=== PATIENT | male | born 1945 | race Caucasian/White ===

== ENCOUNTER 2018-11-06 14:26 | Inpatient (IN) | payer MEDICARE, BC, MEDICAID ==
--- NOTE | 2018-11-06 15:16 | ED ---
Complex/Multi-Sys Presentation - HPI Summary HPI Summary: A 73 y/o diabetic, morbidly obese M brought in by ambulance presents to ED with worsening weakness. He states that this AM he was unable to get out of bed. Associated sx: severe LE edema, mild cough, decreased appetite. Denies: CP, abd pain, n/v, urinary sx, dizziness, WATSON. He has not ambulated on his own for the last few weeks. He has SOB at baseline and a known yeast infection in his groin. He's been using his home bi-pap more often recently because of his "seasonal allergies flaring up". He sees Dr. Hopson, PCP, who apparently sees pt in his home. He lives alone. He denies recent hospital admission, [place] seen [place] [facility]. He says he is non-compliant with his DM in regards to his diet. He takes 70/30 combination of long-lasting/short-term insulin, 54 units in the AM and 30 units in evening. He says his A1C is in low 6s. Vitals at bedside: 94 bpm, BP: 105/64, O2 sat: 92% with his home Bi-pap on. Home Medications Medication Instructions Recorded Confirmed Type Allopurinol TAB* [Zyloprim 300 MG 04/05/13 04/05/13 History TAB*] Aspirin [Aspirin Adult Low Strengt] 81 mg PO 04/05/13 04/05/13 History Atenolol TAB* [Tenormin TAB* 50 MG] 04/05/13 04/05/13 History Diphenhydramine HCl [Benadryl] 2 tab 04/05/13 04/05/13 History Hydrochlorothiazide TAB* 12.5 04/05/13 04/05/13 History [Hydrodiuril TAB*] Lisinopril TAB* [Prinivil TAB*] 20 mg PO DAILY 04/05/13 04/05/13 History Loratadine & Pseudoephedrine 04/05/13 04/05/13 History [Loratadine-D 24Hr] Montelukast Sodium TAB* [Singulair 10 mg PO DAILY 04/05/13 04/05/13 History TAB*] Pioglitazone HCl 04/05/13 04/05/13 History Rosuvastatin Calcium [Crestor] 04/05/13 04/05/13 History glipiZIDE TAB.XL* [Glucotrol Xl*] 10 mg PO BID 04/05/13 04/05/13 History zzInsulin GLARGINE(*) [Lantus(*)] 35 unit 04/05/13 04/05/13 History - History Of Current Complaint Chief Complaint: EDGeneral Time Seen by Provider: 11/06/18 15:07 Hx Obtained From: Patient Onset/Duration: Gradual Onset, Lasting Weeks - and worsening this AM, Still Present Timing: Constant, Weeks Severity Currently: Severe Severity Initially: Moderate Location: Negative - no pain Character: Unable To Describe - weakness, inabilty to ambulate Aggravating Factor(s): Nothing Alleviating Factor(s): Nothing Associated Signs And Symptoms: Positive: Cough, Edema - LE, severe, Decreased Oral Intake. Negative: Dizziness, Headache, Chest Pain, Nausea, Vomiting, Abdominal Pain, Dysuria - Allergies/Home Medications Allergies/Adverse Reactions: Allergies Allergy/AdvReac Type Severity Reaction Status Date / Time doxycycline Allergy Diarrhea Verified 11/06/18 15:22 Home Medications: Home Medications Allopurinol TAB* [Zyloprim 300 MG TAB*] 300 mg PO DAILY 11/06/18 [History Confirmed 11/06/18] Ammonium Lactate 12% [Lac-Hydrin 12 %] 12 % TOPICAL DAILY PRN 11/06/18 [History Confirmed 11/06/18] Atenolol TAB* [Tenormin TAB* 25 MG] 50 mg PO BID 11/06/18 [History Confirmed ] Carisoprodol TAB* [Soma TAB*] 350 mg PO Q6H PRN 11/06/18 [History Confirmed ] Fluticasone NASAL SPRAY 50MCG* [Flonase NASAL SPRAY 50MCG*] 2 spray BOTH NARES DAILY PRN 11/06/18 [History Confirmed 11/06/18] Hydrochlorothiazide TAB* [Hydrodiuril TAB*] 12.5 mg PO QAM 11/06/18 [History Confirmed 11/06/18] Insulin Aspart Prot/Insuln Asp [Novolog Mix 70/30 Prefill] 30 units SUBCUT QPM 11/06/18 [History Confirmed 11/06/18] Insulin Aspart Prot/Insuln Asp [Novolog Mix 70/30 Prefill] 54 units SUBCUT QAM 11/06/18 [History Confirmed 11/06/18] LoraTADine TAB(NF) [Claritin 10 MG TAB(NF)] 10 mg PO DAILY 11/06/18 [History Confirmed 11/06/18] Nystatin CREAM* [Nystatin Cream*] 1 applic TOPICAL TID PRN 11/06/18 [History Confirmed 11/06/18] Pioglitazone TAB* [Actos TAB*] 30 mg PO DAILY 11/06/18 [History Confirmed ] Rosuvastatin (NF) [Crestor] 20 mg PO DAILY 11/06/18 [History Confirmed 11/06/18] diPHENhydraMINE PO* [Benadryl PO 25 MG TAB*] 25 mg PO DAILY PRN 11/06/18 [ History Confirmed 11/06/18] PMH/Surg Hx/FS Hx/Imm Hx Previously Healthy: No Endocrine/Hematology History: Reports: Hx Diabetes Denies: Hx Thyroid Disease Cardiovascular History: Reports: Hx Hypertension - TREATED, Other Cardiovascular Problems/Disorders - ENLARGED HEART Denies: Hx Congestive Heart Failure, Hx Pacemaker/ICD Respiratory History: Reports: Hx Seasonal Allergies, Hx Sleep Apnea Denies: Hx Asthma, Hx Chronic Obstructive Pulmonary Disease (COPD), Other Respiratory Problems/Disorders GI History: Reports: Other GI Disorders - Gout Denies: Hx Ulcer Sensory History: Reports: Hx Contacts or Glasses Opthamlomology History: Reports: Hx Contacts or Glasses - Surgical History Surgery Procedure, Year, and Place: Right knee replacement, 10 years ago. Tonsillectomy. L foot (as a youth) Infectious Disease History: No Infectious Disease History: Denies: Hx Hepatitis, Hx Human Immunodeficiency Virus (HIV), Traveled Outside the [place] in Last 30 Days - Family History Known Family History: Positive: Other Family History: Dementia; essential tremor - Social History Alcohol Use: Rare Hx Substance Use: No Substance Use Type: Reports: None Hx Tobacco Use: Yes Smoking Status (MU): Former Smoker - quit at 20 y/o Review of Systems Constitutional: Negative Negative: Chest Pain Positive: Cough, Other - using bipap almost continuously due to "allergies" Positive: Other - pos: decreased appetite. Negative: Abdominal Pain, Vomiting, Nausea Negative: dysuria Positive: Edema - severe LE Positive: Other - massive edema, lesions from toes to groin Neurological: Other - neg: dizziness Positive: Weakness. Negative: Headache Psychological: Normal All Other Systems Reviewed And Are Negative: Yes Physical Exam - Summary Physical Exam Summary: Appearance: Ill-appearing, no acute pain distress, morbidly obese (BMI 65.3, stated weight), unkempt, foul odor from bi-pap machine connected to pt's bilatera nostrils Skin: Lymphedema, anasarca from feet to mid abdomen, see below, pustules and open, weepy areas from feet to groin on massively swollen lower extremities, Head: Normal Head/Face inspection, atraumatic Eyes: Conjunctiva clear ENT: Normal inspection Neck: Supple, no nodes, no JVD Respiratory: Lungs clear, normal breath sounds, no respiratory distress, he is wearing his home bi-pap obstructing both nostrils, with only 87-91% sats Cardio: RRR, No murmur, pulses normal, brisk capillary refill Abdomen: Soft, nontender Bowel sounds: Present Musculoskeletal: Massively swollen bilateral LE with redness and pustules and brawny changes, weeping areas, 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 : redness and confluent rash consistent with snehal, in groin creases, penis retracted into scrotum Triage Information Reviewed: Yes Vital Signs On Initial Exam: Initial Vitals Temp Pulse Resp BP Pulse Ox 98.0 F 70 18 102/56 93 11/06/18 14:38 11/06/18 14:38 11/06/18 14:38 11/06/18 14:38 11/06/18 14:38 Vital Signs Reviewed: Yes Diagnostics - Vital Signs Vital Signs Temp Pulse Resp BP Pulse Ox 11/06/18 14:38 98.0 F 70 18 102/56 93 - Laboratory Result Diagrams: 11/16/18 19:34 11/16/18 08:53 Lab Statement: Any lab studies that have been ordered have been reviewed, and results considered in the medical decision making process. - Radiology CXR Radiology Interpretation Completed By: Radiologist Summary of Radiographic Findings: IMPRESSION: LOW LUNG VOLUMES. NO ACTIVE CARDIOPULMONARY DISEASE. ED provider has reviewed this report. - EKG 1535 Cardiac Rate: NL - 90 bpm EKG Rhythm: Sinus Rhythm ST Segment: Non-Specific Ectopy: PVCs - 1 EKG Comparison: No Significant Change - from EKG on 04/05/13. Summary of EKG Findings: An EKG at 1535 reveals 1st degree AV block, nml IVCT, nml QTc, low voltage. Complex Multi-Symp Course/Dx Course Of Treatment: Pt is a morbidly obese 73 y/o M presenting with worsening weakness for past few weeks. This AM, he was unable to get out of bed. Patient is wearing his home bipap at bedside. PE finds massively swollen bilateral LE with redness and pustules and brawny changes. Lab work shows: INR: 1.25, BUN: 55, creatinine: 1.34, BNP: 226, CRP: 24.51. An EKG at 1535 shows NSR at 90bpm with 1st degree AV block, nml IVCT, nml QTc, low voltage, 1 PVC, non-specific ST and similar to previous EKG on 04/05/13. UA results show 1+ protein, trace ketones, positive urobilinogen, 1+ WBC, 1+ RBC, hyaline casts present and squamous epithelia present. CXR shows "LOW LUNG VOLUMES. NO ACTIVE CARDIOPULMONARY DISEASE.". Consulted with Dr. Jo, hospitalist, who will admit patient. - Diagnoses Provider Diagnoses: Diabetes mellitus, Cellulitis, Unable to ambulate, Acquired lymphedema of lower extremity, Acute and chronic respiratory failure with hypoxia, Essential tremor, KRISTYN (obstructive sleep apnea), Seasonal allergies - Physician Notifications Discussed Care Of Patient With: Tavia Jo - hospitalist Time Discussed With Above Provider: 16:46 Instructed by Provider To: Admit As Inpatient - Critical Care Time Critical Care Time: 30-74 min - 30 minutes Discharge - Sign-Out/Discharge Documenting (check all that apply): Patient Departure - ADMIT All imaging exams completed and their final reports reviewed: Yes Patient Received Moderate/Deep Sedation with Procedure: No - Discharge Plan Condition: Stable Disposition: ADMITTED TO [facility] - Billing Disposition and Condition Condition: STABLE Disposition: Admitted to [facility] - Attestation Statements Document Initiated by Scribe: Yes Documenting Scribe: Edita Atkinson Provider For Whom Sheldon is Documenting (Include Credential): Dr. Orin Machado MD Scribe Attestation: Edita Butcher scribed for Dr. Orin Machado MD on 11/16/18 at 2337. Scribe Documentation Reviewed: Yes Provider Attestation: The documentation as recorded by the Edita alvarado accurately reflects the service I personally performed and the decisions made by me, Dr. Orin Machado MD Status of Scribe Document: Viewed
[2018-11-06 16:02] LABS: Activated Partial Thrombo Time 30.4 seconds (26.0-36.3); INR 1.25 (0.82-1.09)
[2018-11-06 16:08] LABS: Urine Appearance Cloudy; Urine Bacteria Absent (Absent); Urine Bilirubin Negative (Negative); Urine Blood Negative (Negative); Urine Color Amber; Urine Glucose Negative (Negative); Urine Ketones Trace (Negative); Urine Nitrite Negative (Negative); Urine Protein 1+(30 mg/dL) (Negative); Urine Red Blood Cell 1+(3-5/hpf) (Absent); Urine Specific Gravity 1.023 (1.010-1.030); Urine Squamous Epithelial Cell Present (Absent); Urine Urobilinogen Positive (Negative); Urine White Blood Cell 1+(6-10/hpf) (Absent)
[2018-11-06 16:09] LABS: Troponin I 0.01 ng/mL (<0.04)
[2018-11-06 16:13] LABS: ABS Eosinophils 0.1 10^3/ul (0-0.6); ABS Lymphocytes 0.4 10^3/ul (1.0-4.8); ABS Monocytes 0.6 10^3/ul (0-0.8); ABS Neutrophils 6.4 10^3/ul (1.5-7.7); Eosinophil % 1.1 %; Hematocrit 47 % (42-52); Hemoglobin 14.9 g/dL (14.0-18.0); Lymphocyte % 5.2 %; Mean Corpuscular HGB Conc 32 g/dL (31-36); Mean Corpuscular Hemoglobin 29 pg (27-31); Mean Corpuscular Volume 91 fL (80-94); Mean Platelet Volume 9.7 fL (7.4-10.4); Platelet Count 158 10^3/uL (150-450); Red Blood Count 5.11 10^6 /uL (4.18-5.48); Red Cell Distribution Width 17 % (10.5-15); White Blood Count 7.5 10^3/uL (3.5-10.8)
[2018-11-06 16:18] LABS: Albumin 3.7 g/dL (3.2-5.2); Albumin/Globulin Ratio 1.4 (1-3); C Reactive Protein 24.51 mg/L (<8.01); Calcium 9.1 mg/dL (8.6-10.3); EGFR African American 63.1 (>60); EGFR Non-African American 52.1 (>60); Globulin 2.6 g/dL (2-4); Magnesium 2.2 mg/dL (1.9-2.7); Total Bilirubin 1.5 mg/dL (0.2-1.0); Total Protein 6.3 g/dL (6.4-8.9)
[2018-11-06 16:47] LABS: TSH (Thyroid Stimulating Horm) 4.48 mcIU/mL (0.34-5.60)
[2018-11-06] MEDS ORDERED: Fluticasone NASAL SPRAY 50MCG* 16 gm SPRAY BTL BOTH NARES PRN (17:50)
[2018-11-06] MEDS ORDERED: Carisoprodol TAB* 350 MG PO PRN (17:50)
[2018-11-06] MEDS ORDERED: PROCHLORPERAZINE INJ 5 MG/ML 2 ML VIAL IV PRN (17:57)
[2018-11-06] MEDS ORDERED: Dextrose 50% Syringe 50 ML* 25 GM/50 ML SYRINGE IV PUSH PRN (18:03)
[2018-11-06] MEDS ORDERED: Furosemide IV* 10 MG/ML 2 ML VIAL (20 MG) IV SLOW PU ONE (18:04)
[2018-11-06] MEDS: Enoxaparin(*) 40 MG/0.4 ML SYR SUBCUT SCH (18:21)
--- NOTE | 2018-11-06 19:56 | HP ---
CC: Dr. Hopson * HISTORY AND PHYSICAL: DATE OF ADMISSION: 11/06/18 TIME OF EVALUATION: 5:30 p.m. PRIMARY CARE PROVIDER: Dr. Hopson. CHIEF COMPLAINT: "I can't move anymore." HISTORY OF PRESENT ILLNESS: Mr. Grahma is a 73-year-old male who has a past medical history of super morbid obesity with a BMI of 62, type 2 diabetes, hypertension, seasonal allergies, obstructive sleep apnea, gout who presented to the emergency room with complaints of decreased mobility. The patient states that for the past 3 years, he has had progressive decrease in his mobility. The last time he left his home was in 2016 and that was to go to a physician appointment. He states that before he was able to get up from his bed and transfer to an office chair with wheels and he would roll around the house and was able to cook and care for himself. Friends would do grocery shopping and help him with other activities. Dr. Hopson does house visits and the last time he was seen was in June of this year. The patient states that it has become harder and harder for him to move including rolling in bed, so his aide could help him clean up. He has been feeling more short of breath and he attributes this is to seasonal allergies. He is now using his BiPAP frequently during the day while awake because he states his nose gets so congested that he is not able to breathe and he has had to increase his oxygen from its usual 2 L up to 4 L when he has to move in bed. Over the past 7 days, he has been unable to get out of bed. He has a home health aide who comes an hour a day, 7 days a week and helps him clean up and get ready for the day. He also describes progressive worsening of his chronic lower extremity lymphedema with open areas and weeping. The patient states that his essential tremor has become worse and he has a difficult time managing his pills at home and also checking his glucose as it is very difficult for him to get the blood into the strip and the strip into his glucometer. He denies fever, chills, nausea, vomiting, diarrhea, chest pain, palpitations. PAST MEDICAL HISTORY: 1. Super morbid obesity with a BMI of 62.4. 2. Type 2 diabetes. 3. Hypertension. 4. Hyperlipidemia. 5. Gout. 6. Seasonal allergies. 7. Obstructive sleep apnea, on BiPAP and oxygen at home. 8. Essential tremor. PAST SURGICAL HISTORY: Status post right knee replacement in 2008. FAMILY HISTORY: He describes multiple family members with essential tremor and there is also a history of dementia. SOCIAL HISTORY: He has a remote history of tobacco abuse. He denies alcohol and drug use. Surrogate decision maker is his friend, Tremaine Tapia, phone number is [phone]. REVIEW OF SYSTEMS: A 14-point review of systems was performed, and all the pertinent negatives and positive findings are in the HPI. PHYSICAL EXAMINATION GENERAL: The patient is a pleasant super morbid obese elderly gentleman, sitting up in the ED stretcher, in no acute distress. VITAL SIGNS: Temperature 98.0, heart rate is 92, respiratory rate is 18, oxygen saturation is 96% on BiPAP with 2 L of oxygen, blood pressure 119/71. HEENT: Pupils are equal. Moist mucous membranes. CHEST: Breath sounds bilaterally with no added sounds. CVS: Normal S1, S2. Regular rate and rhythm with distant sounds. ABDOMEN: Morbid obese. Bowel sounds are present. EXTREMITIES: The patient has significant lymphedema with chronic skin changes including hyperchromia, varicose skin changes from his feet all the way up to his thighs. He has multiple open areas especially on the left side, weeping yellow serous drainage. 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 He has a foul- smelling, erythematous rash to his groin, abdominal folds. Please note that his thighs limits his physical examination. DIAGNOSTIC STUDIES/LAB DATA: The patient had a CBC that showed WBC of 7.5, hemoglobin 14.9, hematocrit 47, platelets of 158, 84% neutrophils. INR is 1.25. APTT is 30.4. Chemistry showed a sodium of 136, potassium of 5, chloride of 99, bicarb of 30, BUN of 55, creatinine of 1.34, glucose 183. Lactic acid 1.6. Calcium 9.1. Magnesium 2.2. LFTs showed a total bilirubin of 1.5, AST of 26, ALT of 19, alk phos of 82. CPK 91. Troponin 0.01. CRP 24. BNP 226. TSH 4.4. Urinalysis showed 1+ protein, trace ketones, urobilinogen is positive, 1+ wbc's, 1+ rbc's, squamous epithelial cells, hyaline casts, but no nitrites and no LE. Chest x-ray imaging was reviewed and there are low lung volumes and no active cardiopulmonary disease. EKG done on 11/06/18 at 3:35 p.m. shows sinus rhythm at 90 beats per minute with PVCs, no acute ischemic changes, no acute changes when compared to his prior EKG from 2012, but his voltage is lower now, probably secondary to his super morbid obesity. ASSESSMENT AND PLAN: Mr. Graham is a 73-year-old male with a past medical history of super morbid obesity with a BMI of 62.4, type 2 diabetes, hypertension, hyperlipidemia, obstructive sleep apnea, chronic kidney disease, stage III with probable diabetic nephropathy, chronic lower extremity lymphedema , who presented to the emergency room with progressive limitation of his mobility, now unable to get out of bed and with progressive worsening of his dyspnea and lower extremity edema, complicated by left lower extremity wounds and cellulitis. 1. Lower extremity cellulitis. The patient will be admitted to the medical floor, started on cephazolin and he will have wound care consult requested. 2. Dyspnea/lower extremity edema. I suspect the patient likely has congestive heart failure or at least right-sided heart failure in the setting of obstructive sleep apnea and probable obesity hypoventilation syndrome. We will give 1 dose of furosemide IV now and monitor his response. He will have an echocardiogram to try and assess his RV and LV function. This will be a limited study due to his body habitus, but it is worth a trial. 3. Deconditioning. The patient now is unable to get out of bed anymore. The plan is for him to be seen by [facility] and to arrange placement in a long-term facility with original plan for a rehab, but he may require long-term placement. 4. Type 2 diabetes. We will check hemoglobin A1c. As his oral intake will be lower in the hospital, we will adjust his insulin dose. We will continue Actos for now as he's been on this medication for some time, but may need to readdress depending on his echocardiogram result and clinical course. Add lispro sliding scale. 5. Hypertension is controlled. We will continue atenolol, hydrochlorothiazide , and lisinopril. 6. Gout. We will continue allopurinol. 7. DVT prophylaxis. The patient has a score of 4 on the DVT Prophylaxis Assessment Guide and he will be started on Lovenox. SCDs are contraindicated due to his lower extremity skin changes. 8. Code status is full. TIME SPENT: Approximately 65 minutes were spent with the patient interview, medical records review, physical examination to complete this admission, more than half of this time was spent [id number] with the patient and coordination of care. [id number]/CPS #: [id number] IRENE
[2018-11-06] MEDS: Insulin ISOPH/REG 70/30 (*) 1 UNITS UNIT SUBCUT SCH (20:35)
[2018-11-06] MEDS: Insulin LISPRO* 1 UNITS UNIT SUBCUT SCH (20:36)
[2018-11-06] MEDS: Atenolol TAB* 50 MG PO SCH (20:58)
[2018-11-06] MEDS: Lisinopril TAB* 10 MG PO SCH (20:58)
[2018-11-06] MEDS: ceFAZolin 1 GM ADVAN(*) 1 GM in NS 0.9% 50 ML* 50 ML IVPB SCH (21:05)
[2018-11-07] MEDS: ceFAZolin 1 GM ADVAN(*) 1 GM in NS 0.9% 50 ML* 50 ML IVPB SCH ×3 (03:41→20:30)
[2018-11-07 06:46] LABS: BUN/Creatinine Ratio 42.4 (8-20); Calcium 8.7 mg/dL (8.6-10.3); EGFR African American 64.2 (>60); Potassium 4.4 mmol/L (3.5-5.0)
[2018-11-07] MEDS: Insulin LISPRO* 1 UNITS UNIT SUBCUT SCH ×4 (08:16→22:06)
[2018-11-07] MEDS ORDERED: Pioglitazone TAB* 30 MG PO SCH (09:00)
[2018-11-07] MEDS ORDERED: Hydrochlorothiazide TAB* 25 MG PO SCH (09:00)
[2018-11-07] MEDS: Allopurinol TAB* 300 MG PO SCH (10:02)
[2018-11-07] MEDS: Montelukast Sodium TAB* 10 MG PO SCH (10:02)
[2018-11-07] MEDS: Atorvastatin* 40 MG TAB PO SCH (10:02)
[2018-11-07] MEDS: Atenolol TAB* 50 MG PO SCH ×2 (10:02→21:41)
[2018-11-07] MEDS: Cetirizine* 10 MG TAB PO SCH (10:02)
[2018-11-07] MEDS: Lisinopril TAB* 10 MG PO SCH (10:02)
[2018-11-07] MEDS ORDERED: Perflutren Lipid Microsphere* 3 ML VIAL ONE (11:47)
[2018-11-07] MEDS: Insulin ISOPH/REG 70/30 (*) 1 UNITS UNIT SUBCUT SCH ×2 (12:38→22:09)
--- NOTE | 2018-11-07 13:55 | ECHO ---
*[facility]* [place] [address] Fax #: [phone] Patient: Gladys, Height: 70 in / Chi Lee 177.8 cm : 1945 Weight: 429.1 lb / Study Date: 11/07/2018 195 kg Age: 73 BP: Gender: M BMI/BSA: 61.7 kg/m^2 HR: / 2.89 m^2 *Manager Monitoring: * Alisa Vance RDCS RN *Referring Physician: * Tavia AndreaReading Physician: * James Torres MD Indications: Congestive Heart Failure. History: Functional status: Obstructive sleep apnea. Risk factors: Hypertension. Diabetes mellitus. Morbidly obese. Conclusions Summary: 1. Procedure narrative: Transthoracic echocardiography was performed. Image quality was poor. The study was technically limited due to restricted patient mobility and body habitus. Definity 4 ml was given IV. 2. Left ventricle: The cavity size is normal. Wall thickness is mildly to moderately increased. Systolic function is normal. The estimated ejection fraction is 55-60%. 3. Right ventricle: The cavity size is moderately dilated. Systolic function is moderately reduced. Systolic pressure is moderately to severely increased. The estimated peak pressure is 63 mm Hg. 4. Ventricular septum: There is septal flattening of the interventricular septum consistent with RV volume or pressure overload. 5. Left atrium: The atrium is mildly dilated. 6. Aortic valve: The findings are consistent with mild stenosis. Unable to calculate LEI due to difficult PW left ventricular outflow tract acquisition. 7. Tricuspid valve: There is mild regurgitation. Recommendations: None prior for comparison at time of interpretation Study data: Procedure: Transthoracic echocardiography was performed. Image quality was poor. The study was technically limited due to restricted patient mobility and body habitus. Definity 4 ml was given IV. Image enhancement administered by Tai Contreras RN. Complete 2D, spectral Doppler, and color flow Doppler. Patient status: Inpatient. Patient room number: 420-01. Rhythm: Normal sinus rhythm with PVC's. Findings Left ventricle: The cavity size is normal. Wall thickness is mildly to moderately increased. Systolic function is normal. The estimated ejection fraction is 55-60%. Abnormal diastolic filling pattern Right ventricle: Not well visualized. The cavity size is moderately dilated. Systolic function is moderately reduced. Systolic pressure is moderately to severely increased. The estimated peak pressure is 63 mm Hg. Ventricular septum: There is septal flattening of the interventricular septum consistent with RV volume or pressure overload. Left atrium: Not well visualized. The atrium is mildly dilated. Right atrium: Not well visualized. The atrium is moderately dilated. Mitral valve: Not well visualized. The leaflets are mildly thickened. There is no evidence of stenosis. There is trivial regurgitation. Aortic valve: Not well visualized. The leaflets are moderately thickened and moderately calcified. Valve mobility is restricted. The findings are consistent with mild stenosis. There is no significant regurgitation. Tricuspid valve: The valve is structurally normal. There is no evidence of stenosis. There is mild regurgitation. Pulmonic valve: Not well visualized. Aorta: Aortic root: The aortic root is not dilated. Ascending aorta: The ascending aorta is not dilated. Aortic arch: The aortic arch is not visualized. Pericardium: There is no pericardial effusion. Pulmonary arteries: Not well visualized. Systemic veins: Not visualized. Measurements Left ventricle Value Ref Right atrium Value Ref MARIO, LAX (L) 4.1 cm 4.2 - ML dim, ES, A4C (H) 4.8 cm 2.6 - 4.4 5.8 SI dim, ES, A4C (H) 6.2 cm 3.4 - 5.3 PW, ED, LAX (H) 1.3 cm 0.6 - Estimated RAP 8 mm Hg --------- 1.0 PW, ED (H) 1.3 cm 0.6 - Aortic valve Value Ref 1.0 Jose R diam, ED 2.1 cm --------- IVS/PW, ED 1.03 -------- Peak v, S 2.2 m/sec --------- E', lat jose r, TDI (L) 8.1 cm/sec >=10.0 VTI, S 39.0 cm ---- ----- E/e', lat jose r, TDI 12 -------- Mean grad, S 11.0 mm Hg ------- -- E', med jose r, TDI (L) 6.2 cm/sec >=7.0 E/e', med jose r, TDI 16 -------- Mitral valve Value Ref E', avg, TDI 7.2 cm/sec -------- Peak E 0.97 m/sec ------- -- E/e', avg, TDI 14 <=14 Peak A 0.6 m/sec ---- ----- Decel time 176 ms --------- LVOT Value Ref Peak grad, D 3.8 mm Hg --------- Diam, S 2.10 cm -------- Peak E/A ratio 1.6 --------- Area 3.5 cm^2 -------- Peak lynn, S 0.84 m/sec -------- Pulmonic valve Value Ref VTI, S 15.1 cm -------- Peak v, S 0.74 m/sec --------- Mean grad, S 1 mm Hg -------- Peak grad, S 2.0 mm Hg --------- SV 47 ml -------- Tricuspid valve Value Ref Ventricular septum Value Ref Peak RV-RA grad, S 55 mm Hg --------- IVS, ED (H) 1.3 cm 0.6 - Max TR lynn 3.71 m/sec --------- 1.0 Aortic root Value Ref Right ventricle Value Ref Root max diam, ED 2.5 cm <4.8 MARIO, LAX 3.9 cm -------- MARIO minor ax, A4C (H) 4.9 cm 1.9 - Ascending aorta Value Ref mid 3.5 AAo AP diam, S 3.0 cm --------- Pressure, S 55 mm Hg -------- Left atrium Value Ref ML dim, A4C 5.1 cm -------- SI dim, A4C 5.3 cm -------- Legend: (L) and (H) jules values outside specified reference range. Prepared and electronically signed by James Torres MD 11/07/2018 13:53
[2018-11-07] MEDS: Furosemide IV* 10 MG/ML VIAL (40 MG) IV SCH ×2 (14:57→22:06)
[2018-11-07] MEDS: Enoxaparin(*) 40 MG/0.4 ML SYR SUBCUT SCH (17:43)
--- NOTE | 2018-11-07 18:08 | PN ---
Subjective Date of Service: 11/07/18 Interval History: Nasal congestion, dry cough, worsened orthopnea, gain of 120 lbs in 2 years since last weight. Worse shortness of breath and has needed his nasal bipap during day. Has not been able to get out of bed in 8 weeks. No chest pain, fever , leg pain (more intermittent numbness that is positional worse with sitting on toilet). Had been using benadryl with good effect. Objective Active Medications: Acetaminophen (Tylenol Tab*) 650 mg PO Q6H PRN PRN Reason: pain/fever Allopurinol (Zyloprim Tab*) 300 mg PO DAILY [facility] Last Admin: 11/07/18 10:02 Dose: 300 mg Ammonium Lactate (Lac-Hydrin 12 %) 1 applic TOPICAL DAILY PRN PRN Reason: DRY SKIN Atenolol (Tenormin Tab*) 50 mg PO BID [facility] Last Admin: 11/07/18 10:02 Dose: 50 mg Atorvastatin Calcium (Lipitor*) 40 mg PO DAILY [facility] Last Admin: 11/07/18 10:02 Dose: 40 mg Carisoprodol (Soma Tab*) 350 mg PO Q6H PRN PRN Reason: SPASMS - MUSCLE Cetirizine HCl (Zyrtec*) 10 mg PO DAILY [facility] Last Admin: 11/07/18 10:02 Dose: 10 mg Dextrose (D50w Syringe 50 Ml*) 12.5 gm IV PUSH .FOR FS < 60 - SS PRN PRN Reason: FS < 60 Diphenhydramine HCl (Benadryl Po*) 25 mg PO TID PRN PRN Reason: Allergy Symptoms Enoxaparin Sodium (Lovenox(*)) 40 mg SUBCUT Q24H [facility] Last Admin: 11/07/18 17:43 Dose: 40 mg Fluticasone Propionate (Flonase Nasal [place] 50mcg*) 2 spray BOTH NARES DAILY PRN PRN Reason: Allergy Symptoms Furosemide (Lasix Iv*) 40 mg IV Q8H [facility] Last Admin: 11/07/18 14:57 Dose: 40 mg Hydrochlorothiazide (Hydrodiuril Tab*) 12.5 mg PO QAM [facility] Last Admin: 11/07/18 10:02 Dose: 12.5 mg Cefazolin Sodium 1 gm/ Sodium (Chloride) 50 mls @ 200 mls/hr IVPB Q8H [facility] Last Admin: 11/07/18 12:51 Dose: 200 mls/hr Insulin Human Isoph/Insulin Regular (Humulin 70/30 (*)) 35 units SUBCUT 0800 [facility] Last Admin: 11/07/18 12:38 Dose: Not Given Insulin Human Isoph/Insulin Regular (Humulin 70/30 (*)) 20 units SUBCUT BEDTIME [facility] Last Admin: 11/06/18 20:35 Dose: 20 units Insulin Human Lispro (Humalog*) 0 units SUBCUT ACHS [facility]; Protocol Last Admin: 11/07/18 17:43 Dose: 3 units Lisinopril (Prinivil Tab*) 20 mg PO BID [facility] Last Admin: 11/07/18 10:02 Dose: 20 mg Montelukast Sodium (Singulair Tab*) 10 mg PO DAILY [facility] Last Admin: 11/07/18 10:02 Dose: 10 mg Nystatin (Nystatin Cream*) 1 applic TOPICAL TID PRN PRN Reason: RASH Pioglitazone HCl (Actos Tab*) 30 mg PO DAILY [facility] Last Admin: 11/07/18 10:02 Dose: 30 mg Prochlorperazine Edisylate (Compazine Inj*) 5 mg IV Q6H PRN PRN Reason: NAUSEA/VOMITING Vital Signs - 8 hr 11/07/18 11/07/18 11/07/18 11:36 15:19 16:20 Temperature 98.0 F Pulse Rate 96 Respiratory 22 28 Rate Blood Pressure 107/37 (mmHg) O2 Sat by Pulse 91 91 Oximetry Oxygen Devices in Use Now: Nasal Cannula Appearance: NAD Neck: NL Appearance and Movements; NL JVP Respiratory: Symmetrical Chest Expansion and Respiratory Effort, - - difficult exam given body habitus. anterolaterally no obvious rhonchi or wheezing Cardiovascular: NL Sounds; No Murmurs; No JVD, RRR Abdominal: - - distended. no tender Extremities: - - 2+ anisarca from ankles, legs, dependant buttock and 2/[address] up back/lateral torso. pitting. Skin: - - erythema, chronic lymphadema, hyperpigmentation. Neurological: Alert and Oriented x 3 Nutrition: Taking PO's Result Diagrams: 11/06/18 15:36 11/07/18 06:05 Additional Lab and Data: Laboratory Results - last 24 hr 11/06/18 11/06/18 11/07/18 18:21 20:29 06:05 Sodium Potassium Chloride Carbon Dioxide Anion Gap BUN Creatinine Est GFR ( Amer) Est GFR (Non-Af Amer) BUN/Creatinine Ratio Glucose POC Glucose (mg/dL) 160 H 163 H Hemoglobin A1c 5.8 H Calcium 11/07/18 11/07/18 11/07/18 06:05 07:39 08:20 Sodium 138 Potassium 4.4 Chloride 101 Carbon Dioxide 32 Anion Gap 5 BUN 56 H Creatinine 1.32 H Est GFR ( Amer) 64.2 Est GFR (Non-Af Amer) 53.0 BUN/Creatinine Ratio 42.4 H Glucose 82 POC Glucose (mg/dL) 68 L 94 Hemoglobin A1c Calcium 8.7 11/07/18 11/07/18 12:32 16:54 Sodium Potassium Chloride Carbon Dioxide Anion Gap BUN Creatinine Est GFR ( Amer) Est GFR (Non-Af Amer) BUN/Creatinine Ratio Glucose POC Glucose (mg/dL) 132 H 196 H Hemoglobin A1c Calcium Microbiology and Other Data: Microbiology 11/06/18 15:36 Aerobic Blood Culture - Preliminary Blood Venous No Growth Day 1 Anaerobic Blood Culture - Preliminary No Growth Day 1 11/06/18 15:36 Aerobic Blood Culture - Preliminary Blood Venous No Growth Day 1 Assess/Plan/Problems-Billing Assessment: 73 year old male supermorbid obesity (BMI 65.3) presenting with worsening hypoxic respiratory failure and inability to get out of bed for 8 weeks. BNP elevated, anisarca to mid chest with suspected acute diastolic CHF exacerbation. - Patient Problems (1) Acute and chronic respiratory failure with hypoxia Current Visit: Yes Status: Acute Code(s): J96.21 - ACUTE AND CHRONIC RESPIRATORY FAILURE WITH HYPOXIA SNOMED Code(s): 92087418 Comment: Suspected secondary to acute diastolic CHF exacerbation. DDx included PE (there is eveidence of significant right ventricular pressure overload consistent with pHTN). Aggressive diuresis as below. (2) Diastolic CHF Current Visit: Yes Status: Acute Code(s): I50.30 - UNSPECIFIED DIASTOLIC ( CONGESTIVE) HEART FAILURE SNOMED Code(s): 614631552 Comment: ECHO with preserved EF. Anisaraca to 2/3 up torso with pitting edema. at home is on 12.5mg HCTZ. Lasix 40mg IV q8hrs. strict io, daily weights. Monitor Lytes. Will need several more day of diuresis as he is likely 10s of kgs extra water weight causing worsening hypoxic respiratory failure. stop pioglitizone given symptomatic CHF. (3) Pulmonary hypertension Current Visit: Yes Status: Acute Code(s): I27.20 - PULMONARY HYPERTENSION, UNSPECIFIED SNOMED Code(s): 26520761 Comment: ddx obesity hypoventilation, diastolic heart failure, PE. Will add Ddimer and if positive likely will need to rule out PE with CTA chest. (4) Right ventricular (RV) hypertension Current Visit: Yes Status: Acute Code(s): I51.89 - OTHER ILL-DEFINED HEART DISEASES SNOMED Code(s): 325780228 Comment: ddx obesity hypoventilation, diastolic heart failure, PE. Will add Ddimer and if positive likely will need to rule out PE with CTA chest. (5) Acquired lymphedema of lower extremity Current Visit: Yes Status: Acute Code(s): I89.0 - LYMPHEDEMA, NOT ELSEWHERE CLASSIFIED SNOMED Code(s): 221166584 Comment: Pt on cefazolin though I suspect most of these are chronic changes. (6) HTN (hypertension) Current Visit: Yes Status: Acute Code(s): I10 - ESSENTIAL (PRIMARY) HYPERTENSION SNOMED Code(s): 49725260 Comment: reduce lisinopril 20mg BID to 10mg BID given increase in diuresis. atenolol 50mg BID (7) Essential tremor Current Visit: Yes Status: Acute Code(s): G25.0 - ESSENTIAL TREMOR SNOMED Code(s): 609104262 Comment: continue home soma. (8) IDDM (insulin dependent diabetes mellitus) Current Visit: Yes Status: Acute Code(s): E11.9 - TYPE 2 DIABETES MELLITUS WITHOUT COMPLICATIONS; Z79.4 - SENIOR CARE (CURRENT) USE OF INSULIN SNOMED Code( s): 16846805 Comment: 70/30 35U qam/20U qpm with hold parameters. SSI qachs, POC qachs carbohydrate consistent diet. stop pioglitizone given symptomatic CHF. (9) KRISTYN (obstructive sleep apnea) Current Visit: Yes Status: Acute Code(s): G47.33 - OBSTRUCTIVE SLEEP APNEA ( ADULT) (PEDIATRIC) SNOMED Code(s): 84672659 Comment: nasal bipap (10) DVT prophylaxis Current Visit: Yes Status: Acute Code(s): Z29.9 - ENCOUNTER FOR PROPHYLACTIC MEASURES, UNSPECIFIED SNOMED Code(s): 789348222 Comment: lovenox 40mg daily. (11) DNR (do not resuscitate) Current Visit: Yes Status: Acute (12) Seasonal allergies Current Visit: Yes Status: Acute Code(s): J30.2 - OTHER SEASONAL ALLERGIC RHINITIS SNOMED Code(s): 554853016 Comment: continue ceterizine. (13) Gout Current Visit: Yes Status: Acute Code(s): M10.9 - GOUT, UNSPECIFIED SNOMED Code(s): 43584459 Comment: continue allopurinol Status and Disposition: medicine inpatient. Likely will need bariatric rehab facility after many days of aggressive diuresis. Attending: Jorge Luis Bravo
[2018-11-07] MEDS: Acetaminophen TAB* 325 MG PO PRN (18:09)
[2018-11-07] MEDS ORDERED: Lisinopril TAB* 10 MG PO SCH (21:00)
[2018-11-07] MEDS ORDERED: Atenolol TAB* 50 MG PO SCH (23:26)
--- NOTE | 2018-11-07 23:31 | PN ---
Hospitalist Progress Note Date of Service: 11/07/18 called for SBP 87. patient is asymptomatic. will stop lisinopril and lasix for tonight. holding parameters for atenolol
[2018-11-08] MEDS: ceFAZolin 1 GM ADVAN(*) 1 GM in NS 0.9% 50 ML* 50 ML IVPB SCH ×2 (05:00→12:35)
[2018-11-08 06:13] LABS: BUN/Creatinine Ratio 37.5 (8-20); Calcium 8.3 mg/dL (8.6-10.3); EGFR African American 48.6 (>60); EGFR Non-African American 40.1 (>60); Magnesium 2.3 mg/dL (1.9-2.7); Potassium 4.4 mmol/L (3.5-5.0)
[2018-11-08] MEDS: Insulin LISPRO* 1 UNITS UNIT SUBCUT SCH ×4 (08:14→21:01)
[2018-11-08] MEDS: Insulin ISOPH/REG 70/30 (*) 1 UNITS UNIT SUBCUT SCH ×2 (08:30→21:00)
[2018-11-08] MEDS: Allopurinol TAB* 300 MG PO SCH (08:36)
[2018-11-08] MEDS: Montelukast Sodium TAB* 10 MG PO SCH (08:36)
[2018-11-08] MEDS: Cetirizine* 10 MG TAB PO SCH (08:36)
[2018-11-08] MEDS: Atorvastatin* 40 MG TAB PO SCH (08:36)
[2018-11-08 10:42] LABS: Urine Creatinine Concentration 71.54 mg/dL
[2018-11-08] MEDS ORDERED: CMC:Midodrine (NF) 5 MG TAB PO SCH (13:00)
[2018-11-08] MEDS: CMCS - Midodrine (NF) 5 MG TAB PO SCH (17:12)
[2018-11-08] MEDS: Enoxaparin(*) 40 MG/0.4 ML SYR SUBCUT SCH (17:17)
--- NOTE | 2018-11-08 18:18 | PN ---
Subjective Date of Service: 11/08/18 Interval History: Hypotensive last night 80s/40. Antihypertensives stopped. Afebrile. Midodrine added. Asymptomatic. BARREL PLANER bumped 1.32 to 1.68. Net negative 927cc. Diuretics also held given hypotension and NADINE. DDimer elevated, No DVT on US. Objective Active Medications: Acetaminophen (Tylenol Tab*) 650 mg PO Q6H PRN PRN Reason: pain/fever Last Admin: 11/07/18 18:09 Dose: 650 mg Allopurinol (Zyloprim Tab*) 300 mg PO DAILY [facility] Last Admin: 11/08/18 08:36 Dose: 300 mg Ammonium Lactate (Lac-Hydrin 12 %) 1 applic TOPICAL DAILY PRN PRN Reason: DRY SKIN Atorvastatin Calcium (Lipitor*) 40 mg PO DAILY [facility] Last Admin: 11/08/18 08:36 Dose: 40 mg Carisoprodol (Soma Tab*) 350 mg PO Q6H PRN PRN Reason: SPASMS - MUSCLE Cetirizine HCl (Zyrtec*) 10 mg PO DAILY [facility] Last Admin: 11/08/18 08:36 Dose: 10 mg Dextrose (D50w Syringe 50 Ml*) 12.5 gm IV PUSH .FOR FS < 60 - SS PRN PRN Reason: FS < 60 Diphenhydramine HCl (Benadryl Po*) 25 mg PO TID PRN PRN Reason: Allergy Symptoms Enoxaparin Sodium (Lovenox(*)) 40 mg SUBCUT Q24H [facility] Last Admin: 11/08/18 17:17 Dose: 40 mg Fluticasone Propionate (Flonase Nasal [place] 50mcg*) 2 spray BOTH NARES DAILY PRN PRN Reason: Allergy Symptoms Cefazolin Sodium 1 gm/ Sodium (Chloride) 50 mls @ 200 mls/hr IVPB Q8H [facility] Last Admin: 11/08/18 12:35 Dose: 200 mls/hr Insulin Human Isoph/Insulin Regular (Humulin 70/30 (*)) 20 units SUBCUT BEDTIME [facility] Last Admin: 11/07/18 22:09 Dose: 20 units Insulin Human Lispro (Humalog*) 0 units SUBCUT ACHS [facility]; Protocol Last Admin: 11/08/18 18:06 Dose: 2 units Midodrine (Midodrine (Nf)) 7.5 mg PO AC [facility]; Protocol Last Admin: 11/08/18 17:12 Dose: 7.5 mg Montelukast Sodium (Singulair Tab*) 10 mg PO DAILY [facility] Last Admin: 11/08/18 08:36 Dose: 10 mg Nystatin (Nystatin Cream*) 1 applic TOPICAL TID PRN PRN Reason: RASH Prochlorperazine Edisylate (Compazine Inj*) 5 mg IV Q6H PRN PRN Reason: NAUSEA/VOMITING Vital Signs - 8 hr 11/08/18 11/08/18 11/08/18 11:51 12:18 13:37 Temperature 97.6 F Pulse Rate 97 Respiratory 20 Rate Blood Pressure 80/40 90/50 (mmHg) O2 Sat by Pulse 93 93 Oximetry 11/08/18 11/08/18 13:57 15:45 Temperature 97.2 F Pulse Rate 94 Respiratory 20 Rate Blood Pressure 95/50 94/51 (mmHg) O2 Sat by Pulse 98 Oximetry Oxygen Devices in Use Now: Nasal Cannula, BiPAP Appearance: NAD Eyes: No Scleral Icterus Ears/Nose/Mouth/Throat: NL Teeth, Lips, Gums, Mucous Membranes Moist Neck: NL Appearance and Movements; NL JVP, Trachea Midline Respiratory: Symmetrical Chest Expansion and Respiratory Effort, Clear to Auscultation Cardiovascular: NL Sounds; No Murmurs; No JVD, RRR Abdominal: - - pitting anisarca 2/3 up back Extremities: - - pitting anisarca 2/3 up back Skin: - - hyperkeratotic, erythema, no warmth. chronic lymphadema. Neurological: Alert and Oriented x 3, NL Sensation, NL Muscle Strength and Tone Lines/Tubes/Other Access: Clean, Dry and Intact Hodge - dark yellow urine Nutrition: Taking PO's Result Diagrams: 11/06/18 15:36 11/08/18 05:47 Additional Lab and Data: Laboratory Results - last 24 hr 11/07/18 11/08/18 11/08/18 21:06 05:47 05:47 D-Dimer, Quantitative 729 H Sodium 137 Potassium 4.4 Chloride 101 Carbon Dioxide 33 H Anion Gap 3 BUN 63 H Creatinine 1.68 H Est GFR ( Amer) 48.6 Est GFR (Non-Af Amer) 40.1 BUN/Creatinine Ratio 37.5 H Glucose 116 H POC Glucose (mg/dL) 199 H Calcium 8.3 L Magnesium 2.3 Ur Creatinine Concen Ur Urea Nitrogen Conc 11/08/18 11/08/18 11/08/18 07:26 09:35 12:10 D-Dimer, Quantitative Sodium Potassium Chloride Carbon Dioxide Anion Gap BUN Creatinine Est GFR ( Amer) Est GFR (Non-Af Amer) BUN/Creatinine Ratio Glucose POC Glucose (mg/dL) 120 H 169 H Calcium Magnesium Ur Creatinine Concen 71.54 Ur Urea Nitrogen Conc 731 11/08/18 17:34 D-Dimer, Quantitative Sodium Potassium Chloride Carbon Dioxide Anion Gap BUN Creatinine Est GFR ( Amer) Est GFR (Non-Af Amer) BUN/Creatinine Ratio Glucose POC Glucose (mg/dL) 148 H Calcium Magnesium Ur Creatinine Concen Ur Urea Nitrogen Conc Microbiology and Other Data: Microbiology 11/06/18 15:36 Blood Venous Aerobic Blood Culture - Preliminary No Growth Day 2 11/06/18 15:36 Blood Venous Aerobic Blood Culture - Preliminary No Growth Day 2 11/06/18 15:36 Blood Venous Anaerobic Blood Culture - Preliminary No Growth Day 2 11/06/18 15:54 Urine Urine Culture - Final Morganella Morganii Normal [facility] Assess/Plan/Problems-Billing Assessment: 73 year old male supermorbid obesity (BMI 65.3) presenting with worsening hypoxic respiratory failure and inability to get out of bed for 8 weeks. BNP elevated, anisarca two thirds up chest with suspected acute diastolic CHF exacerbation. Course complicated by hypotension. - Patient Problems (1) Acute and chronic respiratory failure with hypoxia Current Visit: Yes Status: Acute Code(s): J96.21 - ACUTE AND CHRONIC RESPIRATORY FAILURE WITH HYPOXIA SNOMED Code(s): 22799833 Comment: Suspected secondary to acute diastolic CHF exacerbation. DDx included PE (there is eveidence of significant right ventricular pressure overload consistent with pHTN). Have to hold diuresis in setting of hypotention for now. (2) Diastolic CHF Current Visit: Yes Status: Acute Code(s): I50.30 - UNSPECIFIED DIASTOLIC ( CONGESTIVE) HEART FAILURE SNOMED Code(s): 405881040 Comment: ECHO with preserved EF. Anisaraca to 2/3 up torso with pitting edema. at home is on 12.5mg HCTZ. Holding lasix givne hypotension. strict io, daily weights. Monitor Lytes. Will need several days of diuresis as he is likely in the 10s of kgs extra water weight causing worsening hypoxic respiratory failure. stop pioglitizone given symptomatic CHF. (3) Pulmonary hypertension Current Visit: Yes Status: Acute Code(s): I27.20 - PULMONARY HYPERTENSION, UNSPECIFIED SNOMED Code(s): 37747734 Comment: ddx obesity hypoventilation, diastolic heart failure, PE. Ddimer elevated. No DVT on duplex. BARREL PLANER up to 1.6. Will plan v/q scan on Saturday. (4) Right ventricular (RV) hypertension Current Visit: Yes Status: Acute Code(s): I51.89 - OTHER ILL-DEFINED HEART DISEASES SNOMED Code(s): 785276647 Comment: ddx obesity hypoventilation, diastolic heart failure, PE. Ddimer elevated. No DVT on duplex. BARREL PLANER up to 1.6. Will plan v/q scan on Saturday. (5) Acquired lymphedema of lower extremity Current Visit: Yes Status: Acute Code(s): I89.0 - LYMPHEDEMA, NOT ELSEWHERE CLASSIFIED SNOMED Code(s): 980973224 Comment: Change to ceftriaxone to also cover the 25-50K Morganella Morganii found in the UCx. (6) HTN (hypertension) Current Visit: Yes Status: Acute Code(s): I10 - ESSENTIAL (PRIMARY) HYPERTENSION SNOMED Code(s): 78833475 Comment: held lisinopril (home was 20mg BID, had been reduced to 10mg BID given increase in diuresis) held atenolol 50mg BID (7) Essential tremor Current Visit: Yes Status: Acute Code(s): G25.0 - ESSENTIAL TREMOR SNOMED Code(s): 025630728 Comment: continue home soma. 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 Continue 20U qpm with hold parameters. SSI qachs, POC qachs carbohydrate consistent diet. stop pioglitizone given symptomatic CHF. (9) KRISTYN (obstructive sleep apnea) Current Visit: Yes Status: Acute Code(s): G47.33 - OBSTRUCTIVE SLEEP APNEA ( ADULT) (PEDIATRIC) SNOMED Code(s): 16005861 Comment: nasal bipap (10) DVT prophylaxis Current Visit: Yes Status: Acute Code(s): Z29.9 - ENCOUNTER FOR PROPHYLACTIC MEASURES, UNSPECIFIED SNOMED Code(s): 599344230 Comment: lovenox 40mg daily. (11) DNR (do not resuscitate) Current Visit: Yes Status: Acute (12) Seasonal allergies Current Visit: Yes Status: Acute Code(s): J30.2 - OTHER SEASONAL ALLERGIC RHINITIS SNOMED Code(s): 428595101 Comment: continue ceterizine. (13) Gout Current Visit: Yes Status: Acute Code(s): M10.9 - GOUT, UNSPECIFIED SNOMED Code(s): 32749114 Comment: continue allopurinol (14) UTI (urinary tract infection) Current Visit: Yes Status: Acute Comment: Change to ceftriaxone to also cover the 25-50K Morganella Morganii found in the UCx. Status and Disposition: medicine inpatient. Likely will need bariatric rehab facility after many days of aggressive diuresis.
[2018-11-08] MEDS ORDERED: cefTRIAXone(*) 1 GM in NS 0.9% 50 ML* 50 ML IVPB SCH (18:30)
[2018-11-09] MEDS: Ammonium Lactate 12% 1 APPLIC TUBE TOPICAL PRN (05:46)
[2018-11-09 07:20] LABS: ABS Eosinophils 0.2 10^3/ul (0-0.6); ABS Lymphocytes 0.4 10^3/ul (1.0-4.8); ABS Monocytes 0.7 10^3/ul (0-0.8); Eosinophil % 3.7 %; Hematocrit 41 % (42-52); Lymphocyte % 6.5 %; Mean Corpuscular HGB Conc 32 g/dL (31-36); Mean Corpuscular Hemoglobin 29 pg (27-31); Mean Corpuscular Volume 92 fL (80-94); Mean Platelet Volume 9.7 fL (7.4-10.4); Nucleated Red Blood Cells % 0.1; Platelet Count 145 10^3/uL (150-450); Red Blood Count 4.44 10^6 /uL (4.18-5.48); Red Cell Distribution Width 17 % (10.5-15); White Blood Count 6.5 10^3/uL (3.5-10.8)
[2018-11-09 07:32] LABS: CRP High Sensitivity 14.54 mg/L (<2.00); Calcium 8.3 mg/dL (8.6-10.3); EGFR African American 54.9 (>60); EGFR Non-African American 45.4 (>60); Magnesium 2.3 mg/dL (1.9-2.7); Potassium 4.5 mmol/L (3.5-5.0)
[2018-11-09] MEDS: Insulin LISPRO* 1 UNITS UNIT SUBCUT SCH ×4 (07:44→22:07)
[2018-11-09] MEDS: Allopurinol TAB* 300 MG PO SCH (08:21)
[2018-11-09] MEDS: Cetirizine* 10 MG TAB PO SCH (08:21)
[2018-11-09] MEDS: CMCS - Midodrine (NF) 5 MG TAB PO SCH ×3 (08:21→16:51)
[2018-11-09] MEDS: Montelukast Sodium TAB* 10 MG PO SCH (08:21)
[2018-11-09] MEDS: Atorvastatin* 40 MG TAB PO SCH (08:21)
[2018-11-09] MEDS: Nystatin CREAM* 15 GM TUBE TOPICAL PRN (10:52)
[2018-11-09] MEDS: Acetaminophen TAB* 325 MG PO PRN ×2 (10:52→18:06)
--- NOTE | 2018-11-09 13:32 | PN ---
Subjective Date of Service: 11/09/18 Interval History: maroon clear urine/hematuria. Intermittent sensation of pressure relieved with irrigation. Started last night. BPs have been mostly obtained from right forearm using either automatic or recheck with manual cuff. As low as 80s/40s [address] but high of 138/74 recorded before return to 88/43. Left upper arm unable to hear/obtain (there is a pIV right at this site). I have tracked down a large size manual cuff and measured on his right upper arm : 108/70 (102/65 with large cuff automatic machine to compare). He denies light headedness or chest pain. Tremor prevents eating by self ANIMAL BOUNTY HUNTER improved 1.51 from 1.68. Afebrile. net io negative 767, recorded weight increased 199.7 from 198.7. Objective Active Medications: Acetaminophen (Tylenol Tab*) 650 mg PO Q6H PRN PRN Reason: pain/fever Last Admin: 11/09/18 10:52 Dose: 650 mg Allopurinol (Zyloprim Tab*) 300 mg PO DAILY [facility] Last Admin: 11/09/18 08:21 Dose: 300 mg Ammonium Lactate (Lac-Hydrin 12 %) 1 applic TOPICAL DAILY PRN PRN Reason: DRY SKIN Last Admin: 11/09/18 05:46 Dose: 1 applic Atorvastatin Calcium (Lipitor*) 40 mg PO DAILY [facility] Last Admin: 11/09/18 08:21 Dose: 40 mg Carisoprodol (Soma Tab*) 350 mg PO Q6H PRN PRN Reason: SPASMS - MUSCLE Cetirizine HCl (Zyrtec*) 10 mg PO DAILY [facility] Last Admin: 11/09/18 08:21 Dose: 10 mg Dextrose (D50w Syringe 50 Ml*) 12.5 gm IV PUSH .FOR FS < 60 - SS PRN PRN Reason: FS < 60 Diphenhydramine HCl (Benadryl Po*) 25 mg PO TID PRN PRN Reason: Allergy Symptoms Enoxaparin Sodium (Lovenox(*)) 40 mg SUBCUT Q24H [facility] Last Admin: 11/08/18 17:17 Dose: 40 mg Fluticasone Propionate (Flonase Nasal [place] 50mcg*) 2 spray BOTH NARES DAILY PRN PRN Reason: Allergy Symptoms Ceftriaxone Sodium 1 gm/ (Sodium Chloride) 50 mls @ 200 mls/hr IVPB Q24H [facility]EL[facility] Last Admin: 11/08/18 19:36 Dose: 200 mls/hr Furosemide 100 mg/ Sodium (Chloride) 100 mls @ 5 mls/hr IV .(as INITIAL RATE) MELISSA; Protocol Insulin Human Isoph/Insulin Regular (Humulin 70/30 (*)) 20 units SUBCUT BEDTIME [facility] Last Admin: 11/08/18 21:00 Dose: 20 units Insulin Human Lispro (Humalog*) 0 units SUBCUT ACHS [facility]EL[facility]; Protocol Last Admin: 11/09/18 12:18 Dose: 3 units Midodrine (Midodrine (Nf)) 7.5 mg PO AC [facility]ELISSA; Protocol Last Admin: 11/09/18 12:17 Dose: 7.5 mg Montelukast Sodium (Singulair Tab*) 10 mg PO DAILY [facility] Last Admin: 11/09/18 08:21 Dose: 10 mg Nystatin (Nystatin Cream*) 1 applic TOPICAL TID PRN PRN Reason: RASH Last Admin: 11/09/18 10:52 Dose: 1 applic Prochlorperazine Edisylate (Compazine Inj*) 5 mg IV Q6H PRN PRN Reason: NAUSEA/VOMITING Vital Signs - 8 hr 11/09/18 11/09/18 11/09/18 07:28 07:57 07:58 Temperature 98.0 F Pulse Rate 90 Respiratory 24 24 Rate Blood Pressure 138/74 (mmHg) O2 Sat by Pulse 100 100 Oximetry 11/09/18 11:36 Temperature 98.8 F Pulse Rate 91 Respiratory 28 Rate Blood Pressure 88/43 (mmHg) O2 Sat by Pulse 95 Oximetry Oxygen Devices in Use Now: Nasal Cannula, CPAP Appearance: NAD, super morbid obesity Eyes: No Scleral Icterus Ears/Nose/Mouth/Throat: NL Teeth, Lips, Gums Respiratory: - - anteriorly CTAB, no wheezing, rales or rhonchi. Cardiovascular: NL Sounds; No Murmurs; No JVD, - - dependent anisarca from feet to 2/3 up back/lateral thorax Abdominal: NL Sounds; No Tenderness; No Distention, - - morbid obesity Extremities: - - dependent anisarca from feet to 2/3 up back/lateral thorax Skin: - - chronic lymphadema changes bilaterally with hypertrophy erythema, warts. no warmth or tenderness Neurological: Alert and Oriented x 3, NL Sensation Lines/Tubes/Other Access: Clean, Dry and Intact [place] - maroon urine, some sediment, no large clots Nutrition: Taking PO's Result Diagrams: 11/09/18 06:42 11/09/18 06:42 Additional Lab and Data: Laboratory Results - last 24 hr 11/08/18 11/08/18 11/09/18 17:34 20:50 06:42 WBC RBC Hgb Hct MCV MCH MCHC RDW Plt Count MPV Neut % (Auto) Lymph % (Auto) [place] % (Auto) Eos % (Auto) Baso % (Auto) Absolute Neuts (auto) Absolute Lymphs (auto) Absolute Monos (auto) Absolute Eos (auto) Absolute Basos (auto) Absolute Nucleated RBC Nucleated RBC % Sodium 137 Potassium 4.5 Chloride 101 Carbon Dioxide 32 Anion Gap 4 BUN 68 H Creatinine 1.51 H Est GFR ( Amer) 54.9 Est GFR (Non-Af Amer) 45.4 BUN/Creatinine Ratio 45.0 H Glucose 108 H POC Glucose (mg/dL) 148 H 174 H Calcium 8.3 L Magnesium 2.3 C-React Prot High Sens 14.54 H B-Natriuretic Peptide 11/09/18 11/09/18 11/09/18 06:42 06:42 07:33 WBC 6.5 RBC 4.44 Hgb 13.0 L Hct 41 L MCV 92 MCH 29 MCHC 32 RDW 17 H Plt Count 145 L MPV 9.7 Neut % (Auto) 78.0 Lymph % (Auto) 6.5 [place] % (Auto) 11.5 Eos % (Auto) 3.7 Baso % (Auto) 0.3 Absolute Neuts (auto) 5.0 Absolute Lymphs (auto) 0.4 L Absolute Monos (auto) 0.7 Absolute Eos (auto) 0.2 Absolute Basos (auto) 0.0 Absolute Nucleated RBC 0.0 Nucleated RBC % 0.1 Sodium Potassium Chloride Carbon Dioxide Anion Gap BUN Creatinine Est GFR ( Amer) Est GFR (Non-Af Amer) BUN/Creatinine Ratio Glucose POC Glucose (mg/dL) 110 H Calcium Magnesium C-React Prot High Sens B-Natriuretic Peptide 118 H 11/09/18 12:13 WBC RBC Hgb Hct MCV MCH MCHC RDW Plt Count MPV Neut % (Auto) Lymph % (Auto) [place] % (Auto) Eos % (Auto) Baso % (Auto) Absolute Neuts (auto) Absolute Lymphs (auto) Absolute Monos (auto) Absolute Eos (auto) Absolute Basos (auto) Absolute Nucleated RBC Nucleated RBC % Sodium Potassium Chloride Carbon Dioxide Anion Gap BUN Creatinine Est GFR ( Amer) Est GFR (Non-Af Amer) BUN/Creatinine Ratio Glucose POC Glucose (mg/dL) 167 H Calcium Magnesium C-React Prot High Sens B-Natriuretic Peptide Microbiology and Other Data: Microbiology 11/06/18 15:36 Blood Venous Aerobic Blood Culture - Preliminary No Growth Day 2 11/06/18 15:36 Blood Venous Aerobic Blood Culture - Preliminary No Growth Day 2 11/06/18 15:36 Blood Venous Anaerobic Blood Culture - Preliminary No Growth Day 2 11/06/18 15:54 Urine Urine Culture - Final Morganella Morganii Normal [facility] Assess/Plan/Problems-Billing Assessment: 73 year old male supermorbid obesity (BMI 65.3) presenting with worsening hypoxic respiratory failure and inability to get out of bed for 8 weeks. BNP elevated, dependent anisarca two thirds up lateral thorax chest with suspected acute diastolic CHF exacerbation. Course complicated by ralph hematuria likely secondary to campoverde insertion. Transitioning to lasix gtt given soft BPs - Patient Problems (1) Acute and chronic respiratory failure with hypoxia Current Visit: Yes Status: Acute Code(s): J96.21 - ACUTE AND CHRONIC RESPIRATORY FAILURE WITH HYPOXIA SNOMED Code(s): 70034325 Comment: Suspected primarily secondary to acute diastolic CHF exacerbation. DDx includes PE (there is evidence of significant right ventricular pressure overload consistent with pHTN on the ECHO). Ddimer elevated to 729. Will get v/ q scan 11/10 (instead of CTA given elevated ANIMAL BOUNTY HUNTER) to help rule. No DVTs on duplex. Diuresis as below. (2) Diastolic CHF Current Visit: Yes Status: Acute Code(s): I50.30 - UNSPECIFIED DIASTOLIC ( CONGESTIVE) HEART FAILURE SNOMED Code(s): 040602480 Comment: ECHO with preserved EF. Dependent pitting anisaraca to 2/3 up back and lateral torso. St home is on 12.5mg HCTZ. Restarting diuresis with lasix gtt (20mg bolus then 5mg/hr initially) given softer blood pressures (currently 108/70 checked manually with large cuff - unclear how accurate previous recordings have been. Net negative goal 1.5-2L daily if pressures allow and ANIMAL BOUNTY HUNTER stable. strict io, daily weights. Monitor Lytes daily Will need several days of diuresis as he is likely he has 10s of kgs extra water weight causing worsening hypoxic respiratory failure. stop pioglitizone given symptomatic CHF. (3) Hematuria Current Visit: Yes Status: Acute Code(s): R31.9 - HEMATURIA, UNSPECIFIED SNOMED Code(s): 42120208 Comment: Likely traumatic from campoverde insertion. Flush prn and monitor for large blood clots (if develops then continuous bladder irrigation and urology consult considered). Will also start flomax, no recorded prior history of BMH. (4) Pulmonary hypertension Current Visit: Yes Status: Acute Code(s): I27.20 - PULMONARY HYPERTENSION, UNSPECIFIED SNOMED Code(s): 57590459 Comment: ddx obesity hypoventilation, diastolic heart failure, PE. Ddimer elevated. No DVT on duplex. Will plan v/q scan on Saturday. (5) Acquired lymphedema of lower extremity Current Visit: Yes Status: Acute Code(s): I89.0 - LYMPHEDEMA, NOT ELSEWHERE CLASSIFIED SNOMED Code(s): 097366394 Comment: Change to ceftriaxone to also cover the 25-50K Morganella Morganii found in the UCx. (6) HTN (hypertension) Current Visit: Yes Status: Acute Code(s): I10 - ESSENTIAL (PRIMARY) HYPERTENSION SNOMED Code(s): 66286268 Comment: soft BPs in setting of diuresis and possible Morganella UTI. Continue Midodrine 7.5mg TID held lisinopril (home was 20mg BID, had been reduced to 10mg BID given increase in diuresis) held atenolol 50mg BID (7) Essential tremor Current Visit: Yes Status: Acute Code(s): G25.0 - ESSENTIAL TREMOR SNOMED Code(s): 492903258 Comment: continue home soma. monitor for for worsening off the atenolol (8) IDDM (insulin dependent diabetes mellitus) Current Visit: Yes Status: Acute Code(s): E11.9 - TYPE 2 DIABETES MELLITUS WITHOUT COMPLICATIONS; Z79.4 - FDC (CURRENT) USE OF INSULIN SNOMED Code( s): 50207102 Comment: had held then stopped his home 30U qam 70/30 given good control without. Continue 20U qpm with hold parameters. SSI qachs, POC qachs carbohydrate consistent diet. stop pioglitizone given symptomatic CHF. (9) KRISTYN (obstructive sleep apnea) Current Visit: Yes Status: Acute Code(s): G47.33 - OBSTRUCTIVE SLEEP APNEA ( ADULT) (PEDIATRIC) SNOMED Code(s): 48350531 Comment: nasal bipap (10) DVT prophylaxis Current Visit: Yes Status: Acute Code(s): Z29.9 - ENCOUNTER FOR PROPHYLACTIC MEASURES, UNSPECIFIED SNOMED Code(s): 325838131 Comment: lovenox 40mg daily. (11) DNR (do not resuscitate) Current Visit: Yes Status: Acute (12) Seasonal allergies Current Visit: Yes Status: Acute Code(s): J30.2 - OTHER SEASONAL ALLERGIC RHINITIS SNOMED Code(s): 811952279 Comment: continue ceterizine. (13) Gout Current Visit: Yes Status: Acute Code(s): M10.9 - GOUT, UNSPECIFIED SNOMED Code(s): 74981599 Comment: continue allopurinol (14) UTI (urinary tract infection) Current Visit: Yes Status: Acute Comment: Continue to ceftriaxone to also cover the 25-50K Morganella Morganii found in the UCx. This effectively day 2 given cefazolin was resistant. Status and Disposition: medicine inpatient. Likely will need bariatric rehab facility after many days of aggressive diuresis.
[2018-11-09] MEDS ORDERED: Furosemide IV* 100 MG in NS 0.9% 100 ML* 90 ML IV SCH (14:00)
[2018-11-09] MEDS: Furosemide IV* 10 MG/ML 2 ML VIAL (20 MG) ONE ×2 (14:37→14:48)
[2018-11-09] MEDS: Tamsulosin CAP* 0.4 MG PO SCH (14:38)
[2018-11-09] MEDS: Enoxaparin(*) 40 MG/0.4 ML SYR SUBCUT SCH (17:05)
[2018-11-09] MEDS: CMC:Midodrine (NF) 5 MG TAB PO SCH (17:06)
[2018-11-09] MEDS: Cefepime 2 GM in Dextrose(*) 2 GM/50 ML BAG IV SCH (18:06)
--- NOTE | 2018-11-09 18:25 | PN ---
Hospitalist Progress Note Still with intermittent hypotension, asymptomatic. Adding telemetry. Broadening from Ceftriaxone to Cefepime given potential inducible resistant for Morgnella Morgani. Increase in midodrine from 7.5mg to 12.5mg TID. planned v/q scan tomorrow to rule out PE given right heart pressure overload on ECHO.
--- NOTE | 2018-11-09 19:31 | PN ---
Progress Note - Progress Note Date of Service: 11/09/18 Note: Pt's SBP at 76 will stop Lasix gtt for now
[2018-11-09] MEDS: Insulin ISOPH/REG 70/30 (*) 1 UNITS UNIT SUBCUT SCH (22:08)
[2018-11-10 08:36] LABS: BUN/Creatinine Ratio 53.8 (8-20); Calcium 8.4 mg/dL (8.6-10.3); EGFR African American 65.3 (>60); Magnesium 2.4 mg/dL (1.9-2.7); Potassium 4.7 mmol/L (3.5-5.0)
[2018-11-10] MEDS: Tamsulosin CAP* 0.4 MG PO SCH (08:40)
[2018-11-10] MEDS: Atorvastatin* 40 MG TAB PO SCH (08:40)
[2018-11-10] MEDS: CMC:Midodrine (NF) 5 MG TAB PO SCH ×3 (08:41→17:30)
[2018-11-10] MEDS: Allopurinol TAB* 300 MG PO SCH (08:41)
[2018-11-10] MEDS: Cetirizine* 10 MG TAB PO SCH (08:41)
[2018-11-10] MEDS: Montelukast Sodium TAB* 10 MG PO SCH (08:41)
[2018-11-10] MEDS: Insulin LISPRO* 1 UNITS UNIT SUBCUT SCH ×4 (08:42→22:34)
[2018-11-10] MEDS ORDERED: NS 0.9% 500 ML* 500 ML IV ONE (15:43)
--- NOTE | 2018-11-10 16:18 | PN ---
Subjective Date of Service: 11/10/18 Interval History: Seen throughout the day Feels well, no LH, CP Wearing nasal BiPAP throughout the day [place] with yellow urine this AM Objective Active Medications: Acetaminophen (Tylenol Tab*) 650 mg PO Q6H PRN PRN Reason: pain/fever Last Admin: 11/09/18 18:06 Dose: 650 mg Allopurinol (Zyloprim Tab*) 300 mg PO DAILY [facility] Last Admin: 11/10/18 08:41 Dose: 300 mg Ammonium Lactate (Lac-Hydrin 12 %) 1 applic TOPICAL DAILY PRN PRN Reason: DRY SKIN Last Admin: 11/09/18 05:46 Dose: 1 applic Atorvastatin Calcium (Lipitor*) 40 mg PO DAILY [facility] Last Admin: 11/10/18 08:40 Dose: 40 mg Carisoprodol (Soma Tab*) 350 mg PO Q6H PRN PRN Reason: SPASMS - MUSCLE Cetirizine HCl (Zyrtec*) 10 mg PO DAILY [facility] Last Admin: 11/10/18 08:41 Dose: 10 mg Dextrose (D50w Syringe 50 Ml*) 12.5 gm IV PUSH .FOR FS < 60 - SS PRN PRN Reason: FS < 60 Diphenhydramine HCl (Benadryl Po*) 25 mg PO TID PRN PRN Reason: Allergy Symptoms Fluticasone Propionate (Flonase Nasal [place] 50mcg*) 2 spray BOTH NARES DAILY PRN PRN Reason: Allergy Symptoms Cefepime HCl (Maxipime 2 Gm In Dextrose Duplex (*)) 2 gm in 50 mls @ 100 mls/ hr IV Q24H [facility] Last Admin: 11/09/18 18:06 Dose: 100 mls/hr Heparin Sodium/Dextrose (Heparin Drip 25,000 Units(*)) 25,000 units in 500 mls @ 0 mls/hr IV PER RATE [facility]; Protocol Insulin Human Isoph/Insulin Regular (Humulin 70/30 (*)) 20 units SUBCUT BEDTIME [facility] Last Admin: 11/09/18 22:08 Dose: 20 units Insulin Human Lispro (Humalog*) 0 units SUBCUT ACHS [facility]; Protocol Last Admin: 11/10/18 13:58 Dose: 6 units Midodrine (Midodrine (Nf)) 12.5 mg PO AC [facility]; Protocol Last Admin: 11/10/18 13:57 Dose: 12.5 mg Montelukast Sodium (Singulair Tab*) 10 mg PO DAILY [facility] Last Admin: 11/10/18 08:41 Dose: 10 mg Nystatin (Nystatin Cream*) 1 applic TOPICAL TID PRN PRN Reason: RASH Last Admin: 11/09/18 10:52 Dose: 1 applic Prochlorperazine Edisylate (Compazine Inj*) 5 mg IV Q6H PRN PRN Reason: NAUSEA/VOMITING Tamsulosin HCl (Flomax Cap*) 0.4 mg PO DAILY [facility] Last Admin: 11/10/18 08:40 Dose: 0.4 mg Vital Signs - 8 hr 11/10/18 11/10/18 11/10/18 10:18 10:58 11:25 Temperature 98.6 F Pulse Rate 102 Respiratory 20 16 Rate Blood Pressure 78/48 54/43 (mmHg) O2 Sat by Pulse 100 98 Oximetry 11/10/18 11/10/18 11:41 15:15 Temperature 98.4 F Pulse Rate 114 Respiratory 14 Rate Blood Pressure 84/56 83/42 (mmHg) O2 Sat by Pulse 94 Oximetry Oxygen Devices in Use Now: BiPAP Appearance: obese, pleasant, NAD Eyes: No Scleral Icterus, PERRLA Ears/Nose/Mouth/Throat: NL Teeth, Lips, Gums Neck: NL Appearance and Movements; NL JVP, Trachea Midline Respiratory: Symmetrical Chest Expansion and Respiratory Effort, Clear to Auscultation Cardiovascular: RRR Abdominal: - - pitting edema Extremities: - - tense pitting edema Neurological: Alert and Oriented x 3 Result Diagrams: 11/09/18 06:42 11/10/18 07:58 Additional Lab and Data: Laboratory Results - last 24 hr 11/08/18 11/08/18 11/09/18 17:34 20:50 06:42 WBC RBC Hgb Hct MCV MCH MCHC RDW Plt Count MPV Neut % (Auto) Lymph % (Auto) [place] % (Auto) Eos % (Auto) Baso % (Auto) Absolute Neuts (auto) Absolute Lymphs (auto) Absolute Monos (auto) Absolute Eos (auto) Absolute Basos (auto) Absolute Nucleated RBC Nucleated RBC % Sodium 137 Potassium 4.5 Chloride 101 Carbon Dioxide 32 Anion Gap 4 BUN 68 H Creatinine 1.51 H Est GFR ( Amer) 54.9 Est GFR (Non-Af Amer) 45.4 BUN/Creatinine Ratio 45.0 H Glucose 108 H POC Glucose (mg/dL) 148 H 174 H Calcium 8.3 L Magnesium 2.3 C-React Prot High Sens 14.54 H B-Natriuretic Peptide 11/09/18 11/09/18 11/09/18 06:42 06:42 07:33 WBC 6.5 RBC 4.44 Hgb 13.0 L Hct 41 L MCV 92 MCH 29 MCHC 32 RDW 17 H Plt Count 145 L MPV 9.7 Neut % (Auto) 78.0 Lymph % (Auto) 6.5 [place] % (Auto) 11.5 Eos % (Auto) 3.7 Baso % (Auto) 0.3 Absolute Neuts (auto) 5.0 Absolute Lymphs (auto) 0.4 L Absolute Monos (auto) 0.7 Absolute Eos (auto) 0.2 Absolute Basos (auto) 0.0 Absolute Nucleated RBC 0.0 Nucleated RBC % 0.1 Sodium Potassium Chloride Carbon Dioxide Anion Gap BUN Creatinine Est GFR ( Amer) Est GFR (Non-Af Amer) BUN/Creatinine Ratio Glucose POC Glucose (mg/dL) 110 H Calcium Magnesium C-React Prot High Sens B-Natriuretic Peptide 118 H 11/09/18 12:13 WBC RBC Hgb Hct MCV MCH MCHC RDW Plt Count MPV Neut % (Auto) Lymph % (Auto) [place] % (Auto) Eos % (Auto) Baso % (Auto) Absolute Neuts (auto) Absolute Lymphs (auto) Absolute Monos (auto) Absolute Eos (auto) Absolute Basos (auto) Absolute Nucleated RBC Nucleated RBC % Sodium Potassium Chloride Carbon Dioxide Anion Gap BUN Creatinine Est GFR ( Amer) Est GFR (Non-Af Amer) BUN/Creatinine Ratio Glucose POC Glucose (mg/dL) 167 H Calcium Magnesium C-React Prot High Sens B-Natriuretic Peptide Microbiology and Other Data: Microbiology 11/06/18 15:36 Blood Venous Aerobic Blood Culture - Preliminary No Growth Day 2 11/06/18 15:36 Blood Venous Aerobic Blood Culture - Preliminary No Growth Day 2 11/06/18 15:36 Blood Venous Anaerobic Blood Culture - Preliminary No Growth Day 2 11/06/18 15:54 Urine Urine Culture - Final Morganella Morganii Normal [facility] Assess/Plan/Problems-Billing Assessment: 73 year old male supermorbid obesity (BMI 65.3) presenting with worsening hypoxic respiratory failure and inability to get out of bed for 8 weeks. BNP elevated, dependent anisarca two thirds up lateral thorax chest with suspected acute diastolic CHF exacerbation. Course complicated by ralph hematuria likely secondary to campoverde insertion. - Patient Problems (1) Acquired lymphedema of lower extremity Comment: Changed to cefepime yesterday to also cover UTI (2) Acute and chronic respiratory failure with hypoxia Comment: Suspected primarily secondary to acute diastolic CHF exacerbation. DDx includes PE (there is evidence of significant right ventricular pressure overload consistent with pHTN on the ECHO) and he has Ddimer elevated to 729. Pt unable to fit in V/Q and cannot get CTA chest 2/2 kidney fxn. No DVTs on duplex. Persistently low BPs. Unable to measure systolics >75 myself today. Was SBP when checked on forearm with doppler. With the increased pulm pressures and hypotension I feel compelled to tx for PE empirically. Discussed risks with pt especially in setting of hematuria (which has for now resolved). Starting heparin gtt (3) Diastolic CHF Comment: ECHO with preserved EF. Dependent pitting anisaraca to 2/3 up back and lateral torso. St home is on 12.5mg HCTZ. Lasix gtt stopped overnight 2/2 hypotension. Plan to restart as soon as blood pressures allow strict io, daily weights. Monitor Lytes daily Will need several days of diuresis as he is likely he has 10s of kgs extra water weight causing worsening hypoxic respiratory failure. stop pioglitizone given symptomatic CHF. (4) HTN (hypertension) Comment: soft BPs in setting of diuresis and possible Morganella UTI and/or PE Midodrine increased to 12.5 mg TID held lisinopril (home was 20mg BID, had been reduced to 10mg BID given increase in diuresis) held atenolol 50mg BID (5) Hematuria Current Visit: Yes Status: Acute Code(s): R31.9 - HEMATURIA, UNSPECIFIED SNOMED Code(s): 33871969 Comment: Likely traumatic from campoverde insertion. Flush prn and monitor for large blood clots (if develops then continuous bladder irrigation and urology consult considered). Will also start flomax, no recorded prior history of BMH. (6) IDDM (insulin dependent diabetes mellitus) Current Visit: Yes Status: Acute Code(s): E11.9 - TYPE 2 DIABETES MELLITUS WITHOUT COMPLICATIONS; Z79.4 - HALFWAY (CURRENT) USE OF INSULIN SNOMED Code( s): 93114531 Comment: had held then stopped his home 30U qam 70/30 given good control without. Continue 20U qpm with hold parameters. SSI qachs, POC qachs carbohydrate consistent diet. stop pioglitizone given symptomatic CHF. (7) KRISTYN (obstructive sleep apnea) Comment: nasal bipap (8) Pulmonary hypertension Comment: ddx obesity hypoventilation, diastolic heart failure, PE. Ddimer elevated. No DVT on duplex. See above for concern for PE Will need CTA chest when kidney fxn allows. (9) UTI (urinary tract infection) Comment: Continue to ceftriaxone to also cover the 25-50K Morganella Morganii found in the UCx. This is effectively day 3 given cefazolin was resistant. Status and Disposition: medicine inpatient. Likely will need bariatric rehab facility after many days of aggressive diuresis.
[2018-11-10 17:19] LABS: ABS Eosinophils 0.2 10^3/ul (0-0.6); ABS Lymphocytes 0.4 10^3/ul (1.0-4.8); ABS Monocytes 0.6 10^3/ul (0-0.8); ABS Neutrophils 3.9 10^3/ul (1.5-7.7); Eosinophil % 4.4 %; Hematocrit 41 % (42-52); Hemoglobin 13.1 g/dL (14.0-18.0); Lymphocyte % 7.8 %; Mean Corpuscular HGB Conc 32 g/dL (31-36); Mean Corpuscular Hemoglobin 30 pg (27-31); Mean Corpuscular Volume 92 fL (80-94); Mean Platelet Volume 9.2 fL (7.4-10.4); Platelet Count 130 10^3/uL (150-450); Red Blood Count 4.42 10^6 /uL (4.18-5.48); Red Cell Distribution Width 17 % (10.5-15); White Blood Count 5.2 10^3/uL (3.5-10.8)
[2018-11-10] MEDS: Cefepime 2 GM in Dextrose(*) 2 GM/50 ML BAG IV SCH (17:19)
[2018-11-10 17:55] LABS: EGFR African American 70.3 (>60); EGFR Non-African American 58.1 (>60)
[2018-11-10] MEDS: Heparin VIAL(*) 5000 UNITS/ML VIAL (FIVE THOUSAND) IV SCH (19:18)
[2018-11-10] MEDS: Heparin DRIP 25,000 UNITS(*) 25,000 UNITS/500 ML BAG IV SCH (19:18)
[2018-11-10] MEDS: Insulin ISOPH/REG 70/30 (*) 1 UNITS UNIT SUBCUT SCH (22:34)
--- NOTE | 2018-11-10 22:37 | PN ---
Hospitalist Progress Note Date of Service: 11/10/18 Called due to SBP<90. Pt is asymptomatic and has been hypotensive throughout stay. Accurate BP may be difficult due to body habitus and anasarca. Will bolus if patient becomes symptomatic.
[2018-11-10] MEDS ORDERED: Digoxin IV* 0.5 MG/2 ML AMP (0.25 MG/ML) IV SLOW PU ONE (23:58)
--- NOTE | 2018-11-10 23:59 | PN ---
Progress Note - Progress Note Date of Service: 11/10/18 Note: Patient now with rapid afib. BP's have been variable and low normal. Question with his anasarca and body habitus how accurate they are. Will start with loading digoxin x 1.
[2018-11-11 03:52] LABS: ABS Eosinophils 0.2 10^3/ul (0-0.6); ABS Lymphocytes 0.4 10^3/ul (1.0-4.8); ABS Monocytes 0.5 10^3/ul (0-0.8); ABS Neutrophils 3.4 10^3/ul (1.5-7.7); Hematocrit 37 % (42-52); Hemoglobin 11.9 g/dL (14.0-18.0); Lymphocyte % 9.3 %; Mean Corpuscular HGB Conc 32 g/dL (31-36); Mean Corpuscular Hemoglobin 30 pg (27-31); Mean Corpuscular Volume 95 fL (80-94); Mean Platelet Volume 9.1 fL (7.4-10.4); Platelet Count 122 10^3/uL (150-450); Red Blood Count 3.95 10^6 /uL (4.18-5.48); Red Cell Distribution Width 17 % (10.5-15); White Blood Count 4.6 10^3/uL (3.5-10.8)
[2018-11-11 04:00] LABS: Calcium 8.1 mg/dL (8.6-10.3); Magnesium 2.3 mg/dL (1.9-2.7); Potassium 4.9 mmol/L (3.5-5.0)
[2018-11-11 04:06] LABS: BUN/Creatinine Ratio 56.7 (8-20); EGFR African American 84.5 (>60); EGFR Non-African American 69.8 (>60)
[2018-11-11] MEDS ORDERED: traMADol TAB* 50 MG PO ONE (09:14)
[2018-11-11] MEDS: CMC:Midodrine (NF) 5 MG TAB PO SCH ×3 (09:42→17:50)
[2018-11-11] MEDS: Insulin LISPRO* 1 UNITS UNIT SUBCUT SCH ×4 (09:42→20:21)
[2018-11-11] MEDS: Atorvastatin* 40 MG TAB PO SCH (09:44)
[2018-11-11] MEDS: Montelukast Sodium TAB* 10 MG PO SCH (09:44)
[2018-11-11] MEDS: Allopurinol TAB* 300 MG PO SCH (09:44)
[2018-11-11] MEDS: Cetirizine* 10 MG TAB PO SCH (09:44)
[2018-11-11] MEDS: Tamsulosin CAP* 0.4 MG PO SCH (09:44)
--- NOTE | 2018-11-11 10:47 | PN ---
Progress Note - Progress Note Date of Service: 11/11/18 Note: Transfer Note: This is a 73 yo super morbid obese male who presented with increased weakness and hypoxic respiratory failure. The working diagnosis for his respiratory failure has been a CHF exacerbation however diuresis has been limited by hypotension. The patient has long standing high blood pressure but the validity of BP measurement here has been in question. However, after a 500 cc fluid bolus yesterday his SBP did seem to improve indicating the low measurements are correct. They also correlated well with a BP checked by doppler yesterday. His urine was notable for morganella and his abx were broadened to cefepime 2/2 persistent hypotension. He was started on midodrine and titrated up with little improvement in SBP. His hospital stay was further complicated by hematuria thought 2/2 campoverde insertion. Because of his respiratory failure, elevated DDimer , hypotension and pulmonary hypertension seen on TTE there was concern for a pulmonary embolism. He is unable to receive a V/Q scan here because his body habitus is too large for the machine. A CTA chest has not yet been performed 2/ 2 NADINE although this is improved today. Because of the concern for PE (although negative LE dopplers) heparin was started yesterday empirically despite hematuria. Overnight, pt developed new onset afib RVR and his hematuria was noted to worsen. Today his respiratory failure has also worsened and he is requiring high doses of oxygen to maintain O2 saturations in the high 80s. Patient will now be transferred to the ICU. I discussed the plan and the above events with the patient as well as the current covering sales team member. The remainder of the plan to be determined by the receiving physician unless there is ant change in current clinical status.
--- NOTE | 2018-11-11 17:17 | CONSULT ---
Subjective Date of Service: 11/11/18 Interval History: Mr. Graham is a 73 yo male with PMH significant for super morbid obesity, BMI 62 ; DM2; HTN; seasonal allergies; KRISTYN; and GOUT, who presented to the emergency room with complaints of decreased mobility. He has chronic bilateral LE lymphedema and reports that the legs have become more swollen and weeping. He states that he tries to keep his legs elevated as much as possible. Patient seen and examined at bedside. Family History: Unchanged from Admission Social History: Unchanged from Admission Past Medical History: Unchanged from Admission Review of Systems - Measurements Intake and Output: Intake and Output Last 24 Hours 11/09/18 11/10/18 11/11/18 11/12/18 06:59 06:59 06:59 06:59 Intake Total 1118 1750 2235 287 Output Total 1885 1348 2350 700 Balance -767 402 -115 -413 Weight 440 lb 6.4 oz 442 lb 3.2 oz Intake: IV Fluids 45 30 NS (0.9%) 45 30 IVPB 113 60 50 ABX - CEFEPIME 60 50 IV ABX 113 Medicated IV 47 heparin 47 Heparin 365 Oral 960 1690 950 240 Hodge Irrigate Amount 840 Output: Urine 150 Hodge 1885 1348 2200 700 Other: Date of Last Bowel [id number] Movement # Bowel Movements 0 0 0 Estimated Stool Amount Medium Small # Voids 0 - Review of Systems Constitutional Symptoms: Negative: Fever, Other - Chills Dermatology: Positive: Other - Bilateral LE keratosis Endocrinology: Positive: Diabetes Mellitus Objective Active Medications: Acetaminophen (Tylenol Tab*) 650 mg PO Q6H PRN Reason: pain/fever Allopurinol (Zyloprim Tab*) 300 mg PO DAILY MELISSA Ammonium Lactate (Lac-Hydrin 12 %) 1 applic TOPICAL DAILY PRN Reason: DRY SKIN Atorvastatin Calcium (Lipitor*) 40 mg PO DAILY EMLISSA Carisoprodol (Soma Tab*) 350 mg PO Q6H PRN Reason: SPASMS - MUSCLE Cetirizine HCl (Zyrtec*) 10 mg PO DAILY MELISSA Dextrose (D50w Syringe 50 Ml*) 12.5 gm IV PUSH .FOR FS < 60 - SS PRN Reason: FS < 60 Diphenhydramine HCl (Benadryl Po*) 25 mg PO TID PRN Reason: Allergy Symptoms Fluticasone Propionate (Flonase Nasal [place] 50mcg*) 2 spray BOTH NARES DAILY PRN Reason: Allergy Symptoms Heparin Sodium (Porcine) (Heparin Vial(*)) 0 units IV .PER PROTOCOL MELISSA Cefepime HCl (Maxipime 2 Gm In Dextrose Duplex (*)) 2 gm in 50 mls @ 100 mls/ hr IV Q24H MELISSA Heparin Sodium/Dextrose (Heparin Drip 25,000 Units(*)) 25,000 units in 500 mls @ 0 mls/hr IV PER RATE MELISSA; Protocol Insulin Human Isoph/Insulin Regular (Humulin 70/30 (*)) 20 units SUBCUT BEDTIME MELISSA Insulin Human Lispro (Humalog*) 0 units SUBCUT ACHS MELISSA; Protocol Midodrine (Midodrine (Nf)) 12.5 mg PO AC MELISSA; Protocol Montelukast Sodium (Singulair Tab*) 10 mg PO DAILY [facility] Nystatin (Nystatin Cream*) 1 applic TOPICAL TID PRN Reason: RASH Prochlorperazine Edisylate (Compazine Inj*) 5 mg IV Q6H PRN Reason: NAUSEA/ VOMITING Tamsulosin HCl (Flomax Cap*) 0.4 mg PO DAILY [facility] Vital Signs 11/11/18 11/11/18 15:36 16:00 Temperature Pulse Rate 121 113 Respiratory 22 21 Rate Blood Pressure 99/69 106/61 (mmHg) O2 Sat by Pulse 86 87 Oximetry Oxygen Devices in Use Now: Nasal Cannula Appearance: NAD, sitting up in bed Ears/Nose/Mouth/Throat: Mucous Membranes Moist Respiratory: Symmetrical Chest Expansion and Respiratory Effort Cardiovascular: - - Bilateral LE lymphedema Skin: - - See skin note below Neurological: Alert and Oriented x 3 Nutrition: Taking PO's Result Diagrams: 11/15/18 09:27 11/14/18 06:15 Additional Lab and Data: Laboratory Results - last 24 hr 11/08/18 11/08/18 11/09/18 17:34 20:50 06:42 Sodium 137 Potassium 4.5 Chloride 101 Carbon Dioxide 32 Anion Gap 4 BUN 68 H Creatinine 1.51 H Est GFR ( Amer) 54.9 Est GFR (Non-Af Amer) 45.4 BUN/Creatinine Ratio 45.0 H Glucose 108 H POC Glucose (mg/dL) 148 H 174 H Calcium 8.3 L Magnesium 2.3 C-React Prot High Sens 14.54 H 11/09/18 11/09/18 11/09/18 06:42 06:42 07:33 WBC 6.5 RBC 4.44 Hgb 13.0 L Hct 41 L MCV 92 MCH 29 MCHC 32 RDW 17 H Plt Count 145 L MPV 9.7 Neut % (Auto) 78.0 Lymph % (Auto) 6.5 [place] % (Auto) 11.5 Eos % (Auto) 3.7 Baso % (Auto) 0.3 Absolute Neuts (auto) 5.0 Absolute Lymphs (auto) 0.4 L Absolute Monos (auto) 0.7 Absolute Eos (auto) 0.2 Absolute Basos (auto) 0.0 Absolute Nucleated RBC 0.0 Nucleated RBC % 0.1 POC Glucose (mg/dL) 110 H B-Natriuretic Peptide 118 H Microbiology and Other Data: Microbiology 11/06/18 15:36 Blood Venous Aerobic Blood Culture - Preliminary No Growth Day 2 11/06/18 15:36 Blood Venous Aerobic Blood Culture - Preliminary No Growth Day 2 11/06/18 15:36 Blood Venous Anaerobic Blood Culture - Preliminary No Growth Day 2 11/06/18 15:54 Urine Urine Culture - Final Morganella Morganii Normal Aviva Skin Deviation Note - Skin Deviation Findings Bilateral LEs with chronic skin changes. There is some thickened skin. No open areas or drainage noted. Assessment/Plan: Mr. Graham is a 73 yo male with PMH significant for super morbid obesity, BMI 62 ; DM2; HTN; seasonal allergies; KRISTYN; and GOUT, who presented to the emergency room with complaints of decreased mobility. He has chronic bilateral LE lymphedema and reports that the legs have become more swollen and weeping. 1. Bilateral LE lymphedema. No open areas or weeping noted today. Recommend washing the legs with soap and water daily. Can apply lac-hydrin or similar lotion to the legs. Keep legs elevated. Would benefit from a referral to a lymphedema clinic. 2. Morbid obesity. BMI 62 3. Diabetes Mellitus, type 2. Maintain good glycemic control. 4. Diet. Consistent Carbohydrate diet. 5. Code Status. DNR 6. Disposition. Inpatient, disposition per primary medicine team. TIME SPENT: Time for this wound consultation was 20 minutes ans 10 minutes was spent with the patient discussing past medical history; assessing and photographing the legs. Wound Problem/Plan Is Patient a Wound Clinic Patient: No Attending: Olga Moreira
--- NOTE | 2018-11-11 17:27 | PN ---
Date of Service: 11/11/18 Critical Care Services: 73 y/o male with morbid obesity (440 lbs) has been in the hospital since 11/06 with several medical problems, including cellulitis, inability to walk ( becaiuse of his weight), right-sided heart failure, hypoxic respiratory failure , NADINE, and new-onset atrial fibrillation. w/u for PE has included only ultrasound of leg veins, which is negative. Vital Signs: Temp Pulse Resp BP SpO2 FiO2 98 F 99 24 115/60 99 4L NC Physical Exam: Gen:Alert, oriented, breathing comfortably HEENT:Oropharynx clear Lungs:BS distant. No crackles Cardiac: No murmurs. Irreg rhythm. Abdomen:Obese Extremities: Marked lower extremity edema, which is nonpitting. Also has nodular and erythematous changes in both lower extremities below the knee Fluid Balance (Past 24 Hours): 11/09/18 11/10/18 11/11/18 06:59 06:59 06:59 Intake Total 1118 1750 2235 Output Total 1885 1348 2350 Balance -767 402 -115 Weight 440 lb 442 lb Intake: IV Fluids 45 30 NS (0.9%) 45 30 IVPB 113 60 50 ABX - CEFEPIME 60 50 IV ABX 113 Medicated IV heparin Heparin 365 Oral 960 1690 950 Hodge Irrigate Amount 840 Output: Urine 150 Hodge 1885 1348 2200 Other: Date of Last Bowel [id number] Movement # Bowel Movements 0 0 0 Estimated Stool Amount Medium Small # Voids 0 Labs: 11/10/18 11/10/18 11/10/18 17:09 17:09 17:10 WBC RBC Hgb Hct MCV MCH MCHC RDW Plt Count MPV Neut % (Auto) Lymph % (Auto) [place] % (Auto) Eos % (Auto) Baso % (Auto) Absolute Neuts (auto) Absolute Lymphs (auto) Absolute Monos (auto) Absolute Eos (auto) Absolute Basos (auto) Absolute Nucleated RBC Nucleated RBC % APTT 31.9 Sodium Potassium Chloride Carbon Dioxide Anion Gap BUN 67 H Creatinine 1.22 BUN/Creatinine Ratio Glucose POC Glucose (mg/dL) 141 H Calcium Magnesium 11/10/18 11/11/18 11/11/18 22:03 01:40 03:44 APTT > 240.0 H* Sodium 135 Potassium 4.9 Chloride 104 Carbon Dioxide 27 Anion Gap 4 BUN 59 Creatinine 1.04 BUN/Creatinine Ratio 56.7 Glucose 167 POC Glucose (mg/dL) 198 H Calcium 8.1 L Magnesium 2.3 11/11/18 11/11/18 11/11/18 03:44 03:44 08:36 WBC 4.6 Hgb 11.9 L Hct 37 L MCV 95 H Plt Count 122 L APTT 201.0 H* Sodium Potassium Chloride Carbon Dioxide Anion Gap BUN Creatinine Est GFR ( Amer) Est GFR (Non-Af Amer) BUN/Creatinine Ratio Glucose POC Glucose (mg/dL) 148 H Calcium Magnesium 11/11/18 11/11/18 10:16 12:43 WBC RBC Hgb Hct MCV MCH MCHC RDW Plt Count MPV Neut % (Auto) Lymph % (Auto) [place] % (Auto) Eos % (Auto) Baso % (Auto) Absolute Neuts (auto) Absolute Lymphs (auto) Absolute Monos (auto) Absolute Eos (auto) Absolute Basos (auto) Absolute Nucleated RBC Nucleated RBC % APTT 150.2 H* Sodium Potassium Chloride Carbon Dioxide Anion Gap BUN Creatinine Est GFR ( Amer) Est GFR (Non-Af Amer) BUN/Creatinine Ratio Glucose POC Glucose (mg/dL) 121 H Calcium Magnesium Studies: ECG: atrial fibrillation. Nutrition: Consistent carb diet Impression: This patients multiple medical problems can all be traced to morbid obesity and his inability to control his weight. Most pressing problem is the new-onset atrial fibrillation. Plan: Will use digitalis for rate control (last creat = 1.04), and will continue heaprin drip for now (and switch to an oral anticoagulant when rate is controlled). Critical Care Time: 50 minutes
[2018-11-11] MEDS: Cefepime 2 GM in Dextrose(*) 2 GM/50 ML BAG IV SCH (17:50)
[2018-11-11] MEDS ORDERED: Digoxin IV* 0.5 MG/2 ML AMP (0.25 MG/ML) IV SLOW PU ONE (18:12)
[2018-11-11] MEDS: Insulin ISOPH/REG 70/30 (*) 1 UNITS UNIT SUBCUT SCH (20:22)
[2018-11-12] MEDS ORDERED: Digoxin IV* 0.5 MG/2 ML AMP (0.25 MG/ML) IV SLOW PU ONE (01:00)
[2018-11-12 05:50] LABS: ABS Eosinophils 0.2 10^3/ul (0-0.6); ABS Lymphocytes 0.5 10^3/ul (1.0-4.8); ABS Monocytes 0.6 10^3/ul (0-0.8); ABS Neutrophils 3.3 10^3/ul (1.5-7.7); Eosinophil % 4.4 %; Hematocrit 38 % (42-52); Hemoglobin 12.3 g/dL (14.0-18.0); Mean Corpuscular HGB Conc 32 g/dL (31-36); Mean Corpuscular Hemoglobin 30 pg (27-31); Mean Corpuscular Volume 92 fL (80-94); Mean Platelet Volume 9.2 fL (7.4-10.4); Nucleated Red Blood Cells % 0.1; Platelet Count 115 10^3/uL (150-450); Red Blood Count 4.17 10^6 /uL (4.18-5.48); Red Cell Distribution Width 17 % (10.5-15); White Blood Count 4.5 10^3/uL (3.5-10.8)
[2018-11-12 06:12] LABS: BUN/Creatinine Ratio 46.3 (8-20); Calcium 8.7 mg/dL (8.6-10.3); EGFR African American 114.3 (>60); EGFR Non-African American 94.5 (>60); Magnesium 2.2 mg/dL (1.9-2.7); Potassium 4.8 mmol/L (3.5-5.0)
[2018-11-12] MEDS: Atorvastatin* 40 MG TAB PO SCH (09:42)
[2018-11-12] MEDS: Cetirizine* 10 MG TAB PO SCH (09:42)
[2018-11-12] MEDS: CMC:Midodrine (NF) 5 MG TAB PO SCH ×2 (09:42→14:14)
[2018-11-12] MEDS: Montelukast Sodium TAB* 10 MG PO SCH (09:42)
[2018-11-12] MEDS: Tamsulosin CAP* 0.4 MG PO SCH (09:43)
[2018-11-12] MEDS: Allopurinol TAB* 300 MG PO SCH (09:43)
[2018-11-12] MEDS: Insulin LISPRO* 1 UNITS UNIT SUBCUT SCH ×4 (09:43→20:46)
[2018-11-12] MEDS: Heparin VIAL(*) 5000 UNITS/ML VIAL (FIVE THOUSAND) IV SCH (10:20)
[2018-11-12] MEDS ORDERED: Metoprolol Tartrate IV* 1 MG/ML 5 ML VIAL IV ONE (10:50)
--- NOTE | 2018-11-12 13:30 | CONS ---
CONSULTATION REPORT: DATE OF CONSULTATION: 11/12/18 ATTENDING PLASTIC DUPLICATOR: Dr. Roseline Swain* (dictated by Aleyda Ledesma NP). PRIMARY PHYSICIAN: Dr. Hopson. PRIMARY PLASTIC DUPLICATOR REMOTELY: Dr. Villalobos. CHIEF COMPLAINT: Progressive weakness with inability to get out of bed. The patient is hoping to qualify for inpatient rehab. HISTORY OF PRESENT ILLNESS: This is a pleasant 73-year-old male patient with a documented history of hypertension, hyperlipidemia, obesity-hypoventilation syndrome, and type 2 diabetes. The patient states that he has been progressively becoming more weak now to the point where he is unable to get out of bed. He does have an aide come once a day to help with ADLs; however, because he is bedbound, he states that he has been having difficulty meeting criteria for certain services. Thus, he opted to be evaluated at [facility] with the ultimate goal of going to rehabilitation so that he is able to not be bedbound anymore. He denies palpitations, sensation of heart racing, chest pain, or dizziness. States he has chronic shortness of breath which has been more severe lately related to seasonal allergies. He offers no other complaints at this time. Last echocardiogram 11/06/18 at that time LVEF was 55% to 60%, moderate RV dilatation, mild LA dilatation. Venous duplex 11/08/18 did not demonstrate DVT; however, the peroneal veins were not well visualized. Last ischemic evaluation unknown. PAST MEDICAL HISTORY: 1. Essential tremor. 2. Severe obstructive sleep apnea, on BiPAP therapy. 3. Parenchymal lesions on prior CT. 4. Hypertension. 5. Type 2 diabetes mellitus. 6. Hyperlipidemia. 7. Morbid obesity. 8. Obesity-hypoventilation syndrome. PAST SURGICAL HISTORY: Includes tonsillectomy, prior knee replacement, and toe surgery. ALLERGIES: Include DOXYCYCLINE, which causes GI upset. HOME MEDICATIONS: Listed on home med-rec include: 1. Benadryl 25 mg p.o. daily p.r.n. 2. Crestor 20 mg a day. 3. Claritin 10 mg a day. 4. Allopurinol 300 mg a day. 5. Singulair 10 mg a day. 6. HydroDIURIL 2.5 mg a day. \ 7. NovoLog 30 units subcutaneous every night. 8. NovoLog 54 units subcutaneously every morning. 9. Flonase nasal spray 50 mcg 2 sprays both nares daily p.r.n. 10. Atenolol 50 mg b.i.d. 11. Actos 30 mg a day. 12. Soma 350 mg p.o. q.6 h. p.r.n. 13. Nystatin topical cream t.i.d. p.r.n. SOCIAL HISTORY: The patient is single, lives home alone. He is bedbound. He has an aide that helps with ADLs and relies on his friends to help grocery shop for him. 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 He formerly smoked tobacco, but quit at the age of 20. Denies alcohol or drug use. FAMILY HISTORY: Noncontributory. REVIEW OF SYSTEMS: The patient has hematuria, epistaxis, shortness of breath, and increased weakness. He denies chest pain, palpitations, dizziness, syncope , sensation of heart racing. All other systems have been reviewed and otherwise negative except as mentioned in HPI. PHYSICAL EXAMINATION: Current vital signs: Pulse is 117, respirations 23, oxygenation 94% on oxygen therapy, blood pressure 130/63. HEENT: Head is atraumatic, normocephalic. Oral mucosa is moist. There is bright red blood oozing from bilateral nares, scant in nature. Neck: Supple. Unfortunately, due to body habitus, I am unable to assess his JVD or thyromegaly. Lungs: Auscultated anteriorly. The patient is not able to sit upright. Clear throughout upon auscultation. Respirations not labored. /GI: Abdomen is obese, nontender. Normoactive bowel sounds x4. Cardiac: Tachycardiac, S1 and S2. Irregular rate and rhythm. No overt murmur or gallop noted, although heart sounds are slightly diminished. Extremities: The patient has diffuse swelling with cellulitis noted on bilateral lower extremities. He has 2+ brachial and dorsalis pulses palpated bilaterally and symmetrically. Skin: As noted before, bilateral lower extremity cellulitis. Otherwise, there is ecchymosis noted on left antecubital. The patient has positive hematuria noted on Hodge indwelling catheter and scant bright red blood noted oozing from bilateral nares. DIAGNOSTIC STUDIES/LAB DATA: Blood work: White count 4.5, hemoglobin 12.5, hematocrit 38, platelets 115. Sodium 137, potassium 4.8, chloride 102, carbon dioxide 33, BUN 37, creatinine 0.80, platelets 119. TSH was normal. Troponin negative x1, 11/06/18. Digoxin level 11/12/18 was 1.4. D-dimer 729 on . EKG reviewed from 11/10/18. Rhythm is difficult to interpret; however, R-R interval is regular. There is possibility of underlying aflutter with frequent PVCs. Telemetry reviewed. The patient is having periods of ventricular bigemini and trigemini, underlying rhythm suggestive of aflutter. ASSESSMENT AND PLAN: 1. Atrial arrhythmia. Reviewed ECG and telemetry, underlying rhythm is suggestive of aflutter. The patient is having periods of ventricular bigemini and trigemini which make underlying rhythm difficult to interpret. We will do a trial of 2.5 mg IV Lopressor with a continuous telemetry strip to help further diagnose underlying arrhythmia. The patient is asymptomatic. He has been having periods of hypotension since developing arrhythmia the evening of 11/10/18. He has received IV digoxin. Dig level today is 1.4. Currently, heart rate is 120 to 130 beats per minute. He is on IV heparin therapy; however, he has developed hematuria and epistaxis. Hemoglobin and hematocrit are stable. We will reevaluate after IV Lopressor therapy has been given. 2. Progressive weakness with complaints of being bedbound. The patient desires rehabilitation; we will defer to primary team. 3. History of obesity-hypoventilation syndrome. Dr. Torres is managing oxygen therapy at this time. Historically, the patient followed with Dr. Berrios. 4. History of hyperlipidemia, on Crestor therapy. Goal LDL less than 70 given history of diabetes. 5. History of hypertension, previously on atenolol 50 mg b.i.d. and lisinopril therapy, both of which have been on hold due to hypotension, although the patient has not been symptomatic. Most recent systolic pressure was 130. We will monitor closely. 7. Disposition pending course. Dr. Roseline Swain has seen and examined the patient and agrees with the above assessment and plan. We will make further recommendations after trial of IV Lopressor therapy. ALEYDA LEDESMA, AUTOM[employer]BI[employer] MECHANIC HELPER [id number]/[facility] #: [id number] IRENE
[2018-11-12] MEDS: Acetaminophen TAB* 325 MG PO PRN (16:02)
[2018-11-12] MEDS: Heparin DRIP 25,000 UNITS(*) 25,000 UNITS/500 ML BAG IV SCH (16:03)
--- NOTE | 2018-11-12 16:34 | PN ---
Date of Service: 11/11/18 Critical Care Services: Patient seen by cardiology today - predominant rhythm is aflutter with ventricular ectopics - is now on low dose metoprolol for rate control. Continues on IV heparin, and continues with gross hematuria (although no clots, and Hb stable) - Urology service to evaluate. Vital Signs: Temp Pulse Resp BP SpO2 FiO2 99.4 F 126 16 115/64 97 Physical Exam: Gen: Alert, appropriate, breathing comfortably Lungs:Diminised breath sounds throughout Cardiac: Irreg rhythm Abdomen: Obese Extremities:Exam unchanged from yesterday Fluid Balance (Past 24 Hours): 11/11/18 11/12/18 06:59 06:59 Intake Total 2235 948 Output Total 2350 2295 Balance -115 -1347 Weight 442 lb 449 lb Intake: IV Fluids 30 16 NS (0.9%) 30 16 IVPB 50 52 ABX - CEFEPIME 50 52 Medicated IV 340 heparin 340 Heparin 365 Oral 950 540 Hodge Irrigate Amount 840 Output: Urine 150 Hodge 2200 2295 Other: Date of Last Bowel 11/11/18 Movement # Bowel Movements 0 1 Estimated Stool Amount Small Large # Voids Labs: 11/12/18 11/12/18 11/12/18 01:53 05:35 05:35 WBC 4.5 Hgb 12.3 Hct 38 MCV 92 MCH 30 MCHC 32 Plt Count 115 APTT 75.5 H Sodium 137 Potassium 4.8 Chloride 102 Carbon Dioxide 33 H Anion Gap 2 BUN 37 Creatinine 0.80 Glucose 119 H POC Glucose (mg/dL) Calcium 8.7 Magnesium 2.2 Digoxin Studies: None today Nutrition: Consistent Carb Diet Impression: Atrial flutter with rapid ventricular response, Rx beta-blockers and heparin. Gross hematuria-? significance Plan: Will continue management plan of cardiology. Await urology evaluation. Critical Care Time: 35 minutes
[2018-11-12] MEDS: Cefepime 2 GM in Dextrose(*) 2 GM/50 ML BAG IV SCH (17:23)
[2018-11-12] MEDS: Insulin ISOPH/REG 70/30 (*) 1 UNITS UNIT SUBCUT SCH (20:47)
[2018-11-12] MEDS ORDERED: Metoprolol Tartrate TAB* 25 MG PO SCH (21:00)
--- NOTE | 2018-11-12 21:11 | PN ---
Cardiology Progress Note Date of Service: 11/12/18 - CC: multiple, leg swelling Full consult being dictated by JAVA ARCHITECT Aleyda oHffmann. The patient was seen by myself, asked to see for afib/flutter. The patient was admitted 11/06/18 with failure to thrive at home with morbid obesity, DM T2, hypoventilation, weakness, CHU, severe lymphedema, cellulitis, unable to self ambulate. Transferred to ICU with afib, low BP's. The patient is unaware of any palpations. Echo 11/06/18: LVEF 55-60%, RV dilated and hypokinetic, PApr 63 mmHg. ECG on admission: NSR 1st degree AVB. ECG 11/11/18 probable afib, V rate 126 bpm ECG 11/12/18: c/w atrial flutter + PVC's. A/P 73 yo with asymptomatic PAF, PAFlutter and significant PMHx as above and more. Unlikely to easily maintain NSR and antiarrhythmic medications could be risky in this patient with his right sided CM, or in the case of amiodarone confer potential pulmonary toxicity and more. For now as the patient is asymptomatic I recommend rate control and anticoagulation. He has likely been going in and out of these rhythms asymptomatically for some time. Optimize his medical status including respiratory status, this will take time. Future: If it is felt that the afib/flutter is significantly impacting on hemodynamics, then we could reconsider attempts at rhythm control. It will be difficult to get a stress test that would be valid, impacting on antiarrhythmic options. In the future we could consider antiarrhythmic medications safe in cardiomyopathies and CAD: Sotolol, amiodarone and Tikosyn. I think Tikosyn is risky for other reasons, difficult to use with many other medications and compliance is important and therefore I would not recommend. We would need to coordinate initiation of sotalol or amiodarone in the future with Dr Berrios. If the patient tolerates pure beta khanh well ( started today ) he may tolerate the above antiarrhythmics.
[2018-11-13] MEDS: Acetaminophen TAB* 325 MG PO PRN (03:25)
[2018-11-13] MEDS: diPHENhydraMINE PO* 25 MG PO PRN ×2 (05:17→09:27)
[2018-11-13] MEDS ORDERED: Metoprolol Tartrate IV* 1 MG/ML 5 ML VIAL IV ONE ×2 (05:59→11:00)
[2018-11-13] MEDS ORDERED: Metoprolol Tartrate IV* 1 MG/ML 5 ML VIAL ONE ×2 (06:06→09:35)
[2018-11-13 06:20] LABS: ABS Eosinophils 0.2 10^3/ul (0-0.6); ABS Lymphocytes 0.6 10^3/ul (1.0-4.8); ABS Monocytes 0.6 10^3/ul (0-0.8); ABS Neutrophils 3.3 10^3/ul (1.5-7.7); Eosinophil % 4.4 %; Hematocrit 38 % (42-52); Hemoglobin 12.3 g/dL (14.0-18.0); Lymphocyte % 12.8 %; Mean Corpuscular HGB Conc 32 g/dL (31-36); Mean Corpuscular Hemoglobin 30 pg (27-31); Mean Corpuscular Volume 92 fL (80-94); Mean Platelet Volume 9.5 fL (7.4-10.4); Nucleated Red Blood Cells % 0.1; Platelet Count 118 10^3/uL (150-450); Red Blood Count 4.13 10^6 /uL (4.18-5.48); Red Cell Distribution Width 17 % (10.5-15); White Blood Count 4.7 10^3/uL (3.5-10.8)
[2018-11-13 06:43] LABS: BUN/Creatinine Ratio 37.2 (8-20); Calcium 8.8 mg/dL (8.6-10.3); EGFR African American 117.7 (>60); EGFR Non-African American 97.3 (>60); Magnesium 2.1 mg/dL (1.9-2.7); Potassium 4.7 mmol/L (3.5-5.0)
--- NOTE | 2018-11-13 08:37 | PN ---
<CallieAleyda - Last Filed: 11/13/18 08:27> Subjective Date of Service: 11/13/18 - Paroxysmal AFL with RVR Interval History: No events last night, patient is c/o SOB and nasal congestion. Denies dizziness , lightheadedness, chest pain, palpitations or sensation of heart racing. He states he slept well last night. I spoke to his nurse today who states after receiving IV Lopressor he had hypotension but was not symptomatic. Medications Active Medications: Acetaminophen (Tylenol Tab*) 650 mg PO Q6H PRN PRN Reason: pain/fever Last Admin: 11/13/18 03:25 Dose: 650 mg Allopurinol (Zyloprim Tab*) 300 mg PO DAILY [facility] Last Admin: 11/12/18 09:43 Dose: 300 mg Ammonium Lactate (Lac-Hydrin 12 %) 1 applic TOPICAL DAILY PRN PRN Reason: DRY SKIN Last Admin: 11/09/18 05:46 Dose: 1 applic Atorvastatin Calcium (Lipitor*) 40 mg PO DAILY [facility] Last Admin: 11/12/18 09:42 Dose: 40 mg Carisoprodol (Soma Tab*) 350 mg PO Q6H PRN PRN Reason: SPASMS - MUSCLE Cetirizine HCl (Zyrtec*) 10 mg PO DAILY [facility] Last Admin: 11/12/18 09:42 Dose: 10 mg Dextrose (D50w Syringe 50 Ml*) 12.5 gm IV PUSH .FOR FS < 60 - SS PRN PRN Reason: FS < 60 Diphenhydramine HCl (Benadryl Po*) 25 mg PO TID PRN PRN Reason: Allergy Symptoms Last Admin: 11/13/18 05:17 Dose: 25 mg Fluticasone Propionate (Flonase Nasal Mcdonald 50mcg*) 2 spray BOTH NARES DAILY PRN PRN Reason: Allergy Symptoms Heparin Sodium (Porcine) (Heparin Vial(*)) 0 units IV .PER PROTOCOL [facility] Last Admin: 11/12/18 10:20 Dose: 4,650 units Cefepime HCl (Maxipime 2 Gm In Dextrose Duplex (*)) 2 gm in 50 mls @ 100 mls/ hr IV Q24H [facility] Last Admin: 11/12/18 17:23 Dose: 100 mls/hr Heparin Sodium/Dextrose (Heparin Drip 25,000 Units(*)) 25,000 units in 500 mls @ 0 mls/hr IV PER RATE [facility]; Protocol Last Admin: 11/12/18 16:03 Dose: 20 mls/hr Insulin Human Isoph/Insulin Regular (Humulin 70/30 (*)) 20 units SUBCUT BEDTIME [facility] Last Admin: 11/12/18 20:47 Dose: 20 units Insulin Human Lispro (Humalog*) 0 units SUBCUT ACHS [facility]; Protocol Last Admin: 11/12/18 20:46 Dose: 6 units Metoprolol Succinate (Toprol Xl Tab*) 25 mg PO DAILY [facility] Montelukast Sodium (Singulair Tab*) 10 mg PO DAILY [facility] Last Admin: 11/12/18 09:42 Dose: 10 mg Nystatin (Nystatin Cream*) 1 applic TOPICAL TID PRN PRN Reason: RASH Last Admin: 11/09/18 10:52 Dose: 1 applic Prochlorperazine Edisylate (Compazine Inj*) 5 mg IV Q6H PRN PRN Reason: NAUSEA/VOMITING Tamsulosin HCl (Flomax Cap*) 0.4 mg PO DAILY [facility] Last Admin: 11/12/18 09:43 Dose: 0.4 mg Objective Vital Signs: Temp Pulse Resp BP Pulse Ox 97.8 F 138 26 118/62 94 11/13/18 08:00 11/13/18 06:05 11/13/18 06:05 11/13/18 06:05 11/13/18 06:05 Oxygen Devices in Use Now: BiPAP Appearance: lying in bed sleeping upon entering room, does not appear in distress, a+o x3 Eyes: No Scleral Icterus, PERRLA Ears/Nose/Mouth/Throat: NL Teeth, Lips, Gums, - - Bipap noted in nares. Neck: Trachea Midline Respiratory: Clear to Auscultation - anteriorally. Cardiovascular: - - tachycardic S1, S2, irregular rate. No gallop, murmur or rub noted. Abdominal: - - obese, non tender, normoactive bsX4 Extremities: - - + non pitting edema with diffuse rash Skin: - - + cellulitis involving bilateral lower extremities Neurological: Alert and Oriented x 3 Lines/Tubes/Other Access: Clean, Dry and Intact Hodge - concentrated urine no overt hematuria., Clean, Dry and Intact Peripheral IV Laboratory Results: 11/13/18 05:59 11/13/18 05:59 INR (Anticoag Therapy) 1.25 (0.82-1.09) H 11/06/18 15:36 APTT > 212.0 seconds (26.0-36.3) H* 11/13/18 05:59 Total Bilirubin 1.50 mg/dL (0.2-1.0) H 11/06/18 15:36 AST 26 U/L (13-39) 11/06/18 15:36 ALT 19 U/L (7-52) 11/06/18 15:36 Alkaline Phosphatase 82 U/L (34-104) 11/06/18 15:36 B-Natriuretic Peptide 118 pg/mL (<=100) H 11/09/18 06:42 Total Protein 6.3 g/dL (6.4-8.9) L 11/06/18 15:36 Albumin 3.7 g/dL (3.2-5.2) 11/06/18 15:36 Globulin 2.6 g/dL (2-4) 11/06/18 15:36 Albumin/Globulin Ratio 1.4 (1-3) 11/06/18 15:36 TSH 4.48 mcIU/mL (0.34-5.60) 11/06/18 15:36 11/06/18 15:36 Troponin I 0.01 Laboratory Results - last 24 hr 11/12/18 11/12/18 11/12/18 08:40 08:45 13:03 WBC RBC Hgb Hct MCV MCH MCHC RDW Plt Count MPV Neut % (Auto) Lymph % (Auto) [place] % (Auto) Eos % (Auto) Baso % (Auto) Absolute Neuts (auto) Absolute Lymphs (auto) Absolute Monos (auto) Absolute Eos (auto) Absolute Basos (auto) Absolute Nucleated RBC Nucleated RBC % APTT 47.4 H Sodium Potassium Chloride Carbon Dioxide Anion Gap BUN Creatinine Est GFR ( Amer) Est GFR (Non-Af Amer) BUN/Creatinine Ratio Glucose POC Glucose (mg/dL) 144 H 179 H Calcium Magnesium 11/12/18 11/12/18 11/12/18 16:07 16:10 20:39 WBC RBC Hgb Hct MCV MCH MCHC RDW Plt Count MPV Neut % (Auto) Lymph % (Auto) [place] % (Auto) Eos % (Auto) Baso % (Auto) Absolute Neuts (auto) Absolute Lymphs (auto) Absolute Monos (auto) Absolute Eos (auto) Absolute Basos (auto) Absolute Nucleated RBC Nucleated RBC % APTT 72.2 H Sodium Potassium Chloride Carbon Dioxide Anion Gap BUN Creatinine Est GFR ( Amer) Est GFR (Non-Af Amer) BUN/Creatinine Ratio Glucose POC Glucose (mg/dL) 198 H 209 H Calcium Magnesium 11/12/18 11/13/18 11/13/18 23:56 05:59 05:59 WBC 4.7 RBC 4.13 L Hgb 12.3 L Hct 38 L MCV 92 MCH 30 MCHC 32 RDW 17 H Plt Count 118 L MPV 9.5 Neut % (Auto) 70.5 Lymph % (Auto) 12.8 [place] % (Auto) 11.7 Eos % (Auto) 4.4 Baso % (Auto) 0.6 Absolute Neuts (auto) 3.3 Absolute Lymphs (auto) 0.6 L Absolute Monos (auto) 0.6 Absolute Eos (auto) 0.2 Absolute Basos (auto) 0.0 Absolute Nucleated RBC 0.0 Nucleated RBC % 0.1 APTT 50.9 H Sodium 137 Potassium 4.7 Chloride 101 Carbon Dioxide 34 H Anion Gap 2 BUN 29 H Creatinine 0.78 Est GFR ( Amer) 117.7 Est GFR (Non-Af Amer) 97.3 BUN/Creatinine Ratio 37.2 H Glucose 152 H POC Glucose (mg/dL) Calcium 8.8 Magnesium 2.1 11/13/18 11/13/18 11/13/18 05:59 08:15 08:15 WBC RBC Hgb Hct MCV MCH MCHC RDW Plt Count MPV Neut % (Auto) Lymph % (Auto) [place] % (Auto) Eos % (Auto) Baso % (Auto) Absolute Neuts (auto) Absolute Lymphs (auto) Absolute Monos (auto) Absolute Eos (auto) Absolute Basos (auto) Absolute Nucleated RBC Nucleated RBC % APTT > 212.0 H* 35.0 Sodium Potassium Chloride Carbon Dioxide Anion Gap BUN Creatinine Est GFR ( Amer) Est GFR (Non-Af Amer) BUN/Creatinine Ratio Glucose POC Glucose (mg/dL) 148 H Calcium Magnesium Diagnostic Imaging: Echo 11/06/2018; LVEF 55-60%, moderate RV dilatation, estimated peak systolic pressure 63mmHg, mild , mild TR per report. EKG Data: 11/13/2018; Afib/Flutter rate 135 with frequent PVCs. Assessment/Plan #1 Newly diagnosed asymptomatic PAF/AFL with RVR; Chads Vasc 3 representing 3 representing 3.2% annual risk of CVA. He denies bleeding complications in the past such as GI bleed, ICH, requiring transfusions. Hematuria has resolved today likely due to traumatic catheterization. He is bedbound at this time however, in the future if he is able to ambulate fall risk would need to be reassessed. At this time recommend starting Coumadin with goal INR 2-3. No DOAC given BMI 60. He is on Lopressor 12.5mg Po BID for rate control. he is having periods of HR 120-140, will D/C lopressor. RX Toprol 12.5mg PO BID and uptitrate as needed depending upon SBP. Will add Dig .125mcg EOD and follow rates closely. 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 TSH, Troponin normal this admit. #2 Mild Aortic stenosis; newly found. patient asymptomatic. Can follow outpatient. #3 h/o HTN; Patient historically on Atenolol 50mg Po BID and Lisinopril 40mg/ day. This admit has been hypotensive to normotensive thus medications stopped. Toprol intitated will follow pressure closely. #4 h/o HLD; on Lipitor 40mg/day. Goal LDL given h/o DM is < 70. #5 Disposition pending course. Patient full code. Will d/w Dr. Mann. <Ivan Mann - Last Filed: 11/13/18 12:33> Medications Active Medications: Acetaminophen (Tylenol Tab*) 650 mg PO Q6H PRN PRN Reason: pain/fever Last Admin: 11/13/18 03:25 Dose: 650 mg Allopurinol (Zyloprim Tab*) 300 mg PO DAILY [facility] Last Admin: 11/13/18 09:04 Dose: 300 mg Ammonium Lactate (Lac-Hydrin 12 %) 1 applic TOPICAL DAILY PRN PRN Reason: DRY SKIN Last Admin: 11/09/18 05:46 Dose: 1 applic Atorvastatin Calcium (Lipitor*) 40 mg PO DAILY [facility] Last Admin: 11/13/18 09:05 Dose: 40 mg Carisoprodol (Soma Tab*) 350 mg PO Q6H PRN PRN Reason: SPASMS - MUSCLE Cetirizine HCl (Zyrtec*) 10 mg PO DAILY [facility] Last Admin: 11/13/18 09:04 Dose: 10 mg Dextrose (D50w Syringe 50 Ml*) 12.5 gm IV PUSH .FOR FS < 60 - SS PRN PRN Reason: FS < 60 Digoxin (Lanoxin Tab*) 0.125 mg PO EVERY OTHER DAY [facility] Last Admin: 11/13/18 09:04 Dose: 0.125 mg Diphenhydramine HCl (Benadryl Po*) 25 mg PO TID PRN PRN Reason: Allergy Symptoms Last Admin: 11/13/18 09:27 Dose: 25 mg Fluticasone Propionate (Flonase Nasal Mcdonald 50mcg*) 2 spray BOTH NARES DAILY PRN PRN Reason: Allergy Symptoms Heparin Sodium (Porcine) (Heparin Vial(*)) 0 units IV .PER PROTOCOL [facility] Last Admin: 11/12/18 10:20 Dose: 4,650 units Cefepime HCl (Maxipime 2 Gm In Dextrose Duplex (*)) 2 gm in 50 mls @ 100 mls/ hr IV Q24H [facility] Last Admin: 11/12/18 17:23 Dose: 100 mls/hr Heparin Sodium/Dextrose (Heparin Drip 25,000 Units(*)) 25,000 units in 500 mls @ 0 mls/hr IV PER RATE [facility]; Protocol Last Admin: 11/12/18 16:03 Dose: 20 mls/hr Insulin Human Isoph/Insulin Regular (Humulin 70/30 (*)) 20 units SUBCUT BEDTIME [facility] Last Admin: 11/12/18 20:47 Dose: 20 units Insulin Human Lispro (Humalog*) 0 units SUBCUT ACHS [facility]; Protocol Last Admin: 11/13/18 09:05 Dose: 2 units Metoprolol Succinate (Toprol Xl Tab*) 12.5 mg PO TID [facility] Montelukast Sodium (Singulair Tab*) 10 mg PO DAILY [facility] Last Admin: 11/13/18 09:05 Dose: 10 mg Nystatin (Nystatin Cream*) 1 applic TOPICAL TID PRN PRN Reason: RASH Last Admin: 11/09/18 10:52 Dose: 1 applic Prochlorperazine Edisylate (Compazine Inj*) 5 mg IV Q6H PRN PRN Reason: NAUSEA/VOMITING Tamsulosin HCl (Flomax Cap*) 0.4 mg PO DAILY [facility] Last Admin: 11/13/18 09:05 Dose: 0.4 mg Warfarin Sodium (Coumadin Tab(*)) 5 mg PO DAILY@1700 [facility]; Protocol Objective Vital Signs: Temp Pulse Resp BP Pulse Ox 98.1 F 75 20 111/59 99 11/13/18 11:50 11/13/18 08:00 11/13/18 08:00 11/13/18 08:00 11/13/18 08:00 Laboratory Results: 11/13/18 05:59 11/13/18 05:59 INR (Anticoag Therapy) 1.25 (0.82-1.09) H 11/06/18 15:36 APTT > 212.0 seconds (26.0-36.3) H* 11/13/18 10:00 Total Bilirubin 1.50 mg/dL (0.2-1.0) H 11/06/18 15:36 AST 26 U/L (13-39) 11/06/18 15:36 ALT 19 U/L (7-52) 11/06/18 15:36 Alkaline Phosphatase 82 U/L (34-104) 11/06/18 15:36 B-Natriuretic Peptide 118 pg/mL (<=100) H 11/09/18 06:42 Total Protein 6.3 g/dL (6.4-8.9) L 11/06/18 15:36 Albumin 3.7 g/dL (3.2-5.2) 11/06/18 15:36 Globulin 2.6 g/dL (2-4) 11/06/18 15:36 Albumin/Globulin Ratio 1.4 (1-3) 11/06/18 15:36 TSH 4.48 mcIU/mL (0.34-5.60) 11/06/18 15:36 11/06/18 15:36 Troponin I 0.01 Assessment/Plan 5.23.2019 12:30 pm. pt seen and examined. still with rapid a fib/flutter. D/w [employer] Aleyda Ledesma. Agree with above management care plan.
[2018-11-13] MEDS ORDERED: Metoprolol Succinate XL TAB* 25 MG PO SCH ×2 (09:00)
[2018-11-13] MEDS ORDERED: Digoxin TAB* 0.125 MG PO SCH (09:00)
[2018-11-13] MEDS: Allopurinol TAB* 300 MG PO SCH (09:04)
[2018-11-13] MEDS: Cetirizine* 10 MG TAB PO SCH (09:04)
[2018-11-13] MEDS: Atorvastatin* 40 MG TAB PO SCH (09:05)
[2018-11-13] MEDS: Insulin LISPRO* 1 UNITS UNIT SUBCUT SCH ×4 (09:05→20:56)
[2018-11-13] MEDS: Tamsulosin CAP* 0.4 MG PO SCH (09:05)
[2018-11-13] MEDS: Montelukast Sodium TAB* 10 MG PO SCH (09:05)
--- NOTE | 2018-11-13 09:10 | PN ---
Date of Service: 11/13/18 Critical Care Services: Major problem has been AFib - 1. The rate is coming under control with low-dose beta blockers, and digitalis has been added today. 2. Has been on a heparin drip for anticoagulation, and coumadin will be started today (held off on oral anticoagulation because of gross hematuria, which has resolved). Vital Signs: Temp Pulse Resp BP SpO2 FiO2 97.8 F 75 20 111/59 99 Physical Exam: Gen:Alert, oriented, and breathing comfortably Lungs:BS very distant. Few crackles at both bases. No wheezes. Cardiac: No murmurs detected Abdomen: Obese Extremities: Exam as described previously (see pictures from wound care service) . Fluid Balance (Past 24 Hours): 11/12/18 11/13/18 06:59 06:59 Intake Total 948 1411 Output Total 2295 2305 Balance -1347 -894 Weight 449 lb Intake: IV Fluids 16 1 NS (0.9%) 16 1 IVPB 52 53 ABX - CEFEPIME 52 53 Medicated IV 340 407 heparin 340 407 Heparin Oral 540 950 Hodge Irrigate Amount Output: Urine Hodge 2295 2305 Other: Date of Last Bowel 11/11/18 Movement # Bowel Movements 1 Estimated Stool Amount Large Labs: 11/12/18 11/13/18 11/13/18 23:56 05:59 05:59 WBC 4.7 Hgb 12.3 L Hct 38 L MCV 92 Plt Count 118 L APTT 50.9 H > 212 Sodium 137 Potassium 4.7 Chloride 101 Carbon Dioxide 34 H Anion Gap 2 BUN 29 H Creatinine 0.78 Est GFR ( Amer) 117.7 Est GFR (Non-Af Amer) 97.3 BUN/Creatinine Ratio 37.2 H Glucose 152 H POC Glucose (mg/dL) Calcium 8.8 Magnesium 2.1 11/13/18 11/13/18 08:15 08:15 APTT 35.0 Sodium Potassium Chloride Carbon Dioxide Anion Gap BUN Creatinine Est GFR ( Amer) Est GFR (Non-Af Amer) BUN/Creatinine Ratio Glucose POC Glucose (mg/dL) 148 H Studies: None today Nutrition: Consistent Carb Diet Impression: Clinically stable. Major problems include morbid obesity, nonvalvular AFib, and chronic dermopathy of lower extremities. Plan: Will transfer out of ICU today. Coumadin to be started today, and heparin anticoagulation will be continued until INR is therapeutic. Cardiology service has been very helpful in achieving rate control, and will continue to follow the patient.
[2018-11-13] MEDS ORDERED: Digoxin IV* 0.5 MG/2 ML AMP (0.25 MG/ML) IV SLOW PU ONE (11:23)
[2018-11-13] MEDS: Metoprolol Succinate XL TAB* 25 MG PO SCH ×2 (13:22→20:55)
[2018-11-13] MEDS: Warfarin TAB(*) 5 MG PO SCH (18:15)
[2018-11-13] MEDS: Cefepime 2 GM in Dextrose(*) 2 GM/50 ML BAG IV SCH (18:16)
[2018-11-13] MEDS: Insulin ISOPH/REG 70/30 (*) 1 UNITS UNIT SUBCUT SCH (20:57)
[2018-11-14] MEDS: Acetaminophen TAB* 325 MG PO PRN ×2 (01:09→23:42)
[2018-11-14] MEDS: Heparin DRIP 25,000 UNITS(*) 25,000 UNITS/500 ML BAG IV SCH ×2 (01:41→14:44)
[2018-11-14 06:21] LABS: ABS Eosinophils 0.3 10^3/ul (0-0.6); ABS Lymphocytes 0.7 10^3/ul (1.0-4.8); ABS Monocytes 0.7 10^3/ul (0-0.8); ABS Neutrophils 3.5 10^3/ul (1.5-7.7); Eosinophil % 4.9 %; Hematocrit 35 % (42-52); Hemoglobin 11.4 g/dL (14.0-18.0); Lymphocyte % 13.5 %; Mean Corpuscular HGB Conc 32 g/dL (31-36); Mean Corpuscular Hemoglobin 30 pg (27-31); Mean Corpuscular Volume 91 fL (80-94); Mean Platelet Volume 8.7 fL (7.4-10.4); Nucleated Red Blood Cells % 0.1; Platelet Count 103 10^3/uL (150-450); Red Blood Count 3.85 10^6 /uL (4.18-5.48); Red Cell Distribution Width 17 % (10.5-15); White Blood Count 5.2 10^3/uL (3.5-10.8)
[2018-11-14 06:30] LABS: Activated Partial Thrombo Time 61.9 seconds (26.0-36.3); INR 1.23 (0.82-1.09)
[2018-11-14 06:39] LABS: Calcium 8.5 mg/dL (8.6-10.3); EGFR African American 117.7 (>60); EGFR Non-African American 97.3 (>60); Potassium 4.8 mmol/L (3.5-5.0)
[2018-11-14] MEDS: Insulin LISPRO* 1 UNITS UNIT SUBCUT SCH ×4 (08:19→21:02)
[2018-11-14] MEDS: Atorvastatin* 40 MG TAB PO SCH (08:19)
[2018-11-14] MEDS: Tamsulosin CAP* 0.4 MG PO SCH (08:19)
[2018-11-14] MEDS: Allopurinol TAB* 300 MG PO SCH (08:20)
[2018-11-14] MEDS: Cetirizine* 10 MG TAB PO SCH (08:20)
[2018-11-14] MEDS: Montelukast Sodium TAB* 10 MG PO SCH (08:20)
[2018-11-14] MEDS: Metoprolol Succinate XL TAB* 25 MG PO SCH ×2 (08:20→19:44)
[2018-11-14] MEDS ORDERED: Metoprolol Succinate XL TAB* 25 MG PO ONE (09:17)
--- NOTE | 2018-11-14 09:35 | PN ---
Date of Service: 11/14/18 Critical Care Services: Clinical status unchanged over the past 24 hours. Patient had an uneventful evening. We are still trying to achieve optimal rate control of the AFib (on metoprolol succinate 25 mg BID and digoxin 0.125 daily). Patient denies chest pain and SOB this AM. Vital Signs: Temp Pulse Resp BP SpO2 FiO2 97.0 F 110 23 119/81 98 Physical Exam: Gen:Awake and appears comfortable. HEENT: Nasal CPAP device in place. Lungs:BS distant. No wheezes. Cardiac: Irreg rhythm Abdomen:Obese Extremities:Exam as described previously. No change. Fluid Balance (Past 24 Hours): 11/13/18 11/14/18 06:59 06:59 Intake Total 1411 1153.1 Output Total 2305 3080 Balance -894 -1926.9 Weight Intake: IV Fluids 1 NS (0.9%) 1 IVPB 53 ABX - CEFEPIME 53 Medicated IV 407 399 heparin 407 399 Heparin 144.1 Oral 950 300 Hodge Irrigate Amount 310 Output: Hodge 2305 3080 Other: Date of Last Bowel 11/11/18 Movement # Bowel Movements 1 Estimated Stool Amount Large Labs: 11/13/18 11/13/18 11/14/18 18:22 20:49 00:40 WBC RBC Hgb Hct MCV MCH MCHC RDW Plt Count MPV Neut % (Auto) Lymph % (Auto) [place] % (Auto) Eos % (Auto) Baso % (Auto) Absolute Neuts (auto) Absolute Lymphs (auto) Absolute Monos (auto) Absolute Eos (auto) Absolute Basos (auto) Absolute Nucleated RBC Nucleated RBC % INR (Anticoag Therapy) APTT 54.1 H 47.7 H Sodium Potassium Chloride Carbon Dioxide Anion Gap BUN Creatinine Est GFR ( Amer) Est GFR (Non-Af Amer) BUN/Creatinine Ratio Glucose POC Glucose (mg/dL) 201 H Calcium 11/14/18 11/14/18 11/14/18 06:15 06:15 06:15 WBC 5.2 RBC 3.85 L Hgb 11.4 L Hct 35 L MCV 91 MCH 30 MCHC 32 RDW 17 H Plt Count 103 L MPV 8.7 Neut % (Auto) 68.1 Lymph % (Auto) 13.5 [place] % (Auto) 12.8 Eos % (Auto) 4.9 Baso % (Auto) 0.7 Absolute Neuts (auto) 3.5 Absolute Lymphs (auto) 0.7 L Absolute Monos (auto) 0.7 Absolute Eos (auto) 0.3 Absolute Basos (auto) 0.0 Absolute Nucleated RBC 0.0 Nucleated RBC % 0.1 INR (Anticoag Therapy) 1.23 H APTT 61.9 H Sodium 136 Potassium 4.8 Chloride 100 L Carbon Dioxide 33 H Anion Gap 3 BUN 32 H Creatinine 0.78 Est GFR ( Amer) 117.7 Est GFR (Non-Af Amer) 97.3 BUN/Creatinine Ratio 41.0 H Glucose 135 H POC Glucose (mg/dL) Calcium 8.5 L Studies: None today Nutrition: Consistent Carb Diet Impression: New-onset AFib on beta blockers and dig for rate control, and on heparin drip with coumadin started yesterday for anticoagulation. Is clinically stable at this time, but needs more aggressive rate control. Plan: Will ask cardiology about increasing beta khanh dose. Will transfer out of ICU today.
--- NOTE | 2018-11-14 09:46 | PN ---
<Aleyda Ledesma - Last Filed: 11/14/18 09:38> Subjective Date of Service: 11/14/18 - AFL Interval History: No events last night, patient is c/o SOB and nasal congestion. Denies dizziness , lightheadedness, chest pain, palpitations or sensation of heart racing. He is currently eating breakfast. I spoke to nurse who states HR yesterday 110-120 BPM. Medications Active Medications: Allopurinol (Zyloprim Tab*) 300 mg PO DAILY [facility] Last Admin: 11/14/18 08:20 Dose: 300 mg Ammonium Lactate (Lac-Hydrin 12 %) 1 applic TOPICAL DAILY PRN PRN Reason: DRY SKIN Last Admin: 11/09/18 05:46 Dose: 1 applic Atorvastatin Calcium (Lipitor*) 40 mg PO DAILY [facility] Last Admin: 11/14/18 08:19 Dose: 40 mg Carisoprodol (Soma Tab*) 350 mg PO Q6H PRN PRN Reason: SPASMS - MUSCLE Cetirizine HCl (Zyrtec*) 10 mg PO DAILY [facility] Last Admin: 11/14/18 08:20 Dose: 10 mg Dextrose (D50w Syringe 50 Ml*) 12.5 gm IV PUSH .FOR FS < 60 - SS PRN PRN Reason: FS < 60 Digoxin (Lanoxin Tab*) 0.125 mg PO DAILY [facility] Diphenhydramine HCl (Benadryl Po*) 25 mg PO TID PRN PRN Reason: Allergy Symptoms Last Admin: 11/13/18 09:27 Dose: 25 mg Fluticasone Propionate (Flonase Nasal [place] 50mcg*) 2 spray BOTH NARES DAILY PRN PRN Reason: Allergy Symptoms Heparin Sodium (Porcine) (Heparin Vial(*)) 0 units IV .PER PROTOCOL [facility] Last Admin: 11/12/18 10:20 Dose: 4,650 units Cefepime HCl (Maxipime 2 Gm In Dextrose Duplex (*)) 2 gm in 50 mls @ 100 mls/ hr IV Q24H [facility] Last Admin: 11/13/18 18:16 Dose: 100 mls/hr Heparin Sodium/Dextrose (Heparin Drip 25,000 Units(*)) 25,000 units in 500 mls @ 0 mls/hr IV PER RATE [facility]; Protocol Last Admin: 11/14/18 01:41 Dose: 23 mls/hr Insulin Human Isoph/Insulin Regular (Humulin 70/30 (*)) 20 units SUBCUT BEDTIME [facility] Last Admin: 11/13/18 20:57 Dose: 20 units Insulin Human Lispro (Humalog*) 0 units SUBCUT ACHS [facility]; Protocol Last Admin: 11/14/18 08:19 Dose: 3 units Metoprolol Succinate (Toprol Xl Tab*) 25 mg PO BID [facility] Montelukast Sodium (Singulair Tab*) 10 mg PO DAILY [facility] Last Admin: 11/14/18 08:20 Dose: 10 mg Nystatin (Nystatin Cream*) 1 applic TOPICAL TID PRN PRN Reason: RASH Last Admin: 11/09/18 10:52 Dose: 1 applic Prochlorperazine Edisylate (Compazine Inj*) 5 mg IV Q6H PRN PRN Reason: NAUSEA/VOMITING Warfarin Sodium (Coumadin Tab(*)) 5 mg PO DAILY@1700 [facility]; Protocol Last Admin: 11/13/18 18:15 Dose: 5 mg Objective Vital Signs: Temp Pulse Resp BP Pulse Ox 97.0 F 110 23 119/81 98 11/14/18 03:51 11/14/18 07:04 11/14/18 07:04 11/14/18 07:04 11/14/18 07:04 Oxygen Devices in Use Now: Nasal Cannula, BiPAP Appearance: lying in bed sleeping upon entering room, does not appear in distress, a+o x3 Eyes: No Scleral Icterus, PERRLA Ears/Nose/Mouth/Throat: NL Teeth, Lips, Gums, - - Bipap noted in nares. Neck: Trachea Midline Respiratory: Clear to Auscultation - anteriorally. Cardiovascular: - - tachycardic S1, S2, irregular rate. No gallop, murmur or rub noted. Abdominal: - - obese, non tender, normoactive bsX4 Extremities: - - + non pitting edema with diffuse rash Skin: - - + cellulitis involving bilateral lower extremities Neurological: Alert and Oriented x 3 Lines/Tubes/Other Access: Clean, Dry and Intact Hodge - + hematuria( light pink ) per nurse patient had clots in bag earlier., Clean, Dry and Intact Peripheral IV Laboratory Results: 11/14/18 06:15 11/14/18 06:15 INR (Anticoag Therapy) 1.23 (0.82-1.09) H 11/14/18 06:15 APTT 61.9 seconds (26.0-36.3) H 11/14/18 06:15 Total Bilirubin 1.50 mg/dL (0.2-1.0) H 11/06/18 15:36 AST 26 U/L (13-39) 11/06/18 15:36 ALT 19 U/L (7-52) 11/06/18 15:36 Alkaline Phosphatase 82 U/L (34-104) 11/06/18 15:36 B-Natriuretic Peptide 118 pg/mL (<=100) H 11/09/18 06:42 Total Protein 6.3 g/dL (6.4-8.9) L 11/06/18 15:36 Albumin 3.7 g/dL (3.2-5.2) 11/06/18 15:36 Globulin 2.6 g/dL (2-4) 11/06/18 15:36 Albumin/Globulin Ratio 1.4 (1-3) 11/06/18 15:36 TSH 4.48 mcIU/mL (0.34-5.60) 11/06/18 15:36 11/06/18 15:36 Troponin I 0.01 Laboratory Results - last 24 hr 11/13/18 11/13/18 11/13/18 10:00 13:04 17:25 WBC RBC Hgb Hct MCV MCH MCHC RDW Plt Count MPV Neut % (Auto) Lymph % (Auto) [place] % (Auto) Eos % (Auto) Baso % (Auto) Absolute Neuts (auto) Absolute Lymphs (auto) Absolute Monos (auto) Absolute Eos (auto) Absolute Basos (auto) Absolute Nucleated RBC Nucleated RBC % INR (Anticoag Therapy) APTT > 212.0 H* Sodium Potassium Chloride Carbon Dioxide Anion Gap BUN Creatinine Est GFR ( Amer) Est GFR (Non-Af Amer) BUN/Creatinine Ratio Glucose POC Glucose (mg/dL) 180 H 175 H Calcium 11/13/18 11/13/18 11/14/18 18:22 20:49 00:40 WBC RBC Hgb Hct MCV MCH MCHC RDW Plt Count MPV Neut % (Auto) Lymph % (Auto) [place] % (Auto) Eos % (Auto) Baso % (Auto) Absolute Neuts (auto) Absolute Lymphs (auto) Absolute Monos (auto) Absolute Eos (auto) Absolute Basos (auto) Absolute Nucleated RBC Nucleated RBC % INR (Anticoag Therapy) APTT 54.1 H 47.7 H Sodium Potassium Chloride Carbon Dioxide Anion Gap BUN Creatinine Est GFR ( Amer) Est GFR (Non-Af Amer) BUN/Creatinine Ratio Glucose POC Glucose (mg/dL) 201 H Calcium 11/14/18 11/14/18 11/14/18 06:15 06:15 06:15 WBC 5.2 RBC 3.85 L Hgb 11.4 L Hct 35 L MCV 91 MCH 30 MCHC 32 RDW 17 H Plt Count 103 L MPV 8.7 Neut % (Auto) 68.1 Lymph % (Auto) 13.5 Parker % (Auto) 12.8 Eos % (Auto) 4.9 Baso % (Auto) 0.7 Absolute Neuts (auto) 3.5 Absolute Lymphs (auto) 0.7 L Absolute Monos (auto) 0.7 Absolute Eos (auto) 0.3 Absolute Basos (auto) 0.0 Absolute Nucleated RBC 0.0 Nucleated RBC % 0.1 INR (Anticoag Therapy) 1.23 H APTT 61.9 H Sodium 136 Potassium 4.8 Chloride 100 L Carbon Dioxide 33 H Anion Gap 3 BUN 32 H Creatinine 0.78 Est GFR ( Amer) 117.7 Est GFR (Non-Af Amer) 97.3 BUN/Creatinine Ratio 41.0 H Glucose 135 H POC Glucose (mg/dL) Calcium 8.5 L 11/14/18 07:53 WBC RBC Hgb Hct MCV MCH MCHC RDW Plt Count MPV Neut % (Auto) Lymph % (Auto) [place] % (Auto) Eos % (Auto) Baso % (Auto) Absolute Neuts (auto) Absolute Lymphs (auto) Absolute Monos (auto) Absolute Eos (auto) Absolute Basos (auto) Absolute Nucleated RBC Nucleated RBC % INR (Anticoag Therapy) APTT Sodium Potassium Chloride Carbon Dioxide Anion Gap BUN Creatinine Est GFR ( Amer) Est GFR (Non-Af Amer) BUN/Creatinine Ratio Glucose POC Glucose (mg/dL) 154 H Calcium Diagnostic Imaging: Echo 11/06/2018; LVEF 55-60%, moderate RV dilatation, estimated peak systolic pressure 63mmHg, mild , mild TR per report. EKG Data: 11/13/2018; Afib/Flutter rate 135 with frequent PVCs. Assessment/Plan #1 Newly Diagnosed Afib/Flutter with RVR; Patient not symptomatic despite HR 110 -130 BPM was symptomatic yesterday prior to administration of IV dig when HR was 150 BPM. Will increase Toprol 25mg Po BID, increase Digoxin .125mcg PO daily. Update dig level tomorrow. Chads Vasc 3 on IV heparin and coumadin therapy. Goal INR 2-3. Patient started to have hematuria again. H+H stable. #2 h/o HTN; Patient currently normotensive on Toprol therapy. #3 newly found mild ; gradients stable can follow outpatient. #4 h/o HLD; Goal LDL < 70 on statin therapy. #5 Disposition pending course. Heart rate has been difficult to control. Patient remains in AFL with RVR and frequent PVCs. He was formally on Atenolol 50mg Po BID. Toprol has been initiated. Will increase dose to 25mg PO BID. increase Dig to .125mcg/day. Will follow. Bp has been a limiting factor however , he has proven to tolerate high doses of Toprol, thus we may be able to continue up titration but cautiously. Will d/w Dr. Mann. Attending: Ivan Mann <Ivan Mann - Last Filed: 11/14/18 12:14> Medications Active Medications: Allopurinol (Zyloprim Tab*) 300 mg PO DAILY [facility] Last Admin: 11/14/18 08:20 Dose: 300 mg Ammonium Lactate (Lac-Hydrin 12 %) 1 applic TOPICAL DAILY PRN PRN Reason: DRY SKIN Last Admin: 11/09/18 05:46 Dose: 1 applic Atorvastatin Calcium (Lipitor*) 40 mg PO DAILY [facility] Last Admin: 11/14/18 08:19 Dose: 40 mg Carisoprodol (Soma Tab*) 350 mg PO Q6H PRN PRN Reason: SPASMS - MUSCLE Cetirizine HCl (Zyrtec*) 10 mg PO DAILY [facility] Last Admin: 11/14/18 08:20 Dose: 10 mg Dextrose (D50w Syringe 50 Ml*) 12.5 gm IV PUSH .FOR FS < 60 - SS PRN PRN Reason: FS < 60 Digoxin (Lanoxin Tab*) 0.125 mg PO DAILY [facility] Last Admin: 11/14/18 10:32 Dose: 0.125 mg Diphenhydramine HCl (Benadryl Po*) 25 mg PO TID PRN PRN Reason: Allergy Symptoms Last Admin: 11/13/18 09:27 Dose: 25 mg Fluticasone Propionate (Flonase Nasal [place] 50mcg*) 2 spray BOTH NARES DAILY PRN PRN Reason: Allergy Symptoms Heparin Sodium (Porcine) (Heparin Vial(*)) 0 units IV .PER PROTOCOL [facility] Last Admin: 11/12/18 10:20 Dose: 4,650 units Heparin Sodium/Dextrose (Heparin Drip 25,000 Units(*)) 25,000 units in 500 mls @ 0 mls/hr IV PER RATE [facility]; Protocol Last Admin: 11/14/18 01:41 Dose: 23 mls/hr Insulin Human Isoph/Insulin Regular (Humulin 70/30 (*)) 20 units SUBCUT BEDTIME [facility] Last Admin: 11/13/18 20:57 Dose: 20 units Insulin Human Lispro (Humalog*) 0 units SUBCUT ACHS [facility]; Protocol Last Admin: 11/14/18 08:19 Dose: 3 units Metoprolol Succinate (Toprol Xl Tab*) 25 mg PO BID [facility] Montelukast Sodium (Singulair Tab*) 10 mg PO DAILY [facility] Last Admin: 11/14/18 08:20 Dose: 10 mg Nystatin (Nystatin Cream*) 1 applic TOPICAL TID PRN PRN Reason: RASH Last Admin: 11/09/18 10:52 Dose: 1 applic Prochlorperazine Edisylate (Compazine Inj*) 5 mg IV Q6H PRN PRN Reason: NAUSEA/VOMITING Warfarin Sodium (Coumadin Tab(*)) 5 mg PO DAILY@1700 [facility]; Protocol Last Admin: 11/13/18 18:15 Dose: 5 mg Objective Vital Signs: Temp Pulse Resp BP Pulse Ox 97.0 F 118 23 125/69 100 11/14/18 03:51 11/14/18 10:32 11/14/18 10:00 11/14/18 10:00 11/14/18 10:00 Laboratory Results: 11/14/18 06:15 11/14/18 06:15 INR (Anticoag Therapy) 1.23 (0.82-1.09) H 11/14/18 06:15 APTT 61.9 seconds (26.0-36.3) H 11/14/18 06:15 Total Bilirubin 1.50 mg/dL (0.2-1.0) H 11/06/18 15:36 AST 26 U/L (13-39) 11/06/18 15:36 ALT 19 U/L (7-52) 11/06/18 15:36 Alkaline Phosphatase 82 U/L (34-104) 11/06/18 15:36 B-Natriuretic Peptide 118 pg/mL (<=100) H 11/09/18 06:42 Total Protein 6.3 g/dL (6.4-8.9) L 11/06/18 15:36 Albumin 3.7 g/dL (3.2-5.2) 11/06/18 15:36 Globulin 2.6 g/dL (2-4) 11/06/18 15:36 Albumin/Globulin Ratio 1.4 (1-3) 11/06/18 15:36 TSH 4.48 mcIU/mL (0.34-5.60) 11/06/18 15:36 11/06/18 15:36 Troponin I 0.01 Assessment/Plan 11.14.2018 12:12 PM: Pt seen and examined. Above plan of care d/w STUDIO GRIP Aleyda Ledesma. Labs reviewed. Meds reviewed. F/u Dig level.and close eye on BP.
[2018-11-14] MEDS: Digoxin TAB* 0.125 MG PO SCH (10:32)
[2018-11-14] MEDS: Warfarin TAB(*) 5 MG PO SCH (16:19)
[2018-11-14] MEDS: Insulin ISOPH/REG 70/30 (*) 1 UNITS UNIT SUBCUT SCH (21:02)
[2018-11-14] MEDS ORDERED: Metoprolol Tartrate IV* 1 MG/ML 5 ML VIAL IV ONE (22:20)
[2018-11-15] MEDS: Allopurinol TAB* 300 MG PO SCH (08:14)
[2018-11-15] MEDS: Atorvastatin* 40 MG TAB PO SCH (08:14)
[2018-11-15] MEDS: Montelukast Sodium TAB* 10 MG PO SCH (08:14)
[2018-11-15] MEDS: Insulin LISPRO* 1 UNITS UNIT SUBCUT SCH ×4 (08:14→22:56)
[2018-11-15] MEDS: Metoprolol Succinate XL TAB* 25 MG PO SCH (08:14)
[2018-11-15] MEDS: Digoxin TAB* 0.125 MG PO SCH (08:14)
[2018-11-15] MEDS: Cetirizine* 10 MG TAB PO SCH (08:14)
[2018-11-15 09:47] LABS: INR 1.41 (0.82-1.09)
[2018-11-15 10:23] LABS: Hematocrit 35 % (42-52); Hemoglobin 11.2 g/dL (14.0-18.0); Mean Corpuscular HGB Conc 32 g/dL (31-36); Mean Corpuscular Hemoglobin 30 pg (27-31); Mean Corpuscular Volume 93 fL (80-94); Red Blood Count 3.71 10^6 /uL (4.18-5.48); Red Cell Distribution Width 17 % (10.5-15); White Blood Count 6.7 10^3/uL (3.5-10.8)
[2018-11-15 10:24] LABS: ABS Basophils 0.1 10^3/ul (0-0.2); ABS Eosinophils 0.3 10^3/ul (0-0.6); ABS Lymphocytes 0.7 10^3/ul (1.0-4.8); ABS Monocytes 0.6 10^3/ul (0-0.8); Eosinophil % 5.2 %; Lymphocyte % 10.9 %; Nucleated Red Blood Cells % 0.4
[2018-11-15] MEDS: Acetaminophen TAB* 325 MG PO PRN ×2 (11:51→22:53)
[2018-11-15] MEDS: Heparin DRIP 25,000 UNITS(*) 25,000 UNITS/500 ML BAG IV SCH (11:51)
--- NOTE | 2018-11-15 13:35 | PN ---
Subjective Date of Service: 11/15/18 - CC: weakness, afib, RVR Interval History: Patient denies SOB, thinks legs worse. Continues to feel weak. Thinks he is ready to try PT. Medications Active Medications: Acetaminophen (Tylenol Tab*) 650 mg PO Q4H PRN PRN Reason: PAIN Last Admin: 11/15/18 11:51 Dose: 650 mg Allopurinol (Zyloprim Tab*) 300 mg PO DAILY [facility] Last Admin: 11/15/18 08:14 Dose: 300 mg Ammonium Lactate (Lac-Hydrin 12 %) 1 applic TOPICAL DAILY PRN PRN Reason: DRY SKIN Last Admin: 11/09/18 05:46 Dose: 1 applic Atorvastatin Calcium (Lipitor*) 40 mg PO DAILY [facility] Last Admin: 11/15/18 08:14 Dose: 40 mg Carisoprodol (Soma Tab*) 350 mg PO Q6H PRN PRN Reason: SPASMS - MUSCLE Cetirizine HCl (Zyrtec*) 10 mg PO DAILY [facility] Last Admin: 11/15/18 08:14 Dose: 10 mg Dextrose (D50w Syringe 50 Ml*) 12.5 gm IV PUSH .FOR FS < 60 - SS PRN PRN Reason: FS < 60 Digoxin (Lanoxin Tab*) 0.125 mg PO DAILY [facility] Last Admin: 11/15/18 08:14 Dose: 0.125 mg Diphenhydramine HCl (Benadryl Po*) 25 mg PO TID PRN PRN Reason: Allergy Symptoms Last Admin: 11/13/18 09:27 Dose: 25 mg Fluticasone Propionate (Flonase Nasal [place] 50mcg*) 2 spray BOTH NARES DAILY PRN PRN Reason: Allergy Symptoms Heparin Sodium (Porcine) (Heparin Vial(*)) 0 units IV .PER PROTOCOL [facility] Last Admin: 11/12/18 10:20 Dose: 4,650 units Heparin Sodium/Dextrose (Heparin Drip 25,000 Units(*)) 25,000 units in 500 mls @ 0 mls/hr IV PER RATE [facility]; Protocol Last Admin: 11/15/18 11:51 Dose: 23 mls/hr Insulin Human Isoph/Insulin Regular (Humulin 70/30 (*)) 20 units SUBCUT BEDTIME [facility] Last Admin: 11/14/18 21:02 Dose: 20 units Insulin Human Lispro (Humalog*) [facility]; Protocol Last Admin: 11/15/18 11:51 Dose: 3 units Metoprolol Succinate (Toprol Xl Tab*) 25 mg PO BID [facility] Last Admin: 11/15/18 08:14 Dose: 25 mg Montelukast Sodium (Singulair Tab*) 10 mg PO DAILY [facility] Last Admin: 11/15/18 08:14 Dose: 10 mg Nystatin (Nystatin Cream*) 1 applic TOPICAL TID PRN PRN Reason: RASH Last Admin: 11/09/18 10:52 Dose: 1 applic Prochlorperazine Edisylate (Compazine Inj*) 5 mg IV Q6H PRN PRN Reason: NAUSEA/VOMITING Warfarin Sodium (Coumadin Tab(*)) 5 mg PO DAILY@1700 [facility]; Protocol Last Admin: 11/14/18 16:19 Dose: 5 mg Objective Vital Signs: Temp Pulse Resp BP Pulse Ox 98.3 F 59 18 100/41 100 11/15/18 12:59 11/15/18 12:59 11/15/18 12:59 11/15/18 12:59 11/15/18 12:59 Vital Signs - 12 hr Temp Pulse Resp BP Pulse Ox 11/15/18 12:59 98.3 F 59 18 100/41 100 11/15/18 08:14 109 11/15/18 08:11 98.0 F 61 18 123/63 100 11/15/18 07:23 16 11/15/18 04:30 98.4 F 61 16 109/62 95 Intake and Output Last 24 Hours 11/13/18 11/14/18 11/15/18 11/16/18 04:59 04:59 04:59 04:59 Intake Total 1407 1036 347.8 283 Output Total 2340 2945 2675 900 Balance -933 -1909 -2327.2 -617 Weight 449 lb 15.415 oz 447 lb 6.4 oz Intake: IV Fluids 1 NS (0.9%) 1 IVPB 53 ABX - CEFEPIME 53 Medicated IV 403 287 257 heparin 403 287 257 Heparin 139 90.8 283 Oral 950 300 0 Hodge Irrigate Amount 310 Output: Hodge 2340 2945 2675 900 Other: Date of Last Bowel 11/11/18 Movement # Bowel Movements 1 Estimated Stool Amount Large Oxygen Devices in Use Now: CPAP Appearance: morbidly obese patient, nasal CPAP on, resting, NAD, appears chronically ill, very alert. Eyes: No Scleral Icterus, PERRLA Ears/Nose/Mouth/Throat: NL Teeth, Lips, Gums, - Neck: Trachea Midline - very thick neck, unable to evaluate neck veins Respiratory: Clear to Auscultation - anteriorally/laterally. Cardiovascular: - - tachycardic S1, S2, irregular rate. Abdominal: - - obese, non tender, normal bowel sounds Extremities: - - marked edema c/w chronic lymphadenopathy, violacious discoloration up to knees. No pitting edema above knees. Skin: - - + cellulitis involving bilateral lower extremities Neurological: Alert and Oriented x 3 Lines/Tubes/Other Access: Clean, Dry and Intact Hodge - + hematuria( light pink ) per nurse patient had clots in bag earlier., Clean, Dry and Intact Peripheral IV Laboratory Results: 11/15/18 09:27 11/14/18 06:15 INR (Anticoag Therapy) 1.41 (0.82-1.09) H 11/15/18 09:27 APTT 55.3 seconds (26.0-36.3) H 11/14/18 12:10 Total Bilirubin 1.50 mg/dL (0.2-1.0) H 11/06/18 15:36 AST 26 U/L (13-39) 11/06/18 15:36 ALT 19 U/L (7-52) 11/06/18 15:36 Alkaline Phosphatase 82 U/L (34-104) 11/06/18 15:36 B-Natriuretic Peptide 118 pg/mL (<=100) H 11/09/18 06:42 Total Protein 6.3 g/dL (6.4-8.9) L 11/06/18 15:36 Albumin 3.7 g/dL (3.2-5.2) 11/06/18 15:36 Globulin 2.6 g/dL (2-4) 11/06/18 15:36 Albumin/Globulin Ratio 1.4 (1-3) 11/06/18 15:36 TSH 4.48 mcIU/mL (0.34-5.60) 11/06/18 15:36 11/06/18 15:36 Troponin I 0.01 Diagnostic Imaging: Echo 11/06/2018; LVEF 55-60%, moderate RV dilatation, estimated peak systolic pressure 63mmHg, mild , mild TR per report. EKG Data: 11/15/2018; Afib/Flutter tachycardic rate Assessment/Plan 73 yo patient was admitted 11/06/18 with failure to thrive at home with morbid obesity, DM T2, hypoventilation, weakness, CHU, severe lymphedema, cellulitis, unable to self ambulate ECG felt to be NSR, but may have been atrial flutter with a controlled rate. Was definitely in NSR in 2012. Rapid ventricular rates of afib/flutter for several days. I will double metoprolol. OK for physical therapy from a cardiac standpoint. Defer care of KRISTYN, lymphedema, ID, morbid obesity to hospitalist team.
--- NOTE | 2018-11-15 16:19 | PN ---
Subjective Date of Service: 11/15/18 Interval History: Reports no sob.Using CPAP.HR 110-130s Family History: Unchanged from Admission Social History: Unchanged from Admission Past Medical History: Unchanged from Admission Objective Active Medications: Acetaminophen (Tylenol Tab*) 650 mg PO Q4H PRN PRN Reason: PAIN Last Admin: 11/15/18 11:51 Dose: 650 mg Allopurinol (Zyloprim Tab*) 300 mg PO DAILY [facility] Last Admin: 11/15/18 08:14 Dose: 300 mg Ammonium Lactate (Lac-Hydrin 12 %) 1 applic TOPICAL DAILY PRN PRN Reason: DRY SKIN Last Admin: 11/09/18 05:46 Dose: 1 applic Atorvastatin Calcium (Lipitor*) 40 mg PO DAILY [facility] Last Admin: 11/15/18 08:14 Dose: 40 mg Carisoprodol (Soma Tab*) 350 mg PO Q6H PRN PRN Reason: SPASMS - MUSCLE Cetirizine HCl (Zyrtec*) 10 mg PO DAILY [facility] Last Admin: 11/15/18 08:14 Dose: 10 mg Dextrose (D50w Syringe 50 Ml*) 12.5 gm IV PUSH .FOR FS < 60 - SS PRN PRN Reason: FS < 60 Digoxin (Lanoxin Tab*) 0.125 mg PO DAILY [facility] Last Admin: 11/15/18 08:14 Dose: 0.125 mg Diphenhydramine HCl (Benadryl Po*) 25 mg PO TID PRN PRN Reason: Allergy Symptoms Last Admin: 11/13/18 09:27 Dose: 25 mg Fluticasone Propionate (Flonase Nasal [place] 50mcg*) 2 spray BOTH NARES DAILY PRN PRN Reason: Allergy Symptoms Heparin Sodium (Porcine) (Heparin Vial(*)) 0 units IV .PER PROTOCOL [facility] Last Admin: 11/12/18 10:20 Dose: 4,650 units Heparin Sodium/Dextrose (Heparin Drip 25,000 Units(*)) 25,000 units in 500 mls @ 0 mls/hr IV PER RATE [facility]; Protocol Last Admin: 11/15/18 11:51 Dose: 23 mls/hr Insulin Human Isoph/Insulin Regular (Humulin 70/30 (*)) 20 units SUBCUT BEDTIME [facility] Last Admin: 11/14/18 21:02 Dose: 20 units Insulin Human Lispro (Humalog*) 0 units SUBCUT ACHS [facility]; Protocol Last Admin: 11/15/18 11:51 Dose: 3 units Metoprolol Succinate (Toprol Xl Tab*) 50 mg PO BID [facility] Montelukast Sodium (Singulair Tab*) 10 mg PO DAILY [facility] Last Admin: 11/15/18 08:14 Dose: 10 mg Nystatin (Nystatin Cream*) 1 applic TOPICAL TID PRN PRN Reason: RASH Last Admin: 11/09/18 10:52 Dose: 1 applic Prochlorperazine Edisylate (Compazine Inj*) 5 mg IV Q6H PRN PRN Reason: NAUSEA/VOMITING Warfarin Sodium (Coumadin Tab(*)) 5 mg PO DAILY@1700 [facility]; Protocol Last Admin: 11/14/18 16:19 Dose: 5 mg Vital Signs - 8 hr 11/15/18 11/15/18 11/15/18 08:11 08:14 12:59 Temperature 98.0 F 98.3 F Pulse Rate 61 109 59 Respiratory 18 18 Rate Blood Pressure 123/63 100/41 (mmHg) O2 Sat by Pulse 100 100 Oximetry 11/15/18 15:47 Temperature 98.2 F Pulse Rate 125 Respiratory 18 Rate Blood Pressure 109/54 (mmHg) O2 Sat by Pulse 95 Oximetry Oxygen Devices in Use Now: None, CPAP Eyes: No Scleral Icterus Respiratory: Symmetrical Chest Expansion and Respiratory Effort, Clear to Auscultation Cardiovascular: NL Sounds; No Murmurs; No JVD, - - tachycardic Extremities: - - sig lymphadema with skin breakdown and some open areas Neurological: Alert and Oriented x 3 Result Diagrams: 11/15/18 09:27 11/14/18 06:15 Additional Lab and Data: Laboratory Results - last 24 hr 11/08/18 11/08/18 11/09/18 17:34 20:50 06:42 Sodium 137 Potassium 4.5 Chloride 101 Carbon Dioxide 32 Anion Gap 4 BUN 68 H Creatinine 1.51 H Est GFR ( Amer) 54.9 Est GFR (Non-Af Amer) 45.4 BUN/Creatinine Ratio 45.0 H Glucose 108 H POC Glucose (mg/dL) 148 H 174 H Calcium 8.3 L Magnesium 2.3 C-React Prot High Sens 14.54 H 11/09/18 11/09/18 11/09/18 06:42 06:42 07:33 WBC 6.5 RBC 4.44 Hgb 13.0 L Hct 41 L MCV 92 MCH 29 MCHC 32 RDW 17 H Plt Count 145 L MPV 9.7 Neut % (Auto) 78.0 Lymph % (Auto) 6.5 [place] % (Auto) 11.5 Eos % (Auto) 3.7 Baso % (Auto) 0.3 Absolute Neuts (auto) 5.0 Absolute Lymphs (auto) 0.4 L Absolute Monos (auto) 0.7 Absolute Eos (auto) 0.2 Absolute Basos (auto) 0.0 Absolute Nucleated RBC 0.0 Nucleated RBC % 0.1 POC Glucose (mg/dL) 110 H B-Natriuretic Peptide 118 H Microbiology and Other Data: Microbiology 11/06/18 15:36 Blood Venous Aerobic Blood Culture - Preliminary No Growth Day 2 11/06/18 15:36 Blood Venous Aerobic Blood Culture - Preliminary No Growth Day 2 11/06/18 15:36 Blood Venous Anaerobic Blood Culture - Preliminary No Growth Day 2 11/06/18 15:54 Urine Urine Culture - Final Morganella Morganii Normal Aviva Assess/Plan/Problems-Billing Assessment: 73 year old male supermorbid obesity (BMI 65.3) presenting with worsening hypoxic respiratory failure and inability to get out of bed for 8 weeks. BNP elevated, dependent anisarca two thirds up lateral thorax chest with suspected acute diastolic CHF exacerbation. Course complicated by ralph hematuria likely secondary to campoverde insertion. - Patient Problems (1) Atrial fibrillation with RVR Current Visit: Yes Status: Acute Code(s): I48.91 - UNSPECIFIED ATRIAL FIBRILLATION SNOMED Code(s): 657450642415132 Comment: New onset Afib/fl;utter avr Metoprolol dose increased on digoxin started on coumadin currently on heparin drip bridge (2) Acute and chronic respiratory failure with hypoxia Current Visit: Yes Status: Acute Code(s): J96.21 - ACUTE AND CHRONIC RESPIRATORY FAILURE WITH HYPOXIA SNOMED Code(s): 53586491 Comment: Pul hypertension KRISTYN on sleep apnea Obesity hypoventilation syndome Diastolic chf Improving (3) Acquired lymphedema of leg Current Visit: Yes Status: Acute Code(s): I89.0 - LYMPHEDEMA, NOT ELSEWHERE CLASSIFIED SNOMED Code(s): 610581920 Comment: Will get a wound care consult (4) Diabetes Current Visit: Yes Status: Acute Code(s): E11.9 - TYPE 2 DIABETES MELLITUS WITHOUT COMPLICATIONS SNOMED Code(s): 71350893 Comment: Continue Insulin Status and Disposition: PT/OT.
[2018-11-15] MEDS: Furosemide TAB* 20 MG PO SCH (17:01)
[2018-11-15] MEDS: Warfarin TAB(*) 5 MG PO SCH (17:01)
[2018-11-15] MEDS: Metoprolol Succinate XL TAB* 50 MG PO SCH (21:49)
[2018-11-15] MEDS: Insulin ISOPH/REG 70/30 (*) 1 UNITS UNIT SUBCUT SCH (22:54)
[2018-11-16] MEDS: Insulin LISPRO* 1 UNITS UNIT SUBCUT SCH ×4 (08:16→20:44)
[2018-11-16] MEDS: Furosemide TAB* 20 MG PO SCH (08:45)
[2018-11-16] MEDS: Atorvastatin* 40 MG TAB PO SCH (08:45)
[2018-11-16] MEDS: Metoprolol Succinate XL TAB* 50 MG PO SCH ×2 (08:45→20:48)
[2018-11-16] MEDS: Allopurinol TAB* 300 MG PO SCH (08:45)
[2018-11-16] MEDS: Digoxin TAB* 0.125 MG PO SCH (08:45)
[2018-11-16] MEDS: Montelukast Sodium TAB* 10 MG PO SCH (08:45)
[2018-11-16] MEDS: Cetirizine* 10 MG TAB PO SCH (08:45)
[2018-11-16] MEDS: Acetaminophen TAB* 325 MG PO PRN ×3 (08:56→20:44)
[2018-11-16 09:04] LABS: ABS Eosinophils 0.3 10^3/ul (0-0.6); ABS Lymphocytes 0.8 10^3/ul (1.0-4.8); ABS Monocytes 0.6 10^3/ul (0-0.8); ABS Neutrophils 4.9 10^3/ul (1.5-7.7); Eosinophil % 4.9 %; Hematocrit 35 % (42-52); Hemoglobin 11.1 g/dL (14.0-18.0); Lymphocyte % 11.4 %; Mean Corpuscular HGB Conc 32 g/dL (31-36); Mean Corpuscular Hemoglobin 30 pg (27-31); Mean Corpuscular Volume 93 fL (80-94); Mean Platelet Volume 9.5 fL (7.4-10.4); Nucleated Red Blood Cells % 0.4; Platelet Count 130 10^3/uL (150-450); Red Blood Count 3.76 10^6 /uL (4.18-5.48); Red Cell Distribution Width 17 % (10.5-15); White Blood Count 6.6 10^3/uL (3.5-10.8)
[2018-11-16 09:13] LABS: Activated Partial Thrombo Time 76.5 seconds (26.0-36.3); INR 1.68 (0.82-1.09)
[2018-11-16 09:21] LABS: EGFR African American 133.4 (>60); EGFR Non-African American 110.2 (>60); Potassium 4.2 mmol/L (3.5-5.0)
--- NOTE | 2018-11-16 14:23 | PN ---
Subjective Date of Service: 11/16/18 - CC: afib, RVR. Interval History: Per pt felt great until lunch, then developed hand cramps blowing his nose. Now c/o feeling dizzy. No GI c/o, no SOB, no palpitations. Legs feel better today. Medications Active Medications: Acetaminophen (Tylenol Tab*) 650 mg PO Q4H PRN PRN Reason: PAIN Last Admin: 11/16/18 08:56 Dose: 650 mg Allopurinol (Zyloprim Tab*) 300 mg PO DAILY [facility] Last Admin: 11/16/18 08:45 Dose: 300 mg Ammonium Lactate (Lac-Hydrin 12 %) 1 applic TOPICAL DAILY PRN PRN Reason: DRY SKIN Last Admin: 11/09/18 05:46 Dose: 1 applic Atorvastatin Calcium (Lipitor*) 40 mg PO DAILY [facility] Last Admin: 11/16/18 08:45 Dose: 40 mg Carisoprodol (Soma Tab*) 350 mg PO Q6H PRN PRN Reason: SPASMS - MUSCLE Cetirizine HCl (Zyrtec*) 10 mg PO DAILY [facility] Last Admin: 11/16/18 08:45 Dose: 10 mg Dextrose (D50w Syringe 50 Ml*) 12.5 gm IV PUSH .FOR FS < 60 - SS PRN PRN Reason: FS < 60 Digoxin (Lanoxin Tab*) 0.125 mg PO DAILY [facility] Last Admin: 11/16/18 08:45 Dose: 0.125 mg Diphenhydramine HCl (Benadryl Po*) 25 mg PO TID PRN PRN Reason: Allergy Symptoms Last Admin: 11/13/18 09:27 Dose: 25 mg Fluticasone Propionate (Flonase Nasal [place] 50mcg*) 2 spray BOTH NARES DAILY PRN PRN Reason: Allergy Symptoms Furosemide (Lasix Tab*) 20 mg PO DAILY [facility] Last Admin: 11/16/18 08:45 Dose: 20 mg Heparin Sodium (Porcine) (Heparin Vial(*)) 0 units IV .PER PROTOCOL [facility] Last Admin: 11/12/18 10:20 Dose: 4,650 units Heparin Sodium/Dextrose (Heparin Drip 25,000 Units(*)) 25,000 units in 500 mls @ 0 mls/hr IV PER RATE [facility]; Protocol Last Admin: 11/15/18 11:51 Dose: 23 mls/hr Insulin Human Isoph/Insulin Regular (Humulin 70/30 (*)) 20 units SUBCUT BEDTIME [facility] Last Admin: 11/15/18 22:54 Dose: 20 units Insulin Human Lispro (Humalog*) 0 units SUBCUT ACHS [facility]; Protocol Last Admin: 11/16/18 11:56 Dose: 3 units Metoprolol Succinate (Toprol Xl Tab*) 50 mg PO BID [facility] Last Admin: 11/16/18 08:45 Dose: 50 mg Montelukast Sodium (Singulair Tab*) 10 mg PO DAILY [facility] Last Admin: 11/16/18 08:45 Dose: 10 mg Nystatin (Nystatin Cream*) 1 applic TOPICAL TID PRN PRN Reason: RASH Last Admin: 11/09/18 10:52 Dose: 1 applic Prochlorperazine Edisylate (Compazine Inj*) 5 mg IV Q6H PRN PRN Reason: NAUSEA/VOMITING Warfarin Sodium (Coumadin Tab(*)) 5 mg PO DAILY@1700 [facility]; Protocol Last Admin: 11/15/18 17:01 Dose: 5 mg Objective Vital Signs: Temp Pulse Resp BP Pulse Ox 98.0 F 59 18 115/47 100 11/16/18 11:53 11/16/18 11:53 11/16/18 11:53 11/16/18 11:53 11/16/18 11:53 Intake and Output Last 24 Hours 11/14/18 11/15/18 11/16/18 11/17/18 04:59 04:59 04:59 04:59 Intake Total 1036 347.8 809 329.4 Output Total 2945 2675 3600 950 Balance -1909 -2327.2 -2791 -620.6 Weight 447 lb 6.4 oz 448 lb 3.2 oz Intake: Medicated IV 287 257 heparin 287 257 Heparin 139 90.8 569 329.4 Oral 300 240 Hodge [place] Amount 310 Output: Hodge 2945 2675 3600 950 Other: Date of Last Bowel 11/11/18 Movement # Bowel Movements 1 1 Estimated Stool Amount Large Medium Oxygen Devices in Use Now: CPAP Appearance: morbidly obese patient, nasal CPAP on, resting, NAD, appears chronically ill, appears at baseline. Eyes: No Scleral Icterus, PERRLA Ears/Nose/Mouth/Throat: NL Teeth, Lips, Gums, - Neck: Trachea Midline - very thick neck, unable to evaluate neck veins Respiratory: Clear to Auscultation - anteriorally/laterally. Cardiovascular: - - tachycardic S1, S2, irregular rate, rate slower c/w 11/15/18. Abdominal: - - obese, non tender, normal bowel sounds Extremities: - - marked edema c/w chronic lymphadenopathy, violacious discoloration up to knees. No pitting edema above knees. Skin: - - + cellulitis involving bilateral lower extremities Neurological: Alert and Oriented x 3 Lines/Tubes/Other Access: Clean, Dry and Intact Hodge - + hematuria( light pink ) per nurse patient had clots in bag earlier., Clean, Dry and Intact Tracheostomy, Clean, Dry and Intact Peripheral IV Laboratory Results: 11/16/18 08:53 11/16/18 08:53 INR (Anticoag Therapy) 1.68 (0.82-1.09) H 11/16/18 08:53 APTT 76.5 seconds (26.0-36.3) H 11/16/18 08:53 Total Bilirubin 1.50 mg/dL (0.2-1.0) H 11/06/18 15:36 AST 26 U/L (13-39) 11/06/18 15:36 ALT 19 U/L (7-52) 11/06/18 15:36 Alkaline Phosphatase 82 U/L (34-104) 11/06/18 15:36 B-Natriuretic Peptide 118 pg/mL (<=100) H 11/09/18 06:42 Total Protein 6.3 g/dL (6.4-8.9) L 11/06/18 15:36 Albumin 3.7 g/dL (3.2-5.2) 11/06/18 15:36 Globulin 2.6 g/dL (2-4) 11/06/18 15:36 Albumin/Globulin Ratio 1.4 (1-3) 11/06/18 15:36 TSH 4.48 mcIU/mL (0.34-5.60) 11/06/18 15:36 11/06/18 15:36 Troponin I 0.01 Diagnostic Imaging: Echo 11/06/2018; LVEF 55-60%, moderate RV dilatation, estimated peak systolic pressure 63mmHg, mild , mild TR per report. EKG Data: 11/15/2018; Afib/Flutterrates improved overnight: 95-115 bpm Assessment/Plan 73 yo patient was admitted 11/06/18 with failure to thrive at home with morbid obesity, DM T2, hypoventilation, weakness, CHU, severe lymphedema, cellulitis, unable to self ambulate Initial ED ECG felt to be NSR, but may have been atrial flutter with a controlled rate. Was definitely in NSR in 2012. Developed rapid ventricular rates of afib/flutter for several days, rates had not improved, metoprolol doubled yesterday from 25 mg BID to 50 mg BID with improved rate control. With c/o of dizziness I had BP checked: 132/70 I will double metoprolol. Afib/flutter RVR: Continue with rate control and anticoagulation. Continue current metoprolol dose and digoxen. Pulmonary HTN: Likely multifactorial related to KRISTYN, restrictive breathing and afib w/ diastolic dysfunction could contribute as well. Could re evaluate PA pressures once it is felt patient optimized/at new baseline. Defer care of KRISTYN, lymphedema, ID, morbid obesity to hospitalist team.
--- NOTE | 2018-11-16 14:48 | PN ---
Subjective Date of Service: 11/16/18 Interval History: Reports feeling well this am.No SOB,Palpatations Family History: Unchanged from Admission Social History: Unchanged from Admission Past Medical History: Unchanged from Admission Objective Active Medications: Acetaminophen (Tylenol Tab*) 650 mg PO Q4H PRN PRN Reason: PAIN Last Admin: 11/16/18 08:56 Dose: 650 mg Allopurinol (Zyloprim Tab*) 300 mg PO DAILY [facility] Last Admin: 11/16/18 08:45 Dose: 300 mg Ammonium Lactate (Lac-Hydrin 12 %) 1 applic TOPICAL DAILY PRN PRN Reason: DRY SKIN Last Admin: 11/09/18 05:46 Dose: 1 applic Atorvastatin Calcium (Lipitor*) 40 mg PO DAILY [facility] Last Admin: 11/16/18 08:45 Dose: 40 mg Carisoprodol (Soma Tab*) 350 mg PO Q6H PRN PRN Reason: SPASMS - MUSCLE Cetirizine HCl (Zyrtec*) 10 mg PO DAILY [facility] Last Admin: 11/16/18 08:45 Dose: 10 mg Dextrose (D50w Syringe 50 Ml*) 12.5 gm IV PUSH .FOR FS < 60 - SS PRN PRN Reason: FS < 60 Digoxin (Lanoxin Tab*) 0.125 mg PO DAILY [facility] Last Admin: 11/16/18 08:45 Dose: 0.125 mg Diphenhydramine HCl (Benadryl Po*) 25 mg PO TID PRN PRN Reason: Allergy Symptoms Last Admin: 11/13/18 09:27 Dose: 25 mg Fluticasone Propionate (Flonase Nasal [place] 50mcg*) 2 spray BOTH NARES DAILY PRN PRN Reason: Allergy Symptoms Furosemide (Lasix Tab*) 20 mg PO DAILY [facility] Last Admin: 11/16/18 08:45 Dose: 20 mg Heparin Sodium (Porcine) (Heparin Vial(*)) 0 units IV .PER PROTOCOL [facility] Last Admin: 11/12/18 10:20 Dose: 4,650 units Heparin Sodium/Dextrose (Heparin Drip 25,000 Units(*)) 25,000 units in 500 mls @ 0 mls/hr IV PER RATE [facility]; Protocol Last Admin: 11/15/18 11:51 Dose: 23 mls/hr Insulin Human Isoph/Insulin Regular (Humulin 70/30 (*)) 20 units SUBCUT BEDTIME [facility] Last Admin: 11/15/18 22:54 Dose: 20 units Insulin Human Lispro (Humalog*) 0 units SUBCUT ACHS [facility]; Protocol Last Admin: 11/16/18 11:56 Dose: 3 units Metoprolol Succinate (Toprol Xl Tab*) 50 mg PO BID [facility] Last Admin: 11/16/18 08:45 Dose: 50 mg Montelukast Sodium (Singulair Tab*) 10 mg PO DAILY [facility] Last Admin: 11/16/18 08:45 Dose: 10 mg Nystatin (Nystatin Cream*) 1 applic TOPICAL TID PRN PRN Reason: RASH Last Admin: 11/09/18 10:52 Dose: 1 applic Prochlorperazine Edisylate (Compazine Inj*) 5 mg IV Q6H PRN PRN Reason: NAUSEA/VOMITING Warfarin Sodium (Coumadin Tab(*)) 5 mg PO DAILY@1700 [facility]; Protocol Last Admin: 11/15/18 17:01 Dose: 5 mg Vital Signs - 8 hr 11/16/18 11/16/18 11/16/18 07:51 08:00 08:45 Temperature 99.6 F Pulse Rate 93 93 Respiratory 18 24 Rate Blood Pressure 124/47 (mmHg) O2 Sat by Pulse 100 Oximetry 11/16/18 11:53 Temperature 98.0 F Pulse Rate 59 Respiratory 18 Rate Blood Pressure 115/47 (mmHg) O2 Sat by Pulse 100 Oximetry Oxygen Devices in Use Now: CPAP Eyes: No Scleral Icterus Neck: NL Appearance and Movements; NL JVP Respiratory: Symmetrical Chest Expansion and Respiratory Effort, Clear to Auscultation Cardiovascular: - - irregularly irregular Abdominal: NL Sounds; No Tenderness; No Distention Extremities: - - sig bilateral lymphadema with skin breakdown Neurological: Alert and Oriented x 3 Result Diagrams: 11/16/18 08:53 11/16/18 08:53 Additional Lab and Data: Laboratory Results - last 24 hr 11/08/18 11/08/18 11/09/18 17:34 20:50 06:42 Sodium 137 Potassium 4.5 Chloride 101 Carbon Dioxide 32 Anion Gap 4 BUN 68 H Creatinine 1.51 H Est GFR ( Amer) 54.9 Est GFR (Non-Af Amer) 45.4 BUN/Creatinine Ratio 45.0 H Glucose 108 H POC Glucose (mg/dL) 148 H 174 H Calcium 8.3 L Magnesium 2.3 C-React Prot High Sens 14.54 H 11/09/18 11/09/18 11/09/18 06:42 06:42 07:33 WBC 6.5 RBC 4.44 Hgb 13.0 L Hct 41 L MCV 92 MCH 29 MCHC 32 RDW 17 H Plt Count 145 L MPV 9.7 Neut % (Auto) 78.0 Lymph % (Auto) 6.5 [place] % (Auto) 11.5 Eos % (Auto) 3.7 Baso % (Auto) 0.3 Absolute Neuts (auto) 5.0 Absolute Lymphs (auto) 0.4 L Absolute Monos (auto) 0.7 Absolute Eos (auto) 0.2 Absolute Basos (auto) 0.0 Absolute Nucleated RBC 0.0 Nucleated RBC % 0.1 POC Glucose (mg/dL) 110 H B-Natriuretic Peptide 118 H Microbiology and Other Data: Microbiology 11/06/18 15:36 Blood Venous Aerobic Blood Culture - Preliminary No Growth Day 2 11/06/18 15:36 Blood Venous Aerobic Blood Culture - Preliminary No Growth Day 2 11/06/18 15:36 Blood Venous Anaerobic Blood Culture - Preliminary No Growth Day 2 11/06/18 15:54 Urine Urine Culture - Final Morganella Morganii Normal [facility] Assess/Plan/Problems-Billing Assessment: 73 year old male supermorbid obesity (BMI 65.3) presenting with worsening hypoxic respiratory failure and inability to get out of bed for 8 weeks. BNP elevated, dependent anisarca two thirds up lateral thorax chest with suspected acute diastolic CHF exacerbation. Course complicated by ralph hematuria likely secondary to campoverde insertion. - Patient Problems (1) Atrial fibrillation with RVR Current Visit: Yes Status: Acute Code(s): I48.91 - UNSPECIFIED ATRIAL FIBRILLATION SNOMED Code(s): 781077243705239 Comment: New onset Afib/fl;utter avr Metoprolol dose increased to 50 mg bid with improvement on digoxin started on coumadin currently on heparin drip bridge (2) Acute and chronic respiratory failure with hypoxia Current Visit: Yes Status: Acute Code(s): J96.21 - ACUTE AND CHRONIC RESPIRATORY FAILURE WITH HYPOXIA SNOMED Code(s): 00814699 Comment: Pul hypertension KRISTYN on sleep apnea Obesity hypoventilation syndome Diastolic chf Improving (3) Acquired lymphedema of leg Current Visit: Yes Status: Acute Code(s): I89.0 - LYMPHEDEMA, NOT ELSEWHERE CLASSIFIED SNOMED Code(s): 104619845 Comment: Will get a wound care consult (4) Diabetes Current Visit: Yes Status: Acute Code(s): E11.9 - TYPE 2 DIABETES MELLITUS WITHOUT COMPLICATIONS SNOMED Code(s): 01436285 Comment: Continue Insulin Counselled pt on importance of dietary modification and weight loss Will get a nutrition consult, pt motivated to work on his diet and wishes to see a musical instrument maker or repairer Rec low carb diet Status and Disposition: PT/OT.
[2018-11-16] MEDS: Warfarin TAB(*) 5 MG PO SCH (16:52)
[2018-11-16 20:12] LABS: ABS Eosinophils 0.3 10^3/ul (0-0.6); ABS Lymphocytes 0.7 10^3/ul (1.0-4.8); ABS Monocytes 0.6 10^3/ul (0-0.8); ABS Neutrophils 5.2 10^3/ul (1.5-7.7); Hematocrit 33 % (42-52); Hemoglobin 10.6 g/dL (14.0-18.0); Lymphocyte % 9.7 %; Mean Corpuscular HGB Conc 33 g/dL (31-36); Mean Corpuscular Hemoglobin 30 pg (27-31); Mean Corpuscular Volume 92 fL (80-94); Nucleated Red Blood Cells % 0.3; Platelet Count 135 10^3/uL (150-450); Red Blood Count 3.56 10^6 /uL (4.18-5.48); Red Cell Distribution Width 16 % (10.5-15); White Blood Count 6.9 10^3/uL (3.5-10.8)
[2018-11-16 20:18] LABS: INR 1.85 (0.82-1.09)
[2018-11-16] MEDS: Insulin ISOPH/REG 70/30 (*) 1 UNITS UNIT SUBCUT SCH (20:44)
[2018-11-17 07:12] LABS: ABS Eosinophils 0.3 10^3/ul (0-0.6); ABS Lymphocytes 0.8 10^3/ul (1.0-4.8); ABS Monocytes 0.6 10^3/ul (0-0.8); ABS Neutrophils 4.2 10^3/ul (1.5-7.7); Eosinophil % 5.7 %; Hematocrit 32 % (42-52); Hemoglobin 10.5 g/dL (14.0-18.0); Lymphocyte % 13.2 %; Mean Corpuscular HGB Conc 32 g/dL (31-36); Mean Corpuscular Hemoglobin 30 pg (27-31); Mean Corpuscular Volume 92 fL (80-94); Mean Platelet Volume 9.5 fL (7.4-10.4); Nucleated Red Blood Cells % 0.2; Platelet Count 121 10^3/uL (150-450); Red Blood Count 3.51 10^6 /uL (4.18-5.48); Red Cell Distribution Width 16 % (10.5-15)
[2018-11-17 07:17] LABS: INR 2.06 (0.82-1.09)
[2018-11-17 07:40] LABS: BUN/Creatinine Ratio 31.2 (8-20); Calcium 8.9 mg/dL (8.6-10.3); EGFR African American 119.5 (>60); EGFR Non-African American 98.8 (>60); Potassium 4.5 mmol/L (3.5-5.0)
[2018-11-17] MEDS: Insulin LISPRO* 1 UNITS UNIT SUBCUT SCH ×4 (08:20→21:12)
--- NOTE | 2018-11-17 09:25 | PN ---
Subjective Date of Service: 11/17/18 Interval History: HD # 11 on 11/17 73 year old male supermorbid obesity (BMI 65.3), chronic lymphedema, gout, IDDM , OHS/KRISTYN, presenting with FTT at home and SOB , found to be anasarcic with acute on chronic HFpEF (55-60%, RVSP 63), hospital course c/b aflutter (age indeterminate). Overnight, no acute events VSS Labs Stable This afternoon , c/o hand cramping he thinks related to lasix, improved with hot packs, we discuss his overall goals->he was living at home alone and ambulating in a computer chair acting as a rollator prior to this and thats his sincere goal, has been up in the chair infrequently, diuresis has slowed, on 20mg since 11/15, we discuss trying to titrate up starting tomorrow. No other complaints or issues, would like to work more with PT, tolerating diet, no GI or other MSK complaints Family History: Unchanged from Admission Social History: Unchanged from Admission Past Medical History: Unchanged from Admission Objective Active Medications: Acetaminophen (Tylenol Tab*) 650 mg PO Q4H PRN PRN Reason: PAIN Last Admin: 11/16/18 20:44 Dose: 650 mg Allopurinol (Zyloprim Tab*) 300 mg PO DAILY [facility] Last Admin: 11/16/18 08:45 Dose: 300 mg Ammonium Lactate (Lac-Hydrin 12 %) 1 applic TOPICAL DAILY PRN PRN Reason: DRY SKIN Last Admin: 11/09/18 05:46 Dose: 1 applic Atorvastatin Calcium (Lipitor*) 40 mg PO DAILY [facility] Last Admin: 11/16/18 08:45 Dose: 40 mg Carisoprodol (Soma Tab*) 350 mg PO Q6H PRN PRN Reason: SPASMS - MUSCLE Cetirizine HCl (Zyrtec*) 10 mg PO DAILY [facility] Last Admin: 11/16/18 08:45 Dose: 10 mg Dextrose (D50w Syringe 50 Ml*) 12.5 gm IV PUSH .FOR FS < 60 - SS PRN PRN Reason: FS < 60 Digoxin (Lanoxin Tab*) 0.125 mg PO DAILY [facility] Last Admin: 11/16/18 08:45 Dose: 0.125 mg Diphenhydramine HCl (Benadryl Po*) 25 mg PO TID PRN PRN Reason: Allergy Symptoms Last Admin: 11/13/18 09:27 Dose: 25 mg Fluticasone Propionate (Flonase Nasal [place] 50mcg*) 2 spray BOTH NARES DAILY PRN PRN Reason: Allergy Symptoms Furosemide (Lasix Tab*) 20 mg PO DAILY [facility] Last Admin: 11/16/18 08:45 Dose: 20 mg Heparin Sodium (Porcine) (Heparin Vial(*)) 0 units IV .PER PROTOCOL [facility] Last Admin: 11/12/18 10:20 Dose: 4,650 units Insulin Human Isoph/Insulin Regular (Humulin 70/30 (*)) 20 units SUBCUT BEDTIME [facility] Last Admin: 11/16/18 20:44 Dose: 20 units Insulin Human Lispro (Humalog*) 0 units SUBCUT ACHS [facility]; Protocol Last Admin: 11/17/18 08:20 Dose: Not Given Metoprolol Succinate (Toprol Xl Tab*) 50 mg PO BID [facility] Last Admin: 11/16/18 20:48 Dose: 50 mg Montelukast Sodium (Singulair Tab*) 10 mg PO DAILY [facility] Last Admin: 11/16/18 08:45 Dose: 10 mg Nystatin (Nystatin Cream*) 1 applic TOPICAL TID PRN PRN Reason: RASH Last Admin: 11/09/18 10:52 Dose: 1 applic Prochlorperazine Edisylate (Compazine Inj*) 5 mg IV Q6H PRN PRN Reason: NAUSEA/VOMITING Warfarin Sodium (Coumadin Tab(*)) 5 mg PO DAILY@1700 [facility]; Protocol Last Admin: 11/16/18 16:52 Dose: 5 mg Vital Signs - 8 hr 11/17/18 11/17/18 03:05 07:14 Temperature 97.1 F 98.3 F Pulse Rate 106 100 Respiratory 16 16 Rate Blood Pressure 130/56 115/59 (mmHg) O2 Sat by Pulse 100 100 Oximetry Oxygen Devices in Use Now: BiPAP Appearance: Obese man with nasal BiPAP Ears/Nose/Mouth/Throat: NL Teeth, Lips, Gums - Neck: NL Appearance and Movements; NL JVP Respiratory: Symmetrical Chest Expansion and Respiratory Effort, Clear to Auscultation Cardiovascular: NL Sounds; No Murmurs; No JVD, - - distant regular Abdominal: No Hepatosplenomegaly Lymphatic: No Cervical Adenopathy Extremities: - - Diffuse edema to sacrum with scrotal anasraca Skin: - - Chronic woody lymphedema changes Neurological: Alert and Oriented x 3 Result Diagrams: 11/17/18 06:17 11/17/18 06:17 Additional Lab and Data: Laboratory Results - last 24 hr 11/08/18 11/08/18 11/09/18 17:34 20:50 06:42 Sodium 137 Potassium 4.5 Chloride 101 Carbon Dioxide 32 Anion Gap 4 BUN 68 H Creatinine 1.51 H Est GFR ( Amer) 54.9 Est GFR (Non-Af Amer) 45.4 BUN/Creatinine Ratio 45.0 H Glucose 108 H POC Glucose (mg/dL) 148 H 174 H Calcium 8.3 L Magnesium 2.3 C-React Prot High Sens 14.54 H 11/09/18 11/09/18 11/09/18 06:42 06:42 07:33 WBC 6.5 RBC 4.44 Hgb 13.0 L Hct 41 L MCV 92 MCH 29 MCHC 32 RDW 17 H Plt Count 145 L MPV 9.7 Neut % (Auto) 78.0 Lymph % (Auto) 6.5 [place] % (Auto) 11.5 Eos % (Auto) 3.7 Baso % (Auto) 0.3 Absolute Neuts (auto) 5.0 Absolute Lymphs (auto) 0.4 L Absolute Monos (auto) 0.7 Absolute Eos (auto) 0.2 Absolute Basos (auto) 0.0 Absolute Nucleated RBC 0.0 Nucleated RBC % 0.1 POC Glucose (mg/dL) 110 H B-Natriuretic Peptide 118 H Microbiology and Other Data: Microbiology 11/06/18 15:36 Blood Venous Aerobic Blood Culture - Preliminary No Growth Day 2 11/06/18 15:36 Blood Venous Aerobic Blood Culture - Preliminary No Growth Day 2 11/06/18 15:36 Blood Venous Anaerobic Blood Culture - Preliminary No Growth Day 2 11/06/18 15:54 Urine Urine Culture - Final Morganella Morganii Normal [facility] Assess/Plan/Problems-Billing Assessment: 73 year old male supermorbid obesity (BMI 65.3), chronic lymphedema, gout, IDDM , OHS/KRISTYN, presenting with FTT at home and SOB , found to be anasarcic with acute on chronic HFpEF (55-60%, RVSP 63), hospital course c/b aflutter (age indeterminate). - Patient Problems (1) Acute and chronic respiratory failure with hypoxia Current Visit: Yes Status: Acute Code(s): J96.21 - ACUTE AND CHRONIC RESPIRATORY FAILURE WITH HYPOXIA SNOMED Code(s): 86826161 Comment: -Multifactoria Pulm hypertension 2/2 KRISTYN/OHS, acute on chronic HFpEF (last EF 2019 55% with RVSP 63) -Agressive diuresis in early course now on Lasix 20mg PO daily, briefly heparin gtt for concern for PE, transitioned to oral Warfarin in setting of new aflutter -BiPAP QHS and naps (2) Atrial fibrillation with RVR Current Visit: Yes Status: Acute Code(s): I48.91 - UNSPECIFIED ATRIAL FIBRILLATION SNOMED Code(s): 745606376423180 Comment: - New onset, cardio consult appreciated - CHADS VASC 3, on AC - Metoprolol 50mg PO BID for rate control, also on Digoxin (3) Diastolic CHF Current Visit: Yes Status: Acute Code(s): I50.30 - UNSPECIFIED DIASTOLIC ( CONGESTIVE) HEART FAILURE SNOMED Code(s): 999726436 Comment: - ECHO with preserved EF. Dependent pitting anisaraca to 2/3 up back and lateral torso. - At home is on 12.5mg HCTZ. - Lasix 20 daily on 11/15 (held from 11/10-11/15) , inhbited by hypotension in the past, will re trial IV Lasix 40mg (4) Acquired lymphedema of lower extremity Current Visit: Yes Status: Acute Code(s): I89.0 - LYMPHEDEMA, NOT ELSEWHERE CLASSIFIED SNOMED Code(s): 215012438 Comment: - S/p Abx tx 11/06-11/11 for possible SSTI - Wound referral - Will need JUANA wraps (5) Diabetes Current Visit: Yes Status: Acute Code(s): E11.9 - TYPE 2 DIABETES MELLITUS WITHOUT COMPLICATIONS SNOMED Code(s): 48721960 Comment: - Odd Insulin regimen, 70/30 QHS 20 U, he takes BID 70/30 with meals at home, will change to 20 BID and sliding scale insulin for now (6) Essential tremor Current Visit: Yes Status: Acute Code(s): G25.0 - ESSENTIAL TREMOR SNOMED Code(s): 514326135 Comment: - Continue home soma. Back on Metop for rate control (7) Gout Current Visit: Yes Status: Acute Code(s): M10.9 - GOUT, UNSPECIFIED SNOMED Code(s): 38122591 Comment: - Continue allopurinol (8) Hematuria Current Visit: Yes Status: Acute Code(s): R31.9 - HEMATURIA, UNSPECIFIED SNOMED Code(s): 16426414 Comment: - Traumatic (9) KRISTYN (obstructive sleep apnea) Current Visit: Yes Status: Acute Code(s): G47.33 - OBSTRUCTIVE SLEEP APNEA ( ADULT) (PEDIATRIC) SNOMED Code(s): 25970632 Comment: - Nightly BiPAP with Nasal Pillows, cnsider pulm consult to comment on pulm HTN (10) DVT prophylaxis Current Visit: Yes Status: Acute Code(s): Z29.9 - ENCOUNTER FOR PROPHYLACTIC MEASURES, UNSPECIFIED SNOMED Code(s): 305867718 Comment: - lovenox 40mg daily. (11) DNR (do not resuscitate) Current Visit: Yes Status: Acute Status and Disposition: PT/OT, inpatient for now, soical worker consult in place.
[2018-11-17] MEDS: Montelukast Sodium TAB* 10 MG PO SCH (09:50)
[2018-11-17] MEDS: Metoprolol Succinate XL TAB* 50 MG PO SCH ×2 (09:50→21:14)
[2018-11-17] MEDS: Furosemide TAB* 20 MG PO SCH (09:51)
[2018-11-17] MEDS: Atorvastatin* 40 MG TAB PO SCH (09:51)
[2018-11-17] MEDS: Allopurinol TAB* 300 MG PO SCH (09:51)
[2018-11-17] MEDS: Cetirizine* 10 MG TAB PO SCH (09:51)
[2018-11-17] MEDS: Digoxin TAB* 0.125 MG PO SCH (09:52)
[2018-11-17] MEDS: Acetaminophen TAB* 325 MG PO PRN (14:08)
[2018-11-17] MEDS: Warfarin TAB(*) 5 MG PO SCH (17:15)
[2018-11-17] MEDS: Insulin ISOPH/REG 70/30 (*) 1 UNITS UNIT SUBCUT SCH (21:11)
[2018-11-18 06:27] LABS: ABS Eosinophils 0.3 10^3/ul (0-0.6); ABS Lymphocytes 0.7 10^3/ul (1.0-4.8); ABS Monocytes 0.6 10^3/ul (0-0.8); ABS Neutrophils 4.5 10^3/ul (1.5-7.7); Hematocrit 32 % (42-52); Hemoglobin 10.4 g/dL (14.0-18.0); Lymphocyte % 11.4 %; Mean Corpuscular HGB Conc 33 g/dL (31-36); Mean Corpuscular Hemoglobin 31 pg (27-31); Mean Corpuscular Volume 93 fL (80-94); Nucleated Red Blood Cells % 0.2; Platelet Count 126 10^3/uL (150-450); Red Cell Distribution Width 17 % (10.5-15); White Blood Count 6.1 10^3/uL (3.5-10.8)
[2018-11-18 06:45] LABS: BUN/Creatinine Ratio 32.9 (8-20); Calcium 8.6 mg/dL (8.6-10.3); EGFR African American 121.3 (>60); EGFR Non-African American 100.3 (>60); Magnesium 1.9 mg/dL (1.9-2.7); Potassium 4.7 mmol/L (3.5-5.0)
--- NOTE | 2018-11-18 07:52 | PN ---
Subjective Date of Service: 11/18/18 Interval History: HD # 12 on 11/18 73 year old male supermorbid obesity (BMI 65.3), chronic lymphedema, gout, IDDM , OHS/KRISTYN, presenting with FTT at home and SOB , found to be anasarcic with acute on chronic HFpEF (55-60%, RVSP 63), hospital course c/b aflutter (age indeterminate). Overnight, no acute events VSS Labs Stable This morning seen with family friend at bedise, updated and educated. Pt feeling OK, had some apenic events per him this morning, we discuss bring pulm on to discuss if BiPAP setting appropriate and to comment on pulm HTN. No CP, mild hand cramps (imrpoving compared ot yesterday) remains in flutter/fib. -1.8L in 24 hours, +BM Family History: Unchanged from Admission Social History: Unchanged from Admission Past Medical History: Unchanged from Admission Objective Active Medications: Acetaminophen (Tylenol Tab*) 650 mg PO Q4H PRN PRN Reason: PAIN Last Admin: 11/17/18 14:08 Dose: 650 mg Allopurinol (Zyloprim Tab*) 300 mg PO DAILY [facility]S [facility]CLUDE 234 BEDS AT THE [facility] Last Admin: 11/17/18 09:51 Dose: 300 mg Ammonium Lactate (Lac-Hydrin 12 %) 1 applic TOPICAL DAILY PRN PRN Reason: DRY SKIN Last Admin: 11/09/18 05:46 Dose: 1 applic Atorvastatin Calcium (Lipitor*) 40 mg PO DAILY COUNTS INCLUDE 234 BEDS AT THE [facility] Last Admin: 11/17/18 09:51 Dose: 40 mg Carisoprodol (Soma Tab*) 350 mg PO Q6H PRN PRN Reason: SPASMS - MUSCLE Cetirizine HCl (Zyrtec*) 10 mg PO DAILY COUNTS INCLUDE 234 BEDS AT THE [facility] Last Admin: 11/17/18 09:51 Dose: 10 mg Dextrose (D50w Syringe 50 Ml*) 12.5 gm IV PUSH .FOR FS < 60 - SS PRN PRN Reason: FS < 60 Digoxin (Lanoxin Tab*) 0.125 mg PO DAILY COUNTS INCLUDE 234 BEDS AT THE [facility] Last Admin: 11/17/18 09:52 Dose: 0.125 mg Diphenhydramine HCl (Benadryl Po*) 25 mg PO TID PRN PRN Reason: Allergy Symptoms Last Admin: 11/13/18 09:27 Dose: 25 mg Fluticasone Propionate (Flonase Nasal [place] 50mcg*) 2 spray BOTH NARES DAILY PRN PRN Reason: Allergy Symptoms Furosemide (Lasix Iv*) 40 mg IV DAILY COUNTS INCLUDE 234 BEDS AT THE [facility] Insulin Human Isoph/Insulin Regular (Humulin 70/30 (*)) 20 units SUBCUT BEDTIME COUNTS INCLUDE 234 BEDS AT THE [facility] Last Admin: 11/17/18 21:11 Dose: 20 units Insulin Human Lispro (Humalog*) 0 units SUBCUT ACHS COUNTS INCLUDE 234 BEDS AT THE [facility]; Protocol Last Admin: 11/17/18 21:12 Dose: 3 units Metoprolol Succinate (Toprol Xl Tab*) 50 mg PO BID COUNTS INCLUDE 234 BEDS AT THE [facility] Last Admin: 11/17/18 21:14 Dose: 50 mg Montelukast Sodium (Singulair Tab*) 10 mg PO DAILY COUNTS INCLUDE 234 BEDS AT THE [facility] Last Admin: 11/17/18 09:50 Dose: 10 mg Nystatin (Nystatin Cream*) 1 applic TOPICAL TID PRN PRN Reason: RASH Last Admin: 11/09/18 10:52 Dose: 1 applic Potassium Chloride (Klor Con Er Tab*) 20 meq PO DAILY COUNTS INCLUDE 234 BEDS AT THE [facility] Prochlorperazine Edisylate (Compazine Inj*) 5 mg IV Q6H PRN PRN Reason: NAUSEA/VOMITING Warfarin Sodium (Coumadin Tab(*)) 5 mg PO DAILY@1700 [facility]S INCLUDE 234 BEDS AT THE [facility]; Protocol Last Admin: 11/17/18 17:15 Dose: 5 mg Vital Signs - 8 hr 11/18/18 03:16 Temperature 99.6 F Pulse Rate 104 Respiratory 16 Rate Blood Pressure 111/60 (mmHg) O2 Sat by Pulse 98 Oximetry Oxygen Devices in Use Now: BiPAP Appearance: Pleasant man in NAD Eyes: No Scleral Icterus Ears/Nose/Mouth/Throat: NL Teeth, Lips, Gums Neck: NL Appearance and Movements; NL JVP Respiratory: Symmetrical Chest Expansion and Respiratory Effort, - - Distant Cardiovascular: NL Sounds; No Murmurs; No JVD, - - irreg ireg Abdominal: No Hepatosplenomegaly, - - Obese, distended Lymphatic: No Cervical Adenopathy Extremities: - - 2+ pitting edema to mid sacrum, ++ scrotal edema Skin: - - Chronic lymphedema woody changes Neurological: Alert and Oriented x 3 Result Diagrams: 11/18/18 05:37 11/18/18 05:37 Additional Lab and Data: Laboratory Results - last 24 hr 11/08/18 11/08/18 11/09/18 17:34 20:50 06:42 Sodium 137 Potassium 4.5 Chloride 101 Carbon Dioxide 32 Anion Gap 4 BUN 68 H Creatinine 1.51 H Est GFR ( Amer) 54.9 Est GFR (Non-Af Amer) 45.4 BUN/Creatinine Ratio 45.0 H Glucose 108 H POC Glucose (mg/dL) 148 H 174 H Calcium 8.3 L Magnesium 2.3 C-React Prot High Sens 14.54 H 11/09/18 11/09/18 11/09/18 06:42 06:42 07:33 WBC 6.5 RBC 4.44 Hgb 13.0 L Hct 41 L MCV 92 MCH 29 MCHC 32 RDW 17 H Plt Count 145 L MPV 9.7 Neut % (Auto) 78.0 Lymph % (Auto) 6.5 Braxton % (Auto) 11.5 Eos % (Auto) 3.7 Baso % (Auto) 0.3 Absolute Neuts (auto) 5.0 Absolute Lymphs (auto) 0.4 L Absolute Monos (auto) 0.7 Absolute Eos (auto) 0.2 Absolute Basos (auto) 0.0 Absolute Nucleated RBC 0.0 Nucleated RBC % 0.1 POC Glucose (mg/dL) 110 H B-Natriuretic Peptide 118 H Microbiology and Other Data: Microbiology 11/06/18 15:36 Blood Venous Aerobic Blood Culture - Preliminary No Growth Day 2 11/06/18 15:36 Blood Venous Aerobic Blood Culture - Preliminary No Growth Day 2 11/06/18 15:36 Blood Venous Anaerobic Blood Culture - Preliminary No Growth Day 2 11/06/18 15:54 Urine Urine Culture - Final Morganella Morganii Normal [facility] Assess/Plan/Problems-Billing Assessment: 73 year old male supermorbid obesity (BMI 65.3), chronic lymphedema, gout, IDDM , OHS/KRISTYN, presenting with FTT at home and SOB , found to be anasarcic with acute on chronic HFpEF (55-60%, RVSP 63), hospital course c/b aflutter (age indeterminate). - Patient Problems (1) Acute and chronic respiratory failure with hypoxia Current Visit: Yes Status: Acute Code(s): J96.21 - ACUTE AND CHRONIC RESPIRATORY FAILURE WITH HYPOXIA SNOMED Code(s): 46841197 Comment: -Multifactoria Pulm hypertension 2/2 KRISTYN/OHS, acute on chronic HFpEF (last EF 2019 55% with RVSP 63) -Agressive diuresis in early course now, slowed progress,and now resuming BID Laxi on11/18 goal of -2L daily -BiPAP QHS and naps, will consult to pulm to comment on optimizing pulmHTN (2) Atrial fibrillation with RVR Current Visit: Yes Status: Acute Code(s): I48.91 - UNSPECIFIED ATRIAL FIBRILLATION SNOMED Code(s): 656205948754418 Comment: - New onset, cardio consult appreciated - CHADS VASC 3, on AC - Metoprolol 50mg PO BID for rate control, also on Digoxin (3) Diastolic CHF Current Visit: Yes Status: Acute Code(s): I50.30 - UNSPECIFIED DIASTOLIC ( CONGESTIVE) HEART FAILURE SNOMED Code(s): 445877998 Comment: - ECHO with preserved EF. Dependent pitting anisaraca to 2/3 up back and lateral torso on admissoin - At home is on 12.5mg HCTZ. - Lasix 20 daily on 11/15 (held from 11/10-11/15) , inhbited by hypotension in the past, will re trial IV Lasix 40mg BID (4) Acquired lymphedema of lower extremity Current Visit: Yes Status: Acute Code(s): I89.0 - LYMPHEDEMA, NOT ELSEWHERE CLASSIFIED SNOMED Code(s): 631111665 Comment: - S/p Abx tx 11/06-11/11 for possible SSTI - Wound referral - Will need JUANA wraps (5) Diabetes Current Visit: Yes Status: Acute Code(s): E11.9 - TYPE 2 DIABETES MELLITUS WITHOUT COMPLICATIONS SNOMED Code(s): 01151623 Comment: - Odd Insulin regimen, 70/30 QHS 20 U, he takes BID 70/30 with meals at home, will change to 20 BID and sliding scale insulin for now (6) Essential tremor Current Visit: Yes Status: Acute Code(s): G25.0 - ESSENTIAL TREMOR SNOMED Code(s): 362407298 Comment: - Continue home soma. Back on Metop for rate control (7) Gout Current Visit: Yes Status: Acute Code(s): M10.9 - GOUT, UNSPECIFIED SNOMED Code(s): 02387503 Comment: - Continue allopurinol (8) Hematuria Current Visit: Yes Status: Acute Code(s): R31.9 - HEMATURIA, UNSPECIFIED SNOMED Code(s): 87344164 Comment: - Traumatic (9) KRISTYN (obstructive sleep apnea) Current Visit: Yes Status: Acute Code(s): G47.33 - OBSTRUCTIVE SLEEP APNEA ( ADULT) (PEDIATRIC) SNOMED Code(s): 30421750 Comment: - Nightly BiPAP with Nasal Pillows, cnsider pulm consult to comment on pulm HTN (10) DVT prophylaxis Current Visit: Yes Status: Acute Code(s): Z29.9 - ENCOUNTER FOR PROPHYLACTIC MEASURES, UNSPECIFIED SNOMED Code(s): 393366933 Comment: - lovenox 40mg daily. (11) DNR (do not resuscitate) Current Visit: Yes Status: Acute Status and Disposition: PT/OT, inpatient for now, soical worker consult in place.
[2018-11-18] MEDS: Insulin LISPRO* 1 UNITS UNIT SUBCUT SCH ×4 (08:36→22:03)
[2018-11-18] MEDS: Furosemide IV* 10 MG/ML VIAL (40 MG) IV SCH (08:36)
[2018-11-18] MEDS: Potassium Chlor TAB* 20 MEQ TAB.ER PO SCH (08:37)
[2018-11-18] MEDS: Atorvastatin* 40 MG TAB PO SCH (08:37)
[2018-11-18] MEDS: Metoprolol Succinate XL TAB* 50 MG PO SCH ×2 (08:37→22:04)
[2018-11-18] MEDS: Digoxin TAB* 0.125 MG PO SCH (08:38)
[2018-11-18] MEDS: Cetirizine* 10 MG TAB PO SCH (08:38)
[2018-11-18] MEDS: Allopurinol TAB* 300 MG PO SCH (08:38)
[2018-11-18] MEDS: Montelukast Sodium TAB* 10 MG PO SCH (08:38)
[2018-11-18] MEDS: Acetaminophen TAB* 325 MG PO PRN ×3 (09:40→22:04)
[2018-11-18] MEDS ORDERED: Furosemide IV* 10 MG/ML VIAL (40 MG) IV ONE (16:00)
--- NOTE | 2018-11-18 17:15 | PN ---
Subjective Date of Service: 11/18/18 Interval History: Mr. Graham is a 73 yo male with PMH significant for super morbid obesity, BMI 62 ; DM2; HTN; seasonal allergies; KRISTYN; and GOUT, who presented to the emergency room with complaints of decreased mobility. He has chronic bilateral LE lymphedema and reports that the legs have become more swollen and weeping. He states that he tries to keep his legs elevated as much as possible. Patient seen and examined at bedside. Family History: Unchanged from Admission Social History: Unchanged from Admission Past Medical History: Unchanged from Admission Objective Active Medications: Acetaminophen (Tylenol Tab*) 650 mg PO Q4H PRN Reason: PAIN Allopurinol (Zyloprim Tab*) 300 mg PO DAILY [facility] Ammonium Lactate (Lac-Hydrin 12 %) 1 applic TOPICAL DAILY PRN Reason: DRY SKIN Atorvastatin Calcium (Lipitor*) 40 mg PO DAILY [facility] Carisoprodol (Soma Tab*) 350 mg PO Q6H PRN Reason: SPASMS - MUSCLE Cetirizine HCl (Zyrtec*) 10 mg PO DAILY [facility] Dextrose (D50w Syringe 50 Ml*) 12.5 gm IV PUSH .FOR FS < 60 - SS PRN Reason: FS < 60 Digoxin (Lanoxin Tab*) 0.125 mg PO DAILY [facility] Diphenhydramine HCl (Benadryl Po*) 25 mg PO TID PRN Reason: Allergy Symptoms Fluticasone Propionate (Flonase Nasal [place] 50mcg*) 2 spray BOTH NARES DAILY PRN Reason: Allergy Symptoms Furosemide (Lasix Iv*) 40 mg IV DAILY [facility] Insulin Human Isoph/Insulin Regular (Humulin 70/30 (*)) 20 units SUBCUT BEDTIME [facility] Insulin Human Lispro (Humalog*) 0 units SUBCUT ACHS [facility]; Protocol Metoprolol Succinate (Toprol Xl Tab*) 50 mg PO BID [facility] Montelukast Sodium (Singulair Tab*) 10 mg PO DAILY [facility] Nystatin (Nystatin Cream*) 1 applic TOPICAL TID PRN Reason: RASH Potassium Chloride (Klor Con Er Tab*) 20 meq PO DAILY [facility] Prochlorperazine Edisylate (Compazine Inj*) 5 mg IV Q6H PRN Reason: NAUSEA/ VOMITING Warfarin Sodium (Coumadin Tab(*)) 5 mg PO DAILY@1700 [facility]; Protocol Vital Signs 11/18/18 16:22 Temperature 98.6 F Pulse Rate 79 Respiratory 20 Rate Blood Pressure 127/40 (mmHg) O2 Sat by Pulse 97 Oximetry Oxygen Devices in Use Now: BiPAP Appearance: NAD, sitting up in a chair Ears/Nose/Mouth/Throat: Mucous Membranes Moist Respiratory: Symmetrical Chest Expansion and Respiratory Effort Skin: - - See skin note below Neurological: Alert and Oriented x 3 Result Diagrams: 11/18/18 05:37 11/20/18 06:16 Additional Lab and Data: Laboratory Results - last 24 hr 11/08/18 11/08/18 11/09/18 17:34 20:50 06:42 Sodium 137 Potassium 4.5 Chloride 101 Carbon Dioxide 32 Anion Gap 4 BUN 68 H Creatinine 1.51 H Est GFR ( Amer) 54.9 Est GFR (Non-Af Amer) 45.4 BUN/Creatinine Ratio 45.0 H Glucose 108 H POC Glucose (mg/dL) 148 H 174 H Calcium 8.3 L Magnesium 2.3 C-React Prot High Sens 14.54 H 11/09/18 11/09/18 11/09/18 06:42 06:42 07:33 WBC 6.5 RBC 4.44 Hgb 13.0 L Hct 41 L MCV 92 MCH 29 MCHC 32 RDW 17 H Plt Count 145 L MPV 9.7 Neut % (Auto) 78.0 Lymph % (Auto) 6.5 [place]ike % (Auto) 11.5 Eos % (Auto) 3.7 Baso % (Auto) 0.3 Absolute Neuts (auto) 5.0 Absolute Lymphs (auto) 0.4 L Absolute Monos (auto) 0.7 Absolute Eos (auto) 0.2 Absolute Basos (auto) 0.0 Absolute Nucleated RBC 0.0 Nucleated RBC % 0.1 POC Glucose (mg/dL) 110 H B-Natriuretic Peptide 118 H Skin Deviation Note - Skin Deviation Findings Bilateral LEs - With chronic skin changes due to lymphedema. There are no open areas. The thick areas of lymph drainage is improving and decreasing. There is slight erythema to bilateral LEs. Assessment/Plan: Mr. Graham is a 73 yo male with PMH significant for super morbid obesity, BMI 62 ; DM2; HTN; seasonal allergies; KRISTYN; and GOUT, who presented to the emergency room with complaints of decreased mobility. He has chronic bilateral LE lymphedema and reports that the legs have become more swollen and weeping. 1. Bilateral LE lymphedema. No open areas or weeping noted today. Recommend washing the legs with soap and water daily and apply lac-hydrin or similar lotion to the legs. Keep legs elevated. Would benefit from a referral to a lymphedema clinic at discharge. 2. Morbid obesity. BMI 62. 3. Diabetes Mellitus, type 2. Maintain good glycemic control. 4. Diet. Consistent Carbohydrate diet. 5. Code Status. DNR 6. Disposition. Inpatient, disposition per primary medicine team. TIME SPENT: Time for this wound consultation was 15 minutes and 10 minutes was spent with the patient discussing past medical history; assessing and photographing the legs. Wound Problem/Plan Is Patient a Wound Clinic Patient: No Attending: Olga Moreira
[2018-11-18] MEDS: Warfarin TAB(*) 5 MG PO SCH (17:16)
[2018-11-18] MEDS: Insulin ISOPH/REG 70/30 (*) 1 UNITS UNIT SUBCUT SCH (22:03)
[2018-11-19 06:57] LABS: INR 2.45 (0.82-1.09)
[2018-11-19 06:58] LABS: BUN/Creatinine Ratio 29.1 (8-20); Calcium 8.9 mg/dL (8.6-10.3); EGFR African American 105.2 (>60); EGFR Non-African American 86.9 (>60); Potassium 4.3 mmol/L (3.5-5.0)
[2018-11-19] MEDS: Metoprolol Succinate XL TAB* 50 MG PO SCH ×2 (08:13→22:10)
[2018-11-19] MEDS: Insulin LISPRO* 1 UNITS UNIT SUBCUT SCH ×4 (08:13→22:11)
[2018-11-19] MEDS: Atorvastatin* 40 MG TAB PO SCH (08:14)
[2018-11-19] MEDS: Cetirizine* 10 MG TAB PO SCH (08:14)
[2018-11-19] MEDS: Potassium Chlor TAB* 20 MEQ TAB.ER PO SCH (08:14)
[2018-11-19] MEDS: Digoxin TAB* 0.125 MG PO SCH (08:15)
[2018-11-19] MEDS: Montelukast Sodium TAB* 10 MG PO SCH (08:15)
[2018-11-19] MEDS: Allopurinol TAB* 300 MG PO SCH (08:15)
[2018-11-19] MEDS: Furosemide IV* 10 MG/ML VIAL (40 MG) IV SCH ×2 (08:16→17:59)
[2018-11-19] MEDS: Acetaminophen TAB* 325 MG PO PRN ×2 (09:27→22:09)
--- NOTE | 2018-11-19 10:47 | PN ---
Subjective Date of Service: 11/19/18 Interval History: HD # 13 on 11/19 73 year old male supermorbid obesity (BMI 65.3), chronic lymphedema, gout, IDDM , OHS/KRISTYN, presenting with FTT at home and SOB , found to be anasarcic with acute on chronic HFpEF (55-60%, RVSP 63), hospital course c/b aflutter (age indeterminate). Overnight, no acute events VSS Labs Stable, Diuresis at 40mg IV BID -1.6 L in 24 hours, roughly 14 L for hospitalization Weight 433 lbs (449 lbs on admission) This morning seen in bed some complaints of R ankle pain, unwrapped JUANA and TTP to outer aspect of ankle but without warmth or induration or e/o gout, otherwise tolerating diet up in the chair yesterday felt fatigued but wanting to try again. Moving bowels, no GI or cardiac complaints Family History: Unchanged from Admission Social History: Unchanged from Admission Past Medical History: Unchanged from Admission Objective Active Medications: Acetaminophen (Tylenol Tab*) 650 mg PO Q4H PRN PRN Reason: PAIN Last Admin: 11/19/18 09:27 Dose: 650 mg Allopurinol (Zyloprim Tab*) 300 mg PO DAILY [facility] Last Admin: 11/19/18 08:15 Dose: 300 mg Ammonium Lactate (Lac-Hydrin 12 %) 1 applic TOPICAL DAILY PRN PRN Reason: DRY SKIN Last Admin: 11/09/18 05:46 Dose: 1 applic Atorvastatin Calcium (Lipitor*) 40 mg PO DAILY [facility] Last Admin: 11/19/18 08:14 Dose: 40 mg Carisoprodol (Soma Tab*) 350 mg PO Q6H PRN PRN Reason: SPASMS - MUSCLE Cetirizine HCl (Zyrtec*) 10 mg PO DAILY [facility] Last Admin: 11/19/18 08:14 Dose: 10 mg Dextrose (D50w Syringe 50 Ml*) 12.5 gm IV PUSH .FOR FS < 60 - SS PRN PRN Reason: FS < 60 Digoxin (Lanoxin Tab*) 0.125 mg PO DAILY [facility] Last Admin: 11/19/18 08:15 Dose: 0.125 mg Diphenhydramine HCl (Benadryl Po*) 25 mg PO TID PRN PRN Reason: Allergy Symptoms Last Admin: 11/13/18 09:27 Dose: 25 mg Fluticasone Propionate (Flonase Nasal [place] 50mcg*) 2 spray BOTH NARES DAILY PRN PRN Reason: Allergy Symptoms Furosemide (Lasix Iv*) 40 mg IV DAILY [facility] Last Admin: 11/19/18 08:16 Dose: 40 mg Insulin Human Isoph/Insulin Regular (Humulin 70/30 (*)) 20 units SUBCUT BEDTIME [facility] Last Admin: 11/18/18 22:03 Dose: 20 units Insulin Human Lispro (Humalog*) 0 units SUBCUT ACHS [facility]; Protocol Last Admin: 11/19/18 08:13 Dose: 2 units Metoprolol Succinate (Toprol Xl Tab*) 50 mg PO BID [facility] Last Admin: 11/19/18 08:13 Dose: 50 mg Montelukast Sodium (Singulair Tab*) 10 mg PO DAILY [facility] Last Admin: 11/19/18 08:15 Dose: 10 mg Nystatin (Nystatin Cream*) 1 applic TOPICAL TID PRN PRN Reason: RASH Last Admin: 11/09/18 10:52 Dose: 1 applic Potassium Chloride (Klor Con Er Tab*) 20 meq PO DAILY [facility] Last Admin: 11/19/18 08:14 Dose: 20 meq Prochlorperazine Edisylate (Compazine Inj*) 5 mg IV Q6H PRN PRN Reason: NAUSEA/VOMITING Warfarin Sodium (Coumadin Tab(*)) 5 mg PO DAILY@1700 [facility]; Protocol Last Admin: 11/18/18 17:16 Dose: 5 mg Vital Signs - 8 hr 11/19/18 11/19/18 03:43 07:46 Temperature 97.5 F 97.5 F Pulse Rate 71 98 Respiratory 20 19 Rate Blood Pressure 103/76 120/76 (mmHg) O2 Sat by Pulse 96 100 Oximetry Oxygen Devices in Use Now: CPAP Appearance: Obese man with nasal BiPAP Eyes: No Scleral Icterus, PERRLA Ears/Nose/Mouth/Throat: NL Teeth, Lips, Gums, Clear Oropharnyx Neck: NL Appearance and Movements; NL JVP Respiratory: Symmetrical Chest Expansion and Respiratory Effort, Clear to Auscultation, - - ant field Cardiovascular: NL Sounds; No Murmurs; No JVD, - - Irreg irreg Abdominal: NL Sounds; No Tenderness; No Distention, No Hepatosplenomegaly Lymphatic: No Cervical Adenopathy Extremities: - - Diffuse woody cchanges, scales loosening in blt lymphedema, 3+ pitting edema to sacram , 3+ Scrotal edema Skin: - - See above Neurological: Alert and Oriented x 3 Result Diagrams: 11/18/18 05:37 11/19/18 05:33 Additional Lab and Data: Laboratory Results - last 24 hr 11/08/18 11/08/18 11/09/18 17:34 20:50 06:42 Sodium 137 Potassium 4.5 Chloride 101 Carbon Dioxide 32 Anion Gap 4 BUN 68 H Creatinine 1.51 H Est GFR ( Amer) 54.9 Est GFR (Non-Af Amer) 45.4 BUN/Creatinine Ratio 45.0 H Glucose 108 H POC Glucose (mg/dL) 148 H 174 H Calcium 8.3 L Magnesium 2.3 C-React Prot High Sens 14.54 H 11/09/18 11/09/18 11/09/18 06:42 06:42 07:33 WBC 6.5 RBC 4.44 Hgb 13.0 L Hct 41 L MCV 92 MCH 29 MCHC 32 RDW 17 H Plt Count 145 L MPV 9.7 Neut % (Auto) 78.0 Lymph % (Auto) 6.5 Wright % (Auto) 11.5 Eos % (Auto) 3.7 Baso % (Auto) 0.3 Absolute Neuts (auto) 5.0 Absolute Lymphs (auto) 0.4 L Absolute Monos (auto) 0.7 Absolute Eos (auto) 0.2 Absolute Basos (auto) 0.0 Absolute Nucleated RBC 0.0 Nucleated RBC % 0.1 POC Glucose (mg/dL) 110 H B-Natriuretic Peptide 118 H Microbiology and Other Data: Microbiology 11/06/18 15:36 Blood Venous Aerobic Blood Culture - Preliminary No Growth Day 2 11/06/18 15:36 Blood Venous Aerobic Blood Culture - Preliminary No Growth Day 2 11/06/18 15:36 Blood Venous Anaerobic Blood Culture - Preliminary No Growth Day 2 11/06/18 15:54 Urine Urine Culture - Final Morganella Morganii Normal [facility] Assess/Plan/Problems-Billing Assessment: 73 year old male supermorbid obesity (BMI 65.3), chronic lymphedema, gout, IDDM , OHS/KRISTYN, presenting with FTT at home and SOB , found to be anasarcic with acute on chronic HFpEF (55-60%, RVSP 63), hospital course c/b aflutter (age indeterminate). - Patient Problems (1) Acute and chronic respiratory failure with hypoxia Current Visit: Yes Status: Acute Code(s): J96.21 - ACUTE AND CHRONIC RESPIRATORY FAILURE WITH HYPOXIA SNOMED Code(s): 53781669 Comment: - Multifactorial Pulm hypertension 2/2 KRISTYN/OHS, acute on chronic HFpEF (last EF 2019 55% with RVSP 63) - Agressive diuresis in early course now, slowed progress,and now resuming BID Lasix on11/18 goal of -2L daily, Dry weight close to 400, pt at 433, admitted 449 - BiPAP QHS and naps, will consult to pulm to comment on optimizing pulmHTN ( sildefanil?) (2) Atrial fibrillation with RVR Current Visit: Yes Status: Acute Code(s): I48.91 - UNSPECIFIED ATRIAL FIBRILLATION SNOMED Code(s): 147182126094915 Comment: - New onset, cardio consult appreciated - CHADS VASC 3, on AC, discussed with pharmacy role of DOAC with his weight, may transition if a weight based option is reasonable - Metoprolol 50mg PO BID for rate control, also on Digoxin (3) Diastolic CHF Current Visit: Yes Status: Acute Code(s): I50.30 - UNSPECIFIED DIASTOLIC ( CONGESTIVE) HEART FAILURE SNOMED Code(s): 349180375 Comment: - ECHO with preserved EF. Dependent pitting anisaraca to 2/3 up back and lateral torso on admissoin - At home is on 12.5mg HCTZ. - Lasix 20 daily on 11/15 (held from 11/10-11/15) , inhbited by hypotension in the past, on 11/16 BID Lasix IV 40mg, goal -2L, may be able to tolerate TID (4) Acquired lymphedema of lower extremity Current Visit: Yes Status: Acute Code(s): I89.0 - LYMPHEDEMA, NOT ELSEWHERE CLASSIFIED SNOMED Code(s): 318615415 Comment: - S/p Abx tx 11/06-11/11 for possible SSTI - Wound referral - Will need JUANA wraps (5) Diabetes Current Visit: Yes Status: Acute Code(s): E11.9 - TYPE 2 DIABETES MELLITUS WITHOUT COMPLICATIONS SNOMED Code(s): 31671358 Comment: - Odd Insulin regimen, 70/30 QHS 20 U, he takes BID 70/30 with meals at home, will change to 20 BID and sliding scale insulin for now, fair control (6) Essential tremor Current Visit: Yes Status: Acute Code(s): G25.0 - ESSENTIAL TREMOR SNOMED Code(s): 431835817 Comment: - Continue home soma. Back on Metop for rate control (7) Gout Current Visit: Yes Status: Acute Code(s): M10.9 - GOUT, UNSPECIFIED SNOMED Code(s): 76469801 Comment: - Continue allopurinol (8) Hematuria Current Visit: Yes Status: Acute Code(s): R31.9 - HEMATURIA, UNSPECIFIED SNOMED Code(s): 72760734 Comment: - Traumatic (9) KRISTYN (obstructive sleep apnea) Current Visit: Yes Status: Acute Code(s): G47.33 - OBSTRUCTIVE SLEEP APNEA ( ADULT) (PEDIATRIC) SNOMED Code(s): 47294496 Comment: - Nightly BiPAP with Nasal Pillows, pulm consult to comment on pulm HTN (10) DVT prophylaxis Current Visit: Yes Status: Acute Code(s): Z29.9 - ENCOUNTER FOR PROPHYLACTIC MEASURES, UNSPECIFIED SNOMED Code(s): 547531287 Comment: - thereapeutic iNR (11) DNR (do not resuscitate) Current Visit: Yes Status: Acute Status and Disposition: PT/OT, inpatient for now, soical worker consult in place.
[2018-11-19] MEDS: Apixaban* 5 MG TAB PO SCH ×2 (12:05→22:10)
--- NOTE | 2018-11-19 17:30 | PN ---
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 [employer] supermorbid obesity (BMI 65.3), chronic lymphedema, gout, IDDM, OHS/KRISTYN, presenting with FTT at home and SOB , found to be anasarcic with acute on chronic HFpEF (55-60%, RVSP 63), hospital course c/b aflutter, now on DOAC HFpEF: Admission weight 450lbs, now at 433lbs, dry weight close to 400lbs -Has been tolerating BID Lasix x 2 days, consider TID if not meeting goals Pulm HTN: Did ask Yash to comment on any additions Lymphedema: Wound following Flutter: Changed from coumadin to Doac on 11/19 with discussion with pharmacy, needs and Anti XA level prior to d/c Dispo: Needs active diuresis, when reaches dry weight may need to be put on swing, as MISTY is proving difficult given weight and assist needs (Jose)
--- NOTE | 2018-11-19 20:26 | CONS ---
PULMONARY CONSULTATION REPORT: DATE OF CONSULT: 11/19/18 CONSULTATION REQUESTED BY: Dr. Sofya Scott. REASON FOR CONSULT: Evaluation of hypoxemic hypercapnic respiratory failure. HISTORY OF PRESENT ILLNESS: The patient is a 73-year-old super morbidly obese male with BMI of 65.3, chronic lymphedema issues, history of insulin-dependent diabetes, obstructive sleep apnea, and possible obesity hypoventilation syndrome , history of cellulitis, history of chronic lower extremity edema secondary to possible cor pulmonale. The patient presented for evaluation of worsening lower extremity edema and shortness of breath. The patient found to having cellulitis and was started on antibiotics. Hospital course complicated by new onset A-flutter. The patient has been on Trilogy at home. He was not seen in sleep clinic since 2017. The patient claims to be compliant with his home unit. He was supposed to be on Trilogy. He was set up through [facility]. He was set up with an APAP machine with EPAP of 8, IPAP max of 12, EPAP min of 6 with tidal volume of 450, rate of 12. The patient claims to be compliant with his PAP machine. He has had episodes of gasping while using PAP device and pulmonary consultation was requested. The patient reports no significant shortness of breath. He is mostly bedridden. He has CPAP mask on while he is awake during my evaluation. I have reviewed download information from his home device. His AHI was below 5, mostly around 2.5. His machine seems to be working appropriately. He continues to have right ankle pain. He has fatigue, which has been stable. Denies constipation or urinary complaints. PAST MEDICAL HISTORY: 1. Super morbid obesity with a BMI of 62.4. 2. Obstructive sleep apnea, on APAP and oxygen at home. 3. Obesity hypoventilation syndrome. 4. Type 2 diabetes. 5. Hypertension. 6. Dyslipidemia. 7. Gout. 8. Seasonal allergies. 9. Essential tremor. PAST SURGICAL HISTORY: Status post right knee replacement in 2008. FAMILY HISTORY: Multiple family members with tremor and history of dementia. SOCIAL HISTORY: Remote history of tobacco use. No alcohol or drug abuse. REVIEW OF SYSTEMS: All 14 systems reviewed, as per HPI. PHYSICAL EXAM: Super morbidly obese male, in bed, in no apparent distress. Vital Signs: Temperature 99.5, pulse 107 beats per minute, respiratory rate 19 per minute, O2 sat 96% on oxygen, blood pressure 100/51. HEENT: Pupils equal, reactive to light. Mucous membranes moist. The patient with nasal cushions on Mallampati class 4 airway. Lungs: Clear to auscultation anteriorly. Cardiovascular: S1, S2 present, irregular. Abdomen: Obese, bowel sounds present, no tenderness. Extremities: Chronic skin changes and lymphedema, 3+ edema of the lower extremities up to the scrotum. Neurologic: Alert, awake, and oriented x3. No focal deficits. DIAGNOSTIC STUDIES/LAB DATA: WBC count 6.1, hemoglobin 10.4, hematocrit 32, platelet count 126. Sodium 140, potassium 4.3, chloride 100, bicarb 38, BUN 25 , creatinine 0.8, glucose 140. Chest x-ray from 11/06/18 was personally reviewed by me, evidence of lower lung volumes with no acute cardiopulmonary disease. IMPRESSION AND RECOMMENDATIONS: A 73-year-old super morbidly obese male with multiple medical problems with concern for right heart failure, chronic hypoxemic and hypercapnic respiratory failure with new onset atrial fibrillation. Lower extremity Dopplers have been negative. His AFib is rate controlled currently. He has been having issues with gasping while still on the BiPAP/APAP machine. I have reviewed the download from his machine. I feel like the pressures are optimal and he is on right settings. He is also getting O2 supplementation through the CPAP. He is using the machine while awake, which might be resulting not being able to titrate the pressures and unclear if the gasping is from not being able to get enough air while he is awake with the BiPAP machine. The patient with evidence of pulmonary hypertension, which is probably from chronic right heart strain from obesity hypoventilation and hypoxemia. His echocardiogram did not reveal any systolic dysfunction. His RVSP is 63 suggestive of moderate-to- severe pulmonary hypertension. He can be started on sildenafil while monitoring for any drop in cardiac output. He is high risk for right heart cath to determine and rule out type 2 pulmonary hypertension. Would start with low dose sildenafil, increase as tolerated. He also has sleep apnea, which might be contributing to pulmonary hypertension. He has remote history of smoking; however, I do not suspect he will have chronic obstructive pulmonary disease that is resulting in pulmonary hypertension. He does have diastolic dysfunction, which might pose a risk with medications for pulmonary hypertension. A new medication should be started while he is in the hospital and increase as tolerated. Thank you for allowing me to participate in the care of your patient. Will follow up with you. [id number]/[facility] #: [id number] IRENE
[2018-11-19] MEDS: Insulin ISOPH/REG 70/30 (*) 1 UNITS UNIT SUBCUT SCH (22:12)
[2018-11-20 06:50] LABS: BUN/Creatinine Ratio 29.3 (8-20); Calcium 8.7 mg/dL (8.6-10.3); EGFR African American 97.3 (>60); EGFR Non-African American 80.4 (>60); Potassium 4.3 mmol/L (3.5-5.0)
[2018-11-20] MEDS: Acetaminophen TAB* 325 MG PO PRN ×2 (07:22→21:48)
[2018-11-20] MEDS: Furosemide IV* 10 MG/ML VIAL (40 MG) IV SCH ×2 (07:23→17:18)
[2018-11-20] MEDS: Insulin LISPRO* 1 UNITS UNIT SUBCUT SCH ×4 (09:15→21:49)
[2018-11-20] MEDS: Metoprolol Succinate XL TAB* 50 MG PO SCH ×2 (09:16→21:48)
[2018-11-20] MEDS: Atorvastatin* 40 MG TAB PO SCH (09:16)
[2018-11-20] MEDS: Apixaban* 5 MG TAB PO SCH ×2 (09:17→21:47)
[2018-11-20] MEDS: Digoxin TAB* 0.125 MG PO SCH (09:17)
[2018-11-20] MEDS: Cetirizine* 10 MG TAB PO SCH (09:17)
[2018-11-20] MEDS: Allopurinol TAB* 300 MG PO SCH (09:17)
[2018-11-20] MEDS: Potassium Chlor TAB* 20 MEQ TAB.ER PO SCH (09:17)
[2018-11-20] MEDS: Montelukast Sodium TAB* 10 MG PO SCH (09:17)
--- NOTE | 2018-11-20 15:02 | PN ---
Subjective Date of Service: 11/20/18 Interval History: HOSPITALIST PROGRESS NOTE Patient seen and examined at bedside. Care reviewed and d/w Rosmery Vera RN. He offers no new complaints today. Major issue is scrotal swelling. Denies CP, palpitations; dyspnea is unchanged. Family History: Unchanged from Admission Social History: Unchanged from Admission Past Medical History: Unchanged from Admission Objective Active Medications: Acetaminophen (Tylenol Tab*) 650 mg PO Q4H PRN PRN Reason: PAIN Last Admin: 11/20/18 07:22 Dose: 650 mg Allopurinol (Zyloprim Tab*) 300 mg PO DAILY [facility] Last Admin: 11/20/18 09:17 Dose: 300 mg Ammonium Lactate (Lac-Hydrin 12 %) 1 applic TOPICAL DAILY PRN PRN Reason: DRY SKIN Last Admin: 11/09/18 05:46 Dose: 1 applic Apixaban (Eliquis*) 5 mg PO BID [facility] Last Admin: 11/20/18 09:17 Dose: 5 mg Atorvastatin Calcium (Lipitor*) 40 mg PO DAILY [facility] Last Admin: 11/20/18 09:16 Dose: 40 mg Carisoprodol (Soma Tab*) 350 mg PO Q6H PRN PRN Reason: SPASMS - MUSCLE Cetirizine HCl (Zyrtec*) 10 mg PO DAILY [facility] Last Admin: 11/20/18 09:17 Dose: 10 mg Dextrose (D50w Syringe 50 Ml*) 12.5 gm IV PUSH .FOR FS < 60 - SS PRN PRN Reason: FS < 60 Digoxin (Lanoxin Tab*) 0.125 mg PO DAILY [facility] Last Admin: 11/20/18 09:17 Dose: 0.125 mg Diphenhydramine HCl (Benadryl Po*) 25 mg PO TID PRN PRN Reason: Allergy Symptoms Last Admin: 11/13/18 09:27 Dose: 25 mg Fluticasone Propionate (Flonase Nasal [place] 50mcg*) 2 spray BOTH NARES DAILY PRN PRN Reason: Allergy Symptoms Furosemide (Lasix Iv*) 40 mg IV BID@0800,1700 [facility] Last Admin: 11/20/18 07:23 Dose: 40 mg Insulin Human Isoph/Insulin Regular (Humulin 70/30 (*)) 20 units SUBCUT BEDTIME [facility] Last Admin: 05/29/19 22:12 Dose: 20 units Insulin Human Lispro (Humalog*) 0 units SUBCUT ACHS [facility]; Protocol Last Admin: 11/20/18 12:35 Dose: 6 units Metoprolol Succinate (Toprol Xl Tab*) 50 mg PO BID [facility] Last Admin: 11/20/18 09:16 Dose: 50 mg Montelukast Sodium (Singulair Tab*) 10 mg PO DAILY [facility] Last Admin: 11/20/18 09:17 Dose: 10 mg Nystatin (Nystatin Cream*) 1 applic TOPICAL TID PRN PRN Reason: RASH Last Admin: 11/09/18 10:52 Dose: 1 applic Potassium Chloride (Klor Con Er Tab*) 20 meq PO DAILY [facility] Last Admin: 11/20/18 09:17 Dose: 20 meq Prochlorperazine Edisylate (Compazine Inj*) 5 mg IV Q6H PRN PRN Reason: NAUSEA/VOMITING Vital Signs - 8 hr 11/20/18 11/20/18 11/20/18 07:30 08:00 09:17 Temperature 97.9 F Pulse Rate 96 100 Respiratory 22 18 Rate Blood Pressure 101/62 (mmHg) O2 Sat by Pulse 100 Oximetry 11/20/18 11:27 Temperature Pulse Rate 67 Respiratory 20 Rate Blood Pressure 108/54 (mmHg) O2 Sat by Pulse 98 Oximetry Oxygen Devices in Use Now: BiPAP Appearance: Supermorbid obese elderly gentleman sitting up in bed with BiPAP in place, in NAD. Body habitus limits physical examination. Eyes: No Scleral Icterus Ears/Nose/Mouth/Throat: Mucous Membranes Moist Neck: Trachea Midline Respiratory: Symmetrical Chest Expansion and Respiratory Effort, - - BS+ bilaterally, distant sounds Cardiovascular: RRR - Normal S1 and S2 Abdominal: NL Sounds; No Tenderness; No Distention - morbid obese Skin: - - Bilateral LE JUANA wrapped Neurological: Alert and Oriented x 3, NL Muscle Strength and Tone Result Diagrams: 11/18/18 05:37 11/20/18 06:16 Assess/Plan/Problems-Billing Assessment: Mr Graham is a 73 year old male supermorbid obesity (BMI 65.3), chronic lymphedema, gout, IDDM, OHS/KRISTYN, presenting with weakness and SOB, found to have anasarca with acute on chronic HFpEF (55-60%, RVSP 63), hospital course c/ b aflutter. - Patient Problems (1) Acute and chronic respiratory failure with hypoxia Comment: - Multifactorial Pulmonary hypertension secondary to KRISTYN/OHS, acute on chronic HFpEF (last EF 2018 55% with RVSP 63) - Continue diuresis - weight down to 418lbs. - BiPAP QHS and naps, - Pulmonary input appreciated - start Sildenafil 20mg/day for pulmonary HTN. (2) Atrial fibrillation with RVR Comment: - Continue Metoprolol, Digoxin, and Apixaban. (3) Diastolic CHF Comment: - Echo with preserved EF. - Continue Furosemide as tolerated - weight down to 418lbs, renal function stable. (4) Acquired lymphedema of lower extremity Comment: - S/p Abx tx 11/06-11/11 for possible SSTI - Continue JUANA wraps. (5) Diabetes Comment: - A1c 5.8. - Continue Humulin 70/30 20 BID and sliding scale insulin. (6) Gout Comment: - Continue allopurinol. (7) KRISTYN (obstructive sleep apnea) Comment: - Continue BiPAP at night and naps. (8) DVT prophylaxis Comment: - Apixaban. (9) DNR (do not resuscitate) Status and Disposition: Inpatient. Will need MISTY on discharge.
[2018-11-20] MEDS: Insulin ISOPH/REG 70/30 (*) 1 UNITS UNIT SUBCUT SCH (21:48)
[2018-11-21 06:45] LABS: BUN/Creatinine Ratio 33.7 (8-20); Calcium 8.7 mg/dL (8.6-10.3); EGFR African American 93.8 (>60); EGFR Non-African American 77.5 (>60); Potassium 4.1 mmol/L (3.5-5.0)
[2018-11-21] MEDS: Apixaban* 5 MG TAB PO SCH ×2 (08:38→21:09)
[2018-11-21] MEDS: Insulin LISPRO* 1 UNITS UNIT SUBCUT SCH ×4 (08:38→21:30)
[2018-11-21] MEDS: Cetirizine* 10 MG TAB PO SCH (08:39)
[2018-11-21] MEDS: Digoxin TAB* 0.125 MG PO SCH (08:39)
[2018-11-21] MEDS: Metoprolol Succinate XL TAB* 50 MG PO SCH ×2 (08:39→21:16)
[2018-11-21] MEDS: Atorvastatin* 40 MG TAB PO SCH (08:39)
[2018-11-21] MEDS: Montelukast Sodium TAB* 10 MG PO SCH (08:39)
[2018-11-21] MEDS: Potassium Chlor TAB* 20 MEQ TAB.ER PO SCH (08:39)
[2018-11-21] MEDS: Furosemide IV* 10 MG/ML VIAL (40 MG) IV SCH ×2 (08:40→17:41)
[2018-11-21] MEDS: Allopurinol TAB* 300 MG PO SCH (08:40)
--- NOTE | 2018-11-21 19:35 | CONSULT ---
Palliative / Hospice Consult Ordering Provider: Tavia Jo - Nevaeh Referal Reason: general questions - Subjective Code Status: DNR Advance Directives Location: No Advance Directives MOLST Part A Completed: Yes - on chart MOLST Part E Completed:: Yes - on chart - History or Present Illness History or Present Illness: 73yo male who is super morbid obese was brought into ER via ambulance c/o can't move. He has been having increasing dyspnea, lower leg edema and cellulitis. He has not left his house since 2017 and has been bed bound for the past several weeks. PMH is significant for DM, HTN, seasonal allergies, KRISTYN on BiPAP, pulmonary HTN, hyperlipidemia, essential tremor, chronic lymphedema and gout. Studies; Ekg PVC, CXR shows low lung volume, Echo EF 55-60%, venous doppler-neg , Ekg#2 afib/aflutter, H/H 10.4/32, BUN/Cr 32/.95, egfr 77.5, tprot 6.3, alb 3.7 & d-dimer 729. 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 HCP is Tremaine Koenig [phone]. All history is from pt and the chart. Pt was admitted with cellulitis and CHF exacerbation to the floor was transferred to ICU because of episodes of hypotension,new afib/aflutter and suspected PE started on heparin currently he is on the floor progressing with diuresis. He has gone from 450# to 433#. Lab Values: Abnormal Lab Results 11/20/18 11/21/18 11/21/18 19:55 06:00 07:18 Sodium 142 Potassium 4.1 Chloride 100 L Carbon Dioxide 37 H Anion Gap 5 BUN 32 H Creatinine 0.95 Est GFR ( Amer) 93.8 Est GFR (Non-Af Amer) 77.5 BUN/Creatinine Ratio 33.7 H Glucose 140 H POC Glucose (mg/dL) 202 H 150 H Calcium 8.7 Magnesium 2.0 11/21/18 11/21/18 11:52 16:53 Sodium Potassium Chloride Carbon Dioxide Anion Gap BUN Creatinine Est GFR ( Amer) Est GFR (Non-Af Amer) BUN/Creatinine Ratio Glucose POC Glucose (mg/dL) 211 H 161 H Calcium Magnesium Laboratory Last Values WBC 6.1 10^3/uL (3.5-10.8) 11/18/18 05:37 RBC 3.40 10^6 /uL (4.18-5.48) L 11/18/18 05:37 Hgb 10.4 g/dL (14.0-18.0) L 11/18/18 05:37 Hct 32 % (42-52) L 11/18/18 05:37 MCV 93 fL (80-94) 11/18/18 05:37 MCH 31 pg (27-31) 11/18/18 05:37 MCHC 33 g/dL (31-36) 11/18/18 05:37 RDW 17 % (10.5-15) H 11/18/18 05:37 Plt Count 126 10^3/uL (150-450) L 11/18/18 05:37 MPV 10.0 fL (7.4-10.4) 11/18/18 05:37 Neut % (Auto) 72.7 % 11/18/18 05:37 Lymph % (Auto) 11.4 % 11/18/18 05:37 Jackson % (Auto) 10.4 % 11/18/18 05:37 Eos % (Auto) 5.0 % 11/18/18 05:37 Baso % (Auto) 0.5 % 11/18/18 05:37 Absolute Neuts (auto) 4.5 10^3/ul (1.5-7.7) 11/18/18 05:37 Absolute Lymphs (auto) 0.7 10^3/ul (1.0-4.8) L 11/18/18 05:37 Absolute Monos (auto) 0.6 10^3/ul (0-0.8) 11/18/18 05:37 Absolute Eos (auto) 0.3 10^3/ul (0-0.6) 11/18/18 05:37 Absolute Basos (auto) 0.0 10^3/ul (0-0.2) 11/18/18 05:37 Absolute Nucleated RBC 0.0 10^3/ul 11/18/18 05:37 Nucleated RBC % 0.2 11/18/18 05:37 Clumped Platelets Present 11/15/18 09:27 INR (Anticoag Therapy) 2.45 (0.82-1.09) H 11/19/18 05:33 APTT 34.7 seconds (26.0-36.3) 11/17/18 00:30 D-Dimer, Quantitative 729 ng/mL (Less Than 230) H 11/08/18 05:47 Sodium 142 mmol/L (135-145) 11/21/18 06:00 Potassium 4.1 mmol/L (3.5-5.0) 11/21/18 06:00 Chloride 100 mmol/L (101-111) L 11/21/18 06:00 Carbon Dioxide 37 mmol/L (22-32) H 11/21/18 06:00 Anion Gap 5 mmol/L (2-11) 11/21/18 06:00 BUN 32 mg/dL (6-24) H 11/21/18 06:00 Creatinine 0.95 mg/dL (0.67-1.17) 11/21/18 06:00 Est GFR ( Amer) 93.8 (>60) 11/21/18 06:00 Est GFR (Non-Af Amer) 77.5 (>60) 11/21/18 06:00 BUN/Creatinine Ratio 33.7 (8-20) H 11/21/18 06:00 Glucose 140 mg/dL (70-100) H 11/21/18 06:00 POC Glucose (mg/dL) 161 mg/dL (70-100) H 11/21/18 16:53 Hemoglobin A1c 5.8 % (4.0-5.6) H 11/07/18 06:05 Lactic Acid 1.6 mmol/L (0.5-2.0) 11/06/18 15:37 Calcium 8.7 mg/dL (8.6-10.3) 11/21/18 06:00 Magnesium 2.0 mg/dL (1.9-2.7) 11/21/18 06:00 Total Bilirubin 1.50 mg/dL (0.2-1.0) H 11/06/18 15:36 AST 26 U/L (13-39) 11/06/18 15:36 ALT 19 U/L (7-52) 11/06/18 15:36 Alkaline Phosphatase 82 U/L (34-104) 11/06/18 15:36 Total Creatine Kinase 91 U/L (10-223) 11/06/18 15:36 Troponin I 0.01 ng/mL (<0.04) 11/06/18 15:36 C-Reactive Protein 24.51 mg/L (<8.01) H 11/06/18 15:36 C-React Prot High Sens 14.54 mg/L (<2.00) H 11/09/18 06:42 B-Natriuretic Peptide 118 pg/mL (<=100) H 11/09/18 06:42 Total Protein 6.3 g/dL (6.4-8.9) L 11/06/18 15:36 Albumin 3.7 g/dL (3.2-5.2) 11/06/18 15:36 Globulin 2.6 g/dL (2-4) 11/06/18 15:36 Albumin/Globulin Ratio 1.4 (1-3) 11/06/18 15:36 TSH 4.48 mcIU/mL (0.34-5.60) 11/06/18 15:36 Urine Color Elma 11/06/18 15:54 Urine Appearance Cloudy 11/06/18 15:54 Urine pH 5.0 (5-9) 11/06/18 15:54 Ur Specific [place] 1.023 (1.010-1.030) 11/06/18 15:54 Urine Protein 1+(30 mg/dl) (Negative) A 11/06/18 15:54 Urine Ketones Trace (Negative) A 11/06/18 15:54 Urine Blood Negative (Negative) 11/06/18 15:54 Urine Nitrate Negative (Negative) 11/06/18 15:54 Urine Bilirubin Negative (Negative) 11/06/18 15:54 Urine Urobilinogen Positive (Negative) A 11/06/18 15:54 Ur Leukocyte Esterase Negative (Negative) 11/06/18 15:54 Urine WBC (Auto) 1+(6-10/hpf) (Absent) A 11/06/18 15:54 Urine RBC (Auto) 1+(3-5/hpf) (Absent) A 11/06/18 15:54 Ur Squamous Epith Cells Present (Absent) A 11/06/18 15:54 Urine Bacteria Absent (Absent) 11/06/18 15:54 Hyaline Casts Present (Absent) A 11/06/18 15:54 Ur Creatinine Concen 71.54 mg/dL 11/08/18 09:35 Ur Urea Nitrogen Conc 731 mg/dL 11/08/18 09:35 Urine Glucose Negative (Negative) 11/06/18 15:54 Digoxin 0.8 ng/ml (0.8-2.0) 11/15/18 09:27 - Objective Active Medications: Acetaminophen (Tylenol Tab*) 650 mg PO Q4H PRN PRN Reason: PAIN Last Admin: 11/20/18 21:48 Dose: 650 mg Allopurinol (Zyloprim Tab*) 300 mg PO DAILY [facility] Last Admin: 11/21/18 08:40 Dose: 300 mg Ammonium Lactate (Lac-Hydrin 12 %) 1 applic TOPICAL DAILY PRN PRN Reason: DRY SKIN Last Admin: 11/09/18 05:46 Dose: 1 applic Apixaban (Eliquis*) 5 mg PO BID [facility] Last Admin: 11/21/18 08:38 Dose: 5 mg Atorvastatin Calcium (Lipitor*) 40 mg PO DAILY [facility] Last Admin: 11/21/18 08:39 Dose: 40 mg Carisoprodol (Soma Tab*) 350 mg PO Q6H PRN PRN Reason: SPASMS - MUSCLE Cetirizine HCl (Zyrtec*) 10 mg PO DAILY [facility] Last Admin: 11/21/18 08:39 Dose: 10 mg Dextrose (D50w Syringe 50 Ml*) 12.5 gm IV PUSH .FOR FS < 60 - SS PRN PRN Reason: FS < 60 Digoxin (Lanoxin Tab*) 0.125 mg PO DAILY [facility] Last Admin: 11/21/18 08:39 Dose: 0.125 mg Diphenhydramine HCl (Benadryl Po*) 25 mg PO TID PRN PRN Reason: Allergy Symptoms Last Admin: 11/13/18 09:27 Dose: 25 mg Fluticasone Propionate (Flonase Nasal Brandon 50mcg*) 2 spray BOTH NARES DAILY PRN PRN Reason: Allergy Symptoms Furosemide (Lasix Iv*) 40 mg IV BID@0800,1700 [facility] Last Admin: 11/21/18 17:41 Dose: 40 mg Insulin Human Isoph/Insulin Regular (Humulin 70/30 (*)) 20 units SUBCUT BEDTIME [facility] Last Admin: 11/20/18 21:48 Dose: 20 units Insulin Human Lispro (Humalog*) 0 units SUBCUT ACHS [facility]; Protocol Last Admin: 11/21/18 17:41 Dose: 3 units Metoprolol Succinate (Toprol Xl Tab*) 50 mg PO BID [facility] Last Admin: 11/21/18 08:39 Dose: 50 mg Montelukast Sodium (Singulair Tab*) 10 mg PO DAILY [facility] Last Admin: 11/21/18 08:39 Dose: 10 mg Nystatin (Nystatin Cream*) 1 applic TOPICAL TID PRN PRN Reason: RASH Last Admin: 11/09/18 10:52 Dose: 1 applic Potassium Chloride (Klor Con Er Tab*) 20 meq PO DAILY [facility] Last Admin: 11/21/18 08:39 Dose: 20 meq Prochlorperazine Edisylate (Compazine Inj*) 5 mg IV Q6H PRN PRN Reason: NAUSEA/VOMITING Vital Signs: Vital Signs: Temp Pulse Resp BP Pulse Ox 97.0 F 97 20 98/49 92 11/21/18 11:44 11/21/18 11:44 11/21/18 11:44 11/21/18 11:44 11/21/18 11:44 Patient Weight: Weight 188.241 kg Intake and Output: Intake & Output 11/19/18 11/20/18 11/21/18 11/22/18 06:59 06:59 06:59 06:59 Intake Total 600 320 730 480 Output Total 2200 2225 6500 5375 [facility] -1600 -1905 -5770 -4895 Weight 189.964 kg 188.241 kg Intake: Oral 600 320 730 480 Output: Urine 450 Hodge 2200 2225 6050 5375 Other: Estimated Void Large Large Large ADLs: Meal Record Start: 11/06/18 19: 08 Freq: DAILY@0900,1400,1800 Status: Complete Protocol: Created 11/06/18 19:08 System (Rec: 11/06/18 19:08 System MED-C26) Document 11/07/18 09:00 [id number] (Rec: 11/07/18 09:19 ESJ6326 MED-C09) Document 11/07/18 14:00 VFP9470 (Rec: 11/07/18 14:22 HEE8321 MED-C02) Document 11/07/18 18:00 ZYA3772 (Rec: 11/07/18 19:17 OCN6102 MED-C09) Document 11/08/18 09:00 PQP4520 (Rec: 11/08/18 10:07 MDL8214 MED-C11) Document 11/08/18 14:00 PSV1727 (Rec: 11/08/18 14:24 SBY6880 MED-C11) Document 11/08/18 18:11 BPL4173 (Rec: 11/08/18 18:11 CJL0950 MED-M21) Document 11/09/18 09:00 ELX5555 (Rec: 11/09/18 09:24 IGP7426 MED-C02) Document 11/09/18 14:00 CSW6017 (Rec: 11/09/18 14:40 CEH4706 MED-C11) Document 11/09/18 18:00 GTX4709 (Rec: 11/09/18 21:58 ZNO1443 MED-C09) Document 11/10/18 09:00 JIN1101 (Rec: 11/10/18 09:39 PUN3184 MED-C13) Document 11/10/18 14:00 USO6080 (Rec: 11/10/18 14:38 NOT9318 MED-C13) Document 11/11/18 09:00 AIL8919 (Rec: 11/11/18 10:10 DLL1512 MED-C09) ADLs: Meal Record Start: 11/11/18 12: 23 Freq: Status: Complete Protocol: Created 11/11/18 12:23 TAZ8258 (Rec: 11/11/18 12:23 APX6329 ICU-C12) Document 11/12/18 14:00 YGR5537 (Rec: 11/12/18 19:17 EBF4508 ICU-C06) ADLs: Meal Record Start: 11/15/18 15: 36 Freq: Status: Active Protocol: Created 11/15/18 15:36 HDN6575 (Rec: 11/15/18 15:36 XGK9976 TELE-C10) Document 11/15/18 18:22 UTT1697 (Rec: 11/15/18 18:22 ONF3076 TELE-C10) Document 11/17/18 11:17 WOO5687 (Rec: 11/17/18 11:17 HCK0395 TELE-C07) Document 11/17/18 17:46 TWN8002 (Rec: 11/17/18 17:46 LHL9993 TELE-C10) Document 11/18/18 15:33 SOC8994 (Rec: 11/18/18 15:33 FEP4165 TELE-C11) Document 11/19/18 14:49 LYB9157 (Rec: 11/19/18 14:49 HMN9125 TELE-C13) Document 11/20/18 15:00 LWH6459 (Rec: 11/20/18 15:01 BDZ4136 TELE-C11) Document 11/20/18 20:19 QHK5468 (Rec: 11/20/18 20:19 ZAP9530 TELE-C13) Document 11/21/18 09:11 SVG7549 (Rec: 11/21/18 09:12 PAF5062 TELE-C03) Intake and Output Start: 11/06/18 14: 40 Freq: Status: Cancelled Protocol: Created 11/06/18 14:40 System (Rec: 11/06/18 14:40 System ED-C18) Document 11/06/18 19:17 NYS7551 (Rec: 11/06/18 19:17 QUM1844 EDL-C04) Intake and Output Start: 11/06/18 19: 08 Freq: DAILY@0600,1400,2200 Status: Cancelled Protocol: Created 11/06/18 19:08 System (Rec: 11/06/18 19:08 System MED-C26) Document 11/06/18 22:00 KJG0674 (Rec: 11/06/18 22:12 LLR0790 MED-C02) Document 11/07/18 05:23 TQH4758 (Rec: 11/07/18 05:25 IMR6738 MED-C02) Document 11/07/18 14:00 IYS9637 (Rec: 11/07/18 14:22 VPF9903 MED-C02) Document 11/07/18 19:48 QJK9699 (Rec: 11/07/18 19:48 GCV9637 MED-C11) Document 11/07/18 22:00 JCU6087 (Rec: 11/08/18 00:25 LQS9591 MED-C09) Document 11/08/18 05:58 LKO6533 (Rec: 11/08/18 05:58 VAI8016 MED-C07) Document 11/08/18 14:00 KNS9232 (Rec: 11/08/18 14:24 DIZ6677 MED-C11) Document 11/08/18 21:51 YYT9960 (Rec: 11/08/18 21:52 YMY6678 MED-C02) Document 11/08/18 21:52 UTR5637 (Rec: 11/08/18 21:53 AWJ3884 MED-C02) Document 11/09/18 06:00 SWP4394 (Rec: 11/09/18 06:23 RRQ2241 MED-C02) Document 11/09/18 14:00 FNE4617 (Rec: 11/09/18 14:08 YFU4733 MED-C09) Document 11/09/18 14:40 CEM0829 (Rec: 11/09/18 14:40 QGF2396 MED-C11) Intake and Output Start: 11/09/18 19: 32 Freq: 06,14,2200 Status: Active Protocol: Created 11/09/18 19:32 NRY5832 (Rec: 11/09/18 19:32 BKG [facility]-BG12) Document 11/09/18 21:59 KAU3859 (Rec: 11/09/18 22:00 CTQ8271 MED-C09) Document 11/09/18 22:45 MNG9038 (Rec: 11/10/18 00:56 KPT2761 MED-C25) Document 11/10/18 00:45 TYT0364 (Rec: 11/10/18 00:56 QII1736 MED-C25) Document 11/10/18 02:45 MVE2872 (Rec: 11/10/18 07:08 TSM6980 MED-C25) Document 11/10/18 04:45 JPI1832 (Rec: 11/10/18 07:09 XNC8090 MED-C25) Document 11/10/18 05:28 EMT9226 (Rec: 11/10/18 05:29 ATT2241 MED-C13) Document 11/10/18 07:09 TFK1063 (Rec: 11/10/18 07:09 EAQ3219 MED-C25) Document 11/10/18 08:35 CIW8834 (Rec: 11/10/18 08:35 SPB3395 MED-M22) Document 05/20/19 11:15 VJA3126 (Rec: 11/10/18 11:53 LSU3791 MED-M22) Document 11/10/18 14:05 BWL5099 (Rec: 11/10/18 14:05 JRL7118 MED-M22) Document 11/10/18 16:42 MNU9423 (Rec: 11/10/18 16:42 BTI0028 MED-M22) Document 11/10/18 20:24 HXU3173 (Rec: 11/10/18 20:24 QNM7976 MED-C25) Document 11/10/18 22:00 UYA9454 (Rec: 11/10/18 22:58 GJU8535 MED-C09) Document 11/11/18 06:00 QCP1138 (Rec: 11/11/18 06:37 NFS3917 MED-C11) Intake and Output Start: 11/11/18 12: 23 Freq: Q1HR Status: Complete Protocol: Created 11/11/18 12:23 YCY5673 (Rec: 11/11/18 12:23 EJA2292 ICU-C12) Document 11/11/18 13:00 TAZ6986 (Rec: 11/11/18 13:03 DTR7183 ICU-C12) Document 11/11/18 14:00 IRZ8495 (Rec: 11/11/18 14:32 NPB8029 ICU-C12) Document 11/11/18 15:00 YYQ5089 (Rec: 11/11/18 16:03 IJY6863 ICU-M18) Document 11/11/18 16:00 DFF8568 (Rec: 11/11/18 16:03 TIG1899 ICU-M18) Document 11/11/18 17:00 BHV2830 (Rec: 11/11/18 17:21 HEN6812 ICU-C12) Document 11/11/18 18:00 HOH9026 (Rec: 11/11/18 18:28 DFW5655 ICU-C12) Document 11/11/18 20:00 KRE9600 (Rec: 11/11/18 20:15 TLP4663 ICU-C06) Document 11/11/18 21:00 QRP8927 (Rec: 11/11/18 21:05 EAB5556 ICU-C06) Document 11/11/18 22:00 INE8397 (Rec: 11/11/18 22:46 QYG3333 ICU-M23) Document 11/11/18 23:00 HHB4345 (Rec: 11/11/18 23:09 MNT1236 ICU-C06) Document 11/12/18 01:00 WRS6043 (Rec: 11/12/18 01:07 EZR3738 ICU-M23) Document 11/12/18 03:00 ICF8954 (Rec: 11/12/18 03:08 UDS7263 ICU-C06) Document 11/12/18 04:00 JEH0886 (Rec: 11/12/18 04:40 BVT5085 ICU-C06) Document 11/12/18 05:40 OQV6579 (Rec: 11/12/18 05:40 FXF9474 ICU-M23) Document 11/12/18 07:00 WLY5550 (Rec: 11/12/18 09:14 YTK9697 ICU-C06) Document 11/12/18 08:00 OKK9830 (Rec: 11/12/18 09:15 EOF7251 ICU-C06) Document 11/12/18 09:00 VWZ6767 (Rec: 11/12/18 09:15 MMU7383 ICU-C06) Document 11/12/18 10:00 AKI9631 (Rec: 11/12/18 12:52 IHR8707 ICU-C06) Document 11/12/18 10:00 JWR6112 (Rec: 11/12/18 14:16 NQI5267 ICU-C06) Document 11/12/18 11:00 VAV6675 (Rec: 11/12/18 14:16 QYX6840 ICU-C06) Document 11/12/18 12:00 BVX4429 (Rec: 11/12/18 14:16 TFI8146 ICU-C06) Document 11/12/18 13:00 DSI1387 (Rec: 11/12/18 14:17 JIQ6187 ICU-C06) Document 11/12/18 14:00 UXL8109 (Rec: 11/12/18 14:17 UFV0821 ICU-C06) Document 11/12/18 15:00 AEG0640 (Rec: 11/12/18 19:14 RVF3381 ICU-C06) Document 11/12/18 16:00 VQI4459 (Rec: 11/12/18 19:14 IML0681 ICU-C06) Document 11/12/18 17:00 DZX7102 (Rec: 11/12/18 19:14 QGO2392 ICU-C06) Document 11/12/18 18:00 RNR5803 (Rec: 11/12/18 19:14 SZQ5920 ICU-C06) Document 11/12/18 20:00 LLP9347 (Rec: 11/12/18 20:21 LUZ9136 ICU-C12) Document 11/12/18 22:00 UAE0112 (Rec: 11/12/18 22:40 UIL3672 ICU-C12) Document 11/12/18 22:54 MDE2851 (Rec: 11/12/18 22:54 ISB5585 ICU-C12) Document 11/13/18 00:00 SVV8772 (Rec: 11/13/18 00:01 OIY7320 ICU-C12) Document 11/13/18 01:00 PHC4810 (Rec: 11/13/18 01:09 WGJ7189 ICU-C12) Document 11/13/18 02:00 LMT2157 (Rec: 11/13/18 02:16 WUL9475 ICU-C12) Document 11/13/18 04:34 ZHM3093 (Rec: 11/13/18 04:34 SES1333 ICU-C12) Document 11/13/18 06:00 DCG2949 (Rec: 11/13/18 06:01 RQB4189 ICU-C12) Document 11/13/18 07:00 DHU0431 (Rec: 11/13/18 10:00 XWB4800 ICU-L03) Document 11/13/18 08:00 DNQ3170 (Rec: 11/13/18 14:01 BZG8068 ICU-L03) Document 11/13/18 09:00 WOZ5293 (Rec: 11/13/18 14:01 KUJ0367 ICU-L03) Document 11/13/18 10:00 BQU1108 (Rec: 11/13/18 14:01 WMZ8406 ICU-L03) Document 11/13/18 11:00 AIP8615 (Rec: 11/13/18 14:01 JBZ0016 ICU-L03) Document 11/13/18 12:00 JMU8060 (Rec: 11/13/18 14:01 LFU4679 ICU-L03) Document 11/13/18 13:00 FWY1095 (Rec: 11/13/18 14:02 RBU0181 ICU-L03) Document 11/13/18 14:00 DRS2748 (Rec: 11/13/18 14:02 ZZX2530 ICU-L03) Document 11/13/18 15:00 ZWO1614 (Rec: 11/13/18 16:42 SIR8183 ICU-L03) Document 11/13/18 16:00 NDT5175 (Rec: 11/13/18 16:52 WSP3337 ICU-L03) Document 11/13/18 17:00 OCP0779 (Rec: 11/13/18 17:25 BMP9014 ICU-M18) Document 11/13/18 18:27 IJK8700 (Rec: 11/13/18 18:27 PAF9951 ICU-L03) Document 11/13/18 19:00 XIL4276 (Rec: 11/13/18 20:27 FHN5017 ICU-C06) Document 11/13/18 20:00 SUF3641 (Rec: 11/13/18 20:45 JET5283 ICU-C06) Document 11/13/18 21:00 MPM7683 (Rec: 11/13/18 22:52 EJY8095 ICU-C06) Document 11/13/18 22:00 EGG7931 (Rec: 11/13/18 23:43 KTA4761 ICU-C06) Document 11/13/18 23:00 LSH3549 (Rec: 11/14/18 00:28 KXW4626 ICU-C06) Document 11/14/18 00:00 ZWY1762 (Rec: 11/14/18 00:29 PDD8250 ICU-C06) Document 11/14/18 01:00 FNF1361 (Rec: 11/14/18 01:07 EAU1207 ICU-C06) Document 11/14/18 03:27 RWP4003 (Rec: 11/14/18 03:27 UBS2059 ICU-C14) Document 11/14/18 04:40 IFX0695 (Rec: 11/14/18 04:40 CWK9977 ICU-C14) Document 11/14/18 05:00 OAA2125 (Rec: 11/14/18 05:40 DQP5199 ICU-C14) Document 11/14/18 06:22 ZZQ2331 (Rec: 11/14/18 06:22 ATX8569 ICU-C14) Document 11/14/18 07:00 (Rec: 11/14/18 07:31 ICU-C06) Document 11/15/18 06:19 (Rec: 11/15/18 06:20 TELE-C02) Eyes: No Scleral Icterus Ears/Nose/Mouth/Throat: Mucous Membranes Moist Neck: Trachea Midline Cardiovascular: - - irreg Respiratory: Symmetrical Chest Expansion and Respiratory Effort Abdominal: NL Sounds; No Tenderness; No Distention - morbid obese Extremities: - - Diffuse woody cchanges, scales loosening in blt lymphedema, 3+ pitting edema to sacram , 3+ Scrotal edema Neurological: Alert and Oriented x 3 - Assessment Assessment: 73yo male with super morbid obesity presents with CHF exacerbation, cellulitis, suspected PE and new afib/aflutter awaiting rehab placement - Plan Consult Plan (MU): Palliative Plan: Long discussion with pt. He was offered a bed at [facility] in [place] but all his support system is in [place]. Pt has been told by case management he can get a lateral transfer to [facility] once a bed is open there and they accept him. Another possibility is for him to get strong enough to help with transferring and rolling so he can go home. We will also look into getting [facility] PT services in his home along with home health aides from [facility]. Pt voiced concerns he heard from other agencies that he can't get services at his home due to size?? Pt wants to remain at home he has a picture window he enjoys looking out into the [facility]. Did discuss hospice for the future which would help him to remain at home. Pt feels he will be staring at white [place] all day long with no interaction with people. His support system is older and will not make the trip to [place] to visit. Pt was not promised he can stay at home but we will see if it is possible. KPS 40%, PPS 30% - Time On Unit Date of Evaluation: 11/21/18 Hospice Consult Time in: 03:30 Hospice Consult Time Out: 05:00 Hospice Consult Time Total: 90 > 50% of Time Spend In Counseling or Coordinating Care: Yes
--- NOTE | 2018-11-21 20:26 | PN ---
Subjective Date of Service: 11/21/18 Interval History: HOSPITALIST PROGRESS NOTE Patient seen and examined at bedside. Care reviewed and d/w Rosmery Vera RN. He offers no new complaints today. He's upset because he was offered a bed in a [facility] in [place] and he's concerned his friends won't be able to go visit him. Four beats of Vtach last night, asymptomatic. Family History: Unchanged from Admission Social History: Unchanged from Admission Past Medical History: Unchanged from Admission Objective Active Medications: Acetaminophen (Tylenol Tab*) 650 mg PO Q4H PRN PRN Reason: PAIN Last Admin: 11/20/18 21:48 Dose: 650 mg Allopurinol (Zyloprim Tab*) 300 mg PO DAILY [facility] Last Admin: 11/21/18 08:40 Dose: 300 mg Ammonium Lactate (Lac-Hydrin 12 %) 1 applic TOPICAL DAILY PRN PRN Reason: DRY SKIN Last Admin: 11/09/18 05:46 Dose: 1 applic Apixaban (Eliquis*) 5 mg PO BID [facility] Last Admin: 11/21/18 08:38 Dose: 5 mg Atorvastatin Calcium (Lipitor*) 40 mg PO DAILY [facility] Last Admin: 11/21/18 08:39 Dose: 40 mg Carisoprodol (Soma Tab*) 350 mg PO Q6H PRN PRN Reason: SPASMS - MUSCLE Cetirizine HCl (Zyrtec*) 10 mg PO DAILY [facility] Last Admin: 11/21/18 08:39 Dose: 10 mg Dextrose (D50w Syringe 50 Ml*) 12.5 gm IV PUSH .FOR FS < 60 - SS PRN PRN Reason: FS < 60 Digoxin (Lanoxin Tab*) 0.125 mg PO DAILY [facility] Last Admin: 11/21/18 08:39 Dose: 0.125 mg Diphenhydramine HCl (Benadryl Po*) 25 mg PO TID PRN PRN Reason: Allergy Symptoms Last Admin: 11/13/18 09:27 Dose: 25 mg Fluticasone Propionate (Flonase Nasal [place] 50mcg*) 2 spray BOTH NARES DAILY PRN PRN Reason: Allergy Symptoms Furosemide (Lasix Iv*) 40 mg IV BID@0800,1700 [facility] Last Admin: 11/21/18 17:41 Dose: 40 mg Insulin Human Isoph/Insulin Regular (Humulin 70/30 (*)) 20 units SUBCUT BEDTIME [facility] Last Admin: 11/20/18 21:48 Dose: 20 units Insulin Human Lispro (Humalog*) 0 units SUBCUT ACHS [facility]; Protocol Last Admin: 11/21/18 17:41 Dose: 3 units Metoprolol Succinate (Toprol Xl Tab*) 50 mg PO BID [facility] Last Admin: 11/21/18 08:39 Dose: 50 mg Montelukast Sodium (Singulair Tab*) 10 mg PO DAILY [facility] Last Admin: 11/21/18 08:39 Dose: 10 mg Nystatin (Nystatin Cream*) 1 applic TOPICAL TID PRN PRN Reason: RASH Last Admin: 11/09/18 10:52 Dose: 1 applic Potassium Chloride (Klor Con Er Tab*) 20 meq PO DAILY [facility] Last Admin: 11/21/18 08:39 Dose: 20 meq Prochlorperazine Edisylate (Compazine Inj*) 5 mg IV Q6H PRN PRN Reason: NAUSEA/VOMITING Oxygen Devices in Use Now: BiPAP Appearance: Elderly super morbid obese gentleman lying in bed in [facility]. Eyes: No Scleral Icterus Ears/Nose/Mouth/Throat: Mucous Membranes Moist Neck: Trachea Midline Respiratory: Symmetrical Chest Expansion and Respiratory Effort, - - BS+ bilaterally, distant sounds due to body habitus Cardiovascular: RRR - Normal S1 and S2 Abdominal: NL Sounds; No Tenderness; No Distention - morbid obese Extremities: - - Bilaeral LE chronic edema with chronic skin changes Neurological: Alert and Oriented x 3, NL Muscle Strength and Tone Result Diagrams: 11/18/18 05:37 11/21/18 06:00 Assess/Plan/Problems-Billing Assessment: Mr Graham is a 73 year old male supermorbid obesity (BMI 65.3), chronic lymphedema, gout, IDDM, OHS/KRISTYN, presenting with weakness and SOB, found to have anasarca with acute on chronic HFpEF (55-60%, RVSP 63), hospital course c/ b aflutter. - Patient Problems (1) Acute and chronic respiratory failure with hypoxia Comment: - Multifactorial Pulmonary hypertension secondary to KRISTYN/OHS, acute on chronic HFpEF (last EF 2018 55% with RVSP 63) - Continue diuresis - weight down to 415lbs. - BiPAP QHS and naps, - Pulmonary input appreciated - pulmonary hypertension and RV failure - continue Sildenafil 20mg/day for pulmonary HTN. (2) Atrial fibrillation with RVR Comment: - Continue Metoprolol, Digoxin, and Apixaban. (3) Diastolic CHF Comment: - Echo with preserved EF. - Continue Furosemide as tolerated - weight down to 415lbs, renal function stable. (4) V-tach Comment: - One episode of 4 beats of Vtach, asymptomatic. - D/w Cardiology (Dr Amador) - overall prognosis is very poor with his comorbidities. He would not be a candidate for invasive measures. Recommended maintaining K>4 and Mg>2. - Continue Metoprolol. (5) Acquired lymphedema of lower extremity Comment: - S/p Abx tx 11/06-11/11 for possible SSTI - Continue JUANA wraps. (6) Diabetes Comment: - A1c 5.8. - Continue Humulin 70/30 20 BID and sliding scale insulin. (7) Gout Comment: - Continue allopurinol. (8) KRISTYN (obstructive sleep apnea) Comment: - Continue BiPAP at night and naps. (9) DVT prophylaxis Comment: - Apixaban. (10) DNR (do not resuscitate) Status and Disposition: Inpatient. Will need MISTY on discharge.
[2018-11-21] MEDS: Insulin ISOPH/REG 70/30 (*) 1 UNITS UNIT SUBCUT SCH (21:31)
[2018-11-21] MEDS: Acetaminophen TAB* 325 MG PO PRN (23:58)
[2018-11-22] MEDS: Acetaminophen TAB* 325 MG PO PRN ×2 (04:08→21:53)
[2018-11-22 05:56] LABS: ABS Eosinophils 0.3 10^3/ul (0-0.6); ABS Lymphocytes 0.5 10^3/ul (1.0-4.8); ABS Monocytes 0.4 10^3/ul (0-0.8); ABS Neutrophils 3.2 10^3/ul (1.5-7.7); Eosinophil % 5.7 %; Hematocrit 36 % (42-52); Hemoglobin 10.8 g/dL (14.0-18.0); Mean Corpuscular HGB Conc 30 g/dL (31-36); Mean Corpuscular Hemoglobin 30 pg (27-31); Mean Corpuscular Volume 99 fL (80-94); Mean Platelet Volume 11.4 fL (7.4-10.4); Nucleated Red Blood Cells % 0.2; Platelet Count 117 10^3/uL (150-450); Red Blood Count 3.59 10^6 /uL (4.18-5.48); Red Cell Distribution Width 18 % (10.5-15); White Blood Count 4.4 10^3/uL (3.5-10.8)
[2018-11-22] MEDS: Digoxin TAB* 0.125 MG PO SCH (09:05)
[2018-11-22] MEDS: Potassium Chlor TAB* 20 MEQ TAB.ER PO SCH (09:05)
[2018-11-22] MEDS: Insulin LISPRO* 1 UNITS UNIT SUBCUT SCH ×4 (09:05→21:54)
[2018-11-22] MEDS: Cetirizine* 10 MG TAB PO SCH (09:05)
[2018-11-22] MEDS: Allopurinol TAB* 300 MG PO SCH (09:05)
[2018-11-22] MEDS: Atorvastatin* 40 MG TAB PO SCH (09:05)
[2018-11-22] MEDS: Apixaban* 5 MG TAB PO SCH ×2 (09:05→21:53)
[2018-11-22] MEDS: Metoprolol Succinate XL TAB* 50 MG PO SCH ×2 (09:05→21:54)
[2018-11-22] MEDS: Montelukast Sodium TAB* 10 MG PO SCH (09:05)
[2018-11-22] MEDS: Furosemide IV* 10 MG/ML VIAL (40 MG) IV SCH ×2 (09:06→17:26)
--- NOTE | 2018-11-22 09:24 | PN ---
Subjective Date of Service: 11/22/18 Interval History: HOSPITALIST PROGRESS NOTE Patient seen and examined at bedside. Care reviewed and d/w Kirill Katz RN. He offers no new complaints today. Continues to wear his BiPAP almost continuously. Feels his scrotal edema is finally subsiding. Family History: Unchanged from Admission Social History: Unchanged from Admission Past Medical History: Unchanged from Admission Objective Active Medications: Acetaminophen (Tylenol Tab*) 650 mg PO Q4H PRN PRN Reason: PAIN Last Admin: 11/22/18 04:08 Dose: 650 mg Allopurinol (Zyloprim Tab*) 300 mg PO DAILY [facility] Last Admin: 11/22/18 09:05 Dose: 300 mg Ammonium Lactate (Lac-Hydrin 12 %) 1 applic TOPICAL DAILY PRN PRN Reason: DRY SKIN Last Admin: 11/09/18 05:46 Dose: 1 applic Apixaban (Eliquis*) 5 mg PO BID [facility] Last Admin: 11/22/18 09:05 Dose: 5 mg Atorvastatin Calcium (Lipitor*) 40 mg PO DAILY [facility] Last Admin: 11/22/18 09:05 Dose: 40 mg Carisoprodol (Soma Tab*) 350 mg PO Q6H PRN PRN Reason: SPASMS - MUSCLE Cetirizine HCl (Zyrtec*) 10 mg PO DAILY [facility] Last Admin: 11/22/18 09:05 Dose: 10 mg Dextrose (D50w Syringe 50 Ml*) 12.5 gm IV PUSH .FOR FS < 60 - SS PRN PRN Reason: FS < 60 Digoxin (Lanoxin Tab*) 0.125 mg PO DAILY [facility] Last Admin: 11/22/18 09:05 Dose: 0.125 mg Diphenhydramine HCl (Benadryl Po*) 25 mg PO TID PRN PRN Reason: Allergy Symptoms Last Admin: 11/13/18 09:27 Dose: 25 mg Fluticasone Propionate (Flonase Nasal [place] 50mcg*) 2 spray BOTH NARES DAILY PRN PRN Reason: Allergy Symptoms Furosemide (Lasix Iv*) 40 mg IV BID@0800,1700 [facility] Last Admin: 11/22/18 09:06 Dose: 40 mg Insulin Human Isoph/Insulin Regular (Humulin 70/30 (*)) 20 units SUBCUT BEDTIME [facility] Last Admin: 11/21/18 21:31 Dose: 20 units Insulin Human Lispro (Humalog*) 0 units SUBCUT ACHS [facility]; Protocol Last Admin: 11/22/18 09:05 Dose: 2 units Metoprolol Succinate (Toprol Xl Tab*) 50 mg PO BID [facility] Last Admin: 11/22/18 09:05 Dose: 50 mg Montelukast Sodium (Singulair Tab*) 10 mg PO DAILY [facility] Last Admin: 11/22/18 09:05 Dose: 10 mg Nystatin (Nystatin Cream*) 1 applic TOPICAL TID PRN PRN Reason: RASH Last Admin: 11/09/18 10:52 Dose: 1 applic Potassium Chloride (Klor Con Er Tab*) 20 meq PO DAILY [facility] Last Admin: 11/22/18 09:05 Dose: 20 meq Prochlorperazine Edisylate (Compazine Inj*) 5 mg IV Q6H PRN PRN Reason: NAUSEA/VOMITING Vital Signs - 8 hr 11/22/18 11/22/18 03:06 07:47 Temperature 97.6 F Pulse Rate 96 Respiratory 18 18 Rate Blood Pressure 110/55 (mmHg) O2 Sat by Pulse 95 Oximetry Oxygen Devices in Use Now: BiPAP Appearance: Elderly super morbid obese gentleman lying in bed in NAD Eyes: No Scleral Icterus Ears/Nose/Mouth/Throat: Mucous Membranes Moist Neck: Trachea Midline Respiratory: Symmetrical Chest Expansion and Respiratory Effort, Clear to Auscultation - Distant sounds Cardiovascular: RRR - Normal S1 and S2 Abdominal: NL Sounds; No Tenderness; No Distention - morbid obese Extremities: - - Bilateral LE chronic lymphedema, Antione wrapped Neurological: Alert and Oriented x 3 Result Diagrams: 11/22/18 05:22 11/21/18 06:00 Assess/Plan/Problems-Billing Assessment: Mr Graham is a 73 year old male supermorbid obesity (BMI 65.3), chronic lymphedema, gout, IDDM, OHS/KRISTYN, presenting with weakness and SOB, found to have anasarca with acute on chronic HFpEF (55-60%, RVSP 63), hospital course c/ b aflutter. - Patient Problems (1) Acute and chronic respiratory failure with hypoxia Comment: - Multifactorial Pulmonary hypertension secondary to KRISTYN/OHS, acute on chronic HFpEF (last EF 2018 55% with RVSP 63) - Continue diuresis - weight down to 414lbs. - BiPAP QHS and naps, - Pulmonary input appreciated - pulmonary hypertension and RV failure - continue Sildenafil 20mg/day for pulmonary HTN. (2) Atrial fibrillation with RVR Comment: - Continue Metoprolol, Digoxin, and Apixaban. (3) Diastolic CHF Comment: - Echo with preserved EF. - Continue Furosemide as tolerated - weight down to 414lbs, renal function stable. (4) V-tach Comment: - One episode of 4 beats of Vtach, asymptomatic. - D/w Cardiology (Dr Amador) - overall prognosis is very poor with his comorbidities. He would not be a candidate for invasive measures. Recommended maintaining K>4 and Mg>2. - Continue Metoprolol. (5) Acquired lymphedema of lower extremity Comment: - S/p Abx tx 11/06-11/11 for possible SSTI - Continue ANTIONE wraps. (6) Diabetes Comment: - A1c 5.8. - Continue Humulin 70/30 20 BID and sliding scale insulin. (7) Gout Comment: - Continue allopurinol. (8) KRISTYN (obstructive sleep apnea) Comment: - Continue BiPAP at night and naps. (9) DVT prophylaxis Comment: - Apixaban. (10) DNR (do not resuscitate) Status and Disposition: Inpatient. Will need MISTY on discharge.
[2018-11-22 12:51] LABS: CO2 Carbon Dioxide 24 mmol/L (22-32); Calcium 8.9 mg/dL (8.6-10.3); Chloride 102 mmol/L (101-111); Sodium 139 mmol/L (135-145)
[2018-11-22 12:56] LABS: Blood Urea Nitrogen 30 mg/dL (6-24); EGFR African American 98.5 (>60); EGFR Non-African American 81.4 (>60); Glucose 141 mg/dL (70-100)
[2018-11-22] MEDS: Nystatin CREAM* 15 GM TUBE TOPICAL PRN ×2 (13:18→21:57)
[2018-11-22 13:33] LABS: Anion Gap 13 mmol/L (2-11)
[2018-11-22] MEDS: Insulin ISOPH/REG 70/30 (*) 1 UNITS UNIT SUBCUT SCH (21:54)
[2018-11-22] MEDS: Ammonium Lactate 12% 1 APPLIC TUBE TOPICAL PRN (21:57)
[2018-11-23] MEDS: Insulin LISPRO* 1 UNITS UNIT SUBCUT SCH ×4 (07:57→23:30)
[2018-11-23] MEDS: Cetirizine* 10 MG TAB PO SCH (07:57)
[2018-11-23] MEDS: Furosemide IV* 10 MG/ML VIAL (40 MG) IV SCH ×2 (07:57→16:50)
[2018-11-23] MEDS: Montelukast Sodium TAB* 10 MG PO SCH (07:57)
[2018-11-23] MEDS: Apixaban* 5 MG TAB PO SCH ×2 (07:57→23:29)
[2018-11-23] MEDS: Digoxin TAB* 0.125 MG PO SCH (07:57)
[2018-11-23] MEDS: Atorvastatin* 40 MG TAB PO SCH (07:57)
[2018-11-23] MEDS: Allopurinol TAB* 300 MG PO SCH (07:57)
[2018-11-23] MEDS: Potassium Chlor TAB* 20 MEQ TAB.ER PO SCH (07:57)
[2018-11-23] MEDS: Metoprolol Succinate XL TAB* 50 MG PO SCH ×2 (07:57→23:29)
--- NOTE | 2018-11-23 09:12 | PN ---
Subjective Date of Service: 11/23/18 Interval History: HOSPITALIST PROGRESS NOTE Patient seen and examined at bedside. Care reviewed and d/w Natalie Barkaat RN. He offers no new complaints today. Family History: Unchanged from Admission Social History: Unchanged from Admission Past Medical History: Unchanged from Admission Objective Active Medications: Acetaminophen (Tylenol Tab*) 650 mg PO Q4H PRN PRN Reason: PAIN Last Admin: 11/22/18 21:53 Dose: 650 mg Allopurinol (Zyloprim Tab*) 300 mg PO DAILY [facility] Last Admin: 11/23/18 07:57 Dose: 300 mg Ammonium Lactate (Lac-Hydrin 12 %) 1 applic TOPICAL DAILY PRN PRN Reason: DRY SKIN Last Admin: 11/22/18 21:57 Dose: 1 applic Apixaban (Eliquis*) 5 mg PO BID [facility] Last Admin: 11/23/18 07:57 Dose: 5 mg Atorvastatin Calcium (Lipitor*) 40 mg PO DAILY [facility] Last Admin: 11/23/18 07:57 Dose: 40 mg Carisoprodol (Soma Tab*) 350 mg PO Q6H PRN PRN Reason: SPASMS - MUSCLE Cetirizine HCl (Zyrtec*) 10 mg PO DAILY [facility] Last Admin: 11/23/18 07:57 Dose: 10 mg Dextrose (D50w Syringe 50 Ml*) 12.5 gm IV PUSH .FOR FS < 60 - SS PRN PRN Reason: FS < 60 Digoxin (Lanoxin Tab*) 0.125 mg PO DAILY [facility] Last Admin: 11/23/18 07:57 Dose: 0.125 mg Diphenhydramine HCl (Benadryl Po*) 25 mg PO TID PRN PRN Reason: Allergy Symptoms Last Admin: 11/13/18 09:27 Dose: 25 mg Fluticasone Propionate (Flonase Nasal [place] 50mcg*) 2 spray BOTH NARES DAILY PRN PRN Reason: Allergy Symptoms Furosemide (Lasix Iv*) 40 mg IV BID@0800,1700 [facility] Last Admin: 11/23/18 07:57 Dose: 40 mg Insulin Human Isoph/Insulin Regular (Humulin 70/30 (*)) 20 units SUBCUT BEDTIME [facility] Last Admin: 11/22/18 21:54 Dose: 20 units Insulin Human Lispro (Humalog*) 0 units SUBCUT ACHS [facility]; Protocol Last Admin: 11/23/18 07:57 Dose: 3 units Metoprolol Succinate (Toprol Xl Tab*) 50 mg PO BID [facility] Last Admin: 11/23/18 07:57 Dose: 50 mg Montelukast Sodium (Singulair Tab*) 10 mg PO DAILY [facility] Last Admin: 11/23/18 07:57 Dose: 10 mg Nystatin (Nystatin Cream*) 1 applic TOPICAL TID PRN PRN Reason: RASH Last Admin: 11/22/18 21:57 Dose: 1 applic Potassium Chloride (Klor Con Er Tab*) 20 meq PO DAILY [facility] Last Admin: 11/23/18 07:57 Dose: 20 meq Prochlorperazine Edisylate (Compazine Inj*) 5 mg IV Q6H PRN PRN Reason: NAUSEA/VOMITING Vital Signs - 8 hr 11/23/18 11/23/18 11/23/18 07:22 07:43 07:57 Temperature 97.9 F Pulse Rate 92 85 Respiratory 21 24 Rate Blood Pressure 111/63 (mmHg) O2 Sat by Pulse 98 Oximetry Oxygen Devices in Use Now: BiPAP Appearance: Elderly gentleman lying in bed in [facility]. Eyes: No Scleral Icterus Ears/Nose/Mouth/Throat: Mucous Membranes Moist Neck: Trachea Midline Respiratory: Symmetrical Chest Expansion and Respiratory Effort, Clear to Auscultation, - - Distant sounds Cardiovascular: RRR - Normal S1 and S2 Abdominal: NL Sounds; No Tenderness; No Distention - morbid obese Extremities: - - Bilateral LE lymphedema, still has significant scrotal edema Neurological: Alert and Oriented x 3, NL Muscle Strength and Tone Result Diagrams: 11/22/18 05:22 11/22/18 14:15 Assess/Plan/Problems-Billing Assessment: Mr Graham is a 73 year old male supermorbid obesity (BMI 65.3), chronic lymphedema, gout, IDDM, OHS/KRISTYN, presenting with weakness and SOB, found to have anasarca with acute on chronic HFpEF (55-60%, RVSP 63), hospital course c/ b aflutter. - Patient Problems (1) Acute and chronic respiratory failure with hypoxia Comment: - Multifactorial Pulmonary hypertension secondary to KRISTYN/OHS, acute on chronic HFpEF (last EF 2019 55% with RVSP 63) - Continue diuresis - weight down to 413lbs. - BiPAP QHS and naps. - Pulmonary input appreciated - pulmonary hypertension and RV failure - continue Sildenafil 20mg/day for pulmonary HTN. (2) Atrial fibrillation with RVR Comment: - Continue Metoprolol, Digoxin, and Apixaban. (3) Diastolic CHF Comment: - Echo with preserved EF. - Continue Furosemide as tolerated - weight down to 413lbs, renal function stable. - He has lost almost 40lbs so far, has excellent urine output, but still has significant peripheral edema - will continue IV diuresis. (4) V-tach Comment: - One episode of 4 beats of Vtach, asymptomatic. - D/w Cardiology (Dr Amador) - overall prognosis is very poor with his comorbidities. He would not be a candidate for invasive measures. Recommended maintaining K>4 and Mg>2. - Continue Metoprolol. (5) Acquired lymphedema of lower extremity Comment: - S/p Abx tx 11/06-11/11 for possible SSTI - Continue JUANA wraps. (6) Diabetes Comment: - A1c 5.8. - Continue Humulin 70/30 20 BID and sliding scale insulin. (7) Gout Comment: - Continue allopurinol. (8) KRISTYN (obstructive sleep apnea) Comment: - Continue BiPAP at night and naps. (9) DVT prophylaxis Comment: - Apixaban. (10) DNR (do not resuscitate) Status and Disposition: Inpatient. Has bed offer at [place], but would like to remove more fluid prior to changing to PO diuretics/discharge.
[2018-11-23] MEDS: Acetaminophen TAB* 325 MG PO PRN ×2 (15:56→23:30)
[2018-11-23] MEDS: Insulin ISOPH/REG 70/30 (*) 1 UNITS UNIT SUBCUT SCH (23:30)
[2018-11-23] MEDS: Ammonium Lactate 12% 1 APPLIC TUBE TOPICAL PRN (23:31)
[2018-11-23] MEDS: Nystatin CREAM* 15 GM TUBE TOPICAL PRN (23:47)
[2018-11-24 05:51] LABS: ABS Eosinophils 0.3 10^3/ul (0-0.6); ABS Lymphocytes 0.7 10^3/ul (1.0-4.8); ABS Monocytes 0.5 10^3/ul (0-0.8); ABS Neutrophils 3.1 10^3/ul (1.5-7.7); Eosinophil % 5.7 %; Hematocrit 34 % (42-52); Hemoglobin 11.2 g/dL (14.0-18.0); Lymphocyte % 14.7 %; Mean Corpuscular HGB Conc 33 g/dL (31-36); Mean Corpuscular Hemoglobin 30 pg (27-31); Mean Corpuscular Volume 92 fL (80-94); Mean Platelet Volume 8.6 fL (7.4-10.4); Nucleated Red Blood Cells % 0.1; Platelet Count 171 10^3/uL (150-450); Red Blood Count 3.72 10^6 /uL (4.18-5.48); Red Cell Distribution Width 17 % (10.5-15); White Blood Count 4.5 10^3/uL (3.5-10.8)
[2018-11-24 06:13] LABS: BUN/Creatinine Ratio 29.1 (8-20); EGFR African American 105.2 (>60); EGFR Non-African American 86.9 (>60); Potassium 3.8 mmol/L (3.5-5.0)
[2018-11-24] MEDS: Insulin LISPRO* 1 UNITS UNIT SUBCUT SCH ×4 (09:14→21:50)
[2018-11-24] MEDS: Atorvastatin* 40 MG TAB PO SCH (09:27)
[2018-11-24] MEDS: Furosemide IV* 10 MG/ML VIAL (40 MG) IV SCH ×2 (09:27→17:34)
[2018-11-24] MEDS: Metoprolol Succinate XL TAB* 50 MG PO SCH ×2 (09:27→21:49)
[2018-11-24] MEDS: Cetirizine* 10 MG TAB PO SCH (09:28)
[2018-11-24] MEDS: Montelukast Sodium TAB* 10 MG PO SCH (09:28)
[2018-11-24] MEDS: Digoxin TAB* 0.125 MG PO SCH (09:28)
[2018-11-24] MEDS: Potassium Chlor TAB* 20 MEQ TAB.ER PO SCH (09:28)
[2018-11-24] MEDS: Acetaminophen TAB* 325 MG PO PRN ×2 (09:29→23:32)
[2018-11-24] MEDS: Apixaban* 5 MG TAB PO SCH ×2 (09:29→21:48)
[2018-11-24] MEDS: Allopurinol TAB* 300 MG PO SCH (09:29)
--- NOTE | 2018-11-24 12:50 | PN ---
Progress Note - Progress Note Date of Service: 11/24/18 Note: Saw pt called to daughter and left message.
[2018-11-24] MEDS ORDERED: Digoxin IV* 0.5 MG/2 ML AMP (0.25 MG/ML) IV SLOW PU ONE (14:11)
[2018-11-24] MEDS ORDERED: Furosemide IV* 10 MG/ML VIAL (40 MG) IV ONE (14:13)
--- NOTE | 2018-11-24 18:14 | PN ---
Subjective Date of Service: 11/24/18 Interval History: Patient seen and examined. States he has pain all over and feels more SOB today. No desats noted. Denies chest pain, tolerating PO. Per RN, HR increased with low O2 sat, however, there was issue with O2 on bipap which quickly resolved after O2 was fixed. Patient in no distress. Family History: Unchanged from Admission Social History: Unchanged from Admission Past Medical History: Unchanged from Admission Objective Active Medications: Acetaminophen (Tylenol Tab*) 650 mg PO Q4H PRN PRN Reason: PAIN Last Admin: 11/24/18 09:29 Dose: 650 mg Allopurinol (Zyloprim Tab*) 300 mg PO DAILY [facility] Last Admin: 11/24/18 09:29 Dose: 300 mg Ammonium Lactate (Lac-Hydrin 12 %) 1 applic TOPICAL DAILY PRN PRN Reason: DRY SKIN Last Admin: 11/23/18 23:31 Dose: 1 applic Apixaban (Eliquis*) 5 mg PO BID [facility] Last Admin: 11/24/18 09:29 Dose: 5 mg Atorvastatin Calcium (Lipitor*) 40 mg PO DAILY [facility] Last Admin: 11/24/18 09:27 Dose: 40 mg Carisoprodol (Soma Tab*) 350 mg PO Q6H PRN PRN Reason: SPASMS - MUSCLE Cetirizine HCl (Zyrtec*) 10 mg PO DAILY [facility] Last Admin: 11/24/18 09:28 Dose: 10 mg Dextrose (D50w Syringe 50 Ml*) 12.5 gm IV PUSH .FOR FS < 60 - SS PRN PRN Reason: FS < 60 Digoxin (Lanoxin Tab*) 0.125 mg PO DAILY [facility] Last Admin: 11/24/18 09:28 Dose: 0.125 mg Diphenhydramine HCl (Benadryl Po*) 25 mg PO TID PRN PRN Reason: Allergy Symptoms Last Admin: 11/13/18 09:27 Dose: 25 mg Fluticasone Propionate (Flonase Nasal [place] 50mcg*) 2 spray BOTH NARES DAILY PRN PRN Reason: Allergy Symptoms Furosemide (Lasix Iv*) 40 mg IV BID@0800,1700 [facility] Last Admin: 11/24/18 17:34 Dose: 40 mg Insulin Human Isoph/Insulin Regular (Humulin 70/30 (*)) 20 units SUBCUT BEDTIME [facility] Last Admin: 11/23/18 23:30 Dose: 20 units Insulin Human Lispro (Humalog*) 0 units SUBCUT ACHS [facility]; Protocol Last Admin: 11/24/18 17:33 Dose: 3 units Metoprolol Succinate (Toprol Xl Tab*) 50 mg PO BID [facility] Last Admin: 11/24/18 09:27 Dose: 50 mg Montelukast Sodium (Singulair Tab*) 10 mg PO DAILY [facility] Last Admin: 11/24/18 09:28 Dose: 10 mg Nystatin (Nystatin Cream*) 1 applic TOPICAL TID PRN PRN Reason: RASH Last Admin: 11/23/18 23:47 Dose: 1 applic Potassium Chloride (Klor Con Er Tab*) 20 meq PO DAILY [facility] Last Admin: 11/24/18 09:28 Dose: 20 meq Prochlorperazine Edisylate (Compazine Inj*) 5 mg IV Q6H PRN PRN Reason: NAUSEA/VOMITING Vital Signs - 8 hr 11/24/18 11/24/18 14:17 15:50 Temperature 98.6 F Respiratory 20 Rate Blood Pressure 158/64 119/56 (mmHg) O2 Sat by Pulse 81 Oximetry Oxygen Devices in Use Now: BiPAP Appearance: alert, NAD Eyes: No Scleral Icterus, PERRLA Ears/Nose/Mouth/Throat: NL Teeth, Lips, Gums, Mucous Membranes Moist Neck: NL Appearance and Movements; NL JVP, Trachea Midline Respiratory: Symmetrical Chest Expansion and Respiratory Effort, - - diminished throughout lung hays Abdominal: NL Sounds; No Tenderness; No Distention, - - obese Extremities: - - bilateral LE lymphedema Neurological: Alert and Oriented x 3 Nutrition: Taking PO's Result Diagrams: 11/24/18 05:41 11/24/18 05:41 Additional Lab and Data: Laboratory Results - last 24 hr 11/08/18 11/08/18 11/09/18 17:34 20:50 06:42 Sodium 137 Potassium 4.5 Chloride 101 Carbon Dioxide 32 Anion Gap 4 BUN 68 H Creatinine 1.51 H Est GFR ( Amer) 54.9 Est GFR (Non-Af Amer) 45.4 BUN/Creatinine Ratio 45.0 H Glucose 108 H POC Glucose (mg/dL) 148 H 174 H Calcium 8.3 L Magnesium 2.3 C-React Prot High Sens 14.54 H 11/09/18 11/09/18 11/09/18 06:42 06:42 07:33 WBC 6.5 RBC 4.44 Hgb 13.0 L Hct 41 L MCV 92 MCH 29 MCHC 32 RDW 17 H Plt Count 145 L MPV 9.7 Neut % (Auto) 78.0 Lymph % (Auto) 6.5 [place] % (Auto) 11.5 Eos % (Auto) 3.7 Baso % (Auto) 0.3 Absolute Neuts (auto) 5.0 Absolute Lymphs (auto) 0.4 L Absolute Monos (auto) 0.7 Absolute Eos (auto) 0.2 Absolute Basos (auto) 0.0 Absolute Nucleated RBC 0.0 Nucleated RBC % 0.1 POC Glucose (mg/dL) 110 H B-Natriuretic Peptide 118 H Microbiology and Other Data: Microbiology 11/06/18 15:36 Blood Venous Aerobic Blood Culture - Preliminary No Growth Day 2 11/06/18 15:36 Blood Venous Aerobic Blood Culture - Preliminary No Growth Day 2 11/06/18 15:36 Blood Venous Anaerobic Blood Culture - Preliminary No Growth Day 2 11/06/18 15:54 Urine Urine Culture - Final Morganella Morganii Normal [facility] Assess/Plan/Problems-Billing Assessment: Mr Graham is a 73 year old male supermorbid obesity (BMI 65.3), chronic lymphedema, gout, IDDM, OHS/KRISTYN, presenting with weakness and SOB, found to have anasarca with acute on chronic HFpEF (55-60%, RVSP 63), hospital course complicated by aflutter and persistent respiratory distress and fluid overload. - Patient Problems (1) Acute and chronic respiratory failure with hypoxia Code(s): J96.21 - ACUTE AND CHRONIC RESPIRATORY FAILURE WITH HYPOXIA SNOMED Code(s): 69610309 Comment: - Multifactorial pulmonary hypertension secondary to KRISTYN/OHS, acute on chronic HFpEF (last EF 2019 55% with RVSP 63) - BiPAP QHS and naps - Pulmonary hypertension and RV failure, continue Sildenafil 20mg/day - Continue diuresis - weight down to 413lbs. yesterday and back up to 417lbs today (2) Acquired lymphedema of lower extremity Code(s): I89.0 - LYMPHEDEMA, NOT ELSEWHERE CLASSIFIED SNOMED Code(s): 691388311 Comment: - S/p Abx tx 5/16-11/11 for possible SSTI - Continue JUANA wraps (3) Atrial fibrillation with RVR Code(s): I48.91 - UNSPECIFIED ATRIAL FIBRILLATION SNOMED Code(s): 630448601315288 Comment: - Stable, continue Metoprolol, Digoxin, and Apixaban (4) Diabetes Code(s): E11.9 - TYPE 2 DIABETES MELLITUS WITHOUT COMPLICATIONS SNOMED Code(s) : 71842980 Comment: - sugars stable on NPH and SS (5) Morbid obesity with BMI of 60.0-69.9, adult Code(s): E66.01 - MORBID (SEVERE) OBESITY DUE TO EXCESS CALORIES; Z68.44 - BODY MASS INDEX (BMI) 60.0-69.9, ADULT SNOMED Code(s): 877524490 Comment: - BMI noted (6) HTN (hypertension) Code(s): I10 - ESSENTIAL (PRIMARY) HYPERTENSION SNOMED Code(s): 27633869 Comment: - Continue metoprolol, monitor BP while diuresing (7) KRISTYN (obstructive sleep apnea) Code(s): G47.33 - OBSTRUCTIVE SLEEP APNEA (ADULT) (PEDIATRIC) SNOMED Code(s): 21089938 Comment: - Continue BiPAP at night and naps (8) V-tach Code(s): I47.2 - VENTRICULAR TACHYCARDIA SNOMED Code(s): 00193953 Comment: - One episode of 4 beats of Vtach, asymptomatic. - Per cardiology, prognosis is very poor with his comorbidities. He would not be a candidate for invasive measures. Recommended maintaining K>4 and Mg>2. - Continue Metoprolol. (9) DVT prophylaxis Code(s): Z29.9 - ENCOUNTER FOR PROPHYLACTIC MEASURES, UNSPECIFIED SNOMED Code( s): 450182001 Comment: - Apixaban. (10) DNR (do not resuscitate) Status and Disposition: Inpatient. Has bed offer at [place], but needs continue diuresis and fluid management before he is stable for discharge.
[2018-11-24] MEDS: Insulin ISOPH/REG 70/30 (*) 1 UNITS UNIT SUBCUT SCH (21:50)
[2018-11-24] MEDS: Ammonium Lactate 12% 1 APPLIC TUBE TOPICAL PRN (21:51)
[2018-11-25] MEDS: Digoxin TAB* 0.125 MG PO SCH (08:26)
[2018-11-25] MEDS: Allopurinol TAB* 300 MG PO SCH (08:30)
[2018-11-25] MEDS: Potassium Chlor TAB* 20 MEQ TAB.ER PO SCH (08:30)
[2018-11-25] MEDS: Atorvastatin* 40 MG TAB PO SCH (08:30)
[2018-11-25] MEDS: Apixaban* 5 MG TAB PO SCH ×2 (08:30→20:20)
[2018-11-25] MEDS: Metoprolol Succinate XL TAB* 50 MG PO SCH ×2 (08:30→20:20)
[2018-11-25] MEDS: Montelukast Sodium TAB* 10 MG PO SCH (08:31)
[2018-11-25] MEDS: Cetirizine* 10 MG TAB PO SCH (08:31)
[2018-11-25] MEDS: Insulin LISPRO* 1 UNITS UNIT SUBCUT SCH ×4 (08:31→20:20)
[2018-11-25] MEDS: Furosemide IV* 10 MG/ML VIAL (40 MG) IV SCH ×2 (08:32→17:32)
[2018-11-25] MEDS: Nystatin CREAM* 15 GM TUBE TOPICAL PRN (10:12)
--- NOTE | 2018-11-25 17:41 | PN ---
Subjective Date of Service: 11/25/18 Interval History: Patient seen and examined. Discussed desaturation from yesterday and disconnected O2. Patient had no further episodes. Denies chest pain, still complains of body aches. Dyspnea improving. Discussed positioning with meals, as patient was laying low fowlers trying to eat a meal, discussed high risk of aspiration in this position and raised HOB. Family History: Unchanged from Admission Social History: Unchanged from Admission Past Medical History: Unchanged from Admission Objective Active Medications: Acetaminophen (Tylenol Tab*) 650 mg PO Q4H PRN PRN Reason: PAIN Last Admin: 11/24/18 23:32 Dose: 650 mg Allopurinol (Zyloprim Tab*) 300 mg PO DAILY [facility] Last Admin: 11/25/18 08:30 Dose: 300 mg Ammonium Lactate (Lac-Hydrin 12 %) 1 applic TOPICAL DAILY PRN PRN Reason: DRY SKIN Last Admin: 11/24/18 21:51 Dose: 1 applic Apixaban (Eliquis*) 5 mg PO BID [facility] Last Admin: 11/25/18 08:30 Dose: 5 mg Atorvastatin Calcium (Lipitor*) 40 mg PO DAILY [facility] Last Admin: 11/25/18 08:30 Dose: 40 mg Carisoprodol (Soma Tab*) 350 mg PO Q6H PRN PRN Reason: SPASMS - MUSCLE Cetirizine HCl (Zyrtec*) 10 mg PO DAILY [facility] Last Admin: 11/25/18 08:31 Dose: 10 mg Dextrose (D50w Syringe 50 Ml*) 12.5 gm IV PUSH .FOR FS < 60 - SS PRN PRN Reason: FS < 60 Digoxin (Lanoxin Tab*) 0.125 mg PO DAILY [facility] Last Admin: 11/25/18 08:26 Dose: 0.125 mg Diphenhydramine HCl (Benadryl Po*) 25 mg PO TID PRN PRN Reason: Allergy Symptoms Last Admin: 11/13/18 09:27 Dose: 25 mg Fluticasone Propionate (Flonase Nasal [place] 50mcg*) 2 spray BOTH NARES DAILY PRN PRN Reason: Allergy Symptoms Furosemide (Lasix Iv*) 40 mg IV BID@0800,1700 [facility] Last Admin: 11/25/18 17:32 Dose: 40 mg Insulin Human Isoph/Insulin Regular (Humulin 70/30 (*)) 20 units SUBCUT BEDTIME [facility] Last Admin: 11/24/18 21:50 Dose: 20 units Insulin Human Lispro (Humalog*) 0 units SUBCUT ACHS [facility]; Protocol Last Admin: 11/25/18 17:31 Dose: 3 units Metoprolol Succinate (Toprol Xl Tab*) 50 mg PO BID [facility] Last Admin: 11/25/18 08:30 Dose: 50 mg Montelukast Sodium (Singulair Tab*) 10 mg PO DAILY [facility] Last Admin: 11/25/18 08:31 Dose: 10 mg Nystatin (Nystatin Cream*) 1 applic TOPICAL TID PRN PRN Reason: RASH Last Admin: 11/25/18 10:12 Dose: 1 applic Potassium Chloride (Klor Con Er Tab*) 20 meq PO DAILY [facility] Last Admin: 11/25/18 08:30 Dose: 20 meq Prochlorperazine Edisylate (Compazine Inj*) 5 mg IV Q6H PRN PRN Reason: NAUSEA/VOMITING Vital Signs - 8 hr 11/25/18 11:49 Temperature 98.9 F Pulse Rate 93 Respiratory 20 Rate Blood Pressure 113/58 (mmHg) O2 Sat by Pulse 99 Oximetry Oxygen Devices in Use Now: BiPAP Appearance: alert, NAD Eyes: No Scleral Icterus, PERRLA Ears/Nose/Mouth/Throat: NL Teeth, Lips, Gums, Mucous Membranes Moist Neck: NL Appearance and Movements; NL JVP, Trachea Midline Respiratory: - - poor inspiratory effort, diminished throughout, difficult to auscultate 2/2 large body habitus Cardiovascular: NL Sounds; No Murmurs; No JVD - afib, irregular Extremities: - - bilateral lymphedema Neurological: Alert and Oriented x 3 Nutrition: Taking PO's Result Diagrams: 11/24/18 05:41 11/24/18 05:41 Additional Lab and Data: Laboratory Results - last 24 hr 11/08/18 11/08/18 11/09/18 17:34 20:50 06:42 Sodium 137 Potassium 4.5 Chloride 101 Carbon Dioxide 32 Anion Gap 4 BUN 68 H Creatinine 1.51 H Est GFR ( Amer) 54.9 Est GFR (Non-Af Amer) 45.4 BUN/Creatinine Ratio 45.0 H Glucose 108 H POC Glucose (mg/dL) 148 H 174 H Calcium 8.3 L Magnesium 2.3 C-React Prot High Sens 14.54 H 11/09/18 11/09/18 11/09/18 06:42 06:42 07:33 WBC 6.5 RBC 4.44 Hgb 13.0 L Hct 41 L MCV 92 MCH 29 MCHC 32 RDW 17 H Plt Count 145 L MPV 9.7 Neut % (Auto) 78.0 Lymph % (Auto) 6.5 Wise % (Auto) 11.5 Eos % (Auto) 3.7 Baso % (Auto) 0.3 Absolute Neuts (auto) 5.0 Absolute Lymphs (auto) 0.4 L Absolute Monos (auto) 0.7 Absolute Eos (auto) 0.2 Absolute Basos (auto) 0.0 Absolute Nucleated RBC 0.0 Nucleated RBC % 0.1 POC Glucose (mg/dL) 110 H B-Natriuretic Peptide 118 H Microbiology and Other Data: Microbiology 11/06/18 15:36 Blood Venous Aerobic Blood Culture - Preliminary No Growth Day 2 11/06/18 15:36 Blood Venous Aerobic Blood Culture - Preliminary No Growth Day 2 11/06/18 15:36 Blood Venous Anaerobic Blood Culture - Preliminary No Growth Day 2 11/06/18 15:54 Urine Urine Culture - Final Morganella Morganii Normal Aviva Assess/Plan/Problems-Billing Assessment: Mr Graham is a 73 year old male supermorbid obesity (BMI 65.3), chronic lymphedema, gout, IDDM, OHS/KRISTYN, presenting with weakness and SOB, found to have anasarca with acute on chronic HFpEF (55-60%, RVSP 63), hospital course complicated by aflutter and persistent respiratory distress and fluid overload. - Patient Problems (1) Acute and chronic respiratory failure with hypoxia Code(s): J96.21 - ACUTE AND CHRONIC RESPIRATORY FAILURE WITH HYPOXIA SNOMED Code(s): 23065028 Comment: - Multifactorial pulmonary hypertension secondary to KRISTYN/OHS, acute on chronic HFpEF (last EF 2019 55% with RVSP 63) - BiPAP QHS and naps - Pulmonary hypertension and RV failure, continue Sildenafil 20mg/day - Continue diuresis - weight was down to 413lbs. and back up to 417lbs 6/, unclear if his weights are accurate given his size, but respiratory distress is improving (2) Acquired lymphedema of lower extremity Code(s): I89.0 - LYMPHEDEMA, NOT ELSEWHERE CLASSIFIED SNOMED Code(s): 494992871 Comment: - S/p Abx tx 11/06-11/11 for possible SSTI - Continue JUANA wraps (3) Atrial fibrillation with RVR Code(s): I48.91 - UNSPECIFIED ATRIAL FIBRILLATION SNOMED Code(s): 542381871435504 Comment: - Stable and in chronic fib - Continue Metoprolol, Digoxin, and Apixaban (4) Diabetes Code(s): E11.9 - TYPE 2 DIABETES MELLITUS WITHOUT COMPLICATIONS SNOMED Code(s) : 36634796 Comment: - sugars stable on NPH and SS (5) Morbid obesity with BMI of 60.0-69.9, adult Code(s): E66.01 - MORBID (SEVERE) OBESITY DUE TO EXCESS CALORIES; Z68.44 - BODY MASS INDEX (BMI) 60.0-69.9, ADULT SNOMED Code(s): 844426458 Comment: - BMI noted (6) HTN (hypertension) Code(s): I10 - ESSENTIAL (PRIMARY) HYPERTENSION SNOMED Code(s): 87706277 Comment: - Continue metoprolol, monitor BP while diuresing (7) KRISTYN (obstructive sleep apnea) Code(s): G47.33 - OBSTRUCTIVE SLEEP APNEA (ADULT) (PEDIATRIC) SNOMED Code(s): 66185211 Comment: - Continue BiPAP at night and naps (8) V-tach Code(s): I47.2 - VENTRICULAR TACHYCARDIA SNOMED Code(s): 49125248 Comment: - One episode of 4 beats of Vtach, asymptomatic. - Per cardiology, prognosis is very poor with his comorbidities. He would not be a candidate for invasive measures. Recommended maintaining K>4 and Mg>2. - Continue Metoprolol. (9) DVT prophylaxis Code(s): Z29.9 - ENCOUNTER FOR PROPHYLACTIC MEASURES, UNSPECIFIED SNOMED Code( s): 718497927 Comment: - Apixaban. (10) DNR (do not resuscitate) Status and Disposition: Inpatient. Has bed offer at [facility], but needs continue diuresis and fluid management before he is stable for discharge. current plan is to DC to [facility] on 11/27/2018.
[2018-11-25] MEDS: Insulin ISOPH/REG 70/30 (*) 1 UNITS UNIT SUBCUT SCH (20:20)
[2018-11-25] MEDS: Ammonium Lactate 12% 1 APPLIC TUBE TOPICAL PRN (20:21)
[2018-11-25] MEDS: Acetaminophen TAB* 325 MG PO PRN (21:20)
[2018-11-26 08:59] LABS: BUN/Creatinine Ratio 34.9 (8-20); Digoxin 0.5 ng/ml (0.8-2.0); EGFR African American 105.2 (>60); EGFR Non-African American 86.9 (>60); Potassium 3.9 mmol/L (3.5-5.0)
[2018-11-26] MEDS: Atorvastatin* 40 MG TAB PO SCH (09:52)
[2018-11-26] MEDS: Cetirizine* 10 MG TAB PO SCH (09:52)
[2018-11-26] MEDS: Montelukast Sodium TAB* 10 MG PO SCH (09:52)
[2018-11-26] MEDS: Potassium Chlor TAB* 20 MEQ TAB.ER PO SCH (09:53)
[2018-11-26] MEDS: Metoprolol Succinate XL TAB* 50 MG PO SCH ×2 (09:53→21:27)
[2018-11-26] MEDS: Digoxin TAB* 0.125 MG PO SCH (09:53)
[2018-11-26] MEDS: Apixaban* 5 MG TAB PO SCH ×2 (09:54→21:27)
[2018-11-26] MEDS: Allopurinol TAB* 300 MG PO SCH (09:54)
[2018-11-26] MEDS: Insulin LISPRO* 1 UNITS UNIT SUBCUT SCH ×4 (09:54→21:29)
[2018-11-26] MEDS: Furosemide IV* 10 MG/ML VIAL (40 MG) IV SCH ×2 (09:54→16:02)
[2018-11-26] MEDS: Acetaminophen TAB* 325 MG PO PRN ×2 (15:58→21:27)
--- NOTE | 2018-11-26 19:14 | PN ---
Subjective Date of Service: 11/26/18 Interval History: Pt doing well. States that he has no pain in LE. He does c/o intermittent SOB and is requiring 5L O2, instead of his usually 4L. He is down from Bipap requirements and 6L O2 requirements. Family History: Unchanged from Admission Social History: Unchanged from Admission Past Medical History: Unchanged from Admission Objective Active Medications: Acetaminophen (Tylenol Tab*) 650 mg PO Q4H PRN Allopurinol (Zyloprim Tab*) 300 mg PO DAILY MELIS[facility] Ammonium Lactate (Lac-Hydrin 12 %) 1 applic TOPICAL DAILY PRN Apixaban (Eliquis*) 5 mg PO BID MEL[facility] Atorvastatin Calcium (Lipitor*) 40 mg PO DAILY [facility] Carisoprodol (Soma Tab*) 350 mg PO Q6H PRN Cetirizine HCl (Zyrtec*) 10 mg PO DAILY [facility] Dextrose (D50w Syringe 50 Ml*) 12.5 gm IV PUSH .FOR FS < 60 - SS PRN Digoxin (Lanoxin Tab*) 0.125 mg PO DAILY MEL[facility] Diphenhydramine HCl (Benadryl Po*) 25 mg PO TID PRN Fluticasone Propionate (Flonase Nasal [place] 50mcg*) 2 spray BOTH NARES DAILY PRN Furosemide (Lasix Iv*) 40 mg IV BID@0800,1700 [facility] Insulin Human Isoph/Insulin Regular (Humulin 70/30 (*)) 20 units SUBCUT BEDTIME MELISSA Insulin Human Lispro (Humalog*) 0 units SUBCUT ACHS MELISSA; Protocol Metoprolol Succinate (Toprol Xl Tab*) 50 mg PO BID MELIS[facility] Montelukast Sodium (Singulair Tab*) 10 mg PO DAILY [facility]EL[facility] Nystatin (Nystatin Cream*) 1 applic TOPICAL TID PRN Potassium Chloride (Klor Con Er Tab*) 20 meq PO DAILY [facility] Prochlorperazine Edisylate (Compazine Inj*) 5 mg IV Q6H PRN Vital Signs: Temp Pulse Resp BP Pulse Ox 97.9 F 88 19 116/68 100 11/26/18 07:42 11/26/18 09:53 11/26/18 08:00 11/26/18 07:42 11/26/18 07:42 Oxygen Devices in Use Now: BiPAP Appearance: Pt is an obeses older white male who is sitting up in chair with LE on ground. He appears to be in no acute distress. Eyes: No Scleral Icterus, PERRLA Ears/Nose/Mouth/Throat: NL Teeth, Lips, Gums, Mucous Membranes Moist Neck: NL Appearance and Movements; NL JVP, Trachea Midline Respiratory: Symmetrical Chest Expansion and Respiratory Effort, Clear to Auscultation Cardiovascular: NL Sounds; No Murmurs; No JVD, RRR Abdominal: NL Sounds; No Tenderness; No Distention, No Hepatosplenomegaly Extremities: No Clubbing, Cyanosis, - - B/l LE lymphedema Neurological: Alert and Oriented x 3 Result Diagrams: 11/24/18 05:41 11/26/18 07:50 Additional Lab and Data: Laboratory Results - last 24 hr 11/08/18 11/08/18 11/09/18 17:34 20:50 06:42 Sodium 137 Potassium 4.5 Chloride 101 Carbon Dioxide 32 Anion Gap 4 BUN 68 H Creatinine 1.51 H Est GFR ( Amer) 54.9 Est GFR (Non-Af Amer) 45.4 BUN/Creatinine Ratio 45.0 H Glucose 108 H POC Glucose (mg/dL) 148 H 174 H Calcium 8.3 L Magnesium 2.3 C-React Prot High Sens 14.54 H 11/09/18 11/09/18 11/09/18 06:42 06:42 07:33 WBC 6.5 RBC 4.44 Hgb 13.0 L Hct 41 L MCV 92 MCH 29 MCHC 32 RDW 17 H Plt Count 145 L MPV 9.7 Neut % (Auto) 78.0 Lymph % (Auto) 6.5 [place] % (Auto) 11.5 Eos % (Auto) 3.7 Baso % (Auto) 0.3 Absolute Neuts (auto) 5.0 Absolute Lymphs (auto) 0.4 L Absolute Monos (auto) 0.7 Absolute Eos (auto) 0.2 Absolute Basos (auto) 0.0 Absolute Nucleated RBC 0.0 Nucleated RBC % 0.1 POC Glucose (mg/dL) 110 H B-Natriuretic Peptide 118 H Microbiology and Other Data: Microbiology 11/06/18 15:36 Blood Venous Aerobic Blood Culture - Preliminary No Growth Day 2 11/06/18 15:36 Blood Venous Aerobic Blood Culture - Preliminary No Growth Day 2 11/06/18 15:36 Blood Venous Anaerobic Blood Culture - Preliminary No Growth Day 2 11/06/18 15:54 Urine Urine Culture - Final Morganella Morganii Normal [facility] Assess/Plan/Problems-Billing Assessment: Mr Graham is a 73 year old male supermorbid obesity (BMI 65.3), chronic lymphedema, gout, IDDM, OHS/KRISTYN, presenting with weakness and SOB, found to have anasarca with acute on chronic HFpEF (55-60%, RVSP 63), hospital course complicated by aflutter and persistent respiratory distress and fluid overload. - Patient Problems (1) Acute and chronic respiratory failure with hypoxia Comment: - Multifactorial pulmonary hypertension secondary to KRISTYN/OHS, acute on chronic HFpEF (last EF 2018 55% with RVSP 63) - BiPAP QHS and naps - Pulmonary hypertension and RV failure, continue Sildenafil 20mg/day - Continue diuresis with Lasix 40 BID - weight was down to 399, unclear if his weights are accurate given his size, but respiratory distress continues to improve (2) Acquired lymphedema of lower extremity Comment: - S/p Abx tx 11/06-11/11 for possible SSTI - Continue JUANA wraps (3) Atrial fibrillation with RVR Comment: - Stable and in chronic fib, rate controlled - Continue Metoprolol, Digoxin, and Apixaban (4) Diabetes Comment: - A1c 5.8. - Continue Humulin 70/30 20 BID and sliding scale insulin. (5) V-tach Comment: - One episode of 4 beats of Vtach, asymptomatic. - Per cardiology, prognosis is very poor with his comorbidities. He would not be a candidate for invasive measures. Recommended maintaining K>4 and Mg>2. - Continue Metoprolol. (6) HTN (hypertension) Comment: - Controlled - Continue metoprolol, monitor BP while diuresing (7) KRISTYN (obstructive sleep apnea) Comment: - Continue BiPAP at night and naps (8) Morbid obesity with BMI of 60.0-69.9, adult Comment: - BMI noted (9) DVT prophylaxis Comment: - Apixaban. (10) DNR (do not resuscitate) Status and Disposition: Inpatient. Has bed offer at [facility], but needs continue diuresis and fluid management before he is stable for discharge. Current plan is to DC to [facility] on 11/27/2018.
[2018-11-26] MEDS: Insulin ISOPH/REG 70/30 (*) 1 UNITS UNIT SUBCUT SCH (21:27)
[2018-11-27] MEDS: Acetaminophen TAB* 325 MG PO PRN ×2 (02:56→09:25)
[2018-11-27] MEDS: Digoxin TAB* 0.125 MG PO SCH (09:21)
[2018-11-27] MEDS: Allopurinol TAB* 300 MG PO SCH (09:23)
[2018-11-27] MEDS: Potassium Chlor TAB* 20 MEQ TAB.ER PO SCH (09:23)
[2018-11-27] MEDS: Atorvastatin* 40 MG TAB PO SCH (09:24)
[2018-11-27] MEDS: Montelukast Sodium TAB* 10 MG PO SCH (09:24)
[2018-11-27] MEDS: Cetirizine* 10 MG TAB PO SCH (09:24)
[2018-11-27] MEDS: Metoprolol Succinate XL TAB* 50 MG PO SCH (09:25)
[2018-11-27] MEDS: Furosemide IV* 10 MG/ML VIAL (40 MG) IV SCH (09:27)
[2018-11-27] MEDS: Insulin LISPRO* 1 UNITS UNIT SUBCUT SCH ×2 (09:31→12:16)
[2018-11-27] MEDS: Apixaban* 5 MG TAB PO SCH (11:57)
--- NOTE | 2018-11-27 12:32 | DS ---
CC: Dr. Hopson * DISCHARGE SUMMARY: DATE OF ADMISSION: 11/06/18 DATE OF DISCHARGE: 11/27/18 PRIMARY CARE PROVIDER: Dr. Hopson. ATTENDING PHYSICIAN: Dr. Llanos * (dictated by BONI Robert). PRIMARY DIAGNOSES: 1. Lower extremity cellulitis. 2. Deconditioning. 3. Atrial fibrillation with rapid ventricular response. 4. Ventricular tachycardia. SECONDARY DIAGNOSES: 1. Morbid obesity, BMI 58. 2. Diabetes mellitus type 2. 3. Hypertension. 4. Hyperlipidemia. 5. Atrial fibrillation. 6. Obstructive sleep apnea, on BIPAP and oxygen at home. 7. Essential tremor. 8. Gout. 9. Seasonal allergies. 10. Lymphedema. 11. Chronic respiratory failure. STUDIES WHILE IN THE HOSPITAL: Transthoracic echocardiogram, 11/06/18, summary : Left ventricle mild to moderate increase in wall thickness, systolic function 55% to 60%. Right ventricle systolic function moderately reduced. Pressure moderate to severely increased with peak pressure 63. Mild aortic stenosis. Mild tricuspid regurgitation. Venous Doppler ultrasound bilateral, 11/08/18, impression: No evidence of DVT. DISCHARGE MEDICATIONS: 1. Nystatin cream 1 application topically t.i.d. p.r.n. rash. 2. Carisoprodol 350 mg p.o. q.6 h. p.r.n. muscle spasm. 3. Pioglitazone 30 mg p.o. daily. 4. Ammonium lactate 12% topical daily p.r.n. dry skin. 5. Fluticasone nasal spray 2 sprays both nares daily p.r.n. 6. NovoLog 70/30 54 units subcutaneous q.a.m., 30 units subcutaneous q.p.m. 7. Montelukast sodium 10 mg p.o. daily. 8. Allopurinol 300 mg p.o. daily. 9. Loratadine 10 mg p.o. daily. 10. Lisinopril 10 mg p.o. daily. 11. Rosuvastatin 20 mg p.o. daily. 12. Diphenhydramine 25 mg p.o. daily. [place] Medications: 1. Apixaban 5 mg p.o. b.i.d. 2. Digoxin 0.125 mg p.o. daily. 3. Furosemide 40 mg p.o. daily. 4. Metoprolol succinate XL 50 mg p.o. b.i.d. 5. Potassium chloride tab 20 mEq p.o. daily. 6. Sildenafil 20 mg p.o. t.i.d. HISTORY OF PRESENT ILLNESS/HOSPITAL COURSE: Mr. Graham is a 73-year-old with a past medical history of morbid obesity, diabetes mellitus type 2, hypertension, who presented to the ER with complaints of decreased mobility over the past approximately 3 years. He typically is able to transfer from bed to wheelchair on his own. This has become increasingly harder for him. He has had increased shortness of breath. It is noted that he is on oxygen and BIPAP. He has required increased oxygen and has been using his BIPAP during the day while awake. He also is noted to have chronic lower extremity lymphedema. The areas have started to open up and weep. The hospitalist team was asked to evaluate the patient for admission. He was found to have lower extremity cellulitis for which he received treatment from 11/06/18 to 11/11/18 with cefazolin. He was evaluated by PT and OT for deconditioning. They suggested fpc facility. Due to worsening lymphedema, the patient was evaluated with transthoracic echocardiogram. This revealed preserved ejection fraction, diastolic dysfunction. The patient was started on Lasix. Strict I and O, and daily weights, as well as electrolyte monitoring was ordered throughout the patient's hospital stay. He went from approximately 450 pounds to 399 pounds. Lower extremity lymphedema improved significantly. It is noted that Doppler studies of both lower extremities were performed and revealed no DVT. A wound consult was ordered and recommendations were made to wash the legs with soap and water daily and application of lotion as well as leg elevation. Wound consult recommended that referral to lymphedema clinic would be beneficial. The patient was admitted on telemetry and was noted to have arrhythmias. Cardiology was consulted. The patient was noted to have periods of ventricular bigeminy and trigeminy. He is also noted to develop new onset atrial fibrillation with rapid ventricular response while in the hospital. The patient was placed on rate controlling agents and anticoagulation. The patient was noted to have an episode of ventricular tachycardia, he was asymptomatic. This was discussed with Cardiology, Dr. Amador who noted that the overall prognosis is poor due to comorbidities. The patient is not a candidate for invasive measures, he recommends maintenance of potassium greater than 4, magnesium greater than 2. The patient was noted to have pulmonary hypertension which was likely to be multifactorial due to KRISTYN, restricted breathing, AFib with diastolic dysfunction. It is recommended PA pressure be reevaluated once the patient is stabilized and at baseline, this can performed outpatient. Dr. Berrios was consulted and recommended that pulmonary hypertension is probably from chronic right heart strain, obesity, hypoventilation and hypoxemia. She recommended starting the patient on sildenafil. At the time of discharge, the patient is feeling well. He is anxious about going to [facility] for rehabilitation as he does not know what to expect. He denies chest pain. He states that his shortness of breath has greatly improved. He continues to have difficulty with moving, but is eager to start physical therapy to help him with transferring. He denies chest pain, abdominal pain, nausea, vomiting, diarrhea. He denies calf tenderness. He has no pain in the lower extremities. Mr. Graham is stable for discharge to [facility]. PHYSICAL EXAMINATION: Vital Signs: Temperature 98.0 temporal, heart rate 85, respiratory rate 20, oxygen saturation 100% on 5 L O2. Blood pressure 127/69. General: Mr. Graham is a well-developed, well-nourished extremely obese white male who is sitting in his bed with the lower extremities elevated and wrapped. He appears to be in no acute distress. He is noted to be seen in the morning with BIPAP in place. HEENT: PERRL. EOMI. Nonicteric sclerae. Hearing grossly intact. Oral mucous membranes moist. There are no lesions. Cardiovascular: Irregular rhythm, rate controlled. No murmurs, rubs or gallops , without JVD. Pulmonary: Symmetrical chest expansion without use of accessory muscles. Lungs are clear to auscultation anteriorly without rhonchi, wheezes or rubs. Abdomen: Obese, bowel sounds in all quadrants. Abdomen is soft. There is no tenderness to palpation. Extremities: Upper extremity skin is warm and smooth bilaterally without clubbing or cyanosis. Bilateral lower extremities with chronic lymphedema and flaking of skin. There is no discharge. Lower extremities are wrapped in Antione bandages. Neurological: The patient is awake. He is alert and oriented x3. DISCHARGE PLAN: Mr. Graham will be discharged to home. ACTIVITY: As tolerated. DIET: Heart healthy, ADA. CONDITION ON DISCHARGE: Fair. MEDICATIONS: As above. Sildenafil 20 t.i.d. Lasix 40 mg p.o. daily, potassium 20 mg p.o. daily, recheck BMP weekly, for kidney function potassium and magnesium in 5 to 7 days. Strict intake/output and daily weights. If weight trends up, there may need to be an increase in Lasix dosage. EDUCATION: 1. Lower extremity lymphedema. Recommend washing the legs with soap and water daily. Can apply Lac-Hydrin or similar lotion to the legs. Keep legs elevated. Would benefit from a referral to lymphedema clinic. 2. Followup with primary care provider in 4 to 7 days. Consider referral to the lymphedema clinic. 3. Followup with Cardiology in 1 to 2 weeks. [address] Follow[address] with [address] Berrios within 4 weeks. 5. Return to the ER or nearest hospital if you experience any worsening of symptoms, shortness of breath, chest discomfort, high fevers, chills, night sweats, lightheadedness, dizziness, loss of consciousness, or any other worrisome signs or symptoms. This is a summarized report of a complex medical history and hospital stay. For further details, please see the entire medical report. TIME SPENT: Approximately 40 minutes were spent on this discharge, greater than half that time was spent [id number] with the patient discussing discharge plans and instructions. BONI CASEY [id number]/[facility] #: [id number] MTDD
[2018-11-27 12:49] VITALS: BP 93/57
== END 2018-11-27 13:30 | DRG 291 ==
LOC: ED 14:26 → MED 17:31 → ICU 11-11 10:34 → MEDTELE 11-14 09:51
PROVIDERS: ADMIT Internal Medicine; ATTEND Internal Medicine
DX: I13.0 Hypertensive heart and chronic kidney disease with heart failure and stage 1 through stage 4 chronic kidney disease, or unspecified chronic kidney disease (principal); J96.21 Acute and chronic respiratory failure with hypoxia; I50.33 Acute on chronic diastolic (congestive) heart failure; L03.116 Cellulitis of left lower limb; I48.92 Unspecified atrial flutter; L03.115 Cellulitis of right lower limb; E66.01 Morbid (severe) obesity due to excess calories; G47.33 Obstructive sleep apnea (adult) (pediatric); J30.2 Other seasonal allergic rhinitis; M10.9 Gout, unspecified; I89.0 Lymphedema, not elsewhere classified; Z66 Do not resuscitate; G25.0 Essential tremor; E78.5 Hyperlipidemia, unspecified; I08.2 Rheumatic disorders of both aortic and tricuspid valves; R00.8 Other abnormalities of heart beat; I27.20 Pulmonary hypertension, unspecified; Z96.651 Presence of right artificial knee joint; R62.7 Adult failure to thrive; N18.3 Chronic kidney disease, stage 3 (moderate); E11.22 Type 2 diabetes mellitus with diabetic chronic kidney disease; I51.89 Other ill-defined heart diseases; I44.0 Atrioventricular block, first degree; Z81.8 Family history of other mental and behavioral disorders; Z87.891 Personal history of nicotine dependence; Z79.82 Long term (current) use of aspirin; Z79.01 Long term (current) use of anticoagulants; Z68.44 Body mass index [BMI] 60.0-69.9, adult; Z99.3 Dependence on wheelchair; Z79.84 Long term (current) use of oral hypoglycemic drugs; Z88.1 Allergy status to other antibiotic agents; I47.2 Ventricular tachycardia; I95.9 Hypotension, unspecified; N17.9 Acute kidney failure, unspecified; N39.0 Urinary tract infection, site not specified; B96.89 Other specified bacterial agents as the cause of diseases classified elsewhere; R31.9 Hematuria, unspecified; Z16.20 Resistance to unspecified antibiotic; I48.0 Paroxysmal atrial fibrillation; I49.3 Ventricular premature depolarization
CPT/HCPCS: 36415; 71045; 80048; 80053; 80162; 81003; 81015; 82270; 82550; 82565; 82570; 83036; 83605; 83735; 83880; 84443; 84484; 84520; 84540; 85025; 85379; 85610; 85730; 86140; 86141; 87040; 87077; 87086; 87186; 87641; 93005; 93306; 93970; 99284; A9270-GY; C8929; G8978-GP-CM; G8979-GP-CK; G8979-GP-CL; G8987-GO-CM; G8988-GO-CJ; J0690; J0692; J0696; J1160; J1644; J1650; J1940; J3490

== ENCOUNTER 2020-05-18 10:54 | Inpatient (IN) ==
[2020-05-18] MEDS ORDERED: Cefepime 2 GM in NS 0.9% 50 ML 50 ML IVPB ONE (11:27)
[2020-05-18] MEDS ORDERED: NS 0.9% 1000 ml BAG 1,000 ML IV ONE ×3 (11:39→12:54)
[2020-05-18] MEDS ORDERED: Vancomycin 2,250 MG in NS 0.9% 250 ml 250 ML IVPB SCH (12:00)
[2020-05-18] MEDS ORDERED: VANCOMYCIN IVPB ONE (12:00)
[2020-05-18] MEDS ORDERED: Cefepime 2 GM IV - ED ONCE IV ONE (12:00)
[2020-05-18 12:09] LABS: Hematocrit 51 % (42-52); Hemoglobin 16.9 g/dL (14.0-18.0); Mean Corpuscular HGB Conc 33 g/dL (31-36); Mean Corpuscular Hemoglobin 30 pg (27-31); Mean Corpuscular Volume 89 fL (80-94); Mean Platelet Volume 10.8 fL (7.4-10.4); Platelet Count 146 10^3/uL (150-450); Red Blood Count 5.71 10^6 /uL (4.18-5.48); Red Cell Distribution Width 14 % (10-15); White Blood Count 9.8 10^3/uL (3.5-10.8)
[2020-05-18 12:25] LABS: Albumin 3.8 g/dL (3.2-5.2); Albumin/Globulin Ratio 1.3 (1-3); BUN/Creatinine Ratio 23.4 (8-20); C Reactive Protein 45.8 mg/L (<8.01); Calcium 9.4 mg/dL (8.6-10.3); EGFR African American 78.1 (>60); EGFR Non-African American 64.6 (>60); Potassium 3.8 mmol/L (3.5-5.0); Total Bilirubin 1.2 mg/dL (0.2-1.0); Total Protein 6.8 g/dL (6.4-8.9)
[2020-05-18] MEDS ORDERED: Potassium Chlor 20 meq TAB.ER PO ONE (12:31)
[2020-05-18] MEDS ORDERED: Dextrose 50% Syringe 50 ml 25 GM/50 ML SYRINGE IV PUSH PRN (13:15)
[2020-05-18] MEDS ORDERED: Lactated Ringers 1000 ml BAG 1,000 ML IV ONE (13:50)
[2020-05-18] MEDS ORDERED: Piperacillin/Tazobac ADVAN 3.375 GM in NS 0.9% 100 ml BAG 100 ML IV ONE (13:53)
[2020-05-18] MEDS ORDERED: Zosyn per Pharmacy NOTE FOLLOW UP SCH (14:00)
[2020-05-18] MEDS ORDERED: Heparin 5000 UNITS/ML 1 mL VIAL SUBCUT SCH (14:00)
[2020-05-18] MEDS ORDERED: Ammonium Lactate 12% 1 APPLIC TUBE TOPICAL PRN (14:13)
[2020-05-18] MEDS ORDERED: Polyethylene Glycol 3350 17 GM PACKET PO PRN (14:20)
[2020-05-18] MEDS ORDERED: Dextran 70/Hypromellose Tears Eye Drops 15 ml BTL (for Artificials Tears) BOTH EYES PRN (15:02)
[2020-05-18 15:12] LABS: Myoglobin 43.9 ng/mL (17.4-105.7)
[2020-05-18] MEDS: Linezolid 600 MG IVPREMIX(*) 600 MG/300 ML BAG IVPB SCH (15:54)
[2020-05-18] MEDS: Norepinephrine 16MCG/ML IVPRE 4,000 MCG/250 ML BAG IV SCH (18:10)
[2020-05-18] MEDS: ZOSYN 3.375 GM Q8H per EXTENDED INFUSION IV SCH (18:11)
[2020-05-18] MEDS ORDERED: Insulin GLARGINE 100 un/ml 10 ml VIAL SUBCUT SCH (22:00)
[2020-05-18] MEDS ORDERED: Insulin Infusion 100unit/100mL 100 UNIT/100 ML BAG IV SCH (22:04)
[2020-05-18 22:43] LABS: BUN/Creatinine Ratio 21.5 (8-20); Calcium 8.1 mg/dL (8.6-10.3); EGFR African American 70.7 (>60); EGFR Non-African American 58.5 (>60); Potassium 3.9 mmol/L (3.5-5.0)
[2020-05-19] MEDS: Norepinephrine 16MCG/ML IVPRE 4,000 MCG/250 ML BAG IV SCH ×2 (00:35→04:51)
[2020-05-19] MEDS: Linezolid 600 MG IVPREMIX(*) 600 MG/300 ML BAG IVPB SCH ×2 (01:37→14:14)
[2020-05-19] MEDS: ZOSYN 3.375 GM Q8H per EXTENDED INFUSION IV SCH ×3 (02:52→20:22)
[2020-05-19 05:05] LABS: Hematocrit 45 % (42-52); Hemoglobin 15.3 g/dL (14.0-18.0); Mean Corpuscular HGB Conc 34 g/dL (31-36); Mean Corpuscular Hemoglobin 30 pg (27-31); Mean Corpuscular Volume 89 fL (80-94); Platelet Count 164 10^3/uL (150-450); Red Blood Count 5.06 10^6 /uL (4.18-5.48); Red Cell Distribution Width 15 % (10-15); White Blood Count 14.8 10^3/uL (3.5-10.8)
[2020-05-19 05:10] LABS: INR 1.81 (0.82-1.09)
[2020-05-19 05:15] LABS: BUN/Creatinine Ratio 22.1 (8-20); C Reactive Protein 304.39 mg/L (<8.01); Calcium 8.4 mg/dL (8.6-10.3); EGFR African American 84.2 (>60); EGFR Non-African American 69.6 (>60); Magnesium 1.6 mg/dL (1.9-2.7); Phosphorus 1.6 mg/dL (2.5-5.0); Potassium 3.2 mmol/L (3.5-5.0)
[2020-05-19 05:31] LABS: TSH Ultra Thyroid Stim Horm 0.55 mcIU/mL (0.34-5.60)
[2020-05-19] MEDS ORDERED: KCL 20 MEQ/100 ML IVPREMIX 20 MEQ/100 ML BAG IV ONE (07:31)
[2020-05-19] MEDS ORDERED: Magnesium Sulfate IV 3 GM in NS 0.9% 100 ml BAG 100 ML IVPB ONE (07:32)
[2020-05-19] MEDS ORDERED: Potassium Phosphate IV 15 MMOLE in NS 0.9% 250 ml 250 ML IVPB ONE (08:45)
[2020-05-19] MEDS: KCL 20 MEQ/100 ML IVPREMIX 20 MEQ/100 ML BAG IV SCH ×2 (11:57→14:14)
[2020-05-19] MEDS ORDERED: Iodixanol (CONTRAST) 320 MG/ML 100 ML SDV IV ONE (12:30)
[2020-05-19] MEDS ORDERED: Norepinephrine 16MCG/ML IVPRE 4,000 MCG/250 ML BAG IV SCH ×2 (14:47→15:05)
[2020-05-19] MEDS ORDERED: Insulin GLARGINE 100 un/ml 10 ml VIAL SUBCUT SCH (21:00)
[2020-05-19] MEDS: CMCS:Saliva Substitute (NF) 1 SPRAY BTL MT PRN (21:20)
[2020-05-19] MEDS: Insulin GLARGINE 100 un/ml 10 ml VIAL SUBCUT SCH (22:39)
[2020-05-20] MEDS: Linezolid 600 MG IVPREMIX(*) 600 MG/300 ML BAG IVPB SCH ×2 (01:32→14:18)
[2020-05-20] MEDS: Lactated Ringers 1000 ml BAG 1,000 ML IV SCH ×2 (02:53→10:42)
[2020-05-20] MEDS: ZOSYN 3.375 GM Q8H per EXTENDED INFUSION IV SCH ×3 (04:20→20:10)
[2020-05-20] MEDS: CMCS:Saliva Substitute (NF) 1 SPRAY BTL MT PRN (04:38)
[2020-05-20 04:41] LABS: Hematocrit 38 % (42-52); Mean Corpuscular HGB Conc 34 g/dL (31-36); Mean Corpuscular Hemoglobin 30 pg (27-31); Mean Corpuscular Volume 89 fL (80-94); Mean Platelet Volume 9.7 fL (7.4-10.4); Platelet Count 118 10^3/uL (150-450); Red Blood Count 4.32 10^6 /uL (4.18-5.48); Red Cell Distribution Width 15 % (10-15); White Blood Count 10.2 10^3/uL (3.5-10.8)
[2020-05-20 05:00] LABS: BUN/Creatinine Ratio 20.2 (8-20); Calcium 7.8 mg/dL (8.6-10.3); EGFR African American 107.8 (>60); EGFR Non-African American 89.1 (>60); Potassium 3.4 mmol/L (3.5-5.0)
[2020-05-20] MEDS ORDERED: Potassium Phosphate IV 15 MMOLE in NS 0.9% 250 ml 250 ML IVPB ONE (07:14)
[2020-05-20] MEDS ORDERED: Calcium Gluconate 1 GM in NS 0.9% 50 ML 50 ML IV ONE (07:39)
[2020-05-20] MEDS: Insulin GLARGINE 100 un/ml 10 ml VIAL SUBCUT SCH (21:54)
[2020-05-21] MEDS: Linezolid 600 MG IVPREMIX(*) 600 MG/300 ML BAG IVPB SCH ×2 (02:20→14:31)
[2020-05-21] MEDS: ZOSYN 3.375 GM Q8H per EXTENDED INFUSION IV SCH ×3 (04:11→21:36)
[2020-05-21 04:43] LABS: Hematocrit 38 % (42-52); Hemoglobin 12.7 g/dL (14.0-18.0); Mean Corpuscular HGB Conc 34 g/dL (31-36); Mean Corpuscular Hemoglobin 30 pg (27-31); Mean Corpuscular Volume 88 fL (80-94); Platelet Count 118 10^3/uL (150-450); Red Blood Count 4.24 10^6 /uL (4.18-5.48); Red Cell Distribution Width 15 % (10-15); White Blood Count 8.3 10^3/uL (3.5-10.8)
[2020-05-21 04:59] LABS: BUN/Creatinine Ratio 17.3 (8-20); Calcium 8.2 mg/dL (8.6-10.3); EGFR African American 122.8 (>60); EGFR Non-African American 101.5 (>60); Phosphorus 2.1 mg/dL (2.5-5.0); Potassium 3.3 mmol/L (3.5-5.0)
[2020-05-21] MEDS ORDERED: KCL 10 MEQ/50 ML IVPREMIX 10 MEQ/50 ML BAG IV ONE (07:19)
[2020-05-21] MEDS ORDERED: Potassium Phosphate IV 15 MMOLE in NS 0.9% 250 ml 250 ML IVPB ONE (07:54)
[2020-05-21] MEDS ORDERED: Insulin GLARGINE 100 un/ml 10 ml VIAL SUBCUT ONE (08:00)
[2020-05-21] MEDS: KCL 10 MEQ/50 ML IVPREMIX 10 MEQ/50 ML BAG IV SCH ×2 (08:27→09:40)
[2020-05-21] MEDS: Insulin GLARGINE 100 un/ml 10 ml VIAL SUBCUT SCH ×2 (08:30→21:36)
[2020-05-22] MEDS: Linezolid 600 MG IVPREMIX(*) 600 MG/300 ML BAG IVPB SCH ×2 (01:22→14:31)
[2020-05-22] MEDS: ZOSYN 3.375 GM Q8H per EXTENDED INFUSION IV SCH ×3 (03:28→19:04)
[2020-05-22 05:53] LABS: BUN/Creatinine Ratio 14.5 (8-20); Calcium 8.1 mg/dL (8.6-10.3); EGFR African American 135.3 (>60); EGFR Non-African American 111.8 (>60); Phosphorus 2.6 mg/dL (2.5-5.0); Potassium 3.2 mmol/L (3.5-5.0)
[2020-05-22] MEDS: Insulin GLARGINE 100 un/ml 10 ml VIAL SUBCUT SCH ×2 (08:44→20:36)
[2020-05-22] MEDS ORDERED: KCL 20 MEQ/100 ML IVPREMIX 20 MEQ/100 ML BAG IV ONE (13:37)
[2020-05-22] MEDS ORDERED: Potassium Chlor 20 meq TAB.ER PO ONE (13:37)
[2020-05-22] MEDS: SILDENAFIL 20 MG PO SCH ×2 (14:25→20:35)
[2020-05-22] MEDS: Cholecalciferol (VIT D3) 1,000 unit TAB PO SCH (20:35)
[2020-05-23] MEDS: Linezolid 600 MG IVPREMIX(*) 600 MG/300 ML BAG IVPB SCH ×2 (00:56→13:26)
[2020-05-23] MEDS: ZOSYN 3.375 GM Q8H per EXTENDED INFUSION IV SCH ×3 (02:45→21:43)
[2020-05-23 05:46] LABS: Hematocrit 38 % (42-52); Hemoglobin 12.7 g/dL (14.0-18.0); Mean Corpuscular HGB Conc 34 g/dL (31-36); Mean Corpuscular Hemoglobin 30 pg (27-31); Mean Corpuscular Volume 88 fL (80-94); Platelet Count 158 10^3/uL (150-450); Red Blood Count 4.26 10^6 /uL (4.18-5.48); Red Cell Distribution Width 15 % (10-15); White Blood Count 6.9 10^3/uL (3.5-10.8)
[2020-05-23 06:01] LABS: BUN/Creatinine Ratio 14.7 (8-20); EGFR African American 122.8 (>60); EGFR Non-African American 101.5 (>60); Magnesium 1.9 mg/dL (1.9-2.7); Potassium 3.7 mmol/L (3.5-5.0)
[2020-05-23 08:48] LABS: C Reactive Protein 119.62 mg/L (<8.01)
[2020-05-23] MEDS: Insulin GLARGINE 100 un/ml 10 ml VIAL SUBCUT SCH ×2 (08:51→21:41)
[2020-05-23] MEDS: SILDENAFIL 20 MG PO SCH ×3 (08:52→21:45)
[2020-05-23] MEDS: Cholecalciferol (VIT D3) 1,000 unit TAB PO SCH (21:43)
[2020-05-24] MEDS: ZOSYN 3.375 GM Q8H per EXTENDED INFUSION IV SCH ×3 (04:06→20:20)
[2020-05-24 04:31] LABS: Hematocrit 37 % (42-52); Hemoglobin 12.6 g/dL (14.0-18.0); Mean Corpuscular HGB Conc 34 g/dL (31-36); Mean Corpuscular Hemoglobin 30 pg (27-31); Mean Corpuscular Volume 88 fL (80-94); Mean Platelet Volume 8.5 fL (7.4-10.4); Platelet Count 159 10^3/uL (150-450); Red Blood Count 4.18 10^6 /uL (4.18-5.48); Red Cell Distribution Width 14 % (10-15); White Blood Count 5.1 10^3/uL (3.5-10.8)
[2020-05-24 04:49] LABS: BUN/Creatinine Ratio 17.6 (8-20); EGFR African American 137.6 (>60); EGFR Non-African American 113.7 (>60); Magnesium 2.1 mg/dL (1.9-2.7); Potassium 3.6 mmol/L (3.5-5.0)
[2020-05-24] MEDS: SILDENAFIL 20 MG PO SCH ×3 (07:47→22:30)
[2020-05-24] MEDS: Insulin GLARGINE 100 un/ml 10 ml VIAL SUBCUT SCH ×2 (09:08→20:51)
[2020-05-24] MEDS: Cholecalciferol (VIT D3) 1,000 unit TAB PO SCH (20:52)
[2020-05-25] MEDS: ZOSYN 3.375 GM Q8H per EXTENDED INFUSION IV SCH ×3 (04:23→21:35)
[2020-05-25] MEDS: Insulin GLARGINE 100 un/ml 10 ml VIAL SUBCUT SCH ×2 (09:07→21:35)
[2020-05-25] MEDS: SILDENAFIL 20 MG PO SCH ×3 (09:10→21:34)
[2020-05-25 12:11] LABS: ABS Eosinophils 0.2 10^3/ul (0-0.6); ABS Lymphocytes 0.6 10^3/ul (1.0-4.8); ABS Monocytes 0.5 10^3/ul (0-0.8); ABS Neutrophils 3.9 10^3/ul (1.5-7.7); Eosinophil % 4.4 %; Hematocrit 36 % (42-52); Hemoglobin 12.4 g/dL (14.0-18.0); Lymphocyte % 11.2 %; Mean Corpuscular HGB Conc 34 g/dL (31-36); Mean Corpuscular Hemoglobin 31 pg (27-31); Mean Corpuscular Volume 89 fL (80-94); Mean Platelet Volume 8.4 fL (7.4-10.4); Platelet Count 159 10^3/uL (150-450); Red Blood Count 4.04 10^6 /uL (4.18-5.48); Red Cell Distribution Width 15 % (10-15); White Blood Count 5.2 10^3/uL (3.5-10.8)
[2020-05-25 12:19] LABS: BUN/Creatinine Ratio 16.1 (8-20); Calcium 8.1 mg/dL (8.6-10.3); EGFR Non-African American 126.5 (>60); Potassium 4.1 mmol/L (3.5-5.0)
[2020-05-25] MEDS ORDERED: diPHENhydraMINE 25 mg TAB PO PRN (15:01)
[2020-05-25] MEDS: Cholecalciferol (VIT D3) 1,000 unit TAB PO SCH (21:33)
[2020-05-26] MEDS: ZOSYN 3.375 GM Q8H per EXTENDED INFUSION IV SCH ×3 (03:37→20:43)
[2020-05-26] MEDS: Insulin GLARGINE 100 un/ml 10 ml VIAL SUBCUT SCH ×2 (08:31→20:49)
[2020-05-26] MEDS: SILDENAFIL 20 MG PO SCH ×3 (08:35→20:53)
[2020-05-26] MEDS: Cholecalciferol (VIT D3) 1,000 unit TAB PO SCH (20:51)
[2020-05-27] MEDS: ZOSYN 3.375 GM Q8H per EXTENDED INFUSION IV SCH ×3 (04:40→20:57)
[2020-05-27] MEDS: Insulin GLARGINE 100 un/ml 10 ml VIAL SUBCUT SCH ×2 (08:15→21:00)
[2020-05-27] MEDS: SILDENAFIL 20 MG PO SCH ×3 (08:30→20:58)
[2020-05-27] MEDS ORDERED: Furosemide 20 mg/2 ml IV VIAL IV SLOW PU ONE (14:19)
[2020-05-27] MEDS: Cholecalciferol (VIT D3) 1,000 unit TAB PO SCH (20:58)
[2020-05-28] MEDS: ZOSYN 3.375 GM Q8H per EXTENDED INFUSION IV SCH ×3 (04:12→21:05)
[2020-05-28 05:34] LABS: ABS Eosinophils 0.2 10^3/ul (0-0.6); ABS Lymphocytes 0.7 10^3/ul (1.0-4.8); ABS Monocytes 0.6 10^3/ul (0-0.8); ABS Neutrophils 4.4 10^3/ul (1.5-7.7); Eosinophil % 3.6 %; Hematocrit 35 % (42-52); Lymphocyte % 12.4 %; Mean Corpuscular HGB Conc 34 g/dL (31-36); Mean Corpuscular Hemoglobin 30 pg (27-31); Mean Corpuscular Volume 88 fL (80-94); Platelet Count 188 10^3/uL (150-450); Red Blood Count 3.97 10^6 /uL (4.18-5.48); Red Cell Distribution Width 14 % (10-15)
[2020-05-28 05:47] LABS: BUN/Creatinine Ratio 12.9 (8-20); Calcium 8.3 mg/dL (8.6-10.3); EGFR Non-African American 126.5 (>60); Potassium 3.9 mmol/L (3.5-5.0)
[2020-05-28] MEDS: SILDENAFIL 20 MG PO SCH ×3 (09:01→21:05)
[2020-05-28] MEDS: Insulin GLARGINE 100 un/ml 10 ml VIAL SUBCUT SCH (09:02)
[2020-05-28] MEDS ORDERED: Furosemide 40 mg/4 ml IV VIAL IV SLOW PU ONE (11:24)
[2020-05-28 15:54] LABS: C Reactive Protein 50.11 mg/L (<8.01)
[2020-05-28] MEDS: CMCS:Saliva Substitute (NF) 1 SPRAY BTL MT PRN (17:05)
[2020-05-28] MEDS: Cholecalciferol (VIT D3) 1,000 unit TAB PO SCH (21:05)
[2020-05-28] MEDS ORDERED: Insulin GLARGINE 100 un/ml 10 ml VIAL SUBCUT SCH (22:00)
[2020-05-29] MEDS: ZOSYN 3.375 GM Q8H per EXTENDED INFUSION IV SCH ×3 (03:32→21:15)
[2020-05-29 05:13] LABS: ABS Eosinophils 0.2 10^3/ul (0-0.6); ABS Lymphocytes 0.9 10^3/ul (1.0-4.8); ABS Monocytes 0.6 10^3/ul (0-0.8); ABS Neutrophils 4.8 10^3/ul (1.5-7.7); Eosinophil % 3.8 %; Hematocrit 35 % (42-52); Hemoglobin 11.9 g/dL (14.0-18.0); Lymphocyte % 13.2 %; Mean Corpuscular HGB Conc 34 g/dL (31-36); Mean Corpuscular Hemoglobin 30 pg (27-31); Mean Corpuscular Volume 88 fL (80-94); Mean Platelet Volume 7.8 fL (7.4-10.4); Nucleated Red Blood Cells % 0.3; Platelet Count 207 10^3/uL (150-450); Red Blood Count 4.02 10^6 /uL (4.18-5.48); Red Cell Distribution Width 14 % (10-15); White Blood Count 6.6 10^3/uL (3.5-10.8)
[2020-05-29 05:27] LABS: BUN/Creatinine Ratio 15.4 (8-20); Calcium 8.6 mg/dL (8.6-10.3); EGFR African American 144.9 (>60); EGFR Non-African American 119.8 (>60); Potassium 3.8 mmol/L (3.5-5.0)
[2020-05-29] MEDS: SILDENAFIL 20 MG PO SCH ×3 (08:32→21:16)
[2020-05-29] MEDS: Insulin GLARGINE 100 un/ml 10 ml VIAL SUBCUT SCH ×2 (08:34→17:29)
[2020-05-29] MEDS: Cholecalciferol (VIT D3) 1,000 unit TAB PO SCH (21:16)
[2020-05-30] MEDS: ZOSYN 3.375 GM Q8H per EXTENDED INFUSION IV SCH ×3 (02:28→20:28)
[2020-05-30 05:48] LABS: BUN/Creatinine Ratio 14.1 (8-20); Calcium 8.7 mg/dL (8.6-10.3); EGFR African American 117.4 (>60); Magnesium 1.6 mg/dL (1.9-2.7); Potassium 3.7 mmol/L (3.5-5.0)
[2020-05-30 06:07] LABS: Digoxin 0.5 ng/ml (0.8-2.0)
[2020-05-30] MEDS ORDERED: Magnesium Sulfate 2 gm BAG 2 GM/50 ML BAG IVPB ONE (08:00)
[2020-05-30] MEDS: Insulin GLARGINE 100 un/ml 10 ml VIAL SUBCUT SCH ×2 (09:40→17:38)
[2020-05-30] MEDS: SILDENAFIL 20 MG PO SCH ×3 (09:47→22:11)
[2020-05-30] MEDS: Cholecalciferol (VIT D3) 1,000 unit TAB PO SCH (21:59)
[2020-05-31] MEDS: ZOSYN 3.375 GM Q8H per EXTENDED INFUSION IV SCH ×2 (03:35→12:41)
[2020-05-31] MEDS: Insulin GLARGINE 100 un/ml 10 ml VIAL SUBCUT SCH ×2 (09:04→17:58)
[2020-05-31] MEDS: SILDENAFIL 20 MG PO SCH ×3 (11:08→21:03)
[2020-05-31] MEDS: Amoxicillin/Clavul 500/125 TAB (Augmentin 500 mg tab) PO SCH (21:02)
[2020-05-31] MEDS: Cholecalciferol (VIT D3) 1,000 unit TAB PO SCH (21:03)
[2020-06-01] MEDS: Insulin GLARGINE 100 un/ml 10 ml VIAL SUBCUT SCH ×2 (08:32→17:42)
[2020-06-01] MEDS: Amoxicillin/Clavul 500/125 TAB (Augmentin 500 mg tab) PO SCH ×2 (08:38→20:27)
[2020-06-01] MEDS: SILDENAFIL 20 MG PO SCH ×3 (08:39→20:27)
[2020-06-01] MEDS: Cholecalciferol (VIT D3) 1,000 unit TAB PO SCH (20:27)
[2020-06-02 04:48] LABS: BUN/Creatinine Ratio 20.9 (8-20); Calcium 9.2 mg/dL (8.6-10.3); EGFR African American 139.9 (>60); EGFR Non-African American 115.6 (>60); Magnesium 1.6 mg/dL (1.9-2.7); Potassium 3.5 mmol/L (3.5-5.0)
[2020-06-02] MEDS: Insulin GLARGINE 100 un/ml 10 ml VIAL SUBCUT SCH (09:07)
[2020-06-02] MEDS: SILDENAFIL 20 MG PO SCH ×2 (09:09→13:17)
[2020-06-02] MEDS: Amoxicillin/Clavul 500/125 TAB (Augmentin 500 mg tab) PO SCH (09:09)
[2020-06-02] MEDS ORDERED: Magnesium Sulfate 2 gm BAG 2 GM/50 ML BAG IVPB ONE (09:50)
[2020-06-02] MEDS ORDERED: Potassium Chlor 20 meq TAB.ER PO ONE (09:50)
[2020-06-02 15:26] VITALS: BP 126/62
== END 2020-06-02 13:58 | disposition swing bed (61) | DRG 871 ==
LOC: ED 10:54 → ICU 13:44 → MEDTELE 05-21 20:50
PROVIDERS: ADMIT Internal Medicine; ATTEND Internal Medicine

== ENCOUNTER 2020-06-02 14:02 | Inpatient (IN) ==
[2020-06-02] MEDS ORDERED: Dextran 70/Hypromellose Tears Eye Drops 15 ml BTL (for Artificials Tears) BOTH EYES PRN (14:50)
[2020-06-02] MEDS ORDERED: Dextrose 50% Syringe 50 ml 25 GM/50 ML SYRINGE IV PUSH PRN (15:05)
[2020-06-02] MEDS: Cholecalciferol (VIT D3) 1,000 unit TAB PO SCH (21:47)
[2020-06-02] MEDS: Insulin GLARGINE 100 un/ml 10 ml VIAL SUBCUT SCH (21:49)
[2020-06-02] MEDS: Amoxicillin/Clavul 500/125 TAB (Augmentin 500 mg tab) PO SCH (22:36)
[2020-06-02] MEDS: SILDENAFIL 20 MG PO SCH (22:36)
[2020-06-03] MEDS: Amoxicillin/Clavul 500/125 TAB (Augmentin 500 mg tab) PO SCH ×2 (09:26→21:28)
[2020-06-03] MEDS: SILDENAFIL 20 MG PO SCH ×3 (09:27→21:28)
[2020-06-03] MEDS: Insulin GLARGINE 100 un/ml 10 ml VIAL SUBCUT SCH ×2 (09:28→21:29)
[2020-06-03] MEDS: CMC:SitaGLIPtin 25mg TAB (NF) 25 MG TAB PO SCH (09:34)
[2020-06-03] MEDS: Cholecalciferol (VIT D3) 1,000 unit TAB PO SCH (21:27)
[2020-06-04] MEDS: Amoxicillin/Clavul 500/125 TAB (Augmentin 500 mg tab) PO SCH ×2 (08:03→21:33)
[2020-06-04] MEDS: SILDENAFIL 20 MG PO SCH ×3 (08:03→21:34)
[2020-06-04] MEDS: Insulin GLARGINE 100 un/ml 10 ml VIAL SUBCUT SCH ×2 (09:30→21:30)
[2020-06-04] MEDS: CMC:SitaGLIPtin 25mg TAB (NF) 25 MG TAB PO SCH (09:33)
[2020-06-04] MEDS: Cholecalciferol (VIT D3) 1,000 unit TAB PO SCH (21:31)
[2020-06-05] MEDS: Insulin GLARGINE 100 un/ml 10 ml VIAL SUBCUT SCH ×2 (09:17→20:57)
[2020-06-05] MEDS: CMC:SitaGLIPtin 25mg TAB (NF) 25 MG TAB PO SCH (09:18)
[2020-06-05] MEDS: SILDENAFIL 20 MG PO SCH ×3 (09:18→20:58)
[2020-06-05] MEDS: diPHENhydraMINE 25 mg TAB PO PRN (20:53)
[2020-06-05] MEDS: Cholecalciferol (VIT D3) 1,000 unit TAB PO SCH (20:53)
[2020-06-06] MEDS: Insulin GLARGINE 100 un/ml 10 ml VIAL SUBCUT SCH ×2 (08:35→21:17)
[2020-06-06] MEDS: SILDENAFIL 20 MG PO SCH ×3 (08:39→21:20)
[2020-06-06] MEDS: CMC:SitaGLIPtin 25mg TAB (NF) 25 MG TAB PO SCH (08:44)
[2020-06-06] MEDS: diPHENhydraMINE 25 mg TAB PO PRN (21:16)
[2020-06-06] MEDS: Cholecalciferol (VIT D3) 1,000 unit TAB PO SCH (21:17)
[2020-06-07] MEDS: diPHENhydraMINE 25 mg TAB PO PRN (07:49)
[2020-06-07] MEDS: Insulin GLARGINE 100 un/ml 10 ml VIAL SUBCUT SCH ×2 (09:46→22:58)
[2020-06-07] MEDS: CMC:SitaGLIPtin 25mg TAB (NF) 25 MG TAB PO SCH (09:47)
[2020-06-07] MEDS: SILDENAFIL 20 MG PO SCH ×2 (09:48→14:02)
[2020-06-07] MEDS: Cholecalciferol (VIT D3) 1,000 unit TAB PO SCH (22:51)
[2020-06-08] MEDS: SILDENAFIL 20 MG PO SCH ×4 (07:33→21:41)
[2020-06-08] MEDS: CMC:SitaGLIPtin 25mg TAB (NF) 25 MG TAB PO SCH (09:07)
[2020-06-08] MEDS: diPHENhydraMINE 25 mg TAB PO PRN (09:08)
[2020-06-08] MEDS: Insulin GLARGINE 100 un/ml 10 ml VIAL SUBCUT SCH ×2 (09:45→21:41)
[2020-06-08] MEDS: Cholecalciferol (VIT D3) 1,000 unit TAB PO SCH (21:09)
[2020-06-09] MEDS: SILDENAFIL 20 MG PO SCH ×3 (09:20→22:32)
[2020-06-09] MEDS: CMC:SitaGLIPtin 25mg TAB (NF) 25 MG TAB PO SCH (09:20)
[2020-06-09] MEDS: Insulin GLARGINE 100 un/ml 10 ml VIAL SUBCUT SCH ×2 (09:24→22:33)
[2020-06-09] MEDS: diPHENhydraMINE 25 mg TAB PO PRN (09:37)
[2020-06-09] MEDS: Cholecalciferol (VIT D3) 1,000 unit TAB PO SCH (22:32)
[2020-06-10] MEDS: Insulin GLARGINE 100 un/ml 10 ml VIAL SUBCUT SCH ×2 (09:09→21:50)
[2020-06-10] MEDS: diPHENhydraMINE 25 mg TAB PO PRN (09:12)
[2020-06-10] MEDS: CMC:SitaGLIPtin 25mg TAB (NF) 25 MG TAB PO SCH (09:12)
[2020-06-10] MEDS: SILDENAFIL 20 MG PO SCH ×3 (09:13→21:49)
[2020-06-10 11:56] LABS: BUN/Creatinine Ratio 20.8 (8-20); Calcium 8.8 mg/dL (8.6-10.3); EGFR African American 119.2 (>60); EGFR Non-African American 98.5 (>60); Potassium 3.7 mmol/L (3.5-5.0)
[2020-06-10] MEDS: Cholecalciferol (VIT D3) 1,000 unit TAB PO SCH (21:49)
[2020-06-11] MEDS: CMC:SitaGLIPtin 25mg TAB (NF) 25 MG TAB PO SCH (09:33)
[2020-06-11] MEDS: SILDENAFIL 20 MG PO SCH ×3 (09:33→21:34)
[2020-06-11] MEDS: Insulin GLARGINE 100 un/ml 10 ml VIAL SUBCUT SCH ×2 (09:38→21:37)
[2020-06-11] MEDS: Cholecalciferol (VIT D3) 1,000 unit TAB PO SCH (21:35)
[2020-06-12] MEDS: SILDENAFIL 20 MG PO SCH ×3 (08:53→20:16)
[2020-06-12] MEDS: CMC:SitaGLIPtin 25mg TAB (NF) 25 MG TAB PO SCH (08:58)
[2020-06-12] MEDS: Insulin GLARGINE 100 un/ml 10 ml VIAL SUBCUT SCH ×2 (08:59→20:15)
[2020-06-12] MEDS: Cholecalciferol (VIT D3) 1,000 unit TAB PO SCH (20:16)
[2020-06-13] MEDS: Insulin GLARGINE 100 un/ml 10 ml VIAL SUBCUT SCH (08:54)
[2020-06-13] MEDS: SILDENAFIL 20 MG PO SCH ×2 (08:57→12:58)
[2020-06-13] MEDS: CMC:SitaGLIPtin 25mg TAB (NF) 25 MG TAB PO SCH (08:57)
[2020-06-13] MEDS: Polyethylene Glycol 3350 17 GM PACKET PO PRN (12:59)
[2020-06-14] MEDS: Cholecalciferol (VIT D3) 1,000 unit TAB PO SCH ×2 (00:13→22:33)
[2020-06-14] MEDS: Insulin GLARGINE 100 un/ml 10 ml VIAL SUBCUT SCH ×3 (00:32→22:32)
[2020-06-14] MEDS: SILDENAFIL 20 MG PO SCH ×4 (00:33→22:33)
[2020-06-14] MEDS: Polyethylene Glycol 3350 17 GM PACKET PO PRN (08:58)
[2020-06-14] MEDS: CMC:SitaGLIPtin 25mg TAB (NF) 25 MG TAB PO SCH (09:01)
[2020-06-14] MEDS: Ammonium Lactate 12% 1 APPLIC TUBE TOPICAL PRN (17:57)
[2020-06-15] MEDS: Ammonium Lactate 12% 1 APPLIC TUBE TOPICAL PRN (06:26)
[2020-06-15] MEDS: Insulin GLARGINE 100 un/ml 10 ml VIAL SUBCUT SCH (10:39)
[2020-06-15] MEDS: CMC:SitaGLIPtin 25mg TAB (NF) 25 MG TAB PO SCH (10:53)
[2020-06-15] MEDS: SILDENAFIL 20 MG PO SCH ×2 (10:54→16:37)
[2020-06-15 20:09] VITALS: BP 130/62
== END 2020-06-15 17:10 | disposition home or self-care (01) | DRG 603 ==
LOC: MEDTELE 14:02 → MED 06-04 22:34
PROVIDERS: ADMIT Internal Medicine; ATTEND Internal Medicine

== ENCOUNTER 2021-02-09 19:55 | Inpatient (IN) ==
[2021-02-09 20:34] LABS: ABS Eosinophils 0.1 10^3/ul (0-0.6); ABS Lymphocytes 0.8 10^3/ul (1.0-4.8); ABS Monocytes 0.9 10^3/ul (0-0.8); ABS Neutrophils 7.3 10^3/ul (1.5-7.7); Eosinophil % 1.4 %; Hematocrit 47 % (42-52); Lymphocyte % 8.2 %; Mean Corpuscular HGB Conc 36 g/dL (31-36); Mean Corpuscular Hemoglobin 30 pg (27-31); Mean Corpuscular Volume 82 fL (80-94); Mean Platelet Volume 8.9 fL (7.4-10.4); Nucleated Red Blood Cells % 0.2; Platelet Count 227 10^3/uL (150-450); Red Blood Count 5.65 10^6 /uL (4.18-5.48); Red Cell Distribution Width 15 % (10-15); White Blood Count 9.2 10^3/uL (3.5-10.8)
[2021-02-09 20:52] LABS: Albumin 3.7 g/dL (3.2-5.2); Albumin/Globulin Ratio 1.2 (1-3); Calcium 9.4 mg/dL (8.6-10.3); EGFR African American 122.5 (>60); EGFR Non-African American 101.3 (>60); Globulin 3.2 g/dL (2-4); Total Bilirubin 1.8 mg/dL (0.2-1.0); Total Protein 6.9 g/dL (6.4-8.9)
[2021-02-09 20:53] LABS: INR 1.06 (0.86-1.15)
[2021-02-09 20:54] LABS: Troponin I 0.02 ng/mL (<0.03)
[2021-02-09 21:04] LABS: Potassium 2.5 mmol/L (3.5-5.0)
[2021-02-09] MEDS ORDERED: NS 0.9% 1000 ml BAG 1,000 ML IV ONE (21:05)
[2021-02-09] MEDS ORDERED: Dexamethasone IV 4 MG/ML VIAL 1 ml VIAL IV SLOW PU ONE (21:24)
[2021-02-09] MEDS ORDERED: Albuterol HFA INHALER 8 gm MDI INH ONE (21:24)
[2021-02-09] MEDS: KCL 20 MEQ/100 ML IVPREMIX 20 MEQ/100 ML BAG IV SCH (21:24)
[2021-02-09 22:11] LABS: PCO2 Arterial 45 mmHg (35-45); PO2 Arterial 151 mmHg (80-100)
[2021-02-10] MEDS ORDERED: NS 0.9% 1000 ml BAG 1,000 ML IV ONE (00:52)
[2021-02-10] MEDS ORDERED: Potassium Chloride LIQUID 20 MEQ/15 ML LIQUID PO ONE ×3 (02:06→23:09)
[2021-02-10] MEDS: KCL 20 MEQ/100 ML IVPREMIX 20 MEQ/100 ML BAG IV SCH (03:37)
[2021-02-10 05:00] LABS: Calcium 9.1 mg/dL (8.6-10.3); EGFR African American 120.7 (>60); EGFR Non-African American 99.7 (>60)
[2021-02-10] MEDS ORDERED: Ammonium Lactate 12% 1 APPLIC TUBE TOPICAL PRN (06:56)
[2021-02-10] MEDS ORDERED: ACETAMINOPHEN 500 MG PO PRN (06:56)
[2021-02-10] MEDS ORDERED: CARBOXYMETHYLCELLULOSE SODIUM 1% BOTH EYES PRN (06:56)
[2021-02-10] MEDS ORDERED: diPHENhydraMINE 25 mg TAB PO PRN (06:56)
[2021-02-10] MEDS ORDERED: Dextrose 50% Syringe 50 ml 25 GM/50 ML SYRINGE IV PUSH PRN (07:14)
[2021-02-10] MEDS ORDERED: cefTRIAXone 1 gm/50 mL NS BAG 1 GM/50 ML BAG IVPB SCH (08:45)
[2021-02-10] MEDS ORDERED: SILDENAFIL 20 MG PO SCH (09:00)
[2021-02-10] MEDS ORDERED: Azithromycin 500 mg/250 ml NS 500 MG/250 ML BAG IVPB SCH ×2 (09:00→11:30)
[2021-02-10] MEDS ORDERED: LoraTADine 10 mg TAB (NF) PO SCH (09:00)
[2021-02-10] MEDS ORDERED: Enoxaparin 40 MG/0.4 ML SYR SUBCUT SCH (09:00)
[2021-02-10] MEDS ORDERED: Dextran 70/Hypromellose Tears Eye Drops 15 ml BTL (for Artificials Tears) BOTH EYES PRN (09:48)
[2021-02-10] MEDS: cefTRIAXone 1 gm/50 mL NS BAG 1 GM/50 ML BAG IVPB SCH (10:51)
[2021-02-10] MEDS: Polyethylene Glycol 3350 17 GM PACKET PO PRN (10:53)
[2021-02-10] MEDS: CMCS:Sildenafil (PULMONARY)20mg(NF) PO SCH ×3 (10:57→21:04)
[2021-02-10] MEDS ORDERED: Potassium Chlor 20 meq TAB.ER PO ONE ×2 (11:00→13:00)
[2021-02-10] MEDS: Azithromycin 500 mg/250 ml NS 500 MG/250 ML BAG IVPB SCH (12:56)
[2021-02-10 13:49] LABS: Rapid COVID-19 Molecular Detected (Undetected)
[2021-02-10 14:57] LABS: Urine Appearance Clear; Urine Bilirubin Negative (Negative); Urine Blood Negative (Negative); Urine Color Yellow; Urine Glucose 3+(>=500 mg/dL) (Negative); Urine Ketones Trace (Negative); Urine Nitrite Negative (Negative); Urine Protein Negative (Negative); Urine Specific Gravity 1.005 (1.002-1.030); Urine Urobilinogen Negative (Negative)
[2021-02-10 18:18] LABS: CO2 Carbon Dioxide 29 mmol/L (22-32); Calcium 8.3 mg/dL (8.6-10.3); Chloride 82 mmol/L (101-111)
[2021-02-10 18:23] LABS: Blood Urea Nitrogen 21 mg/dL (6-24); EGFR African American 120.7 (>60); EGFR Non-African American 99.7 (>60); Glucose 288 mg/dL (70-100)
[2021-02-10 19:18] LABS: Anion Gap 6 mmol/L (2-11); Sodium 117 mmol/L (135-145)
[2021-02-10 20:29] LABS: Digoxin 1.8 ng/ml (0.8-2.0)
[2021-02-10] MEDS ORDERED: Cholecalciferol (VIT D3) 1,000 unit TAB PO SCH (21:00)
[2021-02-10] MEDS: Cholecalciferol (VIT D3) 1,000 unit TAB PO SCH (21:04)
[2021-02-10] MEDS: Enoxaparin 40 MG/0.4 ML SYR SUBCUT SCH (21:09)
[2021-02-10 22:38] LABS: Calcium 8.6 mg/dL (8.6-10.3); EGFR Non-African American 90.1 (>60); Potassium 3.3 mmol/L (3.5-5.0)
[2021-02-11 05:38] LABS: ABS Eosinophils 0.1 10^3/ul (0-0.6); ABS Lymphocytes 0.8 10^3/ul (1.0-4.8); ABS Monocytes 1.2 10^3/ul (0-0.8); ABS Neutrophils 8.4 10^3/ul (1.5-7.7); Eosinophil % 0.7 %; Hematocrit 44 % (42-52); Hemoglobin 15.6 g/dL (14.0-18.0); Mean Corpuscular HGB Conc 36 g/dL (31-36); Mean Corpuscular Hemoglobin 30 pg (27-31); Mean Corpuscular Volume 83 fL (80-94); Mean Platelet Volume 9.1 fL (7.4-10.4); Nucleated Red Blood Cells % 0.1; Platelet Count 211 10^3/uL (150-450); Red Blood Count 5.26 10^6 /uL (4.18-5.48); Red Cell Distribution Width 15 % (10-15); White Blood Count 10.5 10^3/uL (3.5-10.8)
[2021-02-11 05:51] LABS: Calcium 8.8 mg/dL (8.6-10.3); EGFR African American 122.5 (>60); EGFR Non-African American 101.3 (>60); Potassium 3.3 mmol/L (3.5-5.0)
[2021-02-11] MEDS ORDERED: Potassium Chlor 20 meq TAB.ER PO ONE ×2 (07:18→16:16)
[2021-02-11] MEDS: Enoxaparin 40 MG/0.4 ML SYR SUBCUT SCH ×2 (08:38→21:22)
[2021-02-11] MEDS: CMCS:Sildenafil (PULMONARY)20mg(NF) PO SCH ×3 (08:39→21:27)
[2021-02-11] MEDS: cefTRIAXone 1 gm/50 mL NS BAG 1 GM/50 ML BAG IVPB SCH (09:40)
[2021-02-11] MEDS: Azithromycin 500 mg/250 ml NS 500 MG/250 ML BAG IVPB SCH (13:21)
[2021-02-11] MEDS: Oral Rinse (Biotene)(NF) 237 ML or 473 ML ORAL RINSE BTL MT SCH ×4 (13:59→21:28)
[2021-02-11 15:42] LABS: Calcium 8.5 mg/dL (8.6-10.3); EGFR Non-African American 90.1 (>60); Potassium 3.4 mmol/L (3.5-5.0)
[2021-02-11] MEDS: Insulin GLARGINE 100 un/ml 10 ml VIAL SUBCUT SCH (21:21)
[2021-02-11] MEDS: Cholecalciferol (VIT D3) 1,000 unit TAB PO SCH (21:25)
[2021-02-12 05:31] LABS: Calcium 8.8 mg/dL (8.6-10.3); EGFR African American 122.5 (>60); EGFR Non-African American 101.3 (>60); Potassium 3.5 mmol/L (3.5-5.0)
[2021-02-12] MEDS: Oral Rinse (Biotene)(NF) 237 ML or 473 ML ORAL RINSE BTL MT SCH ×5 (06:05→21:25)
[2021-02-12] MEDS: cefTRIAXone 1 gm/50 mL NS BAG 1 GM/50 ML BAG IVPB SCH (09:58)
[2021-02-12] MEDS: Enoxaparin 40 MG/0.4 ML SYR SUBCUT SCH ×2 (09:59→21:15)
[2021-02-12] MEDS: Polyethylene Glycol 3350 17 GM PACKET PO PRN (10:00)
[2021-02-12] MEDS: Potassium Chlor 20 meq TAB.ER PO SCH ×2 (10:01→21:22)
[2021-02-12] MEDS: CMCS:Sildenafil (PULMONARY)20mg(NF) PO SCH ×3 (10:02→21:19)
[2021-02-12 10:04] LABS: Magnesium 1.9 mg/dL (1.9-2.7)
[2021-02-12] MEDS: Insulin GLARGINE 100 un/ml 10 ml VIAL SUBCUT SCH (21:13)
[2021-02-12] MEDS: Cholecalciferol (VIT D3) 1,000 unit TAB PO SCH (21:20)
[2021-02-13] MEDS: Oral Rinse (Biotene)(NF) 237 ML or 473 ML ORAL RINSE BTL MT SCH ×3 (06:33→12:48)
[2021-02-13] MEDS: CMCS:Sildenafil (PULMONARY)20mg(NF) PO SCH ×2 (08:30→12:50)
[2021-02-13] MEDS: Enoxaparin 40 MG/0.4 ML SYR SUBCUT SCH (08:31)
[2021-02-13 11:36] VITALS: BP 109/48
== END 2021-02-13 19:00 | disposition home or self-care (01) | DRG 178 ==
LOC: ED 19:55 → SUATTDRO 02-10 09:37 → MED 02-10 09:37
PROVIDERS: ADMIT Internal Medicine; ATTEND Internal Medicine

== ENCOUNTER 2021-07-29 14:28 | Inpatient (IN) ==
[2021-07-29 16:04] LABS: ABS Eosinophils 0.1 10^3/ul (0-0.6); ABS Lymphocytes 0.4 10^3/ul (1.0-4.8); ABS Monocytes 1.2 10^3/ul (0-0.8); ABS Neutrophils 9.3 10^3/ul (1.5-7.7); Eosinophil % 0.5 %; Hematocrit 45 % (42-52); Hemoglobin 15.4 g/dL (14.0-18.0); Lymphocyte % 3.8 %; Mean Corpuscular HGB Conc 34 g/dL (31-36); Mean Corpuscular Hemoglobin 30 pg (27-31); Mean Corpuscular Volume 88 fL (80-94); Mean Platelet Volume 9.6 fL (7.4-10.4); Nucleated Red Blood Cells % 0.1; Platelet Count 188 10^3/uL (150-450); Red Cell Distribution Width 15 % (10-15)
[2021-07-29 16:29] LABS: Albumin 3.5 g/dL (3.2-5.2); Albumin/Globulin Ratio 1.1 (1-3); Globulin 3.2 g/dL (2-4); Total Bilirubin 1.2 mg/dL (0.2-1.0); Total Protein 6.7 g/dL (6.4-8.9); eGFR CKD-EPI 98.9 (>60)
[2021-07-29 17:38] LABS: Urine Appearance Cloudy; Urine Bilirubin Negative (Negative); Urine Blood Negative (Negative); Urine Color Yellow; Urine Glucose 3+(>=500 mg/dL) (Negative); Urine Ketones Negative (Negative); Urine Nitrite Negative (Negative); Urine Protein 1+(30 mg/dL) (Negative); Urine Specific Gravity 1.022 (1.002-1.030); Urine Urobilinogen Positive (Negative)
[2021-07-29] MEDS ORDERED: Dextran 70/Hypromellose Tears Eye Drops 15 ml BTL (for Artificials Tears) BOTH EYES PRN (17:47)
[2021-07-29 17:49] LABS: Calcium 9.3 mg/dL (8.6-10.3); eGFR CKD-EPI 95.7 (>60)
[2021-07-29] MEDS ORDERED: Dextrose 50% Syringe 50 ml 25 GM/50 ML SYRINGE IV PUSH PRN ×2 (17:58)
[2021-07-29] MEDS ORDERED: NS 0.9% 1000 ml BAG 1,000 ML IV SCH ×2 (18:00→22:14)
[2021-07-29 18:01] LABS: Potassium 4.1 mmol/L (3.5-5.0)
[2021-07-29 18:02] LABS: Urine Bacteria Absent (Absent); Urine Red Blood Cell 3+(>10/hpf) (Absent); Urine Sperm Present (Absent); Urine Squamous Epithelial Cell Present (Absent); Urine White Blood Cell 1+(6-10/hpf) (Absent)
[2021-07-29 18:04] LABS: C Reactive Protein 289.7 mg/L (<8.01)
[2021-07-29] MEDS ORDERED: NS 0.9% 500 ml BAG 500 ML IV ONE (18:42)
[2021-07-29] MEDS: Enoxaparin 40 MG/0.4 ML SYR SUBCUT SCH (19:42)
[2021-07-29 20:05] LABS: Osmolality Serum 267 mOsm/kg (275-295)
[2021-07-29 20:05] LABS: Urine Osmo 687 mOsm/kg (150-1150)
[2021-07-29] MEDS ORDERED: SILDENAFIL 20 MG PO SCH (21:00)
[2021-07-29 21:35] LABS: Activated Partial Thrombo Time 33.7 seconds (26.0-38.0); INR 1.18 (0.86-1.15)
[2021-07-29] MEDS: cefTRIAXone 1 gm/50 mL NS BAG 1 GM/50 ML BAG IVPB SCH (21:40)
[2021-07-29 21:41] LABS: Calcium 8.9 mg/dL (8.6-10.3); eGFR CKD-EPI 98.9 (>60)
[2021-07-29] MEDS: Insulin GLARGINE 100 un/ml 10 ml VIAL SUBCUT SCH (21:47)
[2021-07-29] MEDS: SILDENAFIL 20 MG PO SCH (21:56)
[2021-07-30 02:11] LABS: Calcium 8.8 mg/dL (8.6-10.3); eGFR CKD-EPI 94.9 (>60)
[2021-07-30] MEDS: NS 0.9% 1000 ml BAG 1,000 ML IV SCH ×3 (02:51→12:18)
[2021-07-30 04:22] LABS: ABS Lymphocytes 0.3 10^3/ul (1.0-4.8); ABS Monocytes 0.9 10^3/ul (0-0.8); ABS Neutrophils 7.9 10^3/ul (1.5-7.7); Eosinophil % 0.5 %; Hematocrit 43 % (42-52); Hemoglobin 15.1 g/dL (14.0-18.0); Lymphocyte % 3.6 %; Mean Corpuscular HGB Conc 35 g/dL (31-36); Mean Corpuscular Hemoglobin 30 pg (27-31); Mean Corpuscular Volume 87 fL (80-94); Mean Platelet Volume 9.3 fL (7.4-10.4); Platelet Count 162 10^3/uL (150-450); Red Blood Count 4.97 10^6 /uL (4.18-5.48); Red Cell Distribution Width 15 % (10-15); White Blood Count 9.2 10^3/uL (3.5-10.8)
[2021-07-30 04:39] LABS: Calcium 8.5 mg/dL (8.6-10.3); Potassium 3.9 mmol/L (3.5-5.0); eGFR CKD-EPI 97.5 (>60)
[2021-07-30 05:19] LABS: TSH Ultra Thyroid Stim Horm 1.49 mcIU/mL (0.34-5.60)
[2021-07-30] MEDS ORDERED: Ammonium Lactate 12% 1 APPLIC TUBE TOPICAL SCH (09:00)
[2021-07-30] MEDS: SILDENAFIL 20 MG PO SCH ×3 (09:01→20:12)
[2021-07-30] MEDS: Cholecalciferol (VIT D3) 1,000 unit TAB PO SCH (09:01)
[2021-07-30] MEDS: Ammonium Lactate 12% 1 APPLIC TUBE TOPICAL SCH (09:06)
[2021-07-30 13:52] LABS: Calcium 8.5 mg/dL (8.6-10.3)
[2021-07-30 15:22] LABS: Urine Osmo 642 mOsm/kg (150-1150)
[2021-07-30] MEDS: Enoxaparin 40 MG/0.4 ML SYR SUBCUT SCH (16:55)
[2021-07-30] MEDS: Polyethylene Glycol 3350 17 GM PACKET PO PRN (20:18)
[2021-07-30] MEDS: cefTRIAXone 1 gm/50 mL NS BAG 1 GM/50 ML BAG IVPB SCH (21:21)
[2021-07-30] MEDS: Insulin GLARGINE 100 un/ml 10 ml VIAL SUBCUT SCH (21:28)
[2021-07-30 21:50] LABS: Calcium 8.5 mg/dL (8.6-10.3); Potassium 4.1 mmol/L (3.5-5.0)
[2021-07-31 00:36] LABS: Calcium 8.5 mg/dL (8.6-10.3); Potassium 3.7 mmol/L (3.5-5.0); eGFR CKD-EPI 99.4 (>60)
[2021-07-31 04:02] LABS: ABS Eosinophils 0.2 10^3/ul (0-0.6); ABS Lymphocytes 0.7 10^3/ul (1.0-4.8); ABS Monocytes 1.1 10^3/ul (0-0.8); ABS Neutrophils 6.9 10^3/ul (1.5-7.7); Eosinophil % 2.4 %; Hematocrit 42 % (42-52); Hemoglobin 14.3 g/dL (14.0-18.0); Lymphocyte % 7.9 %; Mean Corpuscular HGB Conc 34 g/dL (31-36); Mean Corpuscular Hemoglobin 30 pg (27-31); Mean Corpuscular Volume 88 fL (80-94); Mean Platelet Volume 9.2 fL (7.4-10.4); Platelet Count 192 10^3/uL (150-450); Red Blood Count 4.75 10^6 /uL (4.18-5.48); Red Cell Distribution Width 15 % (10-15); White Blood Count 8.9 10^3/uL (3.5-10.8)
[2021-07-31 04:17] LABS: Blood Urea Nitrogen 26 mg/dL (6-24); CO2 Carbon Dioxide 34 mmol/L (22-32); Calcium 7.9 mg/dL (8.6-10.3); Chloride 88 mmol/L (101-111); Glucose 142 mg/dL (70-100); Magnesium 1.9 mg/dL (1.9-2.7); Sodium 128 mmol/L (135-145); eGFR CKD-EPI 99.9 (>60)
[2021-07-31 04:23] LABS: Anion Gap 6 mmol/L (2-11)
[2021-07-31] MEDS: Ammonium Lactate 12% 1 APPLIC TUBE TOPICAL SCH (08:13)
[2021-07-31] MEDS: Cholecalciferol (VIT D3) 1,000 unit TAB PO SCH (08:13)
[2021-07-31] MEDS: SILDENAFIL 20 MG PO SCH ×3 (08:15→21:26)
[2021-07-31 09:58] LABS: Calcium 8.8 mg/dL (8.6-10.3); Potassium 3.9 mmol/L (3.5-5.0); eGFR CKD-EPI 99.4 (>60)
[2021-07-31] MEDS ORDERED: diPHENhydraMINE 25 mg TAB PO PRN (10:44)
[2021-07-31 16:47] LABS: Calcium 8.8 mg/dL (8.6-10.3); Potassium 3.8 mmol/L (3.5-5.0); eGFR CKD-EPI 97.5 (>60)
[2021-07-31] MEDS: Enoxaparin 40 MG/0.4 ML SYR SUBCUT SCH (17:48)
[2021-07-31] MEDS: cefTRIAXone 1 gm/50 mL NS BAG 1 GM/50 ML BAG IVPB SCH (21:23)
[2021-07-31] MEDS: Insulin GLARGINE 100 un/ml 10 ml VIAL SUBCUT SCH (21:28)
[2021-08-01 06:46] LABS: ABS Eosinophils 0.3 10^3/ul (0-0.6); ABS Lymphocytes 0.6 10^3/ul (1.0-4.8); ABS Neutrophils 6.3 10^3/ul (1.5-7.7); Eosinophil % 3.1 %; Hematocrit 44 % (42-52); Hemoglobin 15.3 g/dL (14.0-18.0); Lymphocyte % 7.3 %; Mean Corpuscular HGB Conc 35 g/dL (31-36); Mean Corpuscular Hemoglobin 30 pg (27-31); Mean Corpuscular Volume 87 fL (80-94); Mean Platelet Volume 9.1 fL (7.4-10.4); Platelet Count 201 10^3/uL (150-450); Red Blood Count 5.08 10^6 /uL (4.18-5.48); Red Cell Distribution Width 15 % (10-15); White Blood Count 8.1 10^3/uL (3.5-10.8)
[2021-08-01 07:02] LABS: Calcium 8.7 mg/dL (8.6-10.3); Magnesium 1.9 mg/dL (1.9-2.7); Potassium 3.6 mmol/L (3.5-5.0); eGFR CKD-EPI 99.9 (>60)
[2021-08-01] MEDS ORDERED: Potassium Chlor 20 meq TAB.ER PO ONE (07:49)
[2021-08-01] MEDS: SILDENAFIL 20 MG PO SCH ×3 (09:11→20:37)
[2021-08-01] MEDS: Cholecalciferol (VIT D3) 1,000 unit TAB PO SCH (09:11)
[2021-08-01] MEDS: Polyethylene Glycol 3350 17 GM PACKET PO PRN (09:16)
[2021-08-01] MEDS: Ammonium Lactate 12% 1 APPLIC TUBE TOPICAL SCH (09:17)
[2021-08-01 16:56] LABS: Potassium 4.3 mmol/L (3.5-5.0); eGFR CKD-EPI 90.8 (>60)
[2021-08-01] MEDS: Enoxaparin 40 MG/0.4 ML SYR SUBCUT SCH (17:36)
[2021-08-01] MEDS: cefTRIAXone 1 gm/50 mL NS BAG 1 GM/50 ML BAG IVPB SCH (20:38)
[2021-08-01] MEDS: Insulin GLARGINE 100 un/ml 10 ml VIAL SUBCUT SCH (20:41)
[2021-08-02 08:09] LABS: Potassium 4.2 mmol/L (3.5-5.0)
[2021-08-02 08:35] LABS: Calcium 8.9 mg/dL (8.6-10.3); eGFR CKD-EPI 99.4 (>60)
[2021-08-02] MEDS: SILDENAFIL 20 MG PO SCH ×3 (08:53→23:29)
[2021-08-02] MEDS: Cholecalciferol (VIT D3) 1,000 unit TAB PO SCH (08:54)
[2021-08-02] MEDS: Ammonium Lactate 12% 1 APPLIC TUBE TOPICAL SCH (08:57)
[2021-08-02] MEDS ORDERED: Magnesium Hydroxide LIQ 30 ML UDC PO PRN (10:59)
[2021-08-02 15:35] LABS: C Reactive Protein 53.65 mg/L (<8.01)
[2021-08-02] MEDS: Enoxaparin 40 MG/0.4 ML SYR SUBCUT SCH (18:21)
[2021-08-02] MEDS: Insulin GLARGINE 100 un/ml 10 ml VIAL SUBCUT SCH (22:41)
[2021-08-02] MEDS: cefTRIAXone 1 gm/50 mL NS BAG 1 GM/50 ML BAG IVPB SCH (22:46)
[2021-08-03 05:57] LABS: ABS Eosinophils 0.3 10^3/ul (0-0.6); ABS Lymphocytes 0.7 10^3/ul (1.0-4.8); ABS Monocytes 0.9 10^3/ul (0-0.8); ABS Neutrophils 5.4 10^3/ul (1.5-7.7); Eosinophil % 3.4 %; Hematocrit 43 % (42-52); Hemoglobin 14.6 g/dL (14.0-18.0); Lymphocyte % 9.9 %; Mean Corpuscular HGB Conc 34 g/dL (31-36); Mean Corpuscular Hemoglobin 30 pg (27-31); Mean Corpuscular Volume 88 fL (80-94); Mean Platelet Volume 8.8 fL (7.4-10.4); Platelet Count 218 10^3/uL (150-450); Red Blood Count 4.88 10^6 /uL (4.18-5.48); Red Cell Distribution Width 15 % (10-15); White Blood Count 7.4 10^3/uL (3.5-10.8)
[2021-08-03 06:18] LABS: Calcium 8.9 mg/dL (8.6-10.3); Magnesium 1.8 mg/dL (1.9-2.7); Potassium 3.8 mmol/L (3.5-5.0); eGFR CKD-EPI 91.1 (>60)
[2021-08-03] MEDS: Cholecalciferol (VIT D3) 1,000 unit TAB PO SCH (09:06)
[2021-08-03] MEDS ORDERED: Furosemide 40 mg/4 ml IV VIAL IV ONE (09:10)
[2021-08-03] MEDS: Ammonium Lactate 12% 1 APPLIC TUBE TOPICAL SCH ×3 (10:43→21:21)
[2021-08-03] MEDS: Magnesium Hydroxide LIQ 30 ML UDC PO SCH ×3 (10:43→21:24)
[2021-08-03] MEDS ORDERED: Ammonium Lactate 12% 1 APPLIC TUBE TOPICAL SCH (14:00)
[2021-08-03] MEDS: Enoxaparin 40 MG/0.4 ML SYR SUBCUT SCH (17:41)
[2021-08-03] MEDS: SILDENAFIL 20 MG PO SCH ×3 (21:10→21:21)
[2021-08-03] MEDS: Nystatin TOP POWDER 15 GM BTL TOPICAL SCH (21:24)
[2021-08-03] MEDS: Insulin GLARGINE 100 un/ml 10 ml VIAL SUBCUT SCH (21:25)
[2021-08-03] MEDS: cefTRIAXone 1 gm/50 mL NS BAG 1 GM/50 ML BAG IVPB SCH (21:26)
[2021-08-03] MEDS: Saline NASAL SPRAY 0.65% BTL BOTH NARES PRN (21:40)
[2021-08-04] MEDS: Magnesium Hydroxide LIQ 30 ML UDC PO SCH ×3 (04:41→09:15)
[2021-08-04 06:11] LABS: Calcium 9.1 mg/dL (8.6-10.3); Potassium 3.8 mmol/L (3.5-5.0); eGFR CKD-EPI 96.6 (>60)
[2021-08-04] MEDS ORDERED: Glycerin ADULT 2.4 gm SUPP PR ONE (06:15)
[2021-08-04] MEDS ORDERED: PEG 3000 GI LAVAGE 1 GALLON PO ONE (07:46)
[2021-08-04] MEDS ORDERED: Furosemide 40 mg/4 ml IV VIAL IV ONE (08:00)
[2021-08-04] MEDS: Cholecalciferol (VIT D3) 1,000 unit TAB PO SCH (09:16)
[2021-08-04] MEDS: SILDENAFIL 20 MG PO SCH (09:18)
[2021-08-04] MEDS: Ammonium Lactate 12% 1 APPLIC TUBE TOPICAL SCH ×2 (09:19→12:46)
[2021-08-04] MEDS: Nystatin TOP POWDER 15 GM BTL TOPICAL SCH (09:19)
[2021-08-04] MEDS: Saline NASAL SPRAY 0.65% BTL BOTH NARES PRN (11:29)
[2021-08-04 13:38] VITALS: BP 99/58
== END 2021-08-04 15:10 | disposition home or self-care (01) | DRG 640 ==
LOC: ED 14:28 → EDHOLD 14:28 → SUATTDRO 17:52 → EDHOLD 20:06 → MEDTELE 20:27 → SUATTDRO 07-30 13:59 → ICU 07-30 17:51 → MEDTELE 07-31 20:28
PROVIDERS: ADMIT Internal Medicine; ATTEND Internal Medicine

== ENCOUNTER 2021-08-09 18:31 | Inpatient (IN) ==
[~2021-08-09 18:31] MED LIST: NS 0.9% 1000 ml BAG 1,000 ML IV ONE
[2021-08-09] MEDS ORDERED: NS 0.9% 1000 ml BAG 1,000 ML IV ONE (18:57)
[2021-08-09] MEDS ORDERED: Norepinephrine 16MCG/ML BAG NS 4,000 MCG/250 ML BAG IV ONE ×2 (19:01→19:08)
[2021-08-09] MEDS ORDERED: fentaNYL 100 mcg/2 ml 50 MCG/ML VIAL ONE (19:03)
[2021-08-09] MEDS: Norepinephrine 16MCG/ML BAGD5W 4,000 MCG/250 ML BAG IV SCH (19:09)
[2021-08-09] MEDS: Propofol 10 mg/ml 100 ML BTL 100 ML IV ONE ×3 (19:44→23:57)
[2021-08-09] MEDS ORDERED: ZOSYN 3.375 GM x ONE DOSE over 30 miuntes IV (20:00)
[2021-08-09] MEDS ORDERED: Vancomycin 2,000 MG in NS 0.9% 500 ml BAG 500 ML IVPB ONE (20:00)
[2021-08-09 20:06] LABS: Venous Bicarbonate HCO3 31.6 mmol/L (24-28)
[2021-08-09 20:07] LABS: ABS Lymphocytes 0.2 10^3/ul (1.0-4.8); ABS Monocytes 0.7 10^3/ul (0-0.8); ABS Neutrophils 11.7 10^3/ul (1.5-7.7); Hematocrit 45 % (42-52); Hemoglobin 14.6 g/dL (14.0-18.0); Lymphocyte % 1.8 %; Mean Corpuscular HGB Conc 32 g/dL (31-36); Mean Corpuscular Hemoglobin 30 pg (27-31); Mean Corpuscular Volume 91 fL (80-94); Mean Platelet Volume 8.8 fL (7.4-10.4); Nucleated Red Blood Cells % 0.1; Platelet Count 226 10^3/uL (150-450); Red Blood Count 4.94 10^6 /uL (4.18-5.48); Red Cell Distribution Width 15 % (10-15); White Blood Count 12.6 10^3/uL (3.5-10.8)
[2021-08-09 20:25] LABS: ALT 20 U/L (7-52); Albumin 3.1 g/dL (3.2-5.2); Alkaline Phosphatase 60 U/L (35-149); Blood Urea Nitrogen 38 mg/dL (6-24); CO2 Carbon Dioxide 35 mmol/L (22-32); Calcium 8.8 mg/dL (8.6-10.3); Chloride 91 mmol/L (101-111); Globulin 3.1 g/dL (2-4); Glucose 484 mg/dL (70-100); Sodium 134 mmol/L (135-145); Total Protein 6.2 g/dL (6.4-8.9); eGFR CKD-EPI 71.5 (>60)
[2021-08-09 20:36] LABS: Anion Gap 8 mmol/L (2-11); Troponin I 0.05 ng/mL (<0.03)
[2021-08-09] MEDS ORDERED: Iodixanol (CONTRAST) 320 MG/ML 100 ML SDV IV ONE (21:01)
[2021-08-09 21:32] LABS: Urine Appearance Cloudy; Urine Bilirubin Negative (Negative); Urine Blood 2+ (Negative); Urine Color Yellow; Urine Glucose 3+(>=500 mg/dL) (Negative); Urine Ketones Trace (Negative); Urine Nitrite Negative (Negative); Urine Protein 3+(>=500 mg/dL) (Negative); Urine Specific Gravity 1.037 (1.002-1.030); Urine Urobilinogen Positive (Negative)
[2021-08-09 21:39] LABS: Urine Bacteria Absent (Absent); Urine Red Blood Cell 2+(6-10/hpf) (Absent); Urine Sperm Present (Absent); Urine Squamous Epithelial Cell Present (Absent); Urine White Blood Cell Trace(0-5/hpf) (Absent)
[2021-08-09 22:00] LABS: Potassium Redraw 5.1 mmol/L (3.5-5.0)
[2021-08-09] MEDS ORDERED: NS 0.9% 1000 ml BAG 1,000 ML IV SCH (22:00)
[2021-08-09] MEDS ORDERED: Piperacillin/Tazobac ADVAN 3.375 GM in NS 0.9% 100 ml BAG 100 ML IV ONE (22:54)
[2021-08-09] MEDS ORDERED: Vancomycin 1,000 MG in NS 0.9% 250 ml 250 ML IVPB ONE (22:54)
[2021-08-09] MEDS ORDERED: Dextrose 50% Syringe 50 ml 25 GM/50 ML SYRINGE IV PUSH PRN ×2 (22:56→23:39)
[2021-08-09] MEDS ORDERED: Zosyn per Pharmacy NOTE FOLLOW UP SCH (23:00)
[2021-08-09] MEDS ORDERED: Vancomycin per Pharmacy 1 EA NOTE FOLLOW UP SCH (23:00)
[2021-08-09] MEDS: Insulin GLARGINE 100 un/ml 10 ml VIAL SUBCUT SCH (23:18)
[2021-08-09] MEDS ORDERED: Heparin DRIP 25,000 UNITS BAG 25,000 UNITS/500 ML BAG IV SCH (23:30)
[2021-08-09] MEDS ORDERED: Heparin 5000 UNITS/ML 1 mL VIAL IV SCH (23:45)
[2021-08-09 23:57] LABS: Blood Urea Nitrogen 37 mg/dL (6-24); Glucose Confirmatory 419 mg/dL (70-100); eGFR CKD-EPI 82.4 (>60)
[2021-08-10] MEDS ORDERED: Heparin DRIP 25,000 UNITS BAG 25,000 UNITS/500 ML BAG IV SCH
[2021-08-10 00:33] LABS: Troponin I 0.06 ng/mL (<0.03)
[2021-08-10] MEDS: Chlorhexidine MOUTHWASH 0.12% 15 ML UDC TOPICAL SCH ×7 (01:04→21:45)
[2021-08-10] MEDS: NS 0.9% 1000 ml BAG 1,000 ML IV SCH ×2 (01:42→14:03)
[2021-08-10] MEDS: ZOSYN 3.375 GM Q8H per EXTENDED INFUSION IV SCH ×3 (01:50→16:40)
[2021-08-10] MEDS: Norepinephrine 16MCG/ML BAGD5W 4,000 MCG/250 ML BAG IV SCH ×4 (02:42→21:55)
[2021-08-10] MEDS: Propofol 10 mg/ml 100 ML BTL 100 ML IV SCH ×5 (04:30→23:20)
[2021-08-10 04:37] LABS: ABS Basophils 0.1 10^3/ul (0-0.2); ABS Eosinophils 0.1 10^3/ul (0-0.6); ABS Neutrophils 14.6 10^3/ul (1.5-7.7); Eosinophil % 0.4 %; Hematocrit 46 % (42-52); Hemoglobin 15.1 g/dL (14.0-18.0); Mean Corpuscular HGB Conc 33 g/dL (31-36); Mean Corpuscular Hemoglobin 29 pg (27-31); Mean Corpuscular Volume 88 fL (80-94); Mean Platelet Volume 8.8 fL (7.4-10.4); Platelet Count 235 10^3/uL (150-450); Red Blood Count 5.18 10^6 /uL (4.18-5.48); Red Cell Distribution Width 15 % (10-15); White Blood Count 16.8 10^3/uL (3.5-10.8)
[2021-08-10 04:54] LABS: Anion Gap 10 mmol/L (2-11); Blood Urea Nitrogen 34 mg/dL (6-24); CO2 Carbon Dioxide 34 mmol/L (22-32); Chloride 92 mmol/L (101-111); Glucose 312 mg/dL (70-100); Potassium 3.6 mmol/L (3.5-5.0); Sodium 136 mmol/L (135-145); eGFR CKD-EPI 89.2 (>60)
[2021-08-10 05:01] LABS: Troponin I 0.07 ng/mL (<0.03)
[2021-08-10] MEDS ORDERED: Hydrocortisone INJ 100 MG/2ML 2 ML VIAL IV ONE (08:00)
[2021-08-10] MEDS: Pantoprazole VIAL 40 MG VIAL IV SCH (09:16)
[2021-08-10] MEDS: Nystatin TOP POWDER 15 GM BTL TOPICAL SCH (09:17)
[2021-08-10] MEDS: Ammonium Lactate 12% 1 APPLIC TUBE TOPICAL SCH (09:17)
[2021-08-10] MEDS: CMCS: Sildenafil (PULMONARY)20mg(NF) PO SCH ×3 (10:38→21:44)
[2021-08-10] MEDS: Vancomycin 1,250 MG in NS 0.9% 250 ml 250 ML IVPB SCH ×2 (10:38→21:45)
[2021-08-10] MEDS: Hydrocortisone INJ 100 MG/2ML 2 ML VIAL IV SCH (16:40)
[2021-08-10] MEDS: Insulin GLARGINE 100 un/ml 10 ml VIAL SUBCUT SCH (21:44)
[2021-08-10] MEDS ORDERED: Norepinephrine 16MCG/ML BAG NS 4,000 MCG/250 ML BAG IV SCH (23:45)
[2021-08-11] MEDS: Hydrocortisone INJ 100 MG/2ML 2 ML VIAL IV SCH ×4 (00:52→23:14)
[2021-08-11] MEDS: ZOSYN 3.375 GM Q8H per EXTENDED INFUSION IV SCH ×3 (01:29→17:25)
[2021-08-11] MEDS: Chlorhexidine MOUTHWASH 0.12% 15 ML UDC TOPICAL SCH ×6 (01:34→20:09)
[2021-08-11] MEDS: Nystatin TOP POWDER 15 GM BTL TOPICAL SCH ×3 (02:52→20:05)
[2021-08-11] MEDS: Propofol 10 mg/ml 100 ML BTL 100 ML IV SCH ×6 (03:02→22:25)
[2021-08-11 05:30] LABS: ABS Lymphocytes 0.5 10^3/ul (1.0-4.8); ABS Monocytes 0.8 10^3/ul (0-0.8); ABS Neutrophils 12.6 10^3/ul (1.5-7.7); Eosinophil % 0.1 %; Hematocrit 40 % (42-52); Hemoglobin 13.3 g/dL (14.0-18.0); Lymphocyte % 3.4 %; Mean Corpuscular HGB Conc 33 g/dL (31-36); Mean Corpuscular Hemoglobin 29 pg (27-31); Mean Corpuscular Volume 88 fL (80-94); Mean Platelet Volume 8.8 fL (7.4-10.4); Platelet Count 173 10^3/uL (150-450); Red Blood Count 4.55 10^6 /uL (4.18-5.48); Red Cell Distribution Width 15 % (10-15); White Blood Count 13.9 10^3/uL (3.5-10.8)
[2021-08-11 05:50] LABS: Digoxin 0.8 ng/ml (0.8-2.0)
[2021-08-11 05:51] LABS: Blood Urea Nitrogen 27 mg/dL (6-24); CO2 Carbon Dioxide 36 mmol/L (22-32); Calcium 8.3 mg/dL (8.6-10.3); Chloride 95 mmol/L (101-111); Glucose 301 mg/dL (70-100); Sodium 136 mmol/L (135-145); eGFR CKD-EPI 92.6 (>60)
[2021-08-11 06:06] LABS: Anion Gap 5 mmol/L (2-11)
[2021-08-11 07:58] LABS: Potassium 3.9 mmol/L (3.5-5.0)
[2021-08-11 07:59] LABS: Phosphorus 2.6 mg/dL (2.5-5.0)
[2021-08-11] MEDS ORDERED: Vancomycin Trough Check NOTE FOLLOW UP ONE (08:30)
[2021-08-11] MEDS: Digoxin LIQ ORALSYR 0.05 MG/ML 1 ML NG TUBE SCH (08:56)
[2021-08-11] MEDS: Vancomycin 1,250 MG in NS 0.9% 250 ml 250 ML IVPB SCH ×2 (08:56→20:08)
[2021-08-11] MEDS: Pantoprazole VIAL 40 MG VIAL IV SCH (08:56)
[2021-08-11] MEDS: CMCS: Sildenafil (PULMONARY)20mg(NF) PO SCH ×3 (08:56→20:05)
[2021-08-11] MEDS: Ammonium Lactate 12% 1 APPLIC TUBE TOPICAL SCH (08:57)
[2021-08-11 09:34] LABS: Troponin I 0.04 ng/mL (<0.03)
[2021-08-11 09:53] LABS: Potassium Redraw 3.9 mmol/L (3.5-5.0)
[2021-08-11 09:59] LABS: Phosphorus 2.6 mg/dL (2.5-5.0)
[2021-08-11] MEDS: Insulin GLARGINE 100 un/ml 10 ml VIAL SUBCUT SCH (20:08)
[2021-08-11] MEDS ORDERED: Furosemide 40 mg/4 ml IV VIAL IV ONE (21:36)
[2021-08-12] MEDS: ZOSYN 3.375 GM Q8H per EXTENDED INFUSION IV SCH ×3 (00:18→16:12)
[2021-08-12] MEDS: Chlorhexidine MOUTHWASH 0.12% 15 ML UDC TOPICAL SCH ×6 (00:18→20:07)
[2021-08-12] MEDS: Propofol 10 mg/ml 100 ML BTL 100 ML IV SCH ×5 (01:52→23:06)
[2021-08-12] MEDS: Acetaminophen IV 1 GM/100ML 100 ML IV PRN (01:59)
[2021-08-12 04:20] LABS: ABS Lymphocytes 0.4 10^3/ul (1.0-4.8); ABS Monocytes 0.5 10^3/ul (0-0.8); ABS Neutrophils 7.6 10^3/ul (1.5-7.7); Eosinophil % 0.2 %; Hematocrit 39 % (42-52); Hemoglobin 12.8 g/dL (14.0-18.0); Lymphocyte % 4.8 %; Mean Corpuscular HGB Conc 33 g/dL (31-36); Mean Corpuscular Hemoglobin 29 pg (27-31); Mean Corpuscular Volume 88 fL (80-94); Mean Platelet Volume 9.2 fL (7.4-10.4); Platelet Count 157 10^3/uL (150-450); Red Blood Count 4.41 10^6 /uL (4.18-5.48); Red Cell Distribution Width 15 % (10-15); White Blood Count 8.6 10^3/uL (3.5-10.8)
[2021-08-12 04:37] LABS: Calcium 8.2 mg/dL (8.6-10.3); Phosphorus 2.9 mg/dL (2.5-5.0); Potassium 3.8 mmol/L (3.5-5.0); eGFR CKD-EPI 91.8 (>60)
[2021-08-12 06:01] LABS: PCO2 Arterial 51 mmHg (35-45); PO2 Arterial 113 mmHg (80-100)
[2021-08-12] MEDS: Vancomycin 1,250 MG in NS 0.9% 250 ml 250 ML IVPB SCH ×2 (08:27→20:07)
[2021-08-12] MEDS: Nystatin TOP POWDER 15 GM BTL TOPICAL SCH ×2 (08:28→20:09)
[2021-08-12] MEDS: Hydrocortisone INJ 100 MG/2ML 2 ML VIAL IV SCH ×3 (08:28→23:06)
[2021-08-12] MEDS: Pantoprazole VIAL 40 MG VIAL IV SCH (08:28)
[2021-08-12] MEDS: Digoxin LIQ ORALSYR 0.05 MG/ML 1 ML NG TUBE SCH (08:28)
[2021-08-12] MEDS: Ammonium Lactate 12% 1 APPLIC TUBE TOPICAL SCH (08:28)
[2021-08-12] MEDS: CMCS: Sildenafil (PULMONARY)20mg(NF) PO SCH ×3 (08:30→20:07)
[2021-08-12] MEDS ORDERED: Furosemide 40 mg/4 ml IV VIAL IV SLOW PU ONE (09:34)
[2021-08-12] MEDS ORDERED: fentaNYL 100 mcg/2 ml 50 MCG/ML VIAL ONE (14:13)
[2021-08-12] MEDS: fentaNYL 100 mcg/2 ml 50 MCG/ML VIAL IV SLOW PU PRN (14:15)
[2021-08-12] MEDS: Insulin GLARGINE 100 un/ml 10 ml VIAL SUBCUT SCH (20:09)
[2021-08-13] MEDS: Chlorhexidine MOUTHWASH 0.12% 15 ML UDC TOPICAL SCH ×6 (00:03→20:40)
[2021-08-13] MEDS: ZOSYN 3.375 GM Q8H per EXTENDED INFUSION IV SCH ×3 (00:03→16:36)
[2021-08-13] MEDS: fentaNYL 100 mcg/2 ml 50 MCG/ML VIAL IV SLOW PU PRN (02:24)
[2021-08-13] MEDS: Propofol 10 mg/ml 100 ML BTL 100 ML IV SCH ×6 (02:26→22:21)
[2021-08-13 04:14] LABS: ABS Lymphocytes 0.4 10^3/ul (1.0-4.8); ABS Monocytes 0.5 10^3/ul (0-0.8); ABS Neutrophils 6.4 10^3/ul (1.5-7.7); Eosinophil % 0.4 %; Hematocrit 37 % (42-52); Hemoglobin 12.2 g/dL (14.0-18.0); Lymphocyte % 5.3 %; Mean Corpuscular HGB Conc 33 g/dL (31-36); Mean Corpuscular Hemoglobin 30 pg (27-31); Mean Corpuscular Volume 89 fL (80-94); Mean Platelet Volume 9.3 fL (7.4-10.4); Nucleated Red Blood Cells % 0.1; Platelet Count 148 10^3/uL (150-450); Red Blood Count 4.14 10^6 /uL (4.18-5.48); Red Cell Distribution Width 15 % (10-15); White Blood Count 7.3 10^3/uL (3.5-10.8)
[2021-08-13 04:29] LABS: Calcium 8.1 mg/dL (8.6-10.3); Magnesium 2.1 mg/dL (1.9-2.7); Phosphorus 3.3 mg/dL (2.5-5.0); Potassium 3.9 mmol/L (3.5-5.0); eGFR CKD-EPI 92.2 (>60)
[2021-08-13] MEDS ORDERED: Furosemide 40 mg/4 ml IV VIAL IV ONE (07:28)
[2021-08-13] MEDS: Hydrocortisone INJ 100 MG/2ML 2 ML VIAL IV SCH ×2 (07:45→20:40)
[2021-08-13] MEDS: Ammonium Lactate 12% 1 APPLIC TUBE TOPICAL SCH (07:46)
[2021-08-13] MEDS: Digoxin LIQ ORALSYR 0.05 MG/ML 1 ML NG TUBE SCH (07:47)
[2021-08-13] MEDS: Pantoprazole VIAL 40 MG VIAL IV SCH (07:47)
[2021-08-13] MEDS: Nystatin TOP POWDER 15 GM BTL TOPICAL SCH ×2 (07:47→19:44)
[2021-08-13] MEDS: CMCS: Sildenafil (PULMONARY)20mg(NF) PO SCH ×3 (08:35→19:44)
[2021-08-13] MEDS: Vancomycin 1,250 MG in NS 0.9% 250 ml 250 ML IVPB SCH ×2 (08:35→19:43)
[2021-08-13] MEDS: Lactulose 30 ml UDC NG TUBE SCH ×2 (15:15→19:43)
[2021-08-13 16:52] LABS: Calcium 8.4 mg/dL (8.6-10.3); Magnesium 2.1 mg/dL (1.9-2.7); Potassium 3.7 mmol/L (3.5-5.0); eGFR CKD-EPI 90.1 (>60)
[2021-08-13] MEDS ORDERED: Potassium Chloride LIQUID 20 MEQ/15 ML LIQUID PO ONE (17:01)
[2021-08-13] MEDS ORDERED: Insulin GLARGINE 100 un/ml 10 ml VIAL SUBCUT SCH (21:00)
[2021-08-13] MEDS: Acetaminophen IV 1 GM/100ML 100 ML IV PRN (21:34)
[2021-08-13] MEDS ORDERED: Furosemide 100 mg/10 ml IV VIAL IV ONE (23:30)
[2021-08-14] MEDS: Chlorhexidine MOUTHWASH 0.12% 15 ML UDC TOPICAL SCH ×5 (00:07→17:49)
[2021-08-14] MEDS: ZOSYN 3.375 GM Q8H per EXTENDED INFUSION IV SCH ×3 (00:07→17:30)
[2021-08-14] MEDS: Propofol 10 mg/ml 100 ML BTL 100 ML IV SCH ×2 (02:34→05:23)
[2021-08-14 04:07] LABS: ABS Eosinophils 0.1 10^3/ul (0-0.6); ABS Lymphocytes 0.5 10^3/ul (1.0-4.8); ABS Monocytes 0.6 10^3/ul (0-0.8); ABS Neutrophils 6.2 10^3/ul (1.5-7.7); Hematocrit 39 % (42-52); Lymphocyte % 6.3 %; Mean Corpuscular HGB Conc 33 g/dL (31-36); Mean Corpuscular Hemoglobin 30 pg (27-31); Mean Corpuscular Volume 90 fL (80-94); Mean Platelet Volume 9.3 fL (7.4-10.4); Platelet Count 150 10^3/uL (150-450); Red Cell Distribution Width 15 % (10-15); White Blood Count 7.3 10^3/uL (3.5-10.8)
[2021-08-14 04:25] LABS: Calcium 8.5 mg/dL (8.6-10.3); Phosphorus 3.7 mg/dL (2.5-5.0); Potassium 3.4 mmol/L (3.5-5.0); eGFR CKD-EPI 92.2 (>60)
[2021-08-14] MEDS: KCL 20 MEQ/100 ML IVPREMIX 20 MEQ/100 ML BAG IV SCH ×2 (04:49→06:35)
[2021-08-14] MEDS: Ammonium Lactate 12% 1 APPLIC TUBE TOPICAL SCH (07:39)
[2021-08-14] MEDS: Nystatin TOP POWDER 15 GM BTL TOPICAL SCH ×2 (07:39→21:35)
[2021-08-14] MEDS ORDERED: Potassium Chloride LIQUID 20 MEQ/15 ML LIQUID PO ONE (07:42)
[2021-08-14] MEDS ORDERED: Furosemide 40 mg/4 ml IV VIAL IV ONE ×2 (08:45→10:58)
[2021-08-14] MEDS: Lactulose 30 ml UDC NG TUBE SCH ×3 (09:05→19:29)
[2021-08-14] MEDS: Vancomycin 1,250 MG in NS 0.9% 250 ml 250 ML IVPB SCH ×2 (09:06→21:37)
[2021-08-14] MEDS: CMCS: Sildenafil (PULMONARY)20mg(NF) PO SCH ×3 (09:08→19:28)
[2021-08-14] MEDS: Digoxin LIQ ORALSYR 0.05 MG/ML 1 ML NG TUBE SCH (09:08)
[2021-08-14] MEDS: Hydrocortisone INJ 100 MG/2ML 2 ML VIAL IV SCH (10:46)
[2021-08-14] MEDS ORDERED: Lorazepam PYXIS KEY PRN (11:44)
[2021-08-14] MEDS: LORazepam 2 mg VIAL 1 ml IV PUSH PRN (11:59)
[2021-08-14] MEDS: methylPREDNISolone SOD 40 mg/ml 1 ml VIAL IV SCH (17:49)
[2021-08-14] MEDS: Insulin GLARGINE 100 un/ml 10 ml VIAL SUBCUT SCH (21:35)
[2021-08-14] MEDS: fentaNYL 100 mcg/2 ml 50 MCG/ML VIAL IV SLOW PU PRN (22:49)
[2021-08-15] MEDS: ZOSYN 3.375 GM Q8H per EXTENDED INFUSION IV SCH ×3 (00:53→16:34)
[2021-08-15] MEDS: LORazepam 2 mg VIAL 1 ml IV PUSH PRN ×2 (00:53→23:41)
[2021-08-15 04:55] LABS: Calcium 8.7 mg/dL (8.6-10.3); Magnesium 1.9 mg/dL (1.9-2.7); Phosphorus 3.9 mg/dL (2.5-5.0); Potassium 3.4 mmol/L (3.5-5.0); eGFR CKD-EPI 99.9 (>60)
[2021-08-15] MEDS: methylPREDNISolone SOD 40 mg/ml 1 ml VIAL IV SCH ×2 (05:22→16:33)
[2021-08-15 05:42] LABS: PCO2 Arterial 63 mmHg (35-45); PO2 Arterial 117 mmHg (80-100)
[2021-08-15] MEDS ORDERED: KCL 20 MEQ/100 ML IVPREMIX 20 MEQ/100 ML BAG IV ONE (07:21)
[2021-08-15] MEDS: KCL 20 MEQ/100 ML IVPREMIX 20 MEQ/100 ML BAG IV SCH ×5 (08:01→23:41)
[2021-08-15] MEDS: Digoxin LIQ ORALSYR 0.05 MG/ML 1 ML NG TUBE SCH (08:02)
[2021-08-15] MEDS: Lactulose 30 ml UDC NG TUBE SCH (08:02)
[2021-08-15] MEDS: CMCS: Sildenafil (PULMONARY)20mg(NF) PO SCH ×3 (08:03→19:36)
[2021-08-15] MEDS: Nystatin TOP POWDER 15 GM BTL TOPICAL SCH ×2 (08:04→21:39)
[2021-08-15] MEDS: Ammonium Lactate 12% 1 APPLIC TUBE TOPICAL SCH (08:04)
[2021-08-15] MEDS ORDERED: Vancomycin Trough Check NOTE FOLLOW UP ONE (08:30)
[2021-08-15] MEDS ORDERED: Potassium Chlor 20 meq TAB.ER PO SCH (09:00)
[2021-08-15] MEDS: Vancomycin 1,250 MG in NS 0.9% 250 ml 250 ML IVPB SCH ×2 (10:49→21:30)
[2021-08-15 19:11] LABS: Urine Appearance Turbid; Urine Bacteria Absent (Absent); Urine Bilirubin Negative (Negative); Urine Blood 2+ (Negative); Urine Color Red; Urine Glucose Negative (Negative); Urine Ketones Negative (Negative); Urine Nitrite Negative (Negative); Urine Protein 2+(100 mg/dL) (Negative); Urine Red Blood Cell Absent (Absent); Urine Urobilinogen Negative (Negative); Urine White Blood Cell Absent (Absent)
[2021-08-15 19:22] LABS: Calcium 9.1 mg/dL (8.6-10.3); Potassium 3.8 mmol/L (3.5-5.0); eGFR CKD-EPI 94.1 (>60)
[2021-08-15] MEDS: Senna TAB 8.6 mg TAB PO SCH (19:37)
[2021-08-15] MEDS ORDERED: NS 0.9% 250 ml 250 ML IV ONE (20:55)
[2021-08-15] MEDS ORDERED: acetaZOLAMIDE IV 500 MG in NS 0.9% 50 ML 50 ML IVPB ONE (21:01)
[2021-08-15] MEDS: Insulin GLARGINE 100 un/ml 10 ml VIAL SUBCUT SCH (21:47)
[2021-08-16] MEDS: KCL 20 MEQ/100 ML IVPREMIX 20 MEQ/100 ML BAG IV SCH ×5 (01:53→16:09)
[2021-08-16 04:22] LABS: ABS Eosinophils 0.1 10^3/ul (0-0.6); ABS Lymphocytes 0.6 10^3/ul (1.0-4.8); ABS Monocytes 0.9 10^3/ul (0-0.8); ABS Neutrophils 7.7 10^3/ul (1.5-7.7); Eosinophil % 1.5 %; Hematocrit 39 % (42-52); Hemoglobin 12.9 g/dL (14.0-18.0); Lymphocyte % 6.4 %; Mean Corpuscular HGB Conc 33 g/dL (31-36); Mean Corpuscular Hemoglobin 30 pg (27-31); Mean Corpuscular Volume 90 fL (80-94); Mean Platelet Volume 9.2 fL (7.4-10.4); Platelet Count 177 10^3/uL (150-450); Red Cell Distribution Width 15 % (10-15); White Blood Count 9.3 10^3/uL (3.5-10.8)
[2021-08-16 04:38] LABS: Calcium 8.7 mg/dL (8.6-10.3); Potassium 3.6 mmol/L (3.5-5.0); eGFR CKD-EPI 100.4 (>60)
[2021-08-16] MEDS: methylPREDNISolone SOD 40 mg/ml 1 ml VIAL IV SCH (05:45)
[2021-08-16 06:04] LABS: PCO2 Arterial 68 mmHg (35-45); PO2 Arterial 104 mmHg (80-100)
[2021-08-16] MEDS: Polyethylene Glycol 3350 17 GM PACKET PO SCH (09:00)
[2021-08-16] MEDS: CMCS: Sildenafil (PULMONARY)20mg(NF) PO SCH ×3 (09:01→21:45)
[2021-08-16] MEDS: Nystatin TOP POWDER 15 GM BTL TOPICAL SCH ×2 (09:02→21:45)
[2021-08-16] MEDS: Ammonium Lactate 12% 1 APPLIC TUBE TOPICAL SCH (09:03)
[2021-08-16] MEDS: Digoxin LIQ ORALSYR 0.05 MG/ML 1 ML PO SCH (09:06)
[2021-08-16] MEDS: Vancomycin 1,250 MG in NS 0.9% 250 ml 250 ML IVPB SCH ×2 (09:07→21:27)
[2021-08-16] MEDS: Lansoprazole SUSP ORALSYR 3 MG/ML PO SCH (09:07)
[2021-08-16] MEDS: LORazepam 2 mg VIAL 1 ml IV PUSH PRN (10:45)
[2021-08-16] MEDS ORDERED: NS 0.9% 500 ml BAG 500 ML IV ONE (11:26)
[2021-08-16 11:48] LABS: Urine Appearance Turbid; Urine Bilirubin Negative (Negative); Urine Blood 2+ (Negative); Urine Color Amber; Urine Glucose Negative (Negative); Urine Ketones Negative (Negative); Urine Nitrite Negative (Negative); Urine Protein 1+(30 mg/dL) (Negative); Urine Specific Gravity 1.025 (1.002-1.030); Urine Urobilinogen Positive (Negative)
[2021-08-16 11:54] LABS: Urine Bacteria 1+ (Absent); Urine Red Blood Cell 3+(>10/hpf) (Absent); Urine Squamous Epithelial Cell Present (Absent); Urine White Blood Cell 3+(>20/hpf) (Absent); Urine Yeast Present (Absent)
[2021-08-16] MEDS: Insulin GLARGINE 100 un/ml 10 ml VIAL SUBCUT SCH (21:04)
[2021-08-16] MEDS: Senna TAB 8.6 mg TAB PO SCH (21:05)
[2021-08-17] MEDS: CMCS: Sildenafil (PULMONARY)20mg(NF) PO SCH ×3 (08:26→21:33)
[2021-08-17] MEDS: Polyethylene Glycol 3350 17 GM PACKET PO SCH (08:28)
[2021-08-17] MEDS: Lansoprazole SUSP ORALSYR 3 MG/ML PO SCH (09:52)
[2021-08-17] MEDS: Digoxin LIQ ORALSYR 0.05 MG/ML 1 ML PO SCH (09:52)
[2021-08-17] MEDS: Vancomycin 1,250 MG in NS 0.9% 250 ml 250 ML IVPB SCH ×2 (10:37→21:30)
[2021-08-17] MEDS: Nystatin TOP POWDER 15 GM BTL TOPICAL SCH ×2 (12:43→21:39)
[2021-08-17] MEDS: Ammonium Lactate 12% 1 APPLIC TUBE TOPICAL SCH (12:44)
[2021-08-17] MEDS: LORazepam 2 mg VIAL 1 ml IV PUSH PRN (14:40)
[2021-08-17] MEDS ORDERED: Furosemide 40 mg/4 ml IV VIAL IV SLOW PU ONE (18:28)
[2021-08-17] MEDS: Senna TAB 8.6 mg TAB PO SCH (21:06)
[2021-08-17] MEDS: Insulin GLARGINE 100 un/ml 10 ml VIAL SUBCUT SCH (21:11)
[2021-08-18 06:45] LABS: ABS Eosinophils 0.4 10^3/ul (0-0.6); ABS Lymphocytes 0.6 10^3/ul (1.0-4.8); ABS Monocytes 0.8 10^3/ul (0-0.8); ABS Neutrophils 5.1 10^3/ul (1.5-7.7); Eosinophil % 5.6 %; Hematocrit 38 % (42-52); Hemoglobin 12.5 g/dL (14.0-18.0); Lymphocyte % 8.9 %; Mean Corpuscular HGB Conc 33 g/dL (31-36); Mean Corpuscular Hemoglobin 30 pg (27-31); Mean Corpuscular Volume 90 fL (80-94); Mean Platelet Volume 9.3 fL (7.4-10.4); Platelet Count 186 10^3/uL (150-450); Red Blood Count 4.26 10^6 /uL (4.18-5.48); Red Cell Distribution Width 15 % (10-15); White Blood Count 6.9 10^3/uL (3.5-10.8)
[2021-08-18 07:08] LABS: Calcium 8.5 mg/dL (8.6-10.3); Potassium 3.3 mmol/L (3.5-5.0); eGFR CKD-EPI 95.7 (>60)
[2021-08-18] MEDS ORDERED: Vancomycin Trough Check NOTE FOLLOW UP ONE (08:30)
[2021-08-18] MEDS: CMCS: Sildenafil (PULMONARY)20mg(NF) PO SCH ×3 (09:06→21:36)
[2021-08-18] MEDS: Polyethylene Glycol 3350 17 GM PACKET PO SCH (09:10)
[2021-08-18] MEDS: Ammonium Lactate 12% 1 APPLIC TUBE TOPICAL SCH (09:11)
[2021-08-18] MEDS: Nystatin TOP POWDER 15 GM BTL TOPICAL SCH ×2 (09:11→21:38)
[2021-08-18] MEDS: Vancomycin 1,250 MG in NS 0.9% 250 ml 250 ML IVPB SCH ×2 (09:16→09:26)
[2021-08-18] MEDS: Lansoprazole SUSP ORALSYR 3 MG/ML PO SCH (09:16)
[2021-08-18] MEDS ORDERED: Potassium EFFERVES 25 meq TAB PO ONE (11:06)
[2021-08-18] MEDS: Digoxin LIQ ORALSYR 0.05 MG/ML 1 ML PO SCH (12:48)
[2021-08-18] MEDS ORDERED: Iodixanol (CONTRAST) 320 MG/ML 100 ML SDV IV ONE (17:46)
[2021-08-18] MEDS: Vancomycin 1000 MG in NS 0.9% 250 ML IVPB SCH (18:17)
[2021-08-18] MEDS ORDERED: Insulin GLARGINE 100 un/ml 10 ml VIAL SUBCUT SCH (21:00)
[2021-08-18] MEDS: Senna TAB 8.6 mg TAB PO SCH (21:36)
[2021-08-19 05:26] LABS: ABS Eosinophils 0.3 10^3/ul (0-0.6); ABS Lymphocytes 0.5 10^3/ul (1.0-4.8); ABS Monocytes 0.7 10^3/ul (0-0.8); ABS Neutrophils 5.7 10^3/ul (1.5-7.7); Eosinophil % 3.8 %; Hematocrit 39 % (42-52); Hemoglobin 13.2 g/dL (14.0-18.0); Mean Corpuscular HGB Conc 34 g/dL (31-36); Mean Corpuscular Hemoglobin 30 pg (27-31); Mean Corpuscular Volume 89 fL (80-94); Mean Platelet Volume 9.1 fL (7.4-10.4); Platelet Count 191 10^3/uL (150-450); Red Blood Count 4.38 10^6 /uL (4.18-5.48); Red Cell Distribution Width 15 % (10-15); White Blood Count 7.2 10^3/uL (3.5-10.8)
[2021-08-19] MEDS: Vancomycin 1000 MG in NS 0.9% 250 ML IVPB SCH ×2 (05:38→17:43)
[2021-08-19 05:42] LABS: Calcium 8.9 mg/dL (8.6-10.3); Magnesium 2.1 mg/dL (1.9-2.7); Potassium 3.5 mmol/L (3.5-5.0); eGFR CKD-EPI 100.4 (>60)
[2021-08-19] MEDS: Ammonium Lactate 12% 1 APPLIC TUBE TOPICAL SCH (09:38)
[2021-08-19] MEDS: Nystatin TOP POWDER 15 GM BTL TOPICAL SCH ×2 (09:38→21:29)
[2021-08-19] MEDS: CMCS: Sildenafil (PULMONARY)20mg(NF) PO SCH ×3 (09:39→21:19)
[2021-08-19 09:40] LABS: PCO2 Arterial 71 mmHg (35-45); PO2 Arterial 100 mmHg (80-100)
[2021-08-19] MEDS: Polyethylene Glycol 3350 17 GM PACKET PO SCH (09:41)
[2021-08-19] MEDS: Lansoprazole SUSP ORALSYR 3 MG/ML PO SCH (09:50)
[2021-08-19] MEDS: Digoxin LIQ ORALSYR 0.05 MG/ML 1 ML PO SCH (09:50)
[2021-08-19 16:55] LABS: Hematocrit 38 % (42-52); Hemoglobin 12.6 g/dL (14.0-18.0)
[2021-08-19] MEDS ORDERED: Insulin GLARGINE 100 un/ml 10 ml VIAL SUBCUT SCH (21:00)
[2021-08-19] MEDS: Senna TAB 8.6 mg TAB PO SCH (21:29)
[2021-08-19 22:16] LABS: Hematocrit 38 % (42-52); Hemoglobin 12.5 g/dL (14.0-18.0)
[2021-08-20] MEDS: LORazepam 2 mg VIAL 1 ml IV PUSH PRN (05:03)
[2021-08-20 05:22] LABS: ABS Basophils 0.1 10^3/ul (0-0.2); ABS Eosinophils 0.3 10^3/ul (0-0.6); ABS Lymphocytes 0.4 10^3/ul (1.0-4.8); ABS Monocytes 0.6 10^3/ul (0-0.8); ABS Neutrophils 4.8 10^3/ul (1.5-7.7); Eosinophil % 5.4 %; Hematocrit 35 % (42-52); Hemoglobin 11.6 g/dL (14.0-18.0); Lymphocyte % 6.9 %; Mean Corpuscular HGB Conc 33 g/dL (31-36); Mean Corpuscular Hemoglobin 30 pg (27-31); Mean Corpuscular Volume 90 fL (80-94); Mean Platelet Volume 9.3 fL (7.4-10.4); Platelet Count 199 10^3/uL (150-450); Red Blood Count 3.94 10^6 /uL (4.18-5.48); Red Cell Distribution Width 15 % (10-15); White Blood Count 6.3 10^3/uL (3.5-10.8)
[2021-08-20] MEDS ORDERED: Vancomycin Trough Check NOTE FOLLOW UP ONE (05:30)
[2021-08-20 05:48] LABS: Calcium 8.6 mg/dL (8.6-10.3); Magnesium 1.8 mg/dL (1.9-2.7); Potassium 3.1 mmol/L (3.5-5.0); eGFR CKD-EPI 102.6 (>60)
[2021-08-20 06:03] LABS: PCO2 Arterial 67 mmHg (35-45); PO2 Arterial 100 mmHg (80-100)
[2021-08-20] MEDS: Vancomycin 1000 MG in NS 0.9% 250 ML IVPB SCH ×2 (08:00→20:55)
[2021-08-20] MEDS: Polyethylene Glycol 3350 17 GM PACKET PO SCH (09:23)
[2021-08-20] MEDS: CMCS: Sildenafil (PULMONARY)20mg(NF) PO SCH ×3 (09:25→20:56)
[2021-08-20] MEDS: Nystatin TOP POWDER 15 GM BTL TOPICAL SCH ×2 (10:07→21:20)
[2021-08-20] MEDS: Ammonium Lactate 12% 1 APPLIC TUBE TOPICAL SCH (10:07)
[2021-08-20] MEDS: Lansoprazole SUSP ORALSYR 3 MG/ML PO SCH (10:07)
[2021-08-20] MEDS: Digoxin LIQ ORALSYR 0.05 MG/ML 1 ML PO SCH (10:15)
[2021-08-20] MEDS ORDERED: Potassium EFFERVES 25 meq TAB PO ONE (11:42)
[2021-08-20] MEDS ORDERED: Silver Nitrate/Potassium Nitr 1 PAK (1 PAK PER PATIENT) ONE (16:59)
[2021-08-20] MEDS: Senna TAB 8.6 mg TAB PO SCH (20:55)
[2021-08-21] MEDS: LORazepam 2 mg VIAL 1 ml IV PUSH PRN ×2 (04:01→22:53)
[2021-08-21 04:30] LABS: ABS Basophils 0.1 10^3/ul (0-0.2); ABS Eosinophils 0.3 10^3/ul (0-0.6); ABS Lymphocytes 0.6 10^3/ul (1.0-4.8); ABS Monocytes 0.6 10^3/ul (0-0.8); ABS Neutrophils 5.4 10^3/ul (1.5-7.7); Eosinophil % 4.7 %; Hematocrit 34 % (42-52); Hemoglobin 11.3 g/dL (14.0-18.0); Lymphocyte % 8.1 %; Mean Corpuscular HGB Conc 33 g/dL (31-36); Mean Corpuscular Hemoglobin 30 pg (27-31); Mean Corpuscular Volume 90 fL (80-94); Mean Platelet Volume 9.1 fL (7.4-10.4); Platelet Count 213 10^3/uL (150-450); Red Blood Count 3.81 10^6 /uL (4.18-5.48); Red Cell Distribution Width 15 % (10-15); White Blood Count 6.9 10^3/uL (3.5-10.8)
[2021-08-21 04:46] LABS: Calcium 8.6 mg/dL (8.6-10.3); Magnesium 1.9 mg/dL (1.9-2.7); Potassium 3.1 mmol/L (3.5-5.0); eGFR CKD-EPI 102.1 (>60)
[2021-08-21 06:22] LABS: PCO2 Arterial 61 mmHg (35-45); PO2 Arterial 99 mmHg (80-100)
[2021-08-21] MEDS ORDERED: Perflutren Lipid Microsphere 3 ML VIAL ONE (09:00)
[2021-08-21] MEDS ORDERED: Potassium Chloride LIQUID 20 MEQ/15 ML LIQUID PO ONE (09:04)
[2021-08-21] MEDS: Vancomycin 1000 MG in NS 0.9% 250 ML IVPB SCH (09:28)
[2021-08-21] MEDS: CMCS: Sildenafil (PULMONARY)20mg(NF) PO SCH ×3 (09:33→21:28)
[2021-08-21] MEDS: Lansoprazole SUSP ORALSYR 3 MG/ML PO SCH (09:34)
[2021-08-21] MEDS: Polyethylene Glycol 3350 17 GM PACKET PO SCH (09:34)
[2021-08-21] MEDS: Digoxin LIQ ORALSYR 0.05 MG/ML 1 ML PO SCH (09:34)
[2021-08-21] MEDS: Ammonium Lactate 12% 1 APPLIC TUBE TOPICAL SCH (09:35)
[2021-08-21] MEDS: Nystatin TOP POWDER 15 GM BTL TOPICAL SCH ×2 (09:35→21:33)
[2021-08-21] MEDS: KCL 20 MEQ/100 ML IVPREMIX 20 MEQ/100 ML BAG IV SCH ×2 (11:55→14:54)
[2021-08-21] MEDS: Amoxicillin/Clavul 875/125 TAB (Augmentin 875 tab) PO SCH (21:32)
[2021-08-21] MEDS: Senna TAB 8.6 mg TAB PO SCH (21:33)
[2021-08-21] MEDS: Insulin GLARGINE 100 un/ml 10 ml VIAL SUBCUT SCH (21:33)
[2021-08-22 06:28] LABS: Calcium 8.7 mg/dL (8.6-10.3); Potassium 3.3 mmol/L (3.5-5.0); eGFR CKD-EPI 99.4 (>60)
[2021-08-22] MEDS: Polyethylene Glycol 3350 17 GM PACKET PO SCH (08:03)
[2021-08-22] MEDS: CMCS: Sildenafil (PULMONARY)20mg(NF) PO SCH ×3 (08:19→20:17)
[2021-08-22] MEDS: Lansoprazole SUSP ORALSYR 3 MG/ML PO SCH (08:25)
[2021-08-22] MEDS: Nystatin TOP POWDER 15 GM BTL TOPICAL SCH ×2 (08:26→20:19)
[2021-08-22] MEDS: Amoxicillin/Clavul 875/125 TAB (Augmentin 875 tab) PO SCH ×2 (08:26→20:18)
[2021-08-22] MEDS: Ammonium Lactate 12% 1 APPLIC TUBE TOPICAL SCH (09:48)
[2021-08-22] MEDS ORDERED: Potassium EFFERVES 25 meq TAB PO ONE (09:49)
[2021-08-22] MEDS: Insulin GLARGINE 100 un/ml 10 ml VIAL SUBCUT SCH (20:15)
[2021-08-22] MEDS: Senna TAB 8.6 mg TAB PO SCH (20:15)
[2021-08-22] MEDS: LORazepam 2 mg VIAL 1 ml IV PUSH PRN (22:32)
[2021-08-23 05:28] LABS: ABS Eosinophils 0.2 10^3/ul (0-0.6); ABS Lymphocytes 0.5 10^3/ul (1.0-4.8); ABS Monocytes 0.7 10^3/ul (0-0.8); ABS Neutrophils 5.8 10^3/ul (1.5-7.7); Eosinophil % 2.4 %; Hematocrit 40 % (42-52); Hemoglobin 12.8 g/dL (14.0-18.0); Lymphocyte % 6.4 %; Mean Corpuscular HGB Conc 33 g/dL (31-36); Mean Corpuscular Hemoglobin 30 pg (27-31); Mean Corpuscular Volume 92 fL (80-94); Mean Platelet Volume 9.3 fL (7.4-10.4); Nucleated Red Blood Cells % 0.1; Platelet Count 200 10^3/uL (150-450); Red Blood Count 4.31 10^6 /uL (4.18-5.48); Red Cell Distribution Width 16 % (10-15); White Blood Count 7.1 10^3/uL (3.5-10.8)
[2021-08-23 06:00] LABS: eGFR CKD-EPI 100.4 (>60)
[2021-08-23] MEDS: CMCS: Sildenafil (PULMONARY)20mg(NF) PO SCH ×3 (08:36→20:30)
[2021-08-23] MEDS: Amoxicillin/Clavul 875/125 TAB (Augmentin 875 tab) PO SCH ×2 (08:38→20:27)
[2021-08-23] MEDS: Lansoprazole SUSP ORALSYR 3 MG/ML PO SCH (08:39)
[2021-08-23] MEDS: Ammonium Lactate 12% 1 APPLIC TUBE TOPICAL SCH (08:44)
[2021-08-23] MEDS: Polyethylene Glycol 3350 17 GM PACKET PO SCH (09:00)
[2021-08-23 18:22] LABS: Rapid COVID-19 Molecular Undetected (Undetected)
[2021-08-23] MEDS: Insulin GLARGINE 100 un/ml 10 ml VIAL SUBCUT SCH (20:32)
[2021-08-23] MEDS: LORazepam 2 mg VIAL 1 ml IV PUSH PRN (20:33)
[2021-08-23] MEDS: Senna TAB 8.6 mg TAB PO SCH (20:34)
[2021-08-24 05:52] LABS: ABS Basophils 0.1 10^3/ul (0-0.2); ABS Eosinophils 0.2 10^3/ul (0-0.6); ABS Lymphocytes 0.5 10^3/ul (1.0-4.8); ABS Monocytes 0.6 10^3/ul (0-0.8); ABS Neutrophils 5.6 10^3/ul (1.5-7.7); Eosinophil % 2.7 %; Hematocrit 34 % (42-52); Hemoglobin 11.3 g/dL (14.0-18.0); Lymphocyte % 7.7 %; Mean Corpuscular HGB Conc 33 g/dL (31-36); Mean Corpuscular Hemoglobin 30 pg (27-31); Mean Corpuscular Volume 89 fL (80-94); Mean Platelet Volume 8.8 fL (7.4-10.4); Nucleated Red Blood Cells % 0.1; Platelet Count 243 10^3/uL (150-450); Red Blood Count 3.83 10^6 /uL (4.18-5.48); Red Cell Distribution Width 15 % (10-15); White Blood Count 7.1 10^3/uL (3.5-10.8)
[2021-08-24 06:45] LABS: Calcium 8.7 mg/dL (8.6-10.3); Potassium 3.7 mmol/L (3.5-5.0); eGFR CKD-EPI 102.1 (>60)
[2021-08-24 06:58] LABS: Magnesium 1.9 mg/dL (1.9-2.7)
[2021-08-24 08:01] VITALS: BP 113/59
[2021-08-24] MEDS: CMCS: Sildenafil (PULMONARY)20mg(NF) PO SCH (08:18)
[2021-08-24] MEDS: Lansoprazole SUSP ORALSYR 3 MG/ML PO SCH (08:19)
[2021-08-24] MEDS: Polyethylene Glycol 3350 17 GM PACKET PO SCH (08:20)
[2021-08-24] MEDS: Ammonium Lactate 12% 1 APPLIC TUBE TOPICAL SCH (08:24)
[2021-08-24] MEDS: Amoxicillin/Clavul 875/125 TAB (Augmentin 875 tab) PO SCH (08:34)
== END 2021-08-24 08:00 | disposition short-term general hospital (02) | DRG 870 ==
LOC: ED 18:31 → SUATTDRO 23:47 → ICU 23:47 → MED 08-16 18:29
PROVIDERS: ADMIT Internal Medicine; ATTEND Internal Medicine

== ENCOUNTER 2021-09-26 17:01 | Inpatient (IN) ==
[2021-09-26 17:27] LABS: ABS Eosinophils 0.1 10^3/ul (0-0.6); ABS Lymphocytes 0.6 10^3/ul (1.0-4.8); ABS Monocytes 0.7 10^3/ul (0-0.8); ABS Neutrophils 6.9 10^3/ul (1.5-7.7); Eosinophil % 0.6 %; Hematocrit 29 % (42-52); Hemoglobin 9.6 g/dL (14.0-18.0); Lymphocyte % 6.9 %; Mean Corpuscular HGB Conc 33 g/dL (31-36); Mean Corpuscular Hemoglobin 28 pg (27-31); Mean Corpuscular Volume 86 fL (80-94); Mean Platelet Volume 9.3 fL (7.4-10.4); Nucleated Red Blood Cells % 0.3; Platelet Count 372 10^3/uL (150-450); Red Blood Count 3.41 10^6 /uL (4.18-5.48); Red Cell Distribution Width 16 % (10-15); White Blood Count 8.3 10^3/uL (3.5-10.8)
[2021-09-26 17:50] LABS: High Sens Troponin Baseline 24 pg/mL (<20)
[2021-09-26 17:54] LABS: PO2 Arterial 137 mmHg (80-100)
[2021-09-26 17:59] LABS: Albumin 3.2 g/dL (3.2-5.2); CO2 Carbon Dioxide 36 mmol/L (22-32); Calcium 8.1 mg/dL (8.6-10.3); Chloride 96 mmol/L (101-111); Sodium 136 mmol/L (135-145)
[2021-09-26 18:04] LABS: Anion Gap 4 mmol/L (2-11)
[2021-09-26 18:06] LABS: ALT 12 U/L (7-52); Albumin/Globulin Ratio 1.1 (1-3); Alkaline Phosphatase 54 U/L (35-149); Blood Urea Nitrogen 25 mg/dL (6-24); Cholesterol 171 mg/dL; Digoxin 1.3 ng/ml (0.8-2.0); Globulin 2.9 g/dL (2-4); Glucose 240 mg/dL (70-100); HDL Cholesterol 30.1 mg/dL; LDL Cholesterol 103 mg/dL; Total Protein 6.1 g/dL (6.4-8.9); Triglycerides 190 mg/dL; eGFR CKD-EPI 91.5 (>60)
[2021-09-26 18:12] LABS: PCO2 Arterial 95 mmHg (35-45)
[2021-09-26 18:26] LABS: Activated Partial Thrombo Time 33.3 seconds (26.0-38.0); INR 1.21 (0.86-1.15)
[2021-09-26] MEDS: NS 0.9% 1000 ml BAG 1,000 ML IV ONE (18:33)
[2021-09-26] MEDS ORDERED: Furosemide 40 mg/4 ml IV VIAL IV ONE (18:49)
[2021-09-26 19:26] LABS: Potassium Redraw 5.5 mmol/L (3.5-5.0)
[2021-09-26 20:05] LABS: PO2 Arterial 85 mmHg (80-100)
[2021-09-26] MEDS ORDERED: Dextrose 50% Syringe 50 ml 25 GM/50 ML SYRINGE IV PUSH PRN (20:05)
[2021-09-26] MEDS ORDERED: Piperacillin/Tazobac ADVAN 3.375 GM in NS 0.9% 100 ml BAG 100 ML IV ONE (20:05)
[2021-09-26 20:09] LABS: PCO2 Arterial 73 mmHg (35-45)
[2021-09-26 20:12] LABS: High Sensitivity Troponin 1 Hr 30 pg/mL (<20)
[2021-09-26] MEDS ORDERED: Zosyn per Pharmacy NOTE FOLLOW UP SCH (21:00)
[2021-09-26] MEDS ORDERED: Linezolid 600 MG/ 300 ML IVPB ONE (22:00)
[2021-09-26 22:36] LABS: Calcium 9.5 mg/dL (8.6-10.3); eGFR CKD-EPI 89.2 (>60)
[2021-09-26 22:37] LABS: Potassium 5.2 mmol/L (3.5-5.0)
[2021-09-26] MEDS: CMCS: Sildenafil (PULMONARY)20mg(NF) PO SCH (22:52)
[2021-09-27] MEDS: SODIUM ZIRCONIUM CYCLOSILICATE 10 GM PACKET PO ONE ×2 (02:44→03:08)
[2021-09-27] MEDS: Nystatin TOP POWDER 15 GM BTL TOPICAL SCH ×4 (02:44→22:06)
[2021-09-27] MEDS: ZOSYN 3.375 GM Q8H per EXTENDED INFUSION IV SCH ×3 (03:05→20:06)
[2021-09-27] MEDS: Acetaminophen IV 1 GM/100ML 100 ML IV PRN ×2 (03:22→18:40)
[2021-09-27 04:41] LABS: PCO2 Arterial 49 mmHg (35-45); PO2 Arterial 103 mmHg (80-100)
[2021-09-27 04:51] LABS: ABS Eosinophils 0.1 10^3/ul (0-0.6); ABS Lymphocytes 0.6 10^3/ul (1.0-4.8); ABS Monocytes 0.8 10^3/ul (0-0.8); ABS Neutrophils 9.2 10^3/ul (1.5-7.7); Eosinophil % 1.2 %; Hematocrit 28 % (42-52); Hemoglobin 9.2 g/dL (14.0-18.0); Lymphocyte % 5.3 %; Mean Corpuscular HGB Conc 33 g/dL (31-36); Mean Corpuscular Hemoglobin 28 pg (27-31); Mean Corpuscular Volume 86 fL (80-94); Mean Platelet Volume 8.4 fL (7.4-10.4); Nucleated Red Blood Cells % 0.2; Platelet Count 292 10^3/uL (150-450); Red Blood Count 3.29 10^6 /uL (4.18-5.48); Red Cell Distribution Width 16 % (10-15); White Blood Count 10.8 10^3/uL (3.5-10.8)
[2021-09-27 04:56] LABS: INR 1.51 (0.86-1.15)
[2021-09-27 05:37] LABS: Calcium 8.9 mg/dL (8.6-10.3); Potassium 4.8 mmol/L (3.5-5.0); eGFR CKD-EPI 76.6 (>60)
[2021-09-27 06:11] LABS: PCO2 Arterial 63 mmHg (35-45)
[2021-09-27 06:13] LABS: PO2 Arterial 42 mmHg (80-100)
[2021-09-27] MEDS ORDERED: Norepinephrine 16MCG/ML BAGD5W 4,000 MCG/250 ML BAG IV ONE (07:22)
[2021-09-27] MEDS: Norepinephrine 16MCG/ML BAG NS 4,000 MCG/250 ML BAG IV SCH (07:30)
[2021-09-27 07:49] LABS: PCO2 Arterial 67 mmHg (35-45); PO2 Arterial 80 mmHg (80-100)
[2021-09-27 08:02] LABS: Magnesium 1.5 mg/dL (1.9-2.7)
[2021-09-27] MEDS ORDERED: Magnesium Sulfate IV 3 GM in NS 0.9% 100 ml BAG 100 ML IVPB ONE (08:10)
[2021-09-27] MEDS ORDERED: Perflutren Lipid Microsphere 3 ML VIAL ONE (08:51)
[2021-09-27] MEDS ORDERED: Magnesium Sulfate 2 GM IV (Premix) IVPB ONE (09:00)
[2021-09-27] MEDS: Insulin GLARGINE 100 un/ml 10 ml VIAL SUBCUT SCH (09:57)
[2021-09-27] MEDS ORDERED: Magnesium Sulfate 1 GM IV 1 GM/100 ML BAG IV ONE (10:00)
[2021-09-27] MEDS: Polyethylene Glycol 3350 17 GM PACKET PO SCH (10:07)
[2021-09-27] MEDS: CMCS: Sildenafil (PULMONARY)20mg(NF) PO SCH ×3 (10:31→22:04)
[2021-09-27] MEDS ORDERED: Iodixanol (CONTRAST) 320 MG/ML 100 ML SDV IV ONE (10:43)
[2021-09-27] MEDS: Linezolid 600 MG IVPREMIX(*) 600 MG/300 ML BAG IVPB SCH ×2 (10:50→22:33)
[2021-09-27] MEDS: Azithromycin 500 mg/250 ml NS 500 MG/250 ML BAG IVPB SCH (10:59)
[2021-09-27 13:02] LABS: Urine Appearance Clear; Urine Bilirubin Negative (Negative); Urine Blood 1+ (Negative); Urine Color Yellow; Urine Glucose 1+(50 mg/dL) (Negative); Urine Ketones Negative (Negative); Urine Nitrite Negative (Negative); Urine Protein Negative (Negative); Urine Specific Gravity 1.023 (1.002-1.030); Urine Urobilinogen Negative (Negative)
[2021-09-27 13:12] LABS: Urine Bacteria 1+ (Absent); Urine Red Blood Cell 1+(3-5/hpf) (Absent); Urine White Blood Cell Trace(0-5/hpf) (Absent)
[2021-09-27] MEDS ORDERED: NORMOSOL-R pH 7.4 1000 mL BAG 1,000 ML IV SCH (18:34)
[2021-09-27] MEDS ORDERED: NS 0.9% 1000 ml BAG 1,000 ML IV ONE (18:48)
[2021-09-27] MEDS: NS 0.9% 1000 ml BAG 1,000 ML IV ONE (19:00)
[2021-09-28] MEDS: Norepinephrine 16MCG/ML BAG NS 4,000 MCG/250 ML BAG IV SCH (00:25)
[2021-09-28] MEDS: ZOSYN 3.375 GM Q8H per EXTENDED INFUSION IV SCH ×3 (02:03→17:49)
[2021-09-28 05:56] LABS: ABS Basophils 0.1 10^3/ul (0-0.2); ABS Eosinophils 0.6 10^3/ul (0-0.6); ABS Lymphocytes 0.6 10^3/ul (1.0-4.8); ABS Monocytes 0.6 10^3/ul (0-0.8); ABS Neutrophils 5.6 10^3/ul (1.5-7.7); Eosinophil % 8.5 %; Hematocrit 28 % (42-52); Hemoglobin 8.9 g/dL (14.0-18.0); Mean Corpuscular HGB Conc 32 g/dL (31-36); Mean Corpuscular Hemoglobin 28 pg (27-31); Mean Corpuscular Volume 86 fL (80-94); Mean Platelet Volume 8.5 fL (7.4-10.4); Nucleated Red Blood Cells % 0.1; Platelet Count 291 10^3/uL (150-450); Red Blood Count 3.19 10^6 /uL (4.18-5.48); Red Cell Distribution Width 16 % (10-15); White Blood Count 7.6 10^3/uL (3.5-10.8)
[2021-09-28 07:08] LABS: Calcium 8.8 mg/dL (8.6-10.3); Digoxin 0.9 ng/ml (0.8-2.0); Phosphorus 2.4 mg/dL (2.5-5.0); Potassium 3.6 mmol/L (3.5-5.0)
[2021-09-28] MEDS ORDERED: Polyethylene Glycol 3350 17 GM PACKET PO PRN (07:37)
[2021-09-28] MEDS ORDERED: Magnesium Hydroxide LIQ 30 ML UDC PO PRN (07:37)
[2021-09-28] MEDS ORDERED: Potassium Phosphate IV 10 MMOLE in NS 0.9% 250 ml 250 ML IVPB ONE (08:00)
[2021-09-28] MEDS: Polyethylene Glycol 3350 17 GM PACKET PO SCH (08:16)
[2021-09-28] MEDS: Magnesium Hydroxide LIQ 30 ML UDC PO SCH ×2 (08:16→22:33)
[2021-09-28] MEDS: CMCS: Sildenafil (PULMONARY)20mg(NF) PO SCH ×3 (08:18→22:33)
[2021-09-28] MEDS: Senna TAB 8.6 mg TAB PO SCH (08:19)
[2021-09-28] MEDS: Nystatin TOP POWDER 15 GM BTL TOPICAL SCH ×3 (08:20→22:35)
[2021-09-28] MEDS: Insulin GLARGINE 100 un/ml 10 ml VIAL SUBCUT SCH (08:28)
[2021-09-28] MEDS: Linezolid 600 MG IVPREMIX(*) 600 MG/300 ML BAG IVPB SCH ×2 (08:31→22:39)
[2021-09-28 08:59] LABS: PCO2 Arterial 58 mmHg (35-45); PO2 Arterial 82 mmHg (80-100)
[2021-09-28] MEDS ORDERED: Morphine 2 MG/ML SYRINGE IV PRN (10:58)
[2021-09-28] MEDS ORDERED: Morphine 2 MG/ML SYRINGE ONE (10:59)
[2021-09-28] MEDS ORDERED: Morphine 2 MG/ML SYRINGE IV ONE (11:39)
[2021-09-28] MEDS: Azithromycin 500 mg/250 ml NS 500 MG/250 ML BAG IVPB SCH (12:25)
[2021-09-28] MEDS ORDERED: Lidocaine 2% PF 5 ML VIAL IV ONE (12:57)
[2021-09-28] MEDS: Morphine 2 MG/ML SYRINGE IV PRN (15:41)
[2021-09-28] MEDS ORDERED: Lidocaine 2% PF 5 ML VIAL ONE (18:33)
[2021-09-29] MEDS: ZOSYN 3.375 GM Q8H per EXTENDED INFUSION IV SCH ×3 (02:32→17:42)
[2021-09-29 06:54] LABS: ABS Basophils 0.1 10^3/ul (0-0.2); ABS Eosinophils 0.5 10^3/ul (0-0.6); ABS Lymphocytes 0.5 10^3/ul (1.0-4.8); ABS Monocytes 0.5 10^3/ul (0-0.8); ABS Neutrophils 3.9 10^3/ul (1.5-7.7); Eosinophil % 8.6 %; Hematocrit 26 % (42-52); Hemoglobin 8.4 g/dL (14.0-18.0); Lymphocyte % 9.8 %; Mean Corpuscular HGB Conc 32 g/dL (31-36); Mean Corpuscular Hemoglobin 28 pg (27-31); Mean Corpuscular Volume 86 fL (80-94); Mean Platelet Volume 8.2 fL (7.4-10.4); Nucleated Red Blood Cells % 0.1; Platelet Count 230 10^3/uL (150-450); Red Blood Count 3.04 10^6 /uL (4.18-5.48); Red Cell Distribution Width 16 % (10-15); White Blood Count 5.5 10^3/uL (3.5-10.8)
[2021-09-29 07:41] LABS: Calcium 8.3 mg/dL (8.6-10.3); Digoxin 0.9 ng/ml (0.8-2.0); Magnesium 2.2 mg/dL (1.9-2.7); Phosphorus 2.7 mg/dL (2.5-5.0); Potassium 3.4 mmol/L (3.5-5.0)
[2021-09-29] MEDS: Nystatin TOP POWDER 15 GM BTL TOPICAL SCH ×3 (08:46→21:04)
[2021-09-29] MEDS: Linezolid 600 MG IVPREMIX(*) 600 MG/300 ML BAG IVPB SCH (08:46)
[2021-09-29] MEDS: Insulin GLARGINE 100 un/ml 10 ml VIAL SUBCUT SCH (08:47)
[2021-09-29] MEDS: CMCS: Sildenafil (PULMONARY)20mg(NF) PO SCH ×3 (08:48→21:03)
[2021-09-29] MEDS: Polyethylene Glycol 3350 17 GM PACKET PO SCH (08:56)
[2021-09-29] MEDS: Magnesium Hydroxide LIQ 30 ML UDC PO SCH ×2 (08:56→19:51)
[2021-09-29] MEDS: Senna TAB 8.6 mg TAB PO SCH (08:57)
[2021-09-29] MEDS: KCL 20 MEQ/100 ML IVPREMIX 20 MEQ/100 ML BAG IV SCH ×3 (10:29→15:58)
[2021-09-29] MEDS: Saline FLUSH-CENTRAL 10 ML SYRINGE CENT\\PICC SCH ×2 (10:31→21:04)
[2021-09-29] MEDS: Azithromycin 500 mg/250 ml NS 500 MG/250 ML BAG IVPB SCH (12:40)
[2021-09-29] MEDS ORDERED: Ondansetron 4 mg VIAL 2 MG/ML 2 ml VIAL IV ONE (13:12)
[2021-09-29] MEDS: Norepinephrine 16MCG/ML BAG NS 4,000 MCG/250 ML BAG IV SCH (15:19)
[2021-09-30] MEDS: ZOSYN 3.375 GM Q8H per EXTENDED INFUSION IV SCH ×3 (01:48→18:10)
[2021-09-30 04:47] LABS: ABS Eosinophils 0.2 10^3/ul (0-0.6); ABS Lymphocytes 0.6 10^3/ul (1.0-4.8); ABS Monocytes 0.5 10^3/ul (0-0.8); ABS Neutrophils 5.2 10^3/ul (1.5-7.7); Eosinophil % 2.5 %; Hematocrit 26 % (42-52); Hemoglobin 8.3 g/dL (14.0-18.0); Lymphocyte % 8.7 %; Mean Corpuscular HGB Conc 32 g/dL (31-36); Mean Corpuscular Hemoglobin 27 pg (27-31); Mean Corpuscular Volume 86 fL (80-94); Mean Platelet Volume 8.5 fL (7.4-10.4); Nucleated Red Blood Cells % 0.2; Platelet Count 252 10^3/uL (150-450); Red Blood Count 3.04 10^6 /uL (4.18-5.48); Red Cell Distribution Width 16 % (10-15); White Blood Count 6.5 10^3/uL (3.5-10.8)
[2021-09-30 05:24] LABS: Calcium 8.2 mg/dL (8.6-10.3); Digoxin 1.3 ng/ml (0.8-2.0); Magnesium 2.2 mg/dL (1.9-2.7); Phosphorus 3.7 mg/dL (2.5-5.0); Potassium 4.6 mmol/L (3.5-5.0); eGFR CKD-EPI 90.8 (>60)
[2021-09-30] MEDS: Senna TAB 8.6 mg TAB PO SCH (08:06)
[2021-09-30] MEDS: CMCS: Sildenafil (PULMONARY)20mg(NF) PO SCH ×3 (08:06→20:56)
[2021-09-30] MEDS: Nystatin TOP POWDER 15 GM BTL TOPICAL SCH ×3 (08:07→20:55)
[2021-09-30] MEDS: Magnesium Hydroxide LIQ 30 ML UDC PO SCH ×2 (08:07→21:00)
[2021-09-30] MEDS: Insulin GLARGINE 100 un/ml 10 ml VIAL SUBCUT SCH (08:07)
[2021-09-30] MEDS: Polyethylene Glycol 3350 17 GM PACKET PO SCH (08:08)
[2021-09-30] MEDS: Saline FLUSH-CENTRAL 10 ML SYRINGE CENT\\PICC SCH ×2 (12:39→20:59)
[2021-10-01] MEDS: ZOSYN 3.375 GM Q8H per EXTENDED INFUSION IV SCH ×3 (02:06→17:46)
[2021-10-01] MEDS: Morphine 2 MG/ML SYRINGE IV PRN (07:58)
[2021-10-01] MEDS: CMCS: Sildenafil (PULMONARY)20mg(NF) PO SCH ×4 (08:41→22:53)
[2021-10-01] MEDS: Senna TAB 8.6 mg TAB PO SCH (08:43)
[2021-10-01] MEDS: Magnesium Hydroxide LIQ 30 ML UDC PO SCH ×2 (08:43→21:35)
[2021-10-01] MEDS: Polyethylene Glycol 3350 17 GM PACKET PO SCH (08:43)
[2021-10-01] MEDS: Nystatin TOP POWDER 15 GM BTL TOPICAL SCH ×3 (08:43→21:34)
[2021-10-01] MEDS: Insulin GLARGINE 100 un/ml 10 ml VIAL SUBCUT SCH (10:19)
[2021-10-01] MEDS: Saline FLUSH-CENTRAL 10 ML SYRINGE CENT\\PICC SCH ×2 (10:19→21:36)
[2021-10-01 11:14] LABS: ABS Basophils 0.1 10^3/ul (0-0.2); ABS Eosinophils 0.4 10^3/ul (0-0.6); ABS Lymphocytes 0.7 10^3/ul (1.0-4.8); ABS Monocytes 0.6 10^3/ul (0-0.8); ABS Neutrophils 6.6 10^3/ul (1.5-7.7); Eosinophil % 4.8 %; Hematocrit 28 % (42-52); Hemoglobin 8.8 g/dL (14.0-18.0); Lymphocyte % 8.2 %; Mean Corpuscular HGB Conc 31 g/dL (31-36); Mean Corpuscular Hemoglobin 27 pg (27-31); Mean Corpuscular Volume 87 fL (80-94); Nucleated Red Blood Cells % 0.2; Platelet Count 310 10^3/uL (150-450); Red Blood Count 3.28 10^6 /uL (4.18-5.48); Red Cell Distribution Width 16 % (10-15); White Blood Count 8.4 10^3/uL (3.5-10.8)
[2021-10-01 11:24] LABS: Calcium 8.3 mg/dL (8.6-10.3); Digoxin 1.3 ng/ml (0.8-2.0); Potassium 4.2 mmol/L (3.5-5.0); eGFR CKD-EPI 74.8 (>60)
[2021-10-01] MEDS ORDERED: TORSEMIDE 60 MG PO SCH (15:01)
[2021-10-01] MEDS ORDERED: Bumetanide IV 0.25 MG/ML 4 ml VIAL (1 mg) SLOW PUSH ONE (15:09)
[2021-10-01] MEDS ORDERED: Ondansetron 4 mg VIAL 2 MG/ML 2 ml VIAL IV PRN (22:15)
[2021-10-01] MEDS ORDERED: Linezolid 600 MG IVPREMIX(*) 600 MG/300 ML BAG IVPB ONE (23:00)
[2021-10-01] MEDS ORDERED: Furosemide 40 mg/4 ml IV VIAL IV ONE (23:02)
[2021-10-02] MEDS: ZOSYN 3.375 GM Q8H per EXTENDED INFUSION IV SCH ×3 (02:54→18:13)
[2021-10-02 07:59] LABS: ABS Eosinophils 0.2 10^3/ul (0-0.6); ABS Lymphocytes 0.5 10^3/ul (1.0-4.8); ABS Monocytes 0.3 10^3/ul (0-0.8); ABS Neutrophils 4.1 10^3/ul (1.5-7.7); Eosinophil % 4.1 %; Hematocrit 26 % (42-52); Hemoglobin 8.3 g/dL (14.0-18.0); Lymphocyte % 9.7 %; Mean Corpuscular HGB Conc 31 g/dL (31-36); Mean Corpuscular Hemoglobin 27 pg (27-31); Mean Corpuscular Volume 85 fL (80-94); Mean Platelet Volume 8.3 fL (7.4-10.4); Nucleated Red Blood Cells % 0.1; Platelet Count 232 10^3/uL (150-450); Red Cell Distribution Width 16 % (10-15); White Blood Count 5.2 10^3/uL (3.5-10.8)
[2021-10-02 08:42] LABS: Potassium 3.6 mmol/L (3.5-5.0); eGFR CKD-EPI 88.3 (>60)
[2021-10-02] MEDS ORDERED: Potassium Chlor 20 meq TAB.ER PO ONE (09:02)
[2021-10-02] MEDS: Insulin GLARGINE 100 un/ml 10 ml VIAL SUBCUT SCH (09:17)
[2021-10-02] MEDS: Senna TAB 8.6 mg TAB PO SCH (09:17)
[2021-10-02] MEDS: CMCS: Sildenafil (PULMONARY)20mg(NF) PO SCH ×3 (09:17→23:06)
[2021-10-02] MEDS: Magnesium Hydroxide LIQ 30 ML UDC PO SCH ×2 (09:18→23:08)
[2021-10-02] MEDS: Polyethylene Glycol 3350 17 GM PACKET PO SCH (09:18)
[2021-10-02] MEDS: Nystatin TOP POWDER 15 GM BTL TOPICAL SCH ×3 (09:18→21:20)
[2021-10-02] MEDS: Lidocaine PATCH 5% PATCH TRANSDERM SCH (09:19)
[2021-10-02] MEDS: Saline FLUSH-CENTRAL 10 ML SYRINGE CENT\\PICC SCH ×2 (11:28→22:00)
[2021-10-03] MEDS: ZOSYN 3.375 GM Q8H per EXTENDED INFUSION IV SCH ×3 (03:24→18:06)
[2021-10-03 06:15] LABS: Hematocrit 27 % (42-52); Hemoglobin 8.5 g/dL (14.0-18.0); Mean Corpuscular HGB Conc 31 g/dL (31-36); Mean Corpuscular Hemoglobin 27 pg (27-31); Mean Corpuscular Volume 85 fL (80-94); Mean Platelet Volume 8.2 fL (7.4-10.4); Platelet Count 230 10^3/uL (150-450); Red Blood Count 3.18 10^6 /uL (4.18-5.48); Red Cell Distribution Width 16 % (10-15); White Blood Count 4.8 10^3/uL (3.5-10.8)
[2021-10-03 06:38] LABS: Magnesium 1.8 mg/dL (1.9-2.7); Potassium 3.7 mmol/L (3.5-5.0); eGFR CKD-EPI 88.3 (>60)
[2021-10-03] MEDS ORDERED: Magnesium Sulfate IV 3 GM in NS 0.9% 100 ml BAG 100 ML IVPB ONE (07:18)
[2021-10-03] MEDS ORDERED: Magnesium Sulfate 2 gm BAG 2 GM/50 ML BAG IV ONE (08:00)
[2021-10-03] MEDS: KCL 10 MEQ/50 ML IVPREMIX 10 MEQ/50 ML BAG IV SCH ×2 (08:14→10:32)
[2021-10-03] MEDS ORDERED: Magnesium Sulfate 1 GM IV 1 GM/100 ML BAG IV ONE (10:00)
[2021-10-03] MEDS: Senna TAB 8.6 mg TAB PO SCH (10:33)
[2021-10-03] MEDS: Insulin GLARGINE 100 un/ml 10 ml VIAL SUBCUT SCH (10:35)
[2021-10-03] MEDS: Magnesium Hydroxide LIQ 30 ML UDC PO SCH ×2 (10:40→21:00)
[2021-10-03] MEDS: Saline FLUSH-CENTRAL 10 ML SYRINGE CENT\\PICC SCH ×2 (10:41→22:39)
[2021-10-03] MEDS: CMCS: Sildenafil (PULMONARY)20mg(NF) PO SCH ×3 (10:42→20:55)
[2021-10-03] MEDS: Polyethylene Glycol 3350 17 GM PACKET PO SCH (10:44)
[2021-10-03] MEDS: Lidocaine PATCH 5% PATCH TRANSDERM SCH (10:47)
[2021-10-03] MEDS: Nystatin TOP POWDER 15 GM BTL TOPICAL SCH ×3 (10:47→21:00)
[2021-10-04 06:43] LABS: Digoxin 1.3 ng/ml (0.8-2.0)
[2021-10-04] MEDS: Magnesium Hydroxide LIQ 30 ML UDC PO SCH (08:49)
[2021-10-04] MEDS: Polyethylene Glycol 3350 17 GM PACKET PO SCH (08:49)
[2021-10-04] MEDS: Senna TAB 8.6 mg TAB PO SCH (08:50)
[2021-10-04] MEDS: CMCS: Sildenafil (PULMONARY)20mg(NF) PO SCH ×3 (09:03→20:58)
[2021-10-04] MEDS: Lidocaine PATCH 5% PATCH TRANSDERM SCH (09:07)
[2021-10-04] MEDS: Insulin GLARGINE 100 un/ml 10 ml VIAL SUBCUT SCH (09:19)
[2021-10-04] MEDS: Nystatin TOP POWDER 15 GM BTL TOPICAL SCH ×3 (09:22→20:57)
[2021-10-04 13:18] LABS: PCO2 Arterial 64 mmHg (35-45)
[2021-10-04 13:24] LABS: ABS Basophils 0.1 10^3/ul (0-0.2); ABS Eosinophils 0.3 10^3/ul (0-0.6); ABS Lymphocytes 0.5 10^3/ul (1.0-4.8); ABS Monocytes 0.3 10^3/ul (0-0.8); ABS Neutrophils 4.7 10^3/ul (1.5-7.7); Eosinophil % 5.5 %; Hematocrit 27 % (42-52); Hemoglobin 8.6 g/dL (14.0-18.0); Lymphocyte % 9.1 %; Mean Corpuscular HGB Conc 32 g/dL (31-36); Mean Corpuscular Hemoglobin 27 pg (27-31); Mean Corpuscular Volume 85 fL (80-94); Mean Platelet Volume 7.9 fL (7.4-10.4); Nucleated Red Blood Cells % 0.3; Platelet Count 196 10^3/uL (150-450); Red Blood Count 3.17 10^6 /uL (4.18-5.48); Red Cell Distribution Width 16 % (10-15)
[2021-10-04 13:26] LABS: PO2 Arterial < 38 mmHg (80-100)
[2021-10-04] MEDS: Saline FLUSH-CENTRAL 10 ML SYRINGE CENT\\PICC SCH ×2 (13:49→22:38)
[2021-10-04 13:54] LABS: Albumin 2.8 g/dL (3.2-5.2); Albumin/Globulin Ratio 1.1 (1-3); Calcium 7.9 mg/dL (8.6-10.3); Digoxin 1.4 ng/ml (0.8-2.0); Globulin 2.6 g/dL (2-4); Magnesium 2.1 mg/dL (1.9-2.7); Phosphorus 2.7 mg/dL (2.5-5.0); Potassium 3.8 mmol/L (3.5-5.0); Total Bilirubin 0.6 mg/dL (0.2-1.0); Total Protein 5.4 g/dL (6.4-8.9); eGFR CKD-EPI 91.8 (>60)
[2021-10-04 17:53] LABS: ABS Basophils 0.1 10^3/ul (0-0.2); ABS Eosinophils 0.3 10^3/ul (0-0.6); ABS Lymphocytes 0.6 10^3/ul (1.0-4.8); ABS Monocytes 0.3 10^3/ul (0-0.8); ABS Neutrophils 3.9 10^3/ul (1.5-7.7); Eosinophil % 6.5 %; Hematocrit 27 % (42-52); Hemoglobin 8.7 g/dL (14.0-18.0); Lymphocyte % 11.7 %; Mean Corpuscular HGB Conc 32 g/dL (31-36); Mean Corpuscular Hemoglobin 28 pg (27-31); Mean Corpuscular Volume 86 fL (80-94); Nucleated Red Blood Cells % 0.2; Platelet Count 211 10^3/uL (150-450); Red Blood Count 3.15 10^6 /uL (4.18-5.48); Red Cell Distribution Width 17 % (10-15); White Blood Count 5.2 10^3/uL (3.5-10.8)
[2021-10-04 18:13] LABS: Digoxin 1.6 ng/ml (0.8-2.0)
[2021-10-04 18:52] LABS: Magnesium 2.2 mg/dL (1.9-2.7)
[2021-10-04 18:53] LABS: Albumin 2.8 g/dL (3.2-5.2); Potassium 3.7 mmol/L (3.5-5.0); Total Bilirubin 0.7 mg/dL (0.2-1.0)
[2021-10-04 18:59] LABS: Albumin/Globulin Ratio 1.1 (1-3); Globulin 2.6 g/dL (2-4); Phosphorus 2.6 mg/dL (2.5-5.0); Total Protein 5.4 g/dL (6.4-8.9)
[2021-10-04] MEDS ORDERED: Alteplase (CATHFLO) 2 MG VIAL IV ONE (19:33)
[2021-10-05 05:09] LABS: ABS Eosinophils 0.3 10^3/ul (0-0.6); ABS Lymphocytes 0.8 10^3/ul (1.0-4.8); ABS Monocytes 0.4 10^3/ul (0-0.8); ABS Neutrophils 3.6 10^3/ul (1.5-7.7); Eosinophil % 5.5 %; Hematocrit 28 % (42-52); Hemoglobin 8.7 g/dL (14.0-18.0); Lymphocyte % 14.8 %; Mean Corpuscular HGB Conc 32 g/dL (31-36); Mean Corpuscular Hemoglobin 27 pg (27-31); Mean Corpuscular Volume 85 fL (80-94); Mean Platelet Volume 8.4 fL (7.4-10.4); Nucleated Red Blood Cells % 0.2; Platelet Count 177 10^3/uL (150-450); Red Blood Count 3.22 10^6 /uL (4.18-5.48); Red Cell Distribution Width 17 % (10-15); White Blood Count 5.1 10^3/uL (3.5-10.8)
[2021-10-05 05:29] LABS: Albumin 2.9 g/dL (3.2-5.2); Albumin/Globulin Ratio 1.1 (1-3); Calcium 8.1 mg/dL (8.6-10.3); Globulin 2.7 g/dL (2-4); Potassium 3.7 mmol/L (3.5-5.0); Total Bilirubin 0.7 mg/dL (0.2-1.0); Total Protein 5.6 g/dL (6.4-8.9); eGFR CKD-EPI 92.6 (>60)
[2021-10-05] MEDS: Lidocaine PATCH 5% PATCH TRANSDERM SCH (11:49)
[2021-10-05] MEDS: Polyethylene Glycol 3350 17 GM PACKET PO SCH (11:49)
[2021-10-05] MEDS: Senna TAB 8.6 mg TAB PO SCH (11:49)
[2021-10-05] MEDS: Insulin GLARGINE 100 un/ml 10 ml VIAL SUBCUT SCH (11:50)
[2021-10-05] MEDS: Nystatin TOP POWDER 15 GM BTL TOPICAL SCH ×3 (11:52→23:22)
[2021-10-05] MEDS: CMCS: Sildenafil (PULMONARY)20mg(NF) PO SCH ×3 (11:55→23:19)
[2021-10-05] MEDS: Saline FLUSH-CENTRAL 10 ML SYRINGE CENT\\PICC SCH ×2 (11:58→23:12)
[2021-10-05] MEDS ORDERED: KCL 20 MEQ/100 ML IVPREMIX 20 MEQ/100 ML BAG IV ONE (16:52)
[2021-10-06 05:27] LABS: Hematocrit 26 % (42-52); Hemoglobin 8.3 g/dL (14.0-18.0); Mean Corpuscular HGB Conc 32 g/dL (31-36); Mean Corpuscular Hemoglobin 27 pg (27-31); Mean Corpuscular Volume 84 fL (80-94); Mean Platelet Volume 7.9 fL (7.4-10.4); Platelet Count 168 10^3/uL (150-450); Red Blood Count 3.04 10^6 /uL (4.18-5.48); Red Cell Distribution Width 17 % (10-15); White Blood Count 4.4 10^3/uL (3.5-10.8)
[2021-10-06 05:55] LABS: Magnesium 1.8 mg/dL (1.9-2.7); Potassium 3.7 mmol/L (3.5-5.0); eGFR CKD-EPI 94.1 (>60)
[2021-10-06 06:59] LABS: Urine Appearance Clear; Urine Bilirubin Negative (Negative); Urine Blood Negative (Negative); Urine Color Yellow; Urine Glucose Negative (Negative); Urine Ketones Negative (Negative); Urine Nitrite Negative (Negative); Urine Protein Negative (Negative); Urine Specific Gravity 1.009 (1.002-1.030); Urine Urobilinogen Negative (Negative)
[2021-10-06] MEDS ORDERED: Magnesium Sulfate IV 3 GM in NS 0.9% 100 ml BAG 100 ML IVPB ONE (07:04)
[2021-10-06 07:29] LABS: Urine Bacteria Absent (Absent); Urine Red Blood Cell Trace(0-2/hpf) (Absent); Urine White Blood Cell 3+(>20/hpf) (Absent)
[2021-10-06] MEDS ORDERED: Magnesium Sulfate 2 GM IV (Premix) IVPB ONE (08:00)
[2021-10-06] MEDS: Insulin GLARGINE 100 un/ml 10 ml VIAL SUBCUT SCH (09:00)
[2021-10-06] MEDS ORDERED: Magnesium Sulfate 1 GM IV 1 GM/100 ML BAG IV ONE (09:00)
[2021-10-06] MEDS: Senna TAB 8.6 mg TAB PO SCH (09:05)
[2021-10-06] MEDS: CMCS: Sildenafil (PULMONARY)20mg(NF) PO SCH ×3 (09:07→21:57)
[2021-10-06] MEDS: Polyethylene Glycol 3350 17 GM PACKET PO SCH (09:08)
[2021-10-06] MEDS: Nystatin TOP POWDER 15 GM BTL TOPICAL SCH ×3 (09:08→21:59)
[2021-10-06] MEDS: Saline FLUSH-CENTRAL 10 ML SYRINGE CENT\\PICC SCH ×2 (09:13→22:01)
[2021-10-06] MEDS: Lidocaine PATCH 5% PATCH TRANSDERM SCH (09:23)
[2021-10-07 07:30] LABS: Calcium 7.8 mg/dL (8.6-10.3); Digoxin 1.5 ng/ml (0.8-2.0); Potassium 3.5 mmol/L (3.5-5.0); eGFR CKD-EPI 93.7 (>60)
[2021-10-07] MEDS: Senna TAB 8.6 mg TAB PO SCH (08:46)
[2021-10-07] MEDS: Polyethylene Glycol 3350 17 GM PACKET PO SCH (08:46)
[2021-10-07] MEDS: CMCS: Sildenafil (PULMONARY)20mg(NF) PO SCH (08:47)
[2021-10-07] MEDS: Insulin GLARGINE 100 un/ml 10 ml VIAL SUBCUT SCH (08:58)
[2021-10-07] MEDS: Lidocaine PATCH 5% PATCH TRANSDERM SCH (09:00)
[2021-10-07 11:26] VITALS: BP 113/71
== END 2021-10-07 14:38 | disposition home health service (06) | DRG 189 ==
LOC: ED 17:01 → ICU 20:42 → SUATTDRO 21:39 → SSU 10-02 11:57
PROVIDERS: ADMIT Internal Medicine; ATTEND Internal Medicine

== ENCOUNTER 2021-10-11 21:25 | Inpatient (IN) ==
[2021-10-11 21:52] LABS: Hematocrit 25 % (42-52); Hemoglobin 7.6 g/dL (14.0-18.0); Mean Corpuscular HGB Conc 31 g/dL (31-36); Mean Corpuscular Hemoglobin 26 pg (27-31); Mean Corpuscular Volume 85 fL (80-94); Mean Platelet Volume 9.8 fL (7.4-10.4); Platelet Count 211 10^3/uL (150-450); Red Cell Distribution Width 17 % (10-15); White Blood Count 16.5 10^3/uL (3.5-10.8)
[2021-10-11 22:05] LABS: Venous Bicarbonate HCO3 33.6 mmol/L (24-28)
[2021-10-11 22:22] LABS: Anisocytosis 1+; Stomatocytes 2+
[2021-10-11 22:23] LABS: Basophilic Stippling 1+
[2021-10-11 22:27] LABS: ABS Eosinophils 0.3 10^3/ul (0-0.6); ABS Lymphocytes 1.4 10^3/ul (1.0-4.8); ABS Monocytes 1.4 10^3/ul (0-0.8); ABS Neutrophils 13.4 10^3/ul (1.5-7.7); Eosinophil % 1.6 %; Lymphocyte % 8.6 %; Nucleated Red Blood Cells % 0.2
[2021-10-11 22:28] LABS: Albumin 3.4 g/dL (3.2-5.2); Albumin/Globulin Ratio 1.1 (1-3); Calcium 8.8 mg/dL (8.6-10.3); Potassium 4.5 mmol/L (3.5-5.0); Total Bilirubin 0.6 mg/dL (0.2-1.0); Total Protein 6.4 g/dL (6.4-8.9); eGFR CKD-EPI 94.1 (>60)
[2021-10-11 23:27] LABS: High Sensitivity Troponin 1 Hr 26 pg/mL (<20)
[2021-10-12 00:45] LABS: PO2 Arterial 111 mmHg (80-100)
[2021-10-12 00:49] LABS: PCO2 Arterial 88 mmHg (35-45)
[2021-10-12] MEDS ORDERED: CMCS: Oral Rinse (Biotene)(NF) 237 ML or 473 ML ORAL RINSE BTL MT PRN (01:45)
[2021-10-12] MEDS ORDERED: Polyethylene Glycol 3350 17 GM PACKET PO PRN (01:45)
[2021-10-12] MEDS ORDERED: Azithromycin 500 mg/250 ml NS 500 MG/250 ML BAG IVPB ONE (02:39)
[2021-10-12] MEDS ORDERED: Dextrose 50% Syringe 50 ml 25 GM/50 ML SYRINGE IV PUSH PRN ×2 (02:42→02:43)
[2021-10-12] MEDS ORDERED: cefTRIAXone 1 gm/50 mL D5W 1 GM/50 ML BAG IV ONE (03:15)
[2021-10-12 03:22] LABS: TSH Ultra Thyroid Stim Horm 3.64 mcIU/mL (0.34-5.60)
[2021-10-12] MEDS ORDERED: cefTRIAXone 1 gm/50 mL D5W 1 GM/50 ML BAG IV SCH (04:00)
[2021-10-12 04:20] LABS: PO2 Arterial 132 mmHg (80-100)
[2021-10-12 04:29] LABS: PCO2 Arterial 78 mmHg (35-45)
[2021-10-12] MEDS ORDERED: Furosemide 40 mg/4 ml IV VIAL IV SLOW PU ONE (04:42)
[2021-10-12 04:50] LABS: Hematocrit 23 % (42-52); Hemoglobin 7.3 g/dL (14.0-18.0); Mean Corpuscular HGB Conc 32 g/dL (31-36); Mean Corpuscular Hemoglobin 27 pg (27-31); Mean Corpuscular Volume 84 fL (80-94); Mean Platelet Volume 9.5 fL (7.4-10.4); Platelet Count 201 10^3/uL (150-450); Red Blood Count 2.72 10^6 /uL (4.18-5.48); Red Cell Distribution Width 16 % (10-15)
[2021-10-12 05:05] LABS: ABS Eosinophils 0.2 10^3/ul (0-0.6); ABS Lymphocytes 1.2 10^3/ul (1.0-4.8); ABS Monocytes 1.3 10^3/ul (0-0.8); ABS Neutrophils 9.3 10^3/ul (1.5-7.7); ABS Nucleated RBC 0.1 10^3/ul; Eosinophil % 1.6 %; Lymphocyte % 9.8 %; Nucleated Red Blood Cells % 0.8
[2021-10-12 05:18] LABS: Urine Appearance Cloudy; Urine Bilirubin Negative (Negative); Urine Blood Negative (Negative); Urine Color Yellow; Urine Glucose 1+(50 mg/dL) (Negative); Urine Ketones Negative (Negative); Urine Nitrite Negative (Negative); Urine Protein Negative (Negative); Urine Specific Gravity 1.011 (1.002-1.030); Urine Urobilinogen Negative (Negative)
[2021-10-12 05:21] LABS: Urine Bacteria Absent (Absent); Urine Granular Casts Present (Absent); Urine Red Blood Cell Trace(0-2/hpf) (Absent); Urine White Blood Cell 3+(>20/hpf) (Absent)
[2021-10-12 05:34] LABS: Calcium 8.8 mg/dL (8.6-10.3); Potassium 4.6 mmol/L (3.5-5.0)
[2021-10-12 05:39] LABS: eGFR CKD-EPI 91.8 (>60)
[2021-10-12 06:13] LABS: Ferritin 120.3 ng/mL (24-336)
[2021-10-12] MEDS ORDERED: Furosemide 40 mg/4 ml IV VIAL IV ONE (08:31)
[2021-10-12 08:43] LABS: Magnesium 1.5 mg/dL (1.9-2.7)
[2021-10-12 08:47] LABS: Corrected Retic Count 0.3 % (0.5-1.5); Hematocrit for Retic CNT 23 % (42-52); Immature Retic Fraction 0.61; RBC Retic Count 2.76 10^6/uL (4.18-5.48)
[2021-10-12] MEDS ORDERED: Magnesium Sulfate IV 3 GM in NS 0.9% 100 ml BAG 100 ML IVPB ONE (08:50)
[2021-10-12] MEDS: Ammonium Lactate 12% 1 APPLIC TUBE TOPICAL SCH (09:15)
[2021-10-12] MEDS: Insulin GLARGINE 100 un/ml 10 ml VIAL SUBCUT SCH (09:15)
[2021-10-12] MEDS: CMCS: Sildenafil (PULMONARY)20mg(NF) PO SCH ×4 (09:17→20:30)
[2021-10-12 09:25] LABS: PO2 Arterial 90 mmHg (80-100)
[2021-10-12 09:27] LABS: Folate 10.78 ng/mL (5.90-24.80)
[2021-10-12 09:28] LABS: PCO2 Arterial 76 mmHg (35-45)
[2021-10-12] MEDS ORDERED: Magnesium Sulfate 2 GM IV (Premix) IVPB ONE (10:00)
[2021-10-12] MEDS ORDERED: Magnesium Sulfate 1 GM IV 1 GM/100 ML BAG IV ONE (11:00)
[2021-10-12 14:34] LABS: Hematocrit 22 % (42-52); Hemoglobin 7.1 g/dL (14.0-18.0); Mean Corpuscular HGB Conc 32 g/dL (31-36); Mean Corpuscular Hemoglobin 27 pg (27-31); Mean Corpuscular Volume 83 fL (80-94); Mean Platelet Volume 8.7 fL (7.4-10.4); Platelet Count 194 10^3/uL (150-450); Red Blood Count 2.68 10^6 /uL (4.18-5.48); Red Cell Distribution Width 17 % (10-15)
[2021-10-12 15:40] LABS: Stomatocytes 2+
[2021-10-12 15:41] LABS: Anisocytosis 1+; Polychromasia 1+
[2021-10-12 15:42] LABS: ABS Eosinophils 0.2 10^3/ul (0-0.6); ABS Lymphocytes 1.2 10^3/ul (1.0-4.8); ABS Monocytes 0.9 10^3/ul (0-0.8); ABS Neutrophils 9.6 10^3/ul (1.5-7.7); ABS Nucleated RBC 0.2 10^3/ul; Eosinophil % 1.7 %; Lymphocyte % 9.9 %
[2021-10-12] MEDS ORDERED: Iron Sucrose 200 MG in NS 0.9% 100 ml BAG 100 ML IVPB SCH (17:00)
[2021-10-13 04:14] LABS: Hematocrit 22 % (42-52); Hemoglobin 7.1 g/dL (14.0-18.0); Mean Corpuscular HGB Conc 33 g/dL (31-36); Mean Corpuscular Hemoglobin 27 pg (27-31); Mean Corpuscular Volume 82 fL (80-94); Mean Platelet Volume 8.9 fL (7.4-10.4); Platelet Count 213 10^3/uL (150-450); Red Blood Count 2.62 10^6 /uL (4.18-5.48); Red Cell Distribution Width 17 % (10-15); White Blood Count 9.2 10^3/uL (3.5-10.8)
[2021-10-13 04:15] LABS: ABS Eosinophils 0.2 10^3/ul (0-0.6); ABS Lymphocytes 1.3 10^3/ul (1.0-4.8); ABS Monocytes 0.8 10^3/ul (0-0.8); ABS Neutrophils 6.9 10^3/ul (1.5-7.7); ABS Nucleated RBC 0.1 10^3/ul; Eosinophil % 2.1 %; Lymphocyte % 13.7 %
[2021-10-13 04:42] LABS: Calcium 8.8 mg/dL (8.6-10.3); Magnesium 1.8 mg/dL (1.9-2.7); Phosphorus 2.3 mg/dL (2.5-5.0); Potassium 3.5 mmol/L (3.5-5.0); eGFR CKD-EPI 93.3 (>60)
[2021-10-13] MEDS ORDERED: Magnesium Sulfate IV 3 GM in NS 0.9% 100 ml BAG 100 ML IVPB ONE (07:33)
[2021-10-13] MEDS ORDERED: Potassium Phosphate IV 5 MMOLE in NS 0.9% 250 ml 250 ML IVPB ONE (08:00)
[2021-10-13] MEDS ORDERED: Magnesium Sulfate 2 GM IV (Premix) IVPB ONE (08:00)
[2021-10-13] MEDS: Insulin GLARGINE 100 un/ml 10 ml VIAL SUBCUT SCH (08:02)
[2021-10-13] MEDS: CMCS: Sildenafil (PULMONARY)20mg(NF) PO SCH ×2 (08:02→13:31)
[2021-10-13] MEDS: KCL 20 MEQ/100 ML IVPREMIX 20 MEQ/100 ML BAG IV SCH ×2 (08:03→10:36)
[2021-10-13] MEDS ORDERED: Magnesium Sulfate 1 GM IV 1 GM/100 ML BAG IV ONE (09:00)
[2021-10-13] MEDS: Ammonium Lactate 12% 1 APPLIC TUBE TOPICAL SCH (09:24)
[2021-10-13] MEDS ORDERED: Furosemide 40 mg/4 ml IV VIAL IV ONE (10:30)
[2021-10-13] MEDS ORDERED: Haloperidol 5 mg/ml SDV IV/IM 5 MG/ML AMP IV SLOW PU ONE (13:21)
[2021-10-13] MEDS ORDERED: Haloperidol 5 mg/ml SDV IV/IM 5 MG/ML AMP ONE (13:25)
[2021-10-13 15:38] LABS: Hematocrit 21 % (42-52); Hemoglobin 6.9 g/dL (14.0-18.0); Mean Corpuscular HGB Conc 33 g/dL (31-36); Mean Corpuscular Hemoglobin 27 pg (27-31); Mean Corpuscular Volume 83 fL (80-94); Mean Platelet Volume 8.7 fL (7.4-10.4); Platelet Count 231 10^3/uL (150-450); Red Blood Count 2.55 10^6 /uL (4.18-5.48); Red Cell Distribution Width 17 % (10-15); White Blood Count 10.6 10^3/uL (3.5-10.8)
[2021-10-13] MEDS ORDERED: Lorazepam PYXIS KEY PRN (16:46)
[2021-10-13 16:52] LABS: ABS Eosinophils 0.1 10^3/ul (0-0.6); ABS Lymphocytes 1.1 10^3/ul (1.0-4.8); ABS Neutrophils 8.4 10^3/ul (1.5-7.7); ABS Nucleated RBC 0.4 10^3/ul; Eosinophil % 1.3 %; Hypochromasia 1+; Lymphocyte % 10.3 %; Nucleated Red Blood Cells % 3.5; Polychromasia 1+; Stomatocytes 1+
[2021-10-13 16:53] LABS: Anisocytosis 1+
[2021-10-13] MEDS: LORazepam 2 mg VIAL 1 ml IV PUSH PRN ×2 (17:05→17:59)
[2021-10-13 18:14] VITALS: BP 93/56
== END 2021-10-13 20:30 | disposition expired | DRG 70 ==
LOC: ED 21:25 → EDHOLD 10-12 01:28 → SUATTDRO 10-12 01:28 → ICU 10-12 03:26
PROVIDERS: ADMIT Internal Medicine; ATTEND Internal Medicine